=== PATIENT | female | born 1975 | race Caucasian/White ===

== ENCOUNTER → 2016-04-15 | Outpatient (REF) | payer MEDICARE, BC ==
[~2016-04-15] MED LIST: ADVI200C5 PO; AUGM875T27 PO; BENT10CA PO; BENT20TA PO; COCOOIL6 XX; DULO1CAP3 PO; FISH5CAP PO; FOLI1TAB2 PO; GABA600T PO; HYDR200T3 PO; LORT5TAB PO; LUPR11.22 IM; MAGN1TAB25 PO; METH2.5TA PO; MULT1TAB16 PO; NATU400T PO; PANT40TA2 PO; QUET5TAB PO; RIZA10TA2 PO; TIZA4CAP3 PO; TOPA100T8 PO; VITA-121 PO; VITA100T98 PO; ZONI100C2 PO
== END ==
LOC: M LAB REF 10:19
PROVIDERS: ATTEND Obstetrics & Gynecology
DX: R10.2 Pelvic and perineal pain (principal)

== ENCOUNTER → 2016-04-19 | Outpatient (CLI) | payer MEDICARE, BC ==
[~2016-04-19] MED LIST changes: +GASTROGRAFIN SOLUTION 30ML (Q9963) As Ordered ONE; +ISOVUE-370 76% 100ML VIAL (Q9967) As Ordered ONE
--- NOTE | 2016-04-19 18:56 | REP ---
CT abdomen pelvis without IV contrast and with IV contrast. Bowel contrast is used on both phases of the study. Without IV contrast the abdomen was scanned in the pelvis is excluded. With IV contrast of the abdomen and pelvis are included. There are no comparison studies. The patient's history of renal calculi, hysterectomy, umbilical hernia and inguinal hernia. The visualized lung hernadez are unremarkable. The hepatic parenchyma, gallbladder, pancreas and spleen are unremarkable on both phases of the study. The adrenals are unremarkable. There is a nonobstructive renal calculus in the lower pole of the left kidney measuring 11 by 5 mm. There are no right renal calculi. There are no ureteral calculi. There is no hydronephrosis. The abdominal aorta is unremarkable. There is no retroperitoneal adenopathy. There is no umbilical hernia. There is no inguinal hernia. There is no bowel distension. Mesentery is unremarkable. Pelvis: The appendix is unremarkable. The vaginal cuff and adnexa are unremarkable. The bladder is unremarkable. Pelvic bowel loops are unremarkable. There is no diverticulosis or diverticulitis. There are surgical clips in the left inguinal area. No ascites or adenopathy. Impression: Status post hysterectomy. The vaginal stump and adnexa are unremarkable. There are surgical clips in the left inguinal area suggesting a left inguinal herniorrhaphy. There is no umbilical hernia. No bowel distension. No ascites are adenopathy. There is a nonobstructive left renal calculus. No hydronephrosis on the right on the left. No bladder calculi. Signed by Mikal Joseph MD 04/19/2016 06:49 P
== END ==
LOC: M RAD 16:35
PROVIDERS: ATTEND Obstetrics & Gynecology
DX: R10.2 Pelvic and perineal pain (principal); N20.0 Calculus of kidney
CPT/HCPCS: 74178; Q9963; Q9967

== ENCOUNTER → 2016-04-27 | Outpatient (REF) | payer MEDICARE, BC ==
[~2016-04-27] MED LIST changes: -GASTROGRAFIN SOLUTION 30ML (Q9963) As Ordered ONE; -ISOVUE-370 76% 100ML VIAL (Q9967) As Ordered ONE
== END ==
LOC: M SFHCCLAY 09:36
PROVIDERS: ATTEND Family Medicine
DX: E78.00 Pure hypercholesterolemia, unspecified (principal); M54.9 Dorsalgia, unspecified

== ENCOUNTER → 2016-04-27 | Outpatient (REF) | payer MEDICARE, BC ==
[2016-04-27 12:58] LABS: BASO % 0.6 % (0.0-1.0); EOS # 0.1 K/mm3 (0.0-0.50); EOS % 2.4 % (0.0-3.0); LYMPH # 1.2 K/mm3 (1.5-4.5); LYMPH % 26.4 % (24.0-44.0); MEAN CORPUSCULAR HEMOGLOBIN 29.1 pg (27.0-33.0); MEAN CORPUSCULAR HGB CONC 33.7 g/dl (32.0-36.5); MEAN CORPUSCULAR VOLUME 86.4 fl (80.0-96.0); MONO # 0.3 K/mm3 (0.0-0.8); MONO % 6.4 % (0.0-5.0); NEUTROPHILS # 2.9 K/mm3 (1.8-7.7); NEUTROPHILS % 61.5 % (36.0-66.0); WHITE BLOOD COUNT 4.6 K/mm3 (4.0-10.0)
== END ==
LOC: M LABDRAWC 11:54
PROVIDERS: ATTEND Nurse Practitioner Family
DX: M45.9 Ankylosing spondylitis of unspecified sites in spine (principal)

== ENCOUNTER → 2016-05-31 | Outpatient (CLI) | payer MEDICARE, BC ==
[~2016-05-31] MED LIST changes: +BUPIVACAINE HCL 0.25% 30 ML VIAL As Ordered ONE; +ISOVUE-M 300 61% 15ML VIAL (Q9967) As Ordered ONE; +LIDOCAINE 1% SDV INJ 30 ML VIAL As Ordered ONE; +TRIAMCINOLONE ACETONIDE SUSP 40 MG/ML VIAL (J3301) As Ordered ONE; +diazePAM 5 MG TAB As Ordered ONE; +oxyCODONE 5MG TAB As Ordered ONE
--- NOTE | 2016-05-31 14:05 | REP ---
PARTIAL LUMBAR SPINE SERIES: Two views. HISTORY: Bilateral lumbar facet block for pain. 14 seconds of fluoroscopy time is reported. FINDINGS: A sequence of two fluoroscopically obtained intraprocedural spot radiographs of the lumbar spine document various needle positions and contrast injections associated with lumbar facet injection procedure. Signed by Christiano Whitehead MD 05/31/2016 03:18 P
--- NOTE | 2016-06-04 23:16 | ECWPNPC ---
PATIENT NAME: MARY BETH LU : 1975 GENDER: FEMALE VISIT DATE: 05/31/2016 DISCHARGE DATE: 05/31/16 1332 VISIT LOCKED DATE TIME: PHYSICIAN: CAIN COKER PHYSICIAN PAGER NO: [phone] RESOURCE: CAIN COKER REASON FOR APPOINTMENT 1. LUMBAR FACET HISTORY OF PRESENT ILLNESS HISTORY OF PRESENT ILLNESS: PAIN THE PATIENT DESCRIBES THE PAIN... FALL RISK SCREENING: SCREENING :NO FALLS IN THE PAST YEAR CURRENT MEDICATIONS TAKING HYDROXYCHLOROQUINE SULFATE 200 MG TABLET 2 TABLET WITH FOOD OR MILK ORALLY ONCE A DAY, NOTES: 05/31/16829 TAKING METHOTREXATE 2.5 MG TABLET 8 TABLETS ORALLY WEEKLY ON MONDAY, NOTES: 05/22/16 TAKING FOLIC ACID 1 MG TABLET 1 TABLET ORALLY ONCE A DAY, NOTES: TAKING PANTOPRAZOLE SODIUM 40 MG TABLET DELAYED RELEASE 1 TABLET ORALLY ONCE A DAY, NOTES: 05/31/16829 TAKING RIZATRIPTAN BENZOATE 10 MG TABLET 1 TABLET NEEDED ONE TIME ORALLY ONCE A DAY, NOTES: 05/31/16829 TAKING TIZANIDINE HCL 4 MG TABLET 1/2-1 TABLET NEEDED ORALLY BEFORE BEDTIME, NOTES: 05/30/162129 TAKING ZONISAMIDE 100 MG CAPSULE 1 CAPSULE ORALLY BID, NOTES: 05/31/16829 TAKING IMITREX 6 MG/0.5ML SOLUTION 0.5 ML NEEDED SUBCUTANEOUS AT ONSET OF HEADACHE DIRECTED, NOTES: > 1 WEEK TAKING MULTIVITAMIN , NOTES: 05/31/16829 TAKING VITAMIN D , NOTES: 05/31/16829 TAKING DULOXETINE HCL 60 MG CAPSULE DELAYED RELEASE PARTICLES 1 CAPSULE ORALLY ONCE A DAY, NOTES: 05/31/16829 TAKING GABAPENTIN 600 MG TABLET 1 CAPSULE ORALLY THREE TIMES A DAY, NOTES: 05/31/16829 NOT-TAKING METRONIDAZOLE 0.75 % GEL 1 APPLICATION TO AFFECTED AREA EXTERNALLY TWICE A DAY NOT-TAKING VALIUM 10 MG TABLET 1 TABLET ORALLY TAKE ONE TAB ON ARRIVAL TO CLINIC FOR PROCEDURE MDD=1, NOTES: TAKES BEFORE PROCEDURE NOT-TAKING PERCOCET 10-325 MG TABLET 1 TABLET ORALLY TAKE 1 TAB ON ARRIVAL TO CLINIC FOR PROCEDURE MDD=1, NOTES: TAKES BEFORE PROCEDURE NOT-TAKING ROZEREM 8 MG TABLET 1 TABLET AT BEDTIME NEEDED ORALLY QHS, PRN SLEEP NOT-TAKING SOOLANTRA 1 % CREAM 1 APPLICATION TO AFFECTED AREA EXTERNALLY ONCE A DAY NOT-TAKING HUMIRA PEN 40 MG/0.8ML PEN-INJECTOR KIT 0.8 ML SUBCUTANEOUS WEEKLY ON MONDAY, NOTES: WILL RESUME AFTER LABS CONFIRM SAFE MEDICATION LIST REVIEWED AND RECONCILED WITH THE PATIENT PAST MEDICAL HISTORY HEADACHE CHEST LEFT - LEFT VENTRICLE DOES NOT PUMP OUT FAST IT SHOULD AND HAS IRREGULAR HEART BEAT REFLUX KEKE-DANLOS SUSPECTED DUE TO BRUISES EASILY ARTHRITIS FIBROMYALGIA LOW BACK PAIN RA VS PSORIATIC ARTHRITIS BULGING DISC ALLERGIES N.K.D.A. SOCIAL HISTORY GENERAL: TOBACCO USE ARE YOU A:NONSMOKER LEARNING BARRIERS / SPECIAL NEEDS ORIENTED TO PLAN OF CARE: PATIENT, PAIN MANAGEMENT PATIENT, ORIENTED TO PLAN OF CARE: PATIENT, PAIN MANAGEMENT PATIENT. NEW PATIENT PAIN DIARY TODAY'S VISITNOTES FROM 0-10, WHAT LEVEL IS YOUR PAIN TODAY?0 PAIN CLINIC PFS, CLERGY, PUBLIC HEALTH REFERRALS PFS REFERRAL NEEDED?NO CLERGY REFERRAL NEEDED?NO PUBLIC HEALTH REFERRAL NEEDED?NO WAS THE PROVIDER NOTIFIED OF ANY PERTINENT INFO?NO PFS REFERRAL NEEDED?NO CLERGY REFERRAL NEEDED?NO PUBLIC HEALTH REFERRAL NEEDED?NO WAS THE PROVIDER NOTIFIED OF ANY PERTINENT INFO?NO REVIEW OF SYSTEMS CONSTITUTIONAL: ANY CHANGE IN YOUR MEDICAL CONDITION? YES HYSTERECTOMY 03/17/16 . CHILLS NO . FEVER NO . INFECTION: DO YOU HAVE NEW INFECTIONS? NO . DO YOU HAVE HISTORY OF MRSA? NO . MUSCULOSKELETAL: ANY NEW PATTERNS OF PAIN OR NUMBNESS? NO . GASTROENTEROLOGY: ANY NEW CHANGE IN BOWEL CONTROL? NO . GENITOURINARY: ANY NEW CHANGE IN BLADDER CONTROL? NO . IS THERE A CHANCE YOU COULD BE ? NO . HEMATOLOGY/LYMPH: DO YOU TAKE ANY BLOOD THINNERS? (FOR EXAMPLE- COUMADIN, PLAVIX, AGGRENOX, PLATEL, PRADAXA, OR XARELTO) NO . WHEN WAS YOUR LAST DOSE? DATE: TIME: . NEUROLOGY: HAVE YOU FALLEN IN THE PAST 6 MONTHS? NO . ANY NEW EXTREMITY NUMBNESS OR WEAKNESS? NO . CARDIOLOGY: DO YOU HAVE A PACEMAKER OR DEFIBRILLATOR? NO . RESPIRATORY: HAVE YOU BEEN SICK IN THE PAST WEEK? NO . FEVER NO . FLU LIKE SYMPTOMS? NO . COUGH NO . INTEGUMENTARY: DO YOU HAVE ANY RASHES OR OPEN SORES? NO . ALLERGIC/IMMUNO: ARE YOU ALLERGIC TO SHELLFISH OR IV DYE? NO . ANY NEW ALLERGIES? NO . PSYCHIATRIC: DO YOU HAVE THOUGHTS OF HURTING YOURSELF OR SOMEONE ELSE? NO . ARE YOU ABUSED, NEGLECTED, OR IN AN UNSAFE ENVIRONMENT? NO . ENDOCRINOLOGY: ARE YOU DIABETIC? NO . OTHER: DO YOU NEED ANY PRESCRIPTIONS? NO . IF YES, PLEASE LIST: ____ . ANY NEW PROBLEMS WITH YOUR MEDICATIONS? NO . WHEN DID YOU LAST EAT? ____05/30/16 2130 . WHEN DID YOU LAST DRINK? ____05/31/16 0830 . WHAT DID YOU LAST DRINK? ____WATER . NAME OF PERSON DRIVING YOU HOME? ____SHANNON . DO YOU HAVE ANY OTHER QUESTIONS OR CONCERNS NO . REVIEWED BY: PROVIDER: . VITAL SIGNS WT 176.2 LBS, HT 67 IN, BMI 27.59 INDEX, BP 116.76 MM HG, HR 60 /MIN, RR 20 /MIN, TEMP 97.9 F, OXYGEN SAT % 98, SAFE IN ENV? (Y/N) YES, NA INITIALS [id number], REVIEWED BY: NARGIS. ASSESSMENTS SPONDYLOSIS WITHOUT MYELOPATHY OR RADICULOPATHY, LUMBAR REGION - M47.816 (PRIMARY) SPONDYLOSIS WITHOUT MYELOPATHY OR RADICULOPATHY, LUMBOSACRAL REGION - M47.817 PROCEDURES PN LUMBAR FACET BLOCK THERAPEUTIC PRE PROCEDURE DIAGNOSIS LUMBAR SPONDYLOSIS, LUMBOSACRAL SPONDYLOSIS POST PROCEDURE DIAGNOSIS LUMBAR SPONDYLOSIS, LUMBOSACRAL SPONDYLOSIS PROCEDURE RIGHT L4-L5 AND RIGHT L5-S1 LUMBAR FACET THERAPEUTIC BLOCK SURGEON DR. CAIN COKER REFINING ENGINEER NONE ANESTHESIA LOCAL PRE PROCEDURE NOTE THE PATIENT HAS A HISTORY OF CHRONIC LOW BACK PAIN. I EVALUATE THE PATIENT AND REVIEWED THE CHART. I WENT OVER THE RISKS, ALTERNATIVES, AND BENEFITS ASSOCIATED WITH THIS PROCEDURE. THE PATIENT WOULD LIKE TO PROCEED AND GIVE CONSENT TO PERFORMED THE PROCEDURE. THE PATIENT DENIES UNEXPLAINABLE WEIGHT LOSS, FEVER, CHILLS, OR NEW CHANGES IN URINARY OR BOWEL CONTROL DESCRIPTION OF PROCEDURE THE PATIENT WAS BROUGHT TO THE PROCEDURE ROOM AND PLACED IN THE PRONE POSITION. THE LUMBOSACRAL AREA WAS CLEANED WITH CHLORAPREP SOLUTION AND DRAPED ASEPTICALLY. THE PROCEDURE WAS DONE UNDER STERILE CONDITIONS. I CHECKED LATERALITY AND THE LEVEL WHERE THE PROCEDURE WAS GOING TO BE PERFORMED WITH THE PATIENT AND THE SUPPORTING STAFF AT THE MOMENT OF THE TIME OUT IN THE PROCEDURE ROOM. UNDER FLUOROSCOPIC GUIDANCE, THE TARGET POINT WAS SELECTED AT THE RIGHT L4-L5 AND RIGHT L5-S1 FACET JOINT. TARGET POINT WAS SELECTED AFTER LATERAL ROTATION AND TILT OF THE MAGNIFIER OF THE C-ARM. LIDOCAINE 0.5% WAS USED TO NUMB THE SKIN AND THE SUBCUTANEOUS TISSUE BELOW IT. SPINAL NEEDLES, 22-GAUGE, WERE ADVANCED UNDER FLUOROSCOPIC GUIDANCE AND FOLLOWING PATIENT FEEDBACK UNTIL THE TARGETS WERE TOUCHED. THE POSITION OF THE NEEDLES WAS VERIFIED WITH AP AND LATERAL VIEWS. AFTER PROPER POSITION OF THE NEEDLES WAS ACHIEVED, ISOVUE-M DYE 30% 0.1 ML WAS INJECTED SHOWING ADEQUATE SPREAD OF THE DYE. THEN A SOLUTION OF 1.9 ML OF BUPIVACAINE 0.125% OF KENALOG 10 MG WAS INJECTED AT EACH SITE. THERE WAS NO EVIDENCE OF BLOOD, PARESTHESIA OR CEREBROSPINAL FLUID DURING THE PROCEDURE. THE PATIENT WAS SENT TO THE RECOVERY ROOM. THE PATIENT WAS MOVING THE EXTREMITIES AND DOING WELL. THERE WAS NO COMPLICATION DURING THE PROCEDURE. FLUOROSCOPY TIME WAS 14 SECONDS POST PROCEDURE NOTE THE PATIENT WILL BE SEEN IN A FOLLOW UP IN THE NEXT FEW WEEKS. INSTRUCTIONS WERE GIVEN, QUESTIONS WERE ANSWERED, AND THE PATIENT EXPRESSED UNDERSTANDING AND AGREES WITH THE PLAN. I, KAILASH MCKEON, DOCUMENTED THE ABOVE INFORMATION ACTING A SCRIBE FOR DR. COKER. I, DR. COKER, HAVE REVIEWED THE ABOVE DOCUMENT, SCRIBED BY KAILASH MCKEON, AND I VERIFY THAT IT IS ACCURATE DIAGNOSTIC IMAGING [facility] FACET BLOCK (PAIN)[id number] PROCEDURE CODES 55121 INJ PARAVERT F JNT L/S 1 LEV 23535 INJ PARAVERT F JNT L/S 2 LEV 6045F RADXPS IN END [id number] PXD DISPOSITION & COMMUNICATION FOLLOW UP 3 WEEKS ELECTRONICALLY SIGNED BY CAIN COKER MD ON 06/04/2016 AT 09:16 PM EDT DISCLAIMER : THIS IS A VISIT SUMMARY EXTRACTED FROM THE [employer] CHART. IT IS NOT A COPY OF THE [employer] PROGRESS NOTE. MTDD
== END ==
LOC: M PAIN 11:40
PROVIDERS: ATTEND Anesthesiology
DX: G89.29 Other chronic pain (principal); M47.816 Spondylosis without myelopathy or radiculopathy, lumbar region; M47.817 Spondylosis without myelopathy or radiculopathy, lumbosacral region; I49.9 Cardiac arrhythmia, unspecified; K21.9 Gastro-esophageal reflux disease without esophagitis; M79.7 Fibromyalgia; M54.5 Low back pain; Z79.899 Other long term (current) drug therapy
CPT/HCPCS: 64493; 64494; J3301; Q9967

== ENCOUNTER → 2016-06-13 | Outpatient (REF) | payer MEDICARE, BC ==
[~2016-06-13] MED LIST changes: -BUPIVACAINE HCL 0.25% 30 ML VIAL As Ordered ONE; -ISOVUE-M 300 61% 15ML VIAL (Q9967) As Ordered ONE; -LIDOCAINE 1% SDV INJ 30 ML VIAL As Ordered ONE; -TRIAMCINOLONE ACETONIDE SUSP 40 MG/ML VIAL (J3301) As Ordered ONE; -diazePAM 5 MG TAB As Ordered ONE; -oxyCODONE 5MG TAB As Ordered ONE
[2016-06-13 17:11] LABS: BASO % 0.4 % (0.0-1.0); EOS # 0.1 K/mm3 (0.0-0.50); EOS % 2.2 % (0.0-3.0); LYMPH # 1.2 K/mm3 (1.5-4.5); LYMPH % 26.1 % (24.0-44.0); MEAN CORPUSCULAR HEMOGLOBIN 30.1 pg (27.0-33.0); MEAN CORPUSCULAR HGB CONC 34.6 g/dl (32.0-36.5); MEAN CORPUSCULAR VOLUME 86.9 fl (80.0-96.0); MONO # 0.4 K/mm3 (0.0-0.8); MONO % 8.5 % (0.0-5.0); NEUTROPHILS # 2.9 K/mm3 (1.8-7.7); NEUTROPHILS % 60.7 % (36.0-66.0); RED CELL DISTRIBUTION WIDTH 13.1 % (11.5-14.5); WHITE BLOOD COUNT 4.7 K/mm3 (4.0-10.0)
[2016-06-13 17:52] LABS: ALBUMIN 4.1 GM/DL (3.2-5.2); ALBUMIN/GLOBULIN RATIO 1.64 (1.00-1.93); ALKALINE PHOSPHATASE 53 U/L (45-117); ALT/SGPT 29 U/L (12-78); ANION GAP 8 MEQ/L (8-16); AST/SGOT 17 U/L (15-37); BILIRUBIN,TOTAL 0.4 MG/DL (0.2-1.0); BLOOD UREA NITROGEN 9 MG/DL (7-18); CALCIUM LEVEL 9.7 MG/DL (8.5-10.1); CARBON DIOXIDE LEVEL 27 MEQ/L (21-32); CHLORIDE LEVEL 106 MEQ/L (98-107); CREATININE FOR GFR 0.98 MG/DL (0.55-1.02); GLOMERULAR FILTRATION RATE > 60.0 (>58); GLUCOSE, FASTING 83 MG/DL (70-105); POTASSIUM SERUM 3.9 MEQ/L (3.5-5.1); SODIUM LEVEL 141 MEQ/L (136-145); TOTAL PROTEIN 6.6 GM/DL (6.4-8.2)
== END ==
LOC: M LABDRAWC 16:25
PROVIDERS: ATTEND Nurse Practitioner Family
DX: M45.9 Ankylosing spondylitis of unspecified sites in spine (principal)

== ENCOUNTER → 2016-07-13 | Outpatient (CLI) | payer MEDICARE, BC ==
[~2016-07-13] MED LIST changes: +BUPIVACAINE HCL 0.25% 30 ML VIAL As Ordered ONE; +ISOVUE-M 300 61% 15ML VIAL (Q9967) As Ordered ONE; +LIDOCAINE 1% SDV INJ 30 ML VIAL As Ordered ONE; +MIDAZOLAM INJ 2 MG/2 ML VIAL (J2250) As Ordered ONE; +TRIAMCINOLONE ACETONIDE SUSP 40 MG/ML VIAL (J3301) As Ordered ONE; +fentaNYL 100 MCG/2 ML INJECTION (J3010) As Ordered ONE
--- NOTE | 2016-07-13 17:36 | REP ---
FACET BLOCK: The images were reviewed with Dr. Barrett. The patient has a history of neck pain. The portable C-Arm was provided in the OR for Dr. Merrill for fluoroscopic guidance. Two intraoperative fluoro spot films were obtained for needle placement verification for right cervical facet injection. The films are on the PACs system and are available for review. 19 seconds of fluoroscopy time was utilized for this procedure. Reviewed by ROSLYN Whelan 07/14/2016 04:56 PEdited and Signed by Mikal Barrett MD 07/14/2016 05:01 P
--- NOTE | 2016-07-17 23:58 | ECWPNPC ---
PATIENT NAME: MARY BETH LU : 1975 GENDER: FEMALE VISIT DATE: 07/13/2016 DISCHARGE DATE: 07/13/16 1111 VISIT LOCKED DATE TIME: PHYSICIAN: CAIN COKER PHYSICIAN PAGER NO: [phone] RESOURCE: CAIN COKER REASON FOR APPOINTMENT 1. CERVICAL FACET HISTORY OF PRESENT ILLNESS HISTORY OF PRESENT ILLNESS: PAIN THE PATIENT DESCRIBES THE PAIN... FALL RISK SCREENING: SCREENING :NO FALLS IN THE PAST YEAR CURRENT MEDICATIONS TAKING HYDROXYCHLOROQUINE SULFATE 200 MG TABLET 2 TABLET WITH FOOD OR MILK ORALLY ONCE A DAY, NOTES: 07-12-16799 TAKING METHOTREXATE 2.5 MG TABLET 8 TABLETS ORALLY WEEKLY ON MONDAY, NOTES: 06-29-16799 TAKING FOLIC ACID 1 MG TABLET 1 TABLET ORALLY ONCE A DAY, NOTES: 07-13-16699 TAKING PANTOPRAZOLE SODIUM 40 MG TABLET DELAYED RELEASE 1 TABLET ORALLY ONCE A DAY, NOTES: 07-13-16699 TAKING RIZATRIPTAN BENZOATE 10 MG TABLET 1 TABLET NEEDED ONE TIME ORALLY ONCE A DAY, NOTES: 07-13-16699 TAKING TIZANIDINE HCL 4 MG TABLET 1/2-1 TABLET NEEDED ORALLY BEFORE BEDTIME, NOTES: 07-12-162099 TAKING ZONISAMIDE 100 MG CAPSULE 1 CAPSULE ORALLY BID, NOTES: 07-13-16699 TAKING IMITREX 6 MG/0.5ML SOLUTION 0.5 ML NEEDED SUBCUTANEOUS AT ONSET OF HEADACHE DIRECTED, NOTES: NONE TAKING MULTIVITAMIN 1 TAB DAILY, NOTES: 07-13-16699 TAKING VITAMIN D 1000 UNIT TABLET 1 TABLET ORALLY ONCE A DAY, NOTES: 07-13-16699 TAKING DULOXETINE HCL 60 MG CAPSULE DELAYED RELEASE PARTICLES 1 CAPSULE ORALLY ONCE A DAY, NOTES: 07-13-16699 TAKING GABAPENTIN 600 MG TABLET 1 CAPSULE ORALLY THREE TIMES A DAY, NOTES: 07-13-16699 TAKING HUMIRA 40 MG/0.8ML PREFILLED SYRINGE KIT 0.8 ML SUBCUTANEOUS EVERY 2 WKS, NOTES: 06-22-162099 TAKING AUGMENTIN 875-125 MG TABLET 1 TABLET ORALLY EVERY 12 HRS, NOTES: 07-13-16699 TAKING DIFLUCAN 150 MG TABLET 1 TABLET ORALLY DIRECTED, NOTES: NONE YET DISCONTINUED VALIUM 10 MG TABLET 1 TABLET ORALLY TAKE ONE TAB ON ARRIVAL TO CLINIC FOR PROCEDURE MDD=1 DISCONTINUED PERCOCET 10-325 MG TABLET 1 TABLET ORALLY TAKE 1 TAB ON ARRIVAL TO CLINIC FOR PROCEDURE MDD=1 DISCONTINUED ROZEREM 8 MG TABLET 1 TABLET AT BEDTIME NEEDED ORALLY QHS, PRN SLEEP, NOTES: NEVER GOT MEDICATION LIST REVIEWED AND RECONCILED WITH THE PATIENT PAST MEDICAL HISTORY HEADACHE CHEST LEFT - LEFT VENTRICLE DOES NOT PUMP OUT FAST IT SHOULD AND HAS IRREGULAR HEART BEAT REFLUX KEKE-DANLOS SUSPECTED DUE TO BRUISES EASILY ARTHRITIS FIBROMYALGIA LOW BACK PAIN RA VS PSORIATIC ARTHRITIS BULGING DISC ALLERGIES N.K.D.A. SURGICAL HISTORY RIGHT AND LEFT CYSTS REMOVED FROM WRISTS LEFT OVARIAN CYSTECTOMY 1990 RIGHT INGUINAL HERNIA LEFT KNEE ACL REPAIR 1992 LEFT KNEE MENSUS REPAIR 2003 TONSILLECTOMY ABDOMINAL HERNIA REPAIR MIDLINE HYSTERECTOMY 03/17/16 SOCIAL HISTORY GENERAL: PAIN CLINIC PFS, CLERGY, PUBLIC HEALTH REFERRALS CLERGY REFERRAL NEEDED?NO WAS THE PROVIDER NOTIFIED OF ANY PERTINENT INFO?NO PFS REFERRAL NEEDED?NO PUBLIC HEALTH REFERRAL NEEDED?NO PATIENT: ____. HOSPITALIZATION/MAJOR DIAGNOSTIC PROCEDURE SURGERIES REVIEW OF SYSTEMS CONSTITUTIONAL: ANY CHANGE IN YOUR MEDICAL CONDITION? NO . CHILLS NO . FEVER NO . INFECTION: DO YOU HAVE NEW INFECTIONS? YES, SINUS INFECTION LAST WEEK . DO YOU HAVE HISTORY OF MRSA? NO . MUSCULOSKELETAL: ANY NEW PATTERNS OF PAIN OR NUMBNESS? NO . GASTROENTEROLOGY: ANY NEW CHANGE IN BOWEL CONTROL? NO . GENITOURINARY: ANY NEW CHANGE IN BLADDER CONTROL? NO . IS THERE A CHANCE YOU COULD BE ? NO . HEMATOLOGY/LYMPH: DO YOU TAKE ANY BLOOD THINNERS? (FOR EXAMPLE- COUMADIN, PLAVIX, AGGRENOX, PLATEL, PRADAXA, OR XARELTO) NO . WHEN WAS YOUR LAST DOSE? DATE: TIME: . NEUROLOGY: HAVE YOU FALLEN IN THE PAST 6 MONTHS? NO . ANY NEW EXTREMITY NUMBNESS OR WEAKNESS? NO . CARDIOLOGY: DO YOU HAVE A PACEMAKER OR DEFIBRILLATOR? NO . RESPIRATORY: HAVE YOU BEEN SICK IN THE PAST WEEK? YES, 6 DAYS, BEEN ON AUGMENTIN FEELS MUCH BETTER . FEVER NO . FLU LIKE SYMPTOMS? NO . COUGH NO . INTEGUMENTARY: DO YOU HAVE ANY RASHES OR OPEN SORES? NO . ALLERGIC/IMMUNO: ARE YOU ALLERGIC TO SHELLFISH OR IV DYE? NO . ANY NEW ALLERGIES? NO . PSYCHIATRIC: DO YOU HAVE THOUGHTS OF HURTING YOURSELF OR SOMEONE ELSE? NO . ARE YOU ABUSED, NEGLECTED, OR IN AN UNSAFE ENVIRONMENT? NO . ENDOCRINOLOGY: ARE YOU DIABETIC? NO . OTHER: DO YOU NEED ANY PRESCRIPTIONS? NO . IF YES, PLEASE LIST: ____ . ANY NEW PROBLEMS WITH YOUR MEDICATIONS? NO . WHEN DID YOU LAST EAT? 07-12-16 8:30 PM . WHEN DID YOU LAST DRINK? 07-13-16 0700 . WHAT DID YOU LAST DRINK? WATER . NAME OF PERSON DRIVING YOU HOME? MICHAEL TABITHA . DO YOU HAVE ANY OTHER QUESTIONS OR CONCERNS NO . REVIEWED BY: PROVIDER: . VITAL SIGNS WT 173 LBS, HT 67 IN, BMI 27.09 INDEX, BP 117/65 MM HG, HR 77 /MIN, RR 16 /MIN, TEMP 98.1 F, OXYGEN SAT % 97%, NA INITIALS SC 08:56, REVIEWED BY: NL. ASSESSMENTS SPONDYLOSIS WITHOUT MYELOPATHY OR RADICULOPATHY, CERVICAL REGION - M47.812 (PRIMARY) PROCEDURES PN CERVICAL FACET BLOCK LOW BILATERAL CERVICAL PRE PROCEDURE DIAGNOSIS CERVICAL SPONDYLOSIS POST PROCEDURE DIAGNOSIS CERVICAL SPONDYLOSIS PROCEDURE RIGHT C3-C4 AND RIGHT C3-C4 CERVICAL FACET BLOCK THERAPEUTIC SURGEON DR. CAIN COKER TRUCK BRACER NONE ANESTHESIA LOCAL WITH IV SEDATION PRE PROCEDURE NOTE THE PATIENT HAS HISTORY OF CHRONIC CERVICAL PAIN. I EVALUATE THE PATIENT AND REVIEWED THE CHART. I WENT OVER THE RISKS, ALTERNATIVES, AND BENEFITS ASSOCIATED WITH THIS PROCEDURE. THE PATIENT WOULD LIKE TO PROCEED AND GIVE CONSENT TO PERFORMED THE PROCEDURE. PATIENT WOULD LIKE IV SEDATION DUE TO DISCOMFORT, PAIN, AND ANXIETY ASSOCIATED WITH THE PROCEDURE. THE PATIENT DENIES UNEXPLAINABLE WEIGHT LOSS, FEVER, CHILLS, OR NEW CHANGES IN URINARY OR BOWEL CONTROL DESCRIPTION OF PROCEDURE THE PATIENT WAS BROUGHT TO THE PROCEDURE ROOM AND PLACED IN THE PRONE POSITION. THE CERVICOTHORACIC AREA WAS CLEANED WITH CHLORAPREP SOLUTION AND DRAPED ASEPTICALLY. THE PROCEDURE WAS DONE UNDER STERILE CONDITIONS. I CHECKED LATERALITY AND THE LEVEL WHERE THE PROCEDURE WAS GOING TO BE PERFORMED WITH THE PATIENT AND THE SUPPORTING STAFF AT THE MOMENT OF THE TIME OUT IN THE PROCEDURE ROOM. UNDER FLUOROSCOPIC GUIDANCE, TARGET POINT WAS SELECTED AT THE RIGHT C2-C3 AND RIGHT C3-C4 CERVICAL FACET JOINT. TARGET POINTS WERE SELECTED AFTER LATERAL ROTATION AND TILT OF THE MAGNIFIER OF THE C-ARM. LIDOCAINE 0.5% WAS USED TO NUMB THE SKIN AND THE SUBCUTANEOUS TISSUE BELOW IT. SPINAL NEEDLES, 22-GAUGE, WERE ADVANCED UNDER FLUOROSCOPIC GUIDANCE AND FOLLOWING PATIENT FEEDBACK UNTIL THE TARGETS WERE TOUCHED. THE POSITION OF THE NEEDLES WAS VERIFIED WITH AP AND LATERAL VIEWS. AFTER PROPER POSITION OF THE NEEDLES WAS ACHIEVED, ISOVUE M DYE 30, 0.1 ML WAS INJECTED SHOWING SPREAD OF THE DYE. THEN A SOLUTION OF 0.9 ML OF BUPIVACAINE 0.125% AND KENALOG 10 MG WAS INJECTED AT EACH SITE. PATIENT RECEIVED VERSED 2MG AND FENTANYL 100 MCG IV DIVIDED DOSES THERE WAS NO EVIDENCE OF BLOOD, PARESTHESIA OR CEREBROSPINAL FLUID DURING THE PROCEDURE. THE PATIENT WAS SENT TO THE RECOVERY ROOM. THE PATIENT WAS MOVING THE EXTREMITIES AND DOING WELL. THERE WAS NO COMPLICATION DURING THE PROCEDURE. FLUOROSCOPY TIME WAS 19 SECONDS. FACE TO FACE TIME WAS 15 MINUTES POST PROCEDURE NOTE THE PATIENT WILL BE SEEN IN A FOLLOW UP IN THE NEXT FEW WEEKS. INSTRUCTIONS WERE GIVEN, QUESTIONS WERE ANSWERED, AND THE PATIENT EXPRESSED UNDERSTANDING AND AGREES WITH THE PLAN. INSTRUCTIONS WERE GIVEN, QUESTIONS WERE ANSWERED, PATIENT REPORTS UNDERSTANDING AND AGREES WITH THE PLAN. I, KAILASH MCKEON, DOCUMENTED THE ABOVE INFORMATION ACTING A SCRIBE FOR DR. COKER. I HAVE REVIEWED THE ABOVE DOCUMENT, WRITTEN BY KAILASH MCKEON SCRIBE AND I VERIFY THAT IT IS ACCURATE DIAGNOSTIC IMAGING [facility] FACET BLOCK (PAIN)[id number] PROCEDURE CODES 96968 INJ PARAVERT F JNT C/T 1 LEV 43499 INJ PARAVERT F JNT C/T 2 LEV 47607 MOD SED SAME PHYS/QHP 5/>YRS 6045F RADXPS IN END [id number] PXD DISPOSITION & COMMUNICATION FOLLOW UP 3 WEEKS ELECTRONICALLY SIGNED BY CAIN COKER MD ON 07/17/2016 AT 12:24 PM EDT DISCLAIMER : THIS IS A VISIT SUMMARY EXTRACTED FROM THE [employer] CHART. IT IS NOT A COPY OF THE [employer] PROGRESS NOTE. MTDD
== END ==
LOC: M PAIN 08:40
PROVIDERS: ATTEND Anesthesiology
DX: G89.29 Other chronic pain (principal); M47.812 Spondylosis without myelopathy or radiculopathy, cervical region; K21.9 Gastro-esophageal reflux disease without esophagitis; M19.90 Unspecified osteoarthritis, unspecified site; M79.7 Fibromyalgia; I51.9 Heart disease, unspecified; Z79.899 Other long term (current) drug therapy
CPT/HCPCS: 64490; 64491; 99152; J2250; J3010; J3301; Q9967

== ENCOUNTER → 2016-07-15 | Outpatient (REF) | payer MEDICARE, BC ==
[~2016-07-15] MED LIST changes: -BUPIVACAINE HCL 0.25% 30 ML VIAL As Ordered ONE; -ISOVUE-M 300 61% 15ML VIAL (Q9967) As Ordered ONE; -LIDOCAINE 1% SDV INJ 30 ML VIAL As Ordered ONE; -MIDAZOLAM INJ 2 MG/2 ML VIAL (J2250) As Ordered ONE; -TRIAMCINOLONE ACETONIDE SUSP 40 MG/ML VIAL (J3301) As Ordered ONE; -fentaNYL 100 MCG/2 ML INJECTION (J3010) As Ordered ONE
[2016-07-15 12:15] LABS: BASO % 0.5 % (0.0-1.0); EOS % 0.5 % (0.0-3.0); LYMPH # 1.6 K/mm3 (1.5-4.5); LYMPH % 25.4 % (24.0-44.0); MEAN CORPUSCULAR HEMOGLOBIN 30.4 pg (27.0-33.0); MEAN CORPUSCULAR VOLUME 89.5 fl (80.0-96.0); MONO # 0.4 K/mm3 (0.0-0.8); MONO % 6.4 % (0.0-5.0); NEUTROPHILS # 4.2 K/mm3 (1.8-7.7); NEUTROPHILS % 65.4 % (36.0-66.0); RED CELL DISTRIBUTION WIDTH 13.3 % (11.5-14.5); WHITE BLOOD COUNT 6.4 K/mm3 (4.0-10.0)
[2016-07-15 12:29] LABS: ALBUMIN/GLOBULIN RATIO 1.43 (1.00-1.93); ALKALINE PHOSPHATASE 53 U/L (45-117); ALT/SGPT 39 U/L (12-78); ANION GAP 8 MEQ/L (8-16); AST/SGOT 26 U/L (15-37); BILIRUBIN,TOTAL 0.5 MG/DL (0.2-1.0); BLOOD UREA NITROGEN 16 MG/DL (7-18); CALCIUM LEVEL 8.8 MG/DL (8.5-10.1); CARBON DIOXIDE LEVEL 25 MEQ/L (21-32); CHLORIDE LEVEL 108 MEQ/L (98-107); CREATININE FOR GFR 1.03 MG/DL (0.55-1.02); GLOMERULAR FILTRATION RATE > 60.0 (>58); GLUCOSE, FASTING 85 MG/DL (70-105); POTASSIUM SERUM 3.8 MEQ/L (3.5-5.1); SODIUM LEVEL 141 MEQ/L (136-145); TOTAL PROTEIN 6.8 GM/DL (6.4-8.2)
== END ==
LOC: M LABDRAWC 11:28
PROVIDERS: ATTEND Nurse Practitioner Family
DX: M45.9 Ankylosing spondylitis of unspecified sites in spine (principal); Z79.899 Other long term (current) drug therapy; N20.0 Calculus of kidney; N39.0 Urinary tract infection, site not specified

== ENCOUNTER → 2016-07-15 | Outpatient (REF) | payer MEDICARE, BC | LOC: M LABDRAWC 11:26 → M SFHCCLAY 11:26 | PROVIDERS: ATTEND Urology | DX: N20.0 Calculus of kidney (principal); N39.0 Urinary tract infection, site not specified ==

== ENCOUNTER → 2016-08-02 | Outpatient (CLI) | payer MEDICARE, BC ==
[~2016-08-02] MED LIST changes: +BUPIVACAINE HCL 0.25% 30 ML VIAL As Ordered ONE; +ISOVUE-M 300 61% 15ML VIAL (Q9967) As Ordered ONE; +LIDOCAINE 1% SDV INJ 30 ML VIAL As Ordered ONE
--- NOTE | 2016-08-02 12:14 | REP ---
Partial lumbar spine series: Four views. History: Facet block for pain. 26 seconds of fluoroscopy time is reported. Findings: A sequence of four fluoroscopically obtained intraprocedural spot radiographs of the lumbar spine document various needle positions and contrast injections associated with lumbar spine facet injection procedure. Signed by Christiano Whitehead MD 08/02/2016 12:27 P
--- NOTE | 2016-08-12 00:29 | ECWPNPC ---
PATIENT NAME: MARY BETH LU : 1975 GENDER: FEMALE VISIT DATE: 08/02/2016 DISCHARGE DATE: 08/02/16 1033 VISIT LOCKED DATE TIME: PHYSICIAN: CAIN COKER PHYSICIAN PAGER NO: [phone] RESOURCE: CAIN COKER REASON FOR APPOINTMENT 1. LUMBAR FACET HISTORY OF PRESENT ILLNESS HISTORY OF PRESENT ILLNESS: PAIN THE PATIENT DESCRIBES THE PAIN... FALL RISK SCREENING: SCREENING :NO FALLS IN THE PAST YEAR CURRENT MEDICATIONS TAKING HYDROXYCHLOROQUINE SULFATE 200 MG TABLET 2 TABLET WITH FOOD OR MILK ORALLY ONCE A DAY, NOTES: 0800 YESTERDYA TAKING METHOTREXATE 2.5 MG TABLET 8 TABLETS ORALLY WEEKLY ON MONDAY, NOTES: LAST Mon EVENING TAKING FOLIC ACID 1 MG TABLET 1 TABLET ORALLY ONCE A DAY, NOTES: 0700 08/02/16 TAKING PANTOPRAZOLE SODIUM 40 MG TABLET DELAYED RELEASE 1 TABLET ORALLY ONCE A DAY, NOTES: 8PM YESTERDAY TAKING RIZATRIPTAN BENZOATE 10 MG TABLET 1 TABLET NEEDED ONE TIME ORALLY ONCE A DAY, NOTES: AWHILE TAKING TIZANIDINE HCL 4 MG TABLET 1/2-1 TABLET NEEDED ORALLY BEFORE BEDTIME, NOTES: 8PM YESTERDAY TAKING ZONISAMIDE 100 MG CAPSULE 1 CAPSULE ORALLY BID, NOTES: 0700 TODAY TAKING IMITREX 6 MG/0.5ML SOLUTION 0.5 ML NEEDED SUBCUTANEOUS AT ONSET OF HEADACHE DIRECTED, NOTES: NONE TAKING MULTIVITAMIN 1 TAB DAILY, NOTES: 0700 TODAY TAKING VITAMIN D 1000 UNIT TABLET 1 TABLET ORALLY ONCE A DAY, NOTES: 0700 TODAY TAKING DULOXETINE HCL 60 MG CAPSULE DELAYED RELEASE PARTICLES 1 CAPSULE ORALLY ONCE A DAY, NOTES: 0700 TODAY TAKING GABAPENTIN 600 MG TABLET 1 CAPSULE ORALLY THREE TIMES A DAY, NOTES: 0700 TODAY TAKING HUMIRA 40 MG/0.8ML PREFILLED SYRINGE KIT 0.8 ML SUBCUTANEOUS EVERY 2 WKS, NOTES: 3 WEEKS NOT-TAKING AUGMENTIN 875-125 MG TABLET 1 TABLET ORALLY EVERY 12 HRS NOT-TAKING DIFLUCAN 150 MG TABLET 1 TABLET ORALLY DIRECTED, NOTES: NONE YET MEDICATION LIST REVIEWED AND RECONCILED WITH THE PATIENT PAST MEDICAL HISTORY HEADACHE CHEST LEFT - LEFT VENTRICLE DOES NOT PUMP OUT FAST IT SHOULD AND HAS IRREGULAR HEART BEAT REFLUX KEKE-DANLOS SUSPECTED DUE TO BRUISES EASILY ARTHRITIS FIBROMYALGIA LOW BACK PAIN RA VS PSORIATIC ARTHRITIS BULGING DISC ALLERGIES N.K.D.A. REVIEW OF SYSTEMS CONSTITUTIONAL: ANY CHANGE IN YOUR MEDICAL CONDITION? NO . CHILLS NO . FEVER NO . INFECTION: DO YOU HAVE NEW INFECTIONS? NO . DO YOU HAVE HISTORY OF MRSA? NO . MUSCULOSKELETAL: ANY NEW PATTERNS OF PAIN OR NUMBNESS? YES, TINGLING ON TOP OF FEET . GASTROENTEROLOGY: ANY NEW CHANGE IN BOWEL CONTROL? NO . GENITOURINARY: ANY NEW CHANGE IN BLADDER CONTROL? NO . IS THERE A CHANCE YOU COULD BE ? NO . HEMATOLOGY/LYMPH: DO YOU TAKE ANY BLOOD THINNERS? (FOR EXAMPLE- COUMADIN, PLAVIX, AGGRENOX, PLATEL, PRADAXA, OR XARELTO) NO . WHEN WAS YOUR LAST DOSE? DATE: TIME: . NEUROLOGY: HAVE YOU FALLEN IN THE PAST 6 MONTHS? NO . ANY NEW EXTREMITY NUMBNESS OR WEAKNESS? NO . CARDIOLOGY: DO YOU HAVE A PACEMAKER OR DEFIBRILLATOR? NO . RESPIRATORY: HAVE YOU BEEN SICK IN THE PAST WEEK? NO . FEVER NO . FLU LIKE SYMPTOMS? NO . COUGH NO . INTEGUMENTARY: DO YOU HAVE ANY RASHES OR OPEN SORES? NO . ALLERGIC/IMMUNO: ARE YOU ALLERGIC TO SHELLFISH OR IV DYE? NO . ANY NEW ALLERGIES? NO . PSYCHIATRIC: DO YOU HAVE THOUGHTS OF HURTING YOURSELF OR SOMEONE ELSE? NO . ARE YOU ABUSED, NEGLECTED, OR IN AN UNSAFE ENVIRONMENT? NO . ENDOCRINOLOGY: ARE YOU DIABETIC? NO . OTHER: DO YOU NEED ANY PRESCRIPTIONS? NO . IF YES, PLEASE LIST: ____ . ANY NEW PROBLEMS WITH YOUR MEDICATIONS? NO . WHEN DID YOU LAST EAT? 7PM . WHEN DID YOU LAST DRINK? 7AM . WHAT DID YOU LAST DRINK? WATER . NAME OF PERSON DRIVING YOU HOME? MICHAEL . DO YOU HAVE ANY OTHER QUESTIONS OR CONCERNS NO . REVIEWED BY: PROVIDER: . VITAL SIGNS WT 175.0 LBS, HT 67 IN, BMI 27.41 INDEX, BP 125/80 MM HG, HR 76 /MIN, RR 16 /MIN, TEMP 97.1 F, OXYGEN SAT % 98%, NA INITIALS TL 0911, REVIEWED BY: NL. ASSESSMENTS SPONDYLOSIS WITHOUT MYELOPATHY OR RADICULOPATHY, LUMBAR REGION - M47.816 (PRIMARY) SPONDYLOSIS WITHOUT MYELOPATHY OR RADICULOPATHY, LUMBOSACRAL REGION - M47.817 PROCEDURES PN LUMBAR FACET BLOCK DIAGNOSTIC PRE PROCEDURE DIAGNOSIS LUMBAR SPONDYLOSIS, LUMBOSACRAL SPONDYLOSIS POST PROCEDURE DIAGNOSIS LUMBAR SPONDYLOSIS, LUMBOSACRAL SPONDYLOSIS PROCEDURE RIGHT L4-L5 AND L5-S1 FACET BLOCK DIAGNOSTIC NUMBER #[address] 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 I EVALUATED THE PATIENT AND REVIEWED THE CHART. I WENT OVER THE RISKS, ALTERNATIVES, AND BENEFITS ASSOCIATED WITH THIS PROCEDURE. THE PATIENT WOULD LIKE TO PROCEED AND GAVE CONSENT TO PERFORM THE PROCEDURE. AGREED WITH THE PATIENT WE ARE DOING THIS PROCEDURE TO DETERMINE IF THE PATIENT IS A CANDIDATE FOR A RADIOFREQUENCY ABLATION OF THE FACETS JOINTS. THE PATIENT DENIES UNEXPLAINABLE WEIGHT LOSS, FEVER, CHILLS, OR NEW CHANGES IN URINARY OR BOWEL CONTROL DESCRIPTION OF PROCEDURE THE PATIENT WAS BROUGHT TO THE PROCEDURE ROOM AND PLACED IN THE PRONE POSITION. THE LUMBOSACRAL AREA WAS CLEANED WITH CHLORAPREP SOLUTION AND DRAPED ASEPTICALLY. THE PROCEDURE WAS DONE UNDER STERILE CONDITIONS. I CHECKED LATERALITY AND THE LEVEL WHERE THE PROCEDURE WAS GOING TO BE PERFORMED WITH THE PATIENT AND THE SUPPORTING STAFF AT THE MOMENT OF THE TIME OUT IN THE PROCEDURE ROOM. UNDER FLUOROSCOPIC GUIDANCE, TARGETS WERE SELECTED AT THE INTERSECTION OF THE RIGHT TRANSVERSE PROCESS OF L4, L5 AND ALA OF S1 WITH ITS RESPECTIVE SUPERIOR ARTICULAR PROCESS. LIDOCAINE WAS USED TO NUMB THE SKIN AND THE SUBCUTANEOUS TISSUE BELOW IT. SPINAL NEEDLE, 22-GAUGE WAS ADVANCED UNDER FLUOROSCOPIC GUIDANCE AND FOLLOWING PATIENT FEEDBACK UNTIL THE TARGETS WERE REACHED. POSITION OF THE NEEDLES WAS VERIFIED WITH AP AND LATERAL VIEWS. AFTER PROPER POSITION OF THE NEEDLES WAS ACHIEVED, ISOVUE-M DYE 30% 0.1 ML WAS INJECTED AT EACH SITE SHOWING ADEQUATE SPREAD OF THE DYE. THEN A SOLUTION OF 0.4 ML OF BUPIVACAINE 0.25% WAS INJECTED AT EACH SITE. THERE WAS NO EVIDENCE OF BLOOD, PARESTHESIA OR CEREBROSPINAL FLUID DURING THE PROCEDURE. THE PATIENT WAS SENT TO THE RECOVERY ROOM. THE PATIENT WAS MOVING THE EXTREMITIES AND DOING WELL. THERE WAS NO COMPLICATION DURING THE PROCEDURE. FLUOROSCOPY TIME WAS 26 SECONDS POST PROCEDURE NOTE THE PATIENT WILL DOCUMENT HIS PAIN LEVEL AND RESPONSE TO THIS PROCEDURE EVERY 30 MINUTES. THE PATIENT WILL BE SEEN IN A FOLLOW UP IN THE NEXT FEW WEEKS. FURTHER DETERMINATION FOR HIS CASE WILL BE DONE AT THE NEXT VISIT. INSTRUCTIONS WERE GIVEN, QUESTIONS WERE ANSWERED, AND THE PATIENT EXPRESSED UNDERSTANDING AND AGREED WITH THE PLAN. I, DALY HOLLIS, DOCUMENTED THE ABOVE INFORMATION ACTING A SCRIBE FOR DR. COKER. I HAVE REVIEWED THE ABOVE DOCUMENT, WRITTEN BY DALY CAMPBELLIBIsabel AND I VERIFY THAT IT IS ACCURATE DIAGNOSTIC IMAGING [facility] FACET BLOCK (PAIN)[id number] PROCEDURE CODES 11496 INJ PARAVERT F JNT L/S 1 LEV 28349 INJ PARAVERT F JNT L/S 2 LEV 6045F RADXPS IN END [id number] PXD DISPOSITION & COMMUNICATION FOLLOW UP 3 WEEKS ELECTRONICALLY SIGNED BY CAIN COKER MD ON 08/11/2016 AT 07:56 PM EDT DISCLAIMER : THIS IS A VISIT SUMMARY EXTRACTED FROM THE [facility] CHART. IT IS NOT A COPY OF THE [facility] PROGRESS NOTE. MTDD
== END ==
LOC: M PAIN 09:00
PROVIDERS: ATTEND Anesthesiology
DX: G89.29 Other chronic pain (principal); M47.816 Spondylosis without myelopathy or radiculopathy, lumbar region; M47.817 Spondylosis without myelopathy or radiculopathy, lumbosacral region; K21.9 Gastro-esophageal reflux disease without esophagitis; L40.50 Arthropathic psoriasis, unspecified; M79.7 Fibromyalgia; Z79.899 Other long term (current) drug therapy
CPT/HCPCS: 64493; 64494; Q9967

== ENCOUNTER → 2016-09-28 | Outpatient (REF) | payer MEDICARE, BC ==
[~2016-09-28] MED LIST changes: -AUGM875T27 PO; +AUGM875T28 PO; -BUPIVACAINE HCL 0.25% 30 ML VIAL As Ordered ONE; -FOLI1TAB2 PO; +FOLI1TAB4 PO; -ISOVUE-M 300 61% 15ML VIAL (Q9967) As Ordered ONE; -LIDOCAINE 1% SDV INJ 30 ML VIAL As Ordered ONE; +TOPA100T12 PO; -TOPA100T8 PO
== END ==
LOC: M SFHCCLAY 15:14
PROVIDERS: ATTEND Family Medicine
DX: R23.8 Other skin changes (principal); Z53.8 Procedure and treatment not carried out for other reasons

== ENCOUNTER → 2016-09-29 | Outpatient (REF) | payer MEDICARE, BC ==
[2016-09-29 11:25] LABS: MEAN CORPUSCULAR HEMOGLOBIN 30.4 pg (27.0-33.0); MEAN CORPUSCULAR HGB CONC 33.8 g/dl (32.0-36.5); MEAN CORPUSCULAR VOLUME 89.8 fl (80.0-96.0); RED CELL DISTRIBUTION WIDTH 13.3 % (11.5-14.5); WHITE BLOOD COUNT 9.1 K/mm3 (4.0-10.0)
[2016-09-29 11:36] LABS: ANION GAP 6 MEQ/L (8-16); BLOOD UREA NITROGEN 13 MG/DL (7-18); CALCIUM LEVEL 9.2 MG/DL (8.5-10.1); CARBON DIOXIDE LEVEL 28 MEQ/L (21-32); CHLORIDE LEVEL 107 MEQ/L (98-107); CREATININE FOR GFR 0.87 MG/DL (0.55-1.02); GLOMERULAR FILTRATION RATE > 60.0 (>58); GLUCOSE, FASTING 80 MG/DL (70-105); POTASSIUM SERUM 3.9 MEQ/L (3.5-5.1); SODIUM LEVEL 141 MEQ/L (136-145)
[2016-09-29 11:43] LABS: INR 1.02
== END ==
LOC: M SFHCCLAY 08:55
PROVIDERS: ATTEND Family Medicine
DX: R23.8 Other skin changes (principal); M06.9 Rheumatoid arthritis, unspecified

== ENCOUNTER → 2016-10-06 | Outpatient (CLI) | payer MEDICARE, BC ==
[~2016-10-06] MED LIST changes: +ISOVUE-370 76% 100ML VIAL (Q9967) As Ordered ONE
--- NOTE | 2016-10-06 10:22 | REP ---
CT of the abdomen pelvis with IV contrast, without bowel contrast: Comparison is 04/19/2016. The patient has a history of hysterectomy, umbilical hernia, inguinal hernia and renal calculi. The visualized lung hernadez are unremarkable. The hepatic parenchyma, gallbladder, pancreas and spleen are unremarkable and unchanged. The adrenals are unremarkable. The right and left kidneys are unremarkable. On the comparison study there was a nonobstructive left renal calculus. On the current study this is obscured by the excreted contrast in the renal pelvis. There is no hydronephrosis or hydroureter. The abdominal aorta is unremarkable. There is no retroperitoneal adenopathy or mass. The bowel and mesentery are unremarkable and unchanged. Pelvis: The vaginal cuff and adnexa are unremarkable. The bladder is unremarkable. There is no adenopathy, ascites or hemoperitoneum. . The pelvic bowel loops are unremarkable. There is no diverticulosis or diverticulitis. Surgical clips are again noted in the left inguinal area compatible with herniorrhaphy. There is no umbilical hernia. No abdominal wall hematoma or mass is identified. Impression: The left renal calculus identified on the comparison study is obscured on the current examination as a consequence of the IV contrast excreted into the renal pelvis. There are surgical clips in the left inguinal area, unchanged, compatible with herniorrhaphy. There is a hysterectomy. No abdominal wall mass or hematoma. No ascites or hemoperitoneum. Otherwise, essentially negative CT study of the abdomen and pelvis. Signed by Mikal Joseph MD 10/06/2016 08:31 A
== END ==
LOC: M RAD 07:46
PROVIDERS: ATTEND Family Medicine
DX: R23.8 Other skin changes (principal); R10.31 Right lower quadrant pain
CPT/HCPCS: 74177; Q9967

== ENCOUNTER → 2017-04-13 | Outpatient (REF) | payer MEDICARE, BC ==
[2017-04-13 11:49] LABS: HEMATOCRIT 38.8 % (36.0-47.0); MEAN CORPUSCULAR HEMOGLOBIN 29.5 pg (27.0-33.0); MEAN CORPUSCULAR HGB CONC 33.5 g/dl (32.0-36.5); PLATELET COUNT, AUTOMATED 283 10^3/uL (150-450); RED BLOOD COUNT 4.41 10^6/uL (4.00-5.40); RED CELL DISTRIBUTION WIDTH 13.2 % (11.5-14.5); WHITE BLOOD COUNT 4.8 10^3/uL (4.0-10.0)
[2017-04-13 12:15] LABS: ALBUMIN 3.8 GM/DL (3.2-5.2); ALBUMIN/GLOBULIN RATIO 1.41 (1.00-1.93); ALKALINE PHOSPHATASE 77 U/L (45-117); ALT/SGPT 37 U/L (12-78); ANION GAP 5 MEQ/L (8-16); AST/SGOT 29 U/L (7-37); BILIRUBIN,TOTAL 0.3 MG/DL (0.2-1.0); BLOOD UREA NITROGEN 15 MG/DL (7-18); CARBON DIOXIDE LEVEL 28 MEQ/L (21-32); CHLORIDE LEVEL 108 MEQ/L (98-107); CHOLESTEROL LEVEL 253 MG/DL (<200); CHOLESTEROL RISK RATIO 3.513 (<5); CREATININE FOR GFR 0.96 MG/DL (0.55-1.02); GLOMERULAR FILTRATION RATE > 60.0 (>58); GLUCOSE, FASTING 91 MG/DL (70-100); HDL CHOLESTEROL 72 MG/DL (>40); LDL CHOLESTEROL 159.8 MG/DL (<100); NON-HDL-C 181 MG/DL; SODIUM LEVEL 141 MEQ/L (136-145); TOTAL PROTEIN 6.5 GM/DL (6.4-8.2); TRIGLYCERIDES LEVEL 106 MG/DL (<150)
== END ==
LOC: M SFHCCLAY 08:26
DX: R23.8 Other skin changes (principal); M43.6 Torticollis; E78.00 Pure hypercholesterolemia, unspecified
CPT/HCPCS: 84443

== ENCOUNTER → 2017-04-21 | Outpatient (CLI) | payer MEDICARE, BC | LOC: M RAD 06:54 | DX: M26.609 Unspecified temporomandibular joint disorder, unspecified side (principal); R68.84 Jaw pain | CPT/HCPCS: 70450 ==

== ENCOUNTER → 2017-05-29 | Outpatient (REF) | payer MEDICARE, BC ==
[2017-05-29 13:13] LABS: ESTIMATED AVERAGE GLUCOSE 108 MG/DL (60-110); HEMOGLOBIN A1c 5.4 %
== END ==
LOC: M LABDRAWC 12:02
DX: L40.59 Other psoriatic arthropathy (principal); R53.83 Other fatigue; Z79.899 Other long term (current) drug therapy
CPT/HCPCS: 84443

== ENCOUNTER → 2017-07-17 | Outpatient (CLI) | payer MEDICARE, BC | LOC: M WHC 08:27 | DX: Z12.31 Encounter for screening mammogram for malignant neoplasm of breast (principal); Z78.0 Asymptomatic menopausal state | CPT/HCPCS: 77067 ==

== ENCOUNTER → 2017-12-20 | Outpatient (CLI) | payer MEDICARE, BC | LOC: M CLY 15:16 | DX: M19.011 Primary osteoarthritis, right shoulder (principal); M89.8X1 Other specified disorders of bone, shoulder | CPT/HCPCS: 73000; G0463 ==

== ENCOUNTER → 2018-01-15 | Outpatient (CLI) | payer MEDICARE, BC | LOC: M RAD 12:46 | DX: N64.4 Mastodynia (principal) | CPT/HCPCS: 77065 ==

== ENCOUNTER → 2018-04-23 | Outpatient (REF) | payer MEDICARE, BC ==
[~2018-04-23] MED LIST changes: +FOLI1TAB11 PO; -FOLI1TAB4 PO; -GABA600T PO; +GABA600T4 PO; -ISOVUE-370 76% 100ML VIAL (Q9967) As Ordered ONE; +METH2.5T48 PO; -METH2.5TA PO; -PANT40TA2 PO; +PANT40TA3 PO; +PERC5TAB12 PO; +TIZA4CAP PO; -TIZA4CAP3 PO
[2018-04-23 11:47] LABS: BASO % 0.5 % (0.0-1.0); HEMATOCRIT 38.3 % (36.0-47.0); HEMOGLOBIN 13.1 g/dl (12.0-15.5); LYMPH # 1.7 10^3/uL (1.5-4.5); LYMPH % 18.7 % (24.0-44.0); MEAN CORPUSCULAR HEMOGLOBIN 30.6 pg (27.0-33.0); MEAN CORPUSCULAR HGB CONC 34.2 g/dl (32.0-36.5); MEAN CORPUSCULAR VOLUME 89.5 fl (80.0-96.0); MONO # 0.9 10^3/uL (0.0-0.8); MONO % 9.9 % (0.0-5.0); NEUTROPHILS # 6.3 10^3/uL (1.8-7.7); NEUTROPHILS % 70.6 % (36.0-66.0); PLATELET COUNT, AUTOMATED 306 10^3/uL (150-450); RED BLOOD COUNT 4.28 10^6/uL (4.00-5.40); WHITE BLOOD COUNT 8.9 10^3/uL (4.0-10.0)
[2018-04-23 12:29] LABS: ALBUMIN 3.9 GM/DL (3.2-5.2); ALT/SGPT 25 U/L (12-78); BILIRUBIN,TOTAL 0.3 MG/DL (0.2-1.0); BLOOD UREA NITROGEN 11 MG/DL (7-18); C REACTIVE PROTEIN QUANTITATIV < 0.30 MG/DL (0.00-0.30); CARBON DIOXIDE LEVEL 25 MEQ/L (21-32); CHLORIDE LEVEL 106 MEQ/L (98-107); CREATININE FOR GFR 0.91 MG/DL (0.55-1.30); GLOMERULAR FILTRATION RATE > 60.0 (>58); GLUCOSE, FASTING 105 MG/DL (70-100); SODIUM LEVEL 140 MEQ/L (136-145); TOTAL PROTEIN 6.8 GM/DL (6.4-8.2)
[2018-04-23 12:35] LABS: ERYTHROCYTE SEDIMENTATION RATE 8 mm/hr (0-20)
== END ==
LOC: M LABDRAWC 11:07
PROVIDERS: ATTEND Nurse Practitioner Family
DX: L40.59 Other psoriatic arthropathy (principal)
CPT/HCPCS: 80053; 85027; 85652; 86140; G0463

== ENCOUNTER → 2018-04-28 | Outpatient (CLI) | payer MEDICARE, BC ==
--- NOTE | 2018-04-30 12:22 | REP ---
MR LUMBAR SPINE WITHOUT CONTRAST: HISTORY: Right sciatica. Decreased signal intensity on T2-weighted images is present in the L5-S1 intervertebral disc. This represents disc degeneration. There is no disc bulge or herniation at the L1-2 through L3-4 levels. The nerves exit the neural foramina without compression. A diffuse disc bulge is present at the L4-5 level. There is minimal compression of the thecal sac. There is hypertrophy of the ligamenta flava and posterior articulating facets. The L4 nerves exit the neural foramina without compression. A diffuse disc bulge and small central disc protrusion are present at the L5-S1 level. There is minimal compression of the thecal sac. There is hypertrophy of the posterior articulating facets. The L5 nerves exit the neural foramina without compression. The conus medullaris is normal in appearance terminating at the level of the L2 vertebral body. Normal signal intensity is present in the lumbar vertebral bodies. IMPRESSION: 1. Diffuse disc bulge at the L4-5 level with minimal thecal sac compression. 2. Diffuse disc bulge and small central disc protrusion at the L5-S1 level with minimal thecal sac compression. Electronically Signed by Kemal Comer MD 04/30/2018 12:27 P
== END ==
LOC: M RAD 10:39
PROVIDERS: ATTEND Family Medicine
DX: M51.26 Other intervertebral disc displacement, lumbar region (principal); M06.4 Inflammatory polyarthropathy; M51.27 Other intervertebral disc displacement, lumbosacral region

== ENCOUNTER → 2018-07-23 | Outpatient (REF) | payer MEDICARE, BC ==
[~2018-07-23] MED LIST changes: -MAGN1TAB25 PO; +MAGN1TAB26 PO
== END ==
LOC: M SFHCCLAY 13:19
PROVIDERS: ATTEND Family Medicine
DX: R35.0 Frequency of micturition (principal); R39.15 Urgency of urination
CPT/HCPCS: 81002; 87088; 87186; G0463

== ENCOUNTER → 2018-07-26 | Outpatient (CLI) | payer MEDICARE, BC ==
--- NOTE | 2018-07-26 15:22 | REP ---
Bilateral hip series: Five views including AP pelvis. History: Low back pain. Comparison study: August 13, 2015. Findings: The bony pelvic ring is intact. There are surgical clips in the left inguinal soft tissues and right mid abdomen region. The visualized bowel gas pattern is normal. Femoral heads are smooth and rounded and hip joint spaces are preserved bilaterally. No erosive changes seen. Impression: Negative bilateral hip study. Postoperative changes.
--- NOTE | 2018-07-26 15:23 | REP ---
SI joint series: Four views. History: Low back pain. Comparison radiographs are from August 13, 2015. Findings: The sacrum and SI joints are intact. No evidence of sclerosis, erosive change, or ankylosis. There are surgical clips projecting in the left inguinal region. Impression: Negative SI joint radiographs.
--- NOTE | 2018-07-26 15:24 | REP ---
LUMBAR SPINE SERIES: Five views. HISTORY: Low back pain. COMPARISON STUDY: February 23, 2016. FINDINGS: Lumbar vertebral body heights are preserved. Alignment is normal. Disc spaces are maintained. There is no evidence of spondylolysis or spondylolisthesis. Minimal discogenic spurring is noted at L2-3 on the right. There are calcification superimposed on the left kidney consistent with intrarenal stones. The largest of these is 4 mm in greatest diameter. The bowel gas pattern is normal. Psoas margins are symmetric. Surgical clips are noted on the right and left lower abdomen. IMPRESSION: Mild discogenic spurring at L2-3. Intrarenal nephrolithiasis left kidney. Otherwise negative lumbar spine radiographs.
== END ==
LOC: M CLY 13:54
DX: M25.551 Pain in right hip (principal); N20.0 Calculus of kidney; M25.78 Osteophyte, vertebrae; Z87.39 Personal history of other diseases of the musculoskeletal system and connective tissue

== ENCOUNTER → 2018-08-14 | Outpatient (REF) | payer MEDICARE, BC ==
[2018-08-15 11:49] LABS: HEMATOCRIT 36.8 % (36.0-47.0); HEMOGLOBIN 12.2 g/dl (12.0-15.5); MEAN CORPUSCULAR HEMOGLOBIN 30.4 pg (27.0-33.0); MEAN CORPUSCULAR HGB CONC 33.2 g/dl (32.0-36.5); MEAN CORPUSCULAR VOLUME 91.8 fl (80.0-96.0); PLATELET COUNT, AUTOMATED 242 10^3/uL (150-450); RED BLOOD COUNT 4.01 10^6/uL (4.00-5.40); WHITE BLOOD COUNT 4.6 10^3/uL (4.0-10.0)
[2018-08-15 12:16] LABS: ALBUMIN 3.8 GM/DL (3.2-5.2); ALT/SGPT 25 U/L (12-78); BILIRUBIN,TOTAL 0.5 MG/DL (0.2-1.0); BLOOD UREA NITROGEN 9 MG/DL (7-18); CALCIUM LEVEL 8.6 MG/DL (8.5-10.1); CARBON DIOXIDE LEVEL 25 MEQ/L (21-32); CHLORIDE LEVEL 106 MEQ/L (98-107); CHOLESTEROL LEVEL 212 MG/DL (<200); CHOLESTEROL RISK RATIO 3.117 (<5); CREATININE FOR GFR 1.03 MG/DL (0.55-1.30); GLOMERULAR FILTRATION RATE > 60.0 (>58); GLUCOSE, FASTING 83 MG/DL (70-100); HDL CHOLESTEROL 68 MG/DL (>40); LDL CHOLESTEROL 130 MG/DL (<100); NON-HDL-C 144 MG/DL; POTASSIUM SERUM 3.9 MEQ/L (3.5-5.1); RHEUMATOID FACTOR QUANT < 10.0 IU/ML (<15.0); SODIUM LEVEL 140 MEQ/L (136-145); TOTAL 25(OH) VITAMIN D 30.6 NG/ML (30.0-100.0); TOTAL PROTEIN 6.8 GM/DL (6.4-8.2); TRIGLYCERIDES LEVEL 68 MG/DL (<150)
[2018-08-15 12:19] LABS: ERYTHROCYTE SEDIMENTATION RATE 7 mm/hr (0-20)
[2018-08-16 14:19] LABS: ANTINUCLEAR ANTIBODIES DIRECT Negative (Negative)
[2018-08-17 00:07] LABS: ANA (HEP2) Positive (.)
== END ==
LOC: M SFHCCLAY 13:50
PROVIDERS: ATTEND Nurse Practitioner Family
DX: M06.9 Rheumatoid arthritis, unspecified (principal); E78.00 Pure hypercholesterolemia, unspecified; Z13.21 Encounter for screening for nutritional disorder
CPT/HCPCS: 80053; 80061; 82306; 85027; 85652; 86038; 86431; G0463

== ENCOUNTER → 2018-09-10 | Outpatient (REF) | payer MEDICARE, BC ==
[~2018-09-10] MED LIST changes: -DULO1CAP3 PO; +DULO1CAP6 PO; +FLOM0.4C39 PO; +KETO10TAB PO
== END ==
LOC: M SFHCCLAY 11:36
PROVIDERS: ATTEND Family Medicine
DX: R30.0 Dysuria (principal)
CPT/HCPCS: 36415; 80053; 81002; 85027; 85652; 86140; 87088; 87186; G0463

== ENCOUNTER → 2018-09-10 | Outpatient (REF) | payer MEDICARE, BC ==
[~2018-09-10] MED LIST changes: +DULO1CAP3 PO; -DULO1CAP6 PO; -FLOM0.4C39 PO; -KETO10TAB PO
[2018-09-10 12:36] LABS: BASO % 0.8 % (0.0-1.0); EOS # 0.1 10^3/uL (0.0-0.50); EOS % 1.5 % (0.0-3.0); HEMOGLOBIN 12.3 g/dl (12.0-15.5); LYMPH # 1.2 10^3/uL (1.5-4.5); LYMPH % 30.3 % (24.0-44.0); MEAN CORPUSCULAR HEMOGLOBIN 29.6 pg (27.0-33.0); MEAN CORPUSCULAR HGB CONC 32.4 g/dl (32.0-36.5); MEAN CORPUSCULAR VOLUME 91.6 fl (80.0-96.0); MONO # 0.4 10^3/uL (0.0-0.8); MONO % 10.6 % (0.0-5.0); NEUTROPHILS # 2.2 10^3/uL (1.8-7.7); NEUTROPHILS % 56.5 % (36.0-66.0); PLATELET COUNT, AUTOMATED 246 10^3/uL (150-450); RED BLOOD COUNT 4.15 10^6/uL (4.00-5.40)
[2018-09-10 12:42] LABS: ALBUMIN 3.7 GM/DL (3.2-5.2); ALT/SGPT 26 U/L (12-78); BILIRUBIN,TOTAL 0.2 MG/DL (0.2-1.0); BLOOD UREA NITROGEN 10 MG/DL (7-18); CALCIUM LEVEL 8.8 MG/DL (8.5-10.1); CARBON DIOXIDE LEVEL 25 MEQ/L (21-32); CHLORIDE LEVEL 111 MEQ/L (98-107); CREATININE FOR GFR 0.81 MG/DL (0.55-1.30); GLOMERULAR FILTRATION RATE > 60.0 (>58); GLUCOSE, FASTING 93 MG/DL (70-100); POTASSIUM SERUM 3.8 MEQ/L (3.5-5.1); SODIUM LEVEL 142 MEQ/L (136-145); TOTAL PROTEIN 6.8 GM/DL (6.4-8.2)
[2018-09-10 13:16] LABS: ERYTHROCYTE SEDIMENTATION RATE 10 mm/hr (0-20)
== END ==
LOC: M LABDRAWC 11:31
PROVIDERS: ATTEND Nurse Practitioner Family
DX: L40.59 Other psoriatic arthropathy (principal)

== ENCOUNTER 2018-10-06 14:24 | Emergency (ER) | payer MEDICARE, BC ==
[~2018-10-06] VITALS: Ht 170.2 cm; Wt 78.1 kg
[~2018-10-06 14:24] MED LIST changes: -DULO1CAP3 PO; +DULO1CAP6 PO
[2018-10-06 14:59] LABS: BASO # 0.1 10^3/uL (0.0-0.2); BASO % 0.8 % (0.0-1.0); EOS # 0.1 10^3/uL (0.0-0.50); EOS % 1.3 % (0.0-3.0); HEMATOCRIT 38.7 % (36.0-47.0); HEMOGLOBIN 13.1 g/dl (12.0-15.5); LYMPH # 1.6 10^3/uL (1.5-4.5); LYMPH % 21.8 % (24.0-44.0); MEAN CORPUSCULAR HGB CONC 33.9 g/dl (32.0-36.5); MEAN CORPUSCULAR VOLUME 91.7 fl (80.0-96.0); MONO # 0.8 10^3/uL (0.0-0.8); MONO % 10.7 % (0.0-5.0); NEUTROPHILS # 4.9 10^3/uL (1.8-7.7); PLATELET COUNT, AUTOMATED 261 10^3/uL (150-450); RED BLOOD COUNT 4.22 10^6/uL (4.00-5.40); WHITE BLOOD COUNT 7.5 10^3/uL (4.0-10.0)
[2018-10-06 15:24] LABS: ALBUMIN 3.9 GM/DL (3.2-5.2); ALT/SGPT 28 U/L (12-78); BILIRUBIN,DIRECT < 0.1 MG/DL (0.0-0.2); BILIRUBIN,TOTAL 0.3 MG/DL (0.2-1.0); BLOOD UREA NITROGEN 11 MG/DL (7-18); CARBON DIOXIDE LEVEL 26 MEQ/L (21-32); CHLORIDE LEVEL 108 MEQ/L (98-107); CREATININE FOR GFR 1.05 MG/DL (0.55-1.30); GLOMERULAR FILTRATION RATE > 60.0 (>58); GLUCOSE, FASTING 77 MG/DL (70-100); LIPASE 220 U/L (73-393); POTASSIUM SERUM 3.7 MEQ/L (3.5-5.1); SODIUM LEVEL 143 MEQ/L (136-145)
[2018-10-06 19:07] VITALS: BP 119/76
--- NOTE | 2018-10-06 21:24 | REPVR ---
EXAM: CT Abdomen and Pelvis Without Contrast EXAM DATE/TIME: 10/06/2018 8:02 PM CLINICAL HISTORY: 43 years old, female; Pain; Other: Pelvis; Prior surgery; Surgery date: 6+ months; Surgery type: Hysterectomy; Patient HX: HX kidney stones; Additional info: Pelvic pain, HX kidney stones TECHNIQUE: Imaging protocol: Axial computed tomography images of the abdomen and pelvis without contrast. Coronal and sagittal reformatted images were created and reviewed. Radiation optimization: All CT scans at this facility use at least one of these dose optimization techniques: automated exposure control; mA and/or kV adjustment per patient size (includes targeted exams where dose is matched to clinical indication); or iterative reconstruction. COMPARISON: CT ABD PELVIS W/O CONTRAST 10/23/2017 8:58 PM FINDINGS: Lungs: Clear appearing lung bases. There is a 3 mm nodular density at the left lung base unchanged since 10/23/2017. Heart: The heart is normal in size. There is a small pericardial effusion and this has increased since 10/23/2017. Liver: Normal appearing liver. Gallbladder and bile ducts: Small amount of echogenic sludge in the gallbladder. Pancreas: Normal pancreas. Spleen: Normal spleen. Adrenals: Normal adrenal glands. Kidneys and ureters: There is a punctate stone lower pole right kidney. There are 3 small calcified stones within the left kidney. There is moderate left hydronephrosis and moderate dilatation of the left ureter. There is a 3 mm calcified stone at the left ureterovesical junction causing high-grade obstruction of the left collecting system. Stomach and bowel: The cecum is in the right pelvis. Dense material within the dependent portion of the cecum. Appendix: Normal sized appendix. Intraperitoneal space: There is no evidence of pneumoperitoneum. There is no evidence of free fluid in the abdomen or the pelvis. Vasculature: Normal. No abdominal aortic aneurysm. Lymph nodes: Normal. No enlarged lymph nodes. Bladder: Normal urinary bladder. Reproductive: The patient is status post hysterectomy. Bones/joints: There is no evidence of bony abnormality. Soft tissues: Unremarkable. IMPRESSION: 1. There is a 3 mm round calcified stone at the left ureterovesical junction causing high-grade obstruction with moderate left hydronephrosis and moderate dilatation of the left ureter. 2. Multiple additional stones noted left kidney. 3. Incidental note of pericardial thickening and a small pericardial effusion that has increased from the previous exam of 2018. Electronically signed by: Philippe Thornton On 10/06/2018 21:24:30 PM
[2018-10-06] MEDS ORDERED: FLOM0.4C39 PO (21:50)
[2018-10-06] MEDS ORDERED: KETO10TAB PO (21:50)
== END 2018-10-06 22:04 | disposition home or self-care (01) ==
LOC: M ED 14:24
DX: N20.1 Calculus of ureter (principal); N20.0 Calculus of kidney; I31.3 Pericardial effusion (noninflammatory); N13.2 Hydronephrosis with renal and ureteral calculous obstruction; N28.89 Other specified disorders of kidney and ureter; K58.9 Irritable bowel syndrome, unspecified; M79.7 Fibromyalgia; M06.9 Rheumatoid arthritis, unspecified; Z79.899 Other long term (current) drug therapy

== ENCOUNTER → 2018-11-20 | Outpatient (CLI) | payer MEDICARE, BC ==
[~2018-11-20] MED LIST changes: +FLOM0.4C39 PO; +KETO10TAB PO
--- NOTE | 2018-11-20 15:41 | REP ---
Clinical: Localized swelling. Technique: Real time bowers scale and color evaluation using linear high frequency transducer. Findings: Directed ultrasound examination demonstrates a complex hypoechoic nodule along the right side of the thyroid isthmus measuring 1.1 x 0.7 x 1.2 cm which is otherwise nonspecific, but may represent colloid nodule. Impression: Complex hypoechoic nodule in the thyroid isthmus. Electronically Signed by Lasha Price MD 11/20/2018 03:32 P
== END ==
LOC: M RAD 14:49
PROVIDERS: ATTEND Family Medicine
DX: E04.1 Nontoxic single thyroid nodule (principal)

== ENCOUNTER → 2018-12-18 | Outpatient (REF) | payer MEDICARE, BC ==
[2018-12-18 18:20] LABS: COMPLEMENT C3 98 MG/DL (90-180); COMPLEMENT C4 17 MG/DL (10-40)
[2018-12-24 14:41] LABS: ANA (HEP2) Positive (.); ANTI DS-DNA AB <1:10 titer (.)
== END ==
LOC: M LABDRAWC 16:16
PROVIDERS: ATTEND Nurse Practitioner Family
DX: M45.9 Ankylosing spondylitis of unspecified sites in spine (principal)

== ENCOUNTER → 2018-12-24 | Outpatient (REF) | payer MEDICARE, BC ==
[~2018-12-24] MED LIST changes: +ZONI100C17 PO; -ZONI100C2 PO
[2018-12-24 18:27] LABS: ALBUMIN 4.1 GM/DL (3.2-5.2); ALT/SGPT 30 U/L (12-78); BILIRUBIN,TOTAL 0.4 MG/DL (0.2-1.0); BLOOD UREA NITROGEN 10 MG/DL (7-18); C REACTIVE PROTEIN QUANTITATIV < 0.30 MG/DL (0.00-0.30); CALCIUM LEVEL 9.1 MG/DL (8.5-10.1); CARBON DIOXIDE LEVEL 23 MEQ/L (21-32); CHLORIDE LEVEL 107 MEQ/L (98-107); CREATININE FOR GFR 0.87 MG/DL (0.55-1.30); GLOMERULAR FILTRATION RATE > 60.0 (>58); GLUCOSE, FASTING 85 MG/DL (70-100); POTASSIUM SERUM 4.1 MEQ/L (3.5-5.1); SODIUM LEVEL 141 MEQ/L (136-145); TOTAL PROTEIN 6.5 GM/DL (6.4-8.2)
[2018-12-24 18:35] LABS: BASO % 0.9 % (0.0-1.0); EOS # 0.1 10^3/uL (0.0-0.5); EOS % 1.6 % (0.0-3.0); HEMATOCRIT 39.3 % (36.0-47.0); HEMOGLOBIN 13.4 g/dl (12.0-15.5); LYMPH # 1.4 10^3/uL (1.5-5.0); LYMPH % 31.8 % (24.0-44.0); MEAN CORPUSCULAR HGB CONC 34.1 g/dl (32.0-36.5); MONO # 0.4 10^3/uL (0.0-0.8); MONO % 9.2 % (0.0-5.0); NEUTROPHILS # 2.5 10^3/uL (1.5-8.5); NEUTROPHILS % 56.3 % (36.0-66.0); PLATELET COUNT, AUTOMATED 271 10^3/uL (150-450); RED BLOOD COUNT 4.32 10^6/uL (4.00-5.40); WHITE BLOOD COUNT 4.5 10^3/uL (4.0-10.0)
[2018-12-24 19:09] LABS: ERYTHROCYTE SEDIMENTATION RATE 6 mm/hr (0-20)
== END ==
LOC: M LABDRAWC 16:42
PROVIDERS: ATTEND Nurse Practitioner Family
DX: L40.59 Other psoriatic arthropathy (principal)

== ENCOUNTER → 2019-02-12 | Outpatient (REF) | payer MEDICARE, BC ==
[~2019-02-12] MED LIST changes: -ZONI100C17 PO; +ZONI100C2 PO
[2019-02-19 00:07] LABS: HISTOPLASMA GAL'MANNAN AG UR <0.5 (<0.5 ng/mL); HISTOPLASMOSIS ANTIBODY Negative (Neg:<1:1)
== END ==
LOC: M LABDRAWC 11:34
PROVIDERS: ATTEND Nurse Practitioner Family
DX: J90 Pleural effusion, not elsewhere classified (principal)

== ENCOUNTER 2019-02-26 09:32 | Emergency (ER) | payer MEDICARE, BC ==
[~2019-02-26] VITALS: Ht 170.2 cm; Wt 77.7 kg
[2019-02-26] MEDS ORDERED: SUMAtriptan SUCCINATE 6 MG/0.5 ML VIAL SC ONE (11:30)
[2019-02-26 11:33] LABS: HEMATOCRIT 38.7 % (36.0-47.0); HEMOGLOBIN 12.8 g/dl (12.0-15.5); MEAN CORPUSCULAR HEMOGLOBIN 29.5 pg (27.0-33.0); MEAN CORPUSCULAR HGB CONC 33.1 g/dl (32.0-36.5); MEAN CORPUSCULAR VOLUME 89.2 fl (80.0-96.0); PLATELET COUNT, AUTOMATED 236 10^3/uL (150-450); RED BLOOD COUNT 4.34 10^6/uL (4.00-5.40); WHITE BLOOD COUNT 6.1 10^3/uL (4.0-10.0)
[2019-02-26 12:00] LABS: ALBUMIN 3.6 GM/DL (3.2-5.2); ALT/SGPT 27 U/L (12-78); BILIRUBIN,TOTAL 0.3 MG/DL (0.2-1.0); BLOOD UREA NITROGEN 13 MG/DL (7-18); CALCIUM LEVEL 8.7 MG/DL (8.5-10.1); CARBON DIOXIDE LEVEL 27 MEQ/L (21-32); CHLORIDE LEVEL 109 MEQ/L (98-107); CK-MB VALUE MASS 1.1 NG/ML (<3.6); CPK CREATINE PHOSPHOKINASE 94 U/L (26-192); CREATININE FOR GFR 1.03 MG/DL (0.55-1.30); GLOMERULAR FILTRATION RATE > 60.0 (>58); GLUCOSE, FASTING 88 MG/DL (70-100); MB/CK RELATIVE INDEX 1.17 (< OR =4); POTASSIUM SERUM 3.8 MEQ/L (3.5-5.1); SODIUM LEVEL 142 MEQ/L (136-145); TOTAL PROTEIN 6.4 GM/DL (6.4-8.2); TROPONIN I < 0.02 NG/ML (< 0.10)
[2019-02-26] MEDS ORDERED: PERCOCET 5MG/325MG TAB PO ONE (12:00)
[2019-02-26 14:43] LABS: CK-MB VALUE MASS < 1.0 NG/ML (<3.6); CPK CREATINE PHOSPHOKINASE 90 U/L (26-192); MB/CK RELATIVE INDEX 1.11 (< OR =4); TROPONIN I < 0.02 NG/ML (< 0.10)
[2019-02-26 15:28] VITALS: BP 99/64
--- NOTE | 2019-02-26 18:33 | ECGEPIP ---
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 Order Number: [id number] Reading MD: Wang Villa Measurements Intervals [place] Rate: 61 P: 34 DE: 182 QRS: 50 QRSD: 96 T: 42 QT: 419 QTc: 424 Interpretive Statements SINUS RHYTHM NSTTW ABNORMALITIES SIMILAR TO 10/24/15 Electronically Signed on 02-26-2019 18:33:22 EST by Wang Villa
--- NOTE | 2019-02-26 18:40 | ECGEPIP ---
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
== END 2019-02-26 16:02 | disposition home or self-care (01) ==
LOC: M ED 09:32 → EDBD 09:32 → M ED 16:02
DX: R55 Syncope and collapse (principal); R94.31 Abnormal electrocardiogram [ECG] [EKG]; G89.29 Other chronic pain; M54.5 Low back pain; E78.5 Hyperlipidemia, unspecified; Z86.79 Personal history of other diseases of the circulatory system; Z86.69 Personal history of other diseases of the nervous system and sense organs; Z87.442 Personal history of urinary calculi; Z79.1 Long term (current) use of non-steroidal anti-inflammatories (NSAID); Z79.891 Long term (current) use of opiate analgesic; Z79.899 Other long term (current) drug therapy

== ENCOUNTER → 2019-03-22 | Outpatient (CLI) | payer MEDICARE, BC ==
--- NOTE | 2019-03-22 15:18 | REP ---
Clinical: Thyroid nodule. Technique: Real time bowers scale and color evaluation using linear high frequency transducer. Findings: Right lobe measures 4.6 x 1.6 x 1.6 cm with a complex hypoechoic nodule adjacent to the isthmus measuring 1.2 x 0.9 x 1.2 cm. Isthmus measures 4 mm in width. Left lobe measures 3.6 x 1.4 x 1.3 cm without significant nodule. Impression: Stable nonspecific nodule in the right lobe adjacent to the isthmus. Electronically Signed by Lasha Price MD 03/22/2019 03:10 P
== END ==
LOC: M RAD 14:01
PROVIDERS: ATTEND Family Medicine
DX: E04.1 Nontoxic single thyroid nodule (principal)

== ENCOUNTER → 2019-05-30 | Outpatient (CLI) | payer MEDICARE, BC ==
[~2019-05-30] MED LIST changes: +ZONI100C17 PO; -ZONI100C2 PO
--- NOTE | 2019-05-30 10:03 | REP ---
Abdominal wall sonography: History: Periumbilical abdominal wall pain. Status post umbilical hernia repair in the past smash. Findings: No umbilical or periumbilical ventral hernia is seen at rest or with Valsalva. No hematoma or muscle tear is appreciated. No abnormal fluid collection is seen. Impression: Negative abdominal wall periumbilical sonography. Electronically Signed by Christiano Whitehead MD 05/30/2019 09:55 A
== END ==
LOC: M RAD 08:04
PROVIDERS: ATTEND Family Medicine
DX: R10.33 Periumbilical pain (principal)

== ENCOUNTER → 2019-05-31 | Outpatient (CLI) | payer MEDICARE, BC ==
--- NOTE | 2019-05-31 09:35 | REPVR ---
PROCEDURE INFORMATION: Exam: MR Lumbar Spine Without Contrast. Exam date and time: 05/31/2019 7:53 AM Age: 43 years old Clinical indication: Low back pain; Additional info: Ddd TECHNIQUE: Imaging protocol: Multiplanar magnetic resonance images of the lumbar spine without intravenous contrast. COMPARISON: MRI-Spine, L.S. without con 04/28/2018 10:55 AM FINDINGS: Vertebrae: There is no fracture or listhesis. Normal vertebral body alignment and heights are preserved. Marrow signal is within normal limits. Spinal cord: Normal signal. No cord compression. L1-L2: No significant disc disease. No significant spinal canal stenosis. No neural foraminal stenosis. L2-L3: No significant disc disease. No significant spinal canal stenosis. No neural foraminal stenosis. L3-L4: There is shallow disc bulging. There is mild facet and ligamentous hypertrophy. There is mild bilateral neural foraminal narrowing. L4-L5: There is shallow disc bulging. There is moderate facet hypertrophy. There is mild bilateral neural foraminal narrowing. L5-S1: There is diffuse disc bulging. There is moderate facet hypertrophy. The spinal canal and neural foramina are patent. Soft tissues: Unremarkable. IMPRESSION: Degenerative disc disease and spondylosis, with multilevel mild neural foraminal narrowing. Electronically signed by: Rubina Sandhu On 05/31/2019 09:34:58 AM
--- NOTE | 2019-05-31 09:46 | REP ---
LUMBAR SPINE SERIES: Five views. HISTORY: Degenerative disc disease. COMPARISON STUDY: July 26, 2018. FINDINGS: There is evidence of intrarenal nephrolithiasis on the left and possibly on the right similar to the prior study. There is a surgical clip in the right mid abdomen. Lumbar vertebral body heights are preserved. Alignment is normal. Degenerative disc spurring is seen anteriorly at L2-3. Mild narrowing is seen at L4-5. There is no evidence of spondylolysis or spondylolisthesis. Findings are radiographically unchanged from July 26, 2018. Psoas margins are symmetric. IMPRESSION: Degenerative disc disease at L4-5 and L2-3 unchanged. Suspect bilateral intrarenal nephrolithiasis. Electronically Signed by Christiano Whitehead MD 05/31/2019 11:09 A
== END ==
LOC: M RAD 07:02
PROVIDERS: ATTEND Family Medicine
DX: M51.36 Other intervertebral disc degeneration, lumbar region (principal)

== ENCOUNTER → 2019-07-19 | Outpatient (CLI) | payer MEDICARE, BC ==
--- NOTE | 2019-07-19 16:16 | REP ---
MAXILLOFACIAL CT STUDY WITHOUT CONTRAST: HISTORY: Sinusitis. FINDINGS: Preliminary digital claim auditor radiograph is unremarkable. The frontal sinuses are clear. There is no evidence of ethmoid sinus opacification. The sphenoid sinuses are clear. Maxillary sinuses show a small mucous retention cyst in the floor the maxillary sinus on the left. Maxillary sinuses are otherwise clear. Mastoid aeration is normal bilaterally. The middle ear cavities are aerated. No intraorbital abnormality is seen. Visualized intracranial structures are unremarkable. The ostiomeatal complexes appear patent. Nasal turbinate soft tissues are normal and symmetric. No nasal polyp is appreciated. Bony nasal septum is midline. IMPRESSION: Small mucous retention cyst in the floor the maxillary sinus on the left. Otherwise normal paranasal sinus CT study. Electronically Signed by Christiano Whitehead MD 07/19/2019 04:20 P
== END ==
LOC: M RAD 15:25
PROVIDERS: ATTEND Family Medicine
DX: J32.9 Chronic sinusitis, unspecified (principal)

== ENCOUNTER → 2019-08-01 | Outpatient (CLI) | payer MEDICARE, BC ==
--- NOTE | 2019-08-01 11:38 | REP ---
KUB ABDOMEN AND PELVIS: KUB films of the abdomen and pelvis performed. Mild bowel gas pattern is normal with no evidence of bowel obstruction. Bowel gas and fecal material limit evaluation for underlying renal calculi. I do suspect a subcentimeter calculus in the upper left renal collecting system, approximate diameter 5 mm. There may be a 2 mm calculus in the lower pole of the left kidney. Metallic ansley are seen in the left pelvic region. A single metallic clip is seen in the right lateral abdomen. IMPRESSION: Suspect two subcentimeter calculi left kidney. Electronically Signed by Mikal Barrett MD 08/01/2019 12:57 P
== END ==
LOC: M RAD 09:45
PROVIDERS: ATTEND Urology
DX: N20.0 Calculus of kidney (principal)

== ENCOUNTER → 2019-08-13 | Outpatient (REF) | payer MEDICARE, BC ==
[2019-08-16 17:07] LABS: PR3 ANTIPROTEINASE ANTIBODIES 3.8 U/mL (0.0-3.5)
== END ==
LOC: M LABDRAWC 15:49
PROVIDERS: ATTEND Internal Medicine
DX: R76.8 Other specified abnormal immunological findings in serum (principal)

== ENCOUNTER → 2019-08-23 | Outpatient (CLI) | payer MEDICARE, BC ==
--- NOTE | 2019-08-24 08:39 | REP ---
REASON FOR EXAM: History of renal calculi. COMPARISON: 08/01/2019 There is a moderate to large amount of content seen throughout the colon. There is a surgical clip in the right lower quadrant status quo. The organ silhouettes are obscured by the intestinal content. There are no definite renal calculi seen on this exam. Surgical clips are seen in the left inguinal region. The osseous structures are stable and intact. IMPRESSION: Findings and limitations as described above. Electronically Signed by Jordan Michelle DO 08/26/2019 10:53 A
== END ==
LOC: M CLY 14:45
PROVIDERS: ATTEND Urology
DX: N20.0 Calculus of kidney (principal)

== ENCOUNTER → 2019-09-09 | Outpatient (REF) | payer MEDICARE, BC ==
[2019-09-09 12:17] LABS: APPEARANCE, URINE CLEAR (CLEAR); BACTERIA, URINE AUTO NEGATIVE (NEGATIVE); BASO # 0.1 10^3/uL (0.0-0.2); BASO % 0.6 % (0.0-1.0); BILIRUBIN, URINE AUTO NEGATIVE (NEGATIVE); BLOOD, URINE BLOOD NEGATIVE (NEGATIVE); COLOR, URINE AMBER (YELLOW); EOS # 0.1 10^3/uL (0.0-0.5); EOS % 0.6 % (0.0-3.0); GLUCOSE, URINE (UA) AUTO NEGATIVE (NEGATIVE); HEMATOCRIT 39.2 % (36.0-47.0); KETONE, URINE AUTO NEGATIVE (NEGATIVE); LEUKOCYTE ESTERASE, URINE AUTO NEGATIVE (NEGATIVE); LYMPH % 36.4 % (24.0-44.0); MEAN CORPUSCULAR HEMOGLOBIN 29.1 pg (27.0-33.0); MEAN CORPUSCULAR HGB CONC 33.2 g/dl (32.0-36.5); MEAN CORPUSCULAR VOLUME 87.9 fl (80.0-96.0); MONO # 0.9 10^3/uL (0.0-0.8); MONO % 11.2 % (0.0-5.0); MUCUS, URINE SMALL (NEGATIVE); NEUTROPHILS # 4.2 10^3/uL (1.5-8.5); NITRITE, URINE AUTO POSITIVE (NEGATIVE); PLATELET COUNT, AUTOMATED 307 10^3/uL (150-450); PROTEIN, URINE AUTO NEGATIVE (NEGATIVE); RBC, URINE AUTO 1 /HPF (0-3); RED BLOOD COUNT 4.46 10^6/uL (4.00-5.40); SPECIFIC GRAVITY URINE AUTO 1.013 (1.002-1.035); SQUAMOUS EPITHELIAL CELL UR AU 0 /HPF (0-6); WBC, URINE AUTO 2 /HPF (0-3); WHITE BLOOD COUNT 8.3 10^3/uL (4.0-10.0)
[2019-09-09 12:29] LABS: C REACTIVE PROTEIN QUANTITATIV < 0.30 MG/DL (0.00-0.30); CREATININE FOR GFR 0.91 MG/DL (0.55-1.30); GLOMERULAR FILTRATION RATE > 60.0 (>58)
[2019-09-09 12:51] LABS: HIV 1&2 SCREEN CENTAUR NEGATIVE (NEGATIVE)
[2019-09-09 13:11] LABS: TOTAL PROTEIN,RANDOM URINE 22.2 MG/DL (0.0-12.0)
== END ==
LOC: M LABDRAWC 11:13
PROVIDERS: ATTEND Internal Medicine
DX: R76.8 Other specified abnormal immunological findings in serum (principal)

== ENCOUNTER → 2020-01-08 | Outpatient (REF) | payer MEDICARE, BC ==
[~2020-01-08] MED LIST changes: +PANT40TA29 PO; -PANT40TA3 PO
[2020-01-10 08:09] LABS: HSV TYPE II IgG SPECIFIC <0.91 index (0.00-0.90)
== END ==
LOC: M LABDRAWC 16:04
PROVIDERS: ATTEND Internal Medicine
DX: K12.2 Cellulitis and abscess of mouth (principal)

== ENCOUNTER → 2020-02-17 | Outpatient (CLI) | payer MEDICARE, BC ==
--- NOTE | 2020-02-17 16:18 | REPVR ---
PROCEDURE INFORMATION: Exam: CT Neck Without Contrast Exam date and time: 02/17/2020 3:57 PM Age: 44 years old Clinical indication: Mass, lump, or swelling in neck; Patient HX: Bb marker placed midline of neck about hyoid level; Additional info: Lump in neck TECHNIQUE: Imaging protocol: Computed tomography images of the neck without contrast. Radiation optimization: All CT scans at this facility use at least one of these dose optimization techniques: automated exposure control; mA and/or kV adjustment per patient size (includes targeted exams where dose is matched to clinical indication); or iterative reconstruction. COMPARISON: Thyroid, ST head+neck US 03/22/2019 2:09 PM FINDINGS: Nasopharynx: Unremarkable. Oropharynx: Unremarkable. No significant tonsillar enlargement. Hypopharynx: Unremarkable. Larynx: Unremarkable. Normal epiglottis. Retropharyngeal space: Unremarkable. Submandibular/Parotid glands: Normal. Glands are normal in size. Thyroid: Right inferior thyroid isthmus hypoattenuating nodule measuring 11.8 x 8.8 x 11.3 mm (series 201, image 52; series 202, image 32). Lymph nodes: Right level 2 lymph node, 4.9 mm short axis. Visible nodes do not meet size criteria for significance. Trachea: Visualized trachea is unremarkable. Lungs: Unremarkable as visualized. Bones/joints: C4-5 and C5-6 degenerative disc disease with mild spondylosis. Bilateral temporomandibular joint primary osteoarthritis. Soft tissues: Unremarkable. No significant soft tissue swelling. IMPRESSION: Right inferior thyroid isthmus nodule, comparable to prior ultrasound study. COMMENTS: Consistent with the [employer]'s Incidental Findings Committee white paper (J Am Amanda Radiol 2015): In patients aged 35 years and older with an incidental thyroid nodule equal to or greater than 1.[address], MRI or extrathyroidal US, further evaluation with dedicated thyroid US is recommended for patients with normal life expectancy and without comorbidities. For smaller nodules without suspicious features, no further evaluation or follow up is recommended. Electronically signed by: Brown Stringer On 02/17/2020 16:19:03 PM
== END ==
LOC: M RAD 15:43
PROVIDERS: ATTEND Family Medicine
DX: E04.1 Nontoxic single thyroid nodule (principal); R22.1 Localized swelling, mass and lump, neck

== ENCOUNTER → 2020-03-18 | Outpatient (CLI) | payer MEDICARE, BC ==
--- NOTE | 2020-03-18 10:32 | REP ---
INDICATION: S39.92XA INJURY LOW BACK PAIN COMPARISON: None. TECHNIQUE: AP, lateral, and swimmers views. FINDINGS: Alignment and kyphosis is maintained. Vertebral bodies intact. No acute fracture / compression injury or subluxation. No degenerative changes. Paravertebral soft tissues are normal. IMPRESSION: Normal age-appropriate thoracic spine series. <Electronically signed by Lasha Price > 03/18/20 [id number]
--- NOTE | 2020-03-18 10:34 | REP ---
INDICATION: S39.92XA INJURY OF LOW BACK COMPARISON: 05/31/2019 TECHNIQUE: AP, lateral, bilateral oblique, and coned-down views of the lumbar spine. FINDINGS: Alignment and lordosis maintained. Vertebral bodies are intact and there is no evidence for acute fracture/compression injury or subluxation. No obvious spondylolysis or spondylolisthesis.. Mild stable degenerative changes include minimal endplate sclerosis, very subtle marginal spurring and disc space narrowing at L2-3. IMPRESSION: Minimal stable degenerative changes at L2-3. <Electronically signed by Lasha Price > 03/18/20 1036
--- NOTE | 2020-03-18 10:35 | REP ---
INDICATION: S59.902 INJURY LEFT ELBOW COMPARISON: None. TECHNIQUE: AP, lateral left elbow FINDINGS: No acute fracture or dislocation is appreciated. Joint spaces and surrounding soft tissues appear normal. Lateral view demonstrates normal positioning to the anterior and posterior fat pads without evidence for effusion/hemarthrosis. No subcutaneous emphysema or foreign body identified. IMPRESSION: No acute fracture or dislocation. <Electronically signed by Lasha Price > 03/18/20 1794
== END ==
LOC: M CLY 09:55
PROVIDERS: ATTEND Nurse Practitioner Family
DX: S59.902A Unspecified injury of left elbow, initial encounter (principal); S39.92XA Unspecified injury of lower back, initial encounter; M51.36 Other intervertebral disc degeneration, lumbar region; W00.0XXA Fall on same level due to ice and snow, initial encounter; Y92.9 Unspecified place or not applicable; Y99.9 Unspecified external cause status
CPT/HCPCS: 72072; 72110; 73070; G0463

== ENCOUNTER → 2020-03-25 | Outpatient (REF) | payer MEDICARE, BC | LOC: M SFHCCLAY 11:31 | PROVIDERS: ATTEND Family Medicine | DX: A04.72 Enterocolitis due to Clostridium difficile, not specified as recurrent (principal); R19.7 Diarrhea, unspecified ==

== ENCOUNTER → 2020-04-03 | Outpatient (REF) | payer MEDICARE, BC | LOC: M LAB REF 14:49 | PROVIDERS: ATTEND Otolaryngology | DX: E04.1 Nontoxic single thyroid nodule (principal) ==

== ENCOUNTER → 2020-04-09 | Outpatient (CLI) | payer MEDICARE, BC ==
[~2020-04-09] MED LIST changes: +QUET50TA3 PO; -QUET5TAB PO
--- NOTE | 2020-04-09 16:17 | REP ---
INDICATION: CHRONIC PANSINUSITUS. COMPARISON: Comparison study July 19, 2019.. TECHNIQUE: Helical scanning is acquired and 2 mm axial images re-formatted. Coronal MPR images are generated and reviewed. FINDINGS: Preliminary quality assurance intern views are unremarkable. The left frontal sinus is clear. There is mild mucosal thickening in the inferior and medial aspect of the right frontal sinus on today's CT study. This is new finding compared to the prior. The previously noted small mucous retention cyst in the floor of the left maxillary sinus is again seen unchanged. Maxillary sinuses are otherwise clear. No sphenoid sinus mucosal changes are seen. There is minimal mucosal thickening in a right anterior ethmoid air cell. Ethmoid sinuses are otherwise clear. Mastoid aeration is normal and symmetric. The middle ear cavities are normally aerated. No intraorbital abnormality is appreciated. The visualized deep facial and intracranial soft tissues are unremarkable. Bony nasal septum is in the midline. Nasal turbinates soft tissues are normal in appearance. No nasal polyp is seen. Ostiomeatal complexes appear patent. IMPRESSION: There are mild mucosal changes in the right inferior medial frontal sinus, the right anterior ethmoid sinus, and inferiorly in the left maxillary sinus. <Electronically signed by Titus Whitehead > 04/09/20 3671
== END ==
LOC: M RAD 15:55
PROVIDERS: ATTEND Otolaryngology
DX: J32.4 Chronic pansinusitis (principal)

== ENCOUNTER → 2020-05-01 | Outpatient (CLI) | payer MEDICARE, BC ==
[~2020-05-01] MED LIST changes: +AZEL0.055 NARES; +CETI10CH PO; +COLC0.6T47 PO; +DULO1CAP5 PO; +FAMO40TA3 PO; +FLON1SPR; +MOBI4TAB PO; +POTA10808 PO; +TOPI25TA10 PO; +ZONI50CA11 PO; +medical marijuana PO
== END ==
LOC: M LABSMTC 10:57
PROVIDERS: ATTEND Anesthesiology
DX: Z01.812 Encounter for preprocedural laboratory examination (principal); Z20.822 Contact with and (suspected) exposure to COVID-19

== ENCOUNTER 2020-05-06 07:35 | Day surgery (SDC) | payer MEDICARE, BC ==
[~2020-05-06] VITALS: Ht 170.2 cm; Wt 83.5 kg
[~2020-05-06 07:35] MED LIST changes: +LIDOCAINE 1% MDV 20ML VIAL SQ PRN; +LR 1,000 ML IV ONE
--- OUTSIDE RECORDS SUMMARY | 2020-05-06 07:39 | CCD | Continuity of Care Document ---
Author Author Sheeba MONTERROSO MD Organization Unknown Address [address] [facility] [address] [place] [address] Phone [phone] Care Team Providers Care Education Associate Name Role Phone Nicolette Sow AUTM [phone] AUTM Unavailable Kristian Pereira D.O. AUTM [phone] Problems Description No Information Available Social History Type Date Description Comments Sex Unknown Smokeless Tobacco Never Used Smokeless Tobacco ETOH Use Denies alcohol use Recreational Drug Use Medical marijuana regularl y at night Tobacco Use Start: Unknown Patient has never smoked Exercise Type/Frequency Exercises regularly Allergies, Adverse Reactions, Alerts Description No Known Drug Allergies Medications Active Medications SIG Qnty Indications Ordering Provide r Date Topamax 25mg Tablets 1 by mouth every day 30tabs Fawad Monterroso MD 04/14/2020 Dicyclomine HCL 10mg Capsules take 1 tablet by mouth 3 times a day Unknown Duloxetine HCL 60mg Caps DR Part 1 by mouth every day Unknown Pantoprazole Sodium 40mg Tablets D R 1 by mouth a day Unknown Zonisamide 100mg Capsules Unknown Meloxicam 7.5mg Tablets Unknown Colchicine 0.6mg Capsules Unknown Potassium Chloride ER 10Meq Tablets ER Unknown Plaquenil 200mg Tablets 1 tab by mouth twice a day Unknown Zyrtec Allergy 10mg Tablets take on by mouth every day as needed seasonal allergies Unk nown Gabapentin 600mg Tablets 1 by mouth twice a day Unknown Sumatriptan Succinate 100mg Tablets Unknown Immunizations Description No Information Available Vital Signs Date Vital Result Comment 04/14/2020 9:17am Height 67 inches 5'7" Weight 180.00 lb BMI (Body Mass Index) 28.2 kg/m2 [place] [facility] Weight 135 lb Weight 81.648 kg BSA (Body Surface Area) 1.93 m2 04/03/2020 11:03am Height 67 inches 5'7" Weight 180.00 lb BMI (Body Mass Index) 28.2 kg/m2 [place] [facility] Weight 135 lb Weight 81.648 kg BSA (Body Surface Area) 1.93 m2 Results Test Acquired Date Facility Test Result H/L Range Note Laboratory test finding 04/03/2020 [facility] Main Lab [address] [place] [address] [phone] Non Project Architect/Cytology Req For Servi (SEE NOTE) 1 1 SPECIMEN: FNA of right lobe thyroid nodule Prepared slides and cytolyt (clear in color) SPECIMEN ADEQUACY: Satisfactory for evaluation CATEGORIZATION: Atypical cytology DESCRIPTIONS: Specimen consists of sheets and groups of crowded follicular cells presenting with grooving and scattered inclusions in a background of abundant macrophages and blood elements. COMMENTS: 04/06/2020 - 1004 Signed EREN CASE (ASCP) 04/06/2020 1004 (Prelim) Signed DORYS MCGEE MD 04/06/2020 1132 Procedures Date Code Description Status 04/03/2020 37484 Laryngoscopy Flexible Fiberoptic Diagnostic Completed 04/03/2020 38432 Fine Needle Aspiration Biopsy In lcd Ultrasound Guidance Completed Medical Devices Description No Information Available Encounters Type Date Location Provider Dx Diagnosis Office Visit 04/03/2020 10:50a [facility] Fawad Monterroso MD J32.4 Chronic pansinusitis E04.1 Nontoxic single thyroid nodu le K21.9 Gastro-esophageal reflux dis ease without esophagitis G43.019 Migraine w/o aura, intractab le, without status migrainosus Assessments Date Code Description Provider 04/03/2020 J32.4 Chronic pansinusitis Fawad Monterroso MD 04/03/2020 E04.1 Nontoxic single thyroid nodule N beata Monterroso MD 04/03/2020 K21.9 Gastro-esophageal reflux disease without esophagitis Fawad Monterroso MD 04/03/2020 G43.019 Migraine without aur a, intractable, without status migrainosus Fawad Monterroso MD Plan of Treatment No Information Available Functional Status Description No Information Available Mental Status Description No Information Available Referrals Refer to Reason for Referral Status Appt Date Fawad Monterroso M.D. 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
--- OUTSIDE RECORDS SUMMARY | 2020-05-06 07:39 | CCD | Continuity of Care Document ---
Author Author Sheeba SANDHU [facility] Unknown Address [address] [place] [address] Phone [phone] Care Team Providers Care Juvenile Counselor Name Role Phone Self Referral AUTM Unavailable Kristian Pereira D.O. AUTM [phone] Problems Description No Information Available Social History Type Date Description Comments Sex Unknown Tobacco Use Reviewed: 04/02/20 Never Smoked Cigarettes Smoking Status Reviewed: 04/02/20 Never Smoked Cigarettes ETOH Use Patient denies alcohol use Allergies, Adverse Reactions, Alerts Description No Known Drug Allergies Medications Active Medications SIG Qnty Indications Ordering Provide r Date Phenazopyridine HCL 100mg Tablets take 1 by mouth every 12 hours as needed for bladder pain 30tabs Oly Frank MD 08/28/2019 Potassium Citrate ER 10Meq (1080 mg) Tablets ER 1 by mouth twice a day with food and 20 oz water 60tabs Oly Frank MD 08/28/2019 Duloxetine HCL 60mg Caps DR Part Take 60 mg by mouth daily Unknown Dicyclomine HCL 10mg Capsules Take 10 mg by mouth 4 (four) times a day before meals and nightly Unknown Gabapentin 600mg Tablets Take 600 mg by mouth 3 (three) times a day Unknown Pantoprazole Sodium 40mg Tablets D R Take 40 mg by mouth daily Unknown Sumatriptan Succinate 6mg/0.5ML So lution Inject 6 mg under the skin Unknown Sumatriptan Succinate 50mg Tablets Take 100 mg by mouth every 2 (two) hours as needed for migraine take one tablet at onset of headache, may repeat once in 2 hours if needed. Unknown Meloxicam 7.5mg Tablets Take 7.5 mg by mouth daily Unknown Zonisamide 50mg Capsules Take 50 mg by mouth daily Unknown Cosentyx 150mg/ml Soln Prefill Syringe Unknown Immunizations Description No Information Available Vital Signs Date Vital Result Comment 04/02/2020 10:45am Height 67 inches 5'7" Weight 185.00 lb Weight 83.916 kg BMI (Body Mass Index) 29.0 kg/m2 BP Systolic 113 mmHg BP Diastolic 75 mmHg Heart Rate 70 /min 08/28/2019 11:41am Height 67 inches 5'7" Weight 170.00 lb Weight 77.112 kg BMI (Body Mass Index) 26.6 kg/m2 BP Systolic 107 mmHg BP Diastolic 74 mmHg Heart Rate 71 /min Results Test Acquired Date Facility Test Result H/L Range Note 230 Ua Routine 04/02/2020 [facility] REF TO DR ADDRESS ON ORDER FOR (315)- - Ua Glucose Negative Ua Protein Negative Ua Nitrite Negative Ua Leuko Negative Ua Blood Negative Ua Color Not Entered Ua Ketones Negative Ua Clarity Not Entered Ua Specific [place] 1.015 1.003-1.030 Ua PH 7.0 5.0-7.5 Ua Bilirubin Negative Ua Urobilinogen 0.2 E.U./dL 0.0-1.0 Procedures Description No Information Available Medical Devices Description No Information Available Encounters Type Date Location Provider Dx Diagnosis Office Visit 04/02/2020 10:20a [facility]/ [facility] Oly Frank MD N20.0 Calculus of kidney S37.091A Other injury of right kidney , initial encounter Assessments Date Code Description Provider 04/02/2020 N20.0 Calculus of kidney Oly Frank MD 04/02/2020 S37.091A Other injury of right kidney, in itial encounter Oly Sandhu MD Plan of Treatment Future Appointment(s):* 04/09/2021 1:30 pm - Oly Sandhu MD at [facility]/ [facility]rology * 04/09/2021 1:00 pm - [facility] at [facility]/ [facility]rology 04/02/2020 - Oly Sandhu MD* N20.0 Calculus of kidney* New Xrays:* US Retroperitoneal Limited, Scheduled: 04/09/21 * S37.091A Other injury of right kidney, initial encounter Functional Status Description No Information Available Mental Status Description No Information Available Referrals Description No Information Available
--- OUTSIDE RECORDS SUMMARY | 2020-05-06 07:39 | CCD | Continuity of Care Document ---
Author Author Sheeba Hanna Organization Unknown Address [address] [place] [address] Phone [phone] Care Team Providers Care Vulcanizer Name Role Phone Self Referral AUTM Unavailable Kristian Pereira D.O. AUTM [phone] Problems Description No Information Available Social History [...] Routine 04/02/2020 [facility] REF TO ADDRESS ON ORDER FOR (315)- - Ua Glucose Negative Ua Protein Negative Ua Nitrite Negative Ua Leuko Negative Ua Blood Negative Ua Color Not Entered Ua Ketones Negative Ua Clarity Not Entered Ua Specific [place] 1.015 1.003-1.030 Ua PH 7.0 5.0-7.5 Ua Bilirubin Negative Ua Urobilinogen 0.2 E.U./dL 0.0-1.0 Procedures Date Code Description Status 04/02/2020 67823 Ultrasound Retro Renal Real Time With Image Limited Tech Completed 04/02/2020 85000 Ultrasound Retro Renal Real Time With Image Limited Tech Completed Medical Devices Description No Information Available Encounters Type Date Location Provider Dx Diagnosis Office Visit 04/02/2020 10:[address]a [facility] [address]/ [facility] Oly Frank MD N20.0 Calculus of kidney S37.091A Other injury of right kidney , initial encounter Assessments Date Code Description Provider 04/02/2020 N20.0 Calculus of kidney Oly Frank MD 04/02/2020 N20.0 Calculus of kidney [facility] 04/02/2020 N20.0 Calculus of kidney Oly Frank MD 04/02/2020 S37.091A Other injury of right kidney, in itial encounter Oly Castillo MD Plan of Treatment Future Appointment(s):* 04/09/2021 1:30 pm - Oly Castillo MD at [facility]/ [facility] * 04/09/2021 1:00 pm [facility] [place] [facility] 04/02/2020 - Oly Castillo MD* N20.0 Calculus of kidney* New Xrays:* US Retroperitoneal Limited, Scheduled: 04/09/21 * S37.091A Other injury of right kidney, initial encounter Functional Status Description No Information Available Mental Status Description No Information Available Referrals Description No Information Available
--- OUTSIDE RECORDS SUMMARY | 2020-05-06 07:39 | CCD | Continuity of Care Document ---
Author Author Sheeba MONTERROSO MD Organization Unknown Address [address] [facility] [address] [place] [address] Phone [phone] Care Team Providers Care Stogie Packer Name Role Phone Nicolette Sow AUTM [phone] AUTM Unavailable Kristian Pereira D.O. AUTM [phone] Problems Description No Information Available Social History [...] SIG Qnty Indications Ordering Provide r Date Premarin 0.625mg/GM Cream Apply vaginally twice a week 60gm N90.5 Anette Schrader MD 11/28/2018 Vitamin E Complex 4000Unit Capsule s 1 a day Nani Solares M.D. 02/23/2016 Dicyclomine HCL 20mg Tablets take 1 tablet by mouth 3 times a day Unknown 0 Duloxetine HCL 60mg Caps DR Part 1 by mouth every day Unknown Folic Acid 1mg Tablets 1 by mouth every day Unknown Hydroxychloroquine Sulfate 200mg T ablets twice a day Unknown Methotrexate 2.5mg Tablets take 8 tablets by mouth once a week Unknown One Daily Womens Tablets take 1 tablet by mouth daily Unknown Pantoprazole Sodium 40mg Tablets D R 1 by mouth a day Unknown Quetiapine Fumarate 50mg Tablets take 1 tab by mouth at bedtime Unknown 00 Zonisamide 100mg Capsules Unknown Tizanidine HCL 4mg Tablets Unknown Neurontin 300mg Capsules Unknown Humira Pen 40mg/0.8ML PNKT on hold Unknown Immunizations Description No Information Available Vital Signs Date Vital Result Comment 04/03/2020 11:03am Height 67 inches 5'7" Weight 180.00 lb BMI (Body Mass Index) 28.2 kg/m2 [place] Body Weight 135 lb Weight 81.648 kg BSA (Body Surface Area) 1.93 m2 01/30/2019 10:23am BP Systolic 114 mmHg BP Diastolic 72 mmHg Height 67 inches 5'7" Weight 180.00 lb BMI (Body Mass Index) 28.2 kg/m2 [place] Body Weight 135 lb Weight 81.648 kg BSA (Body Surface Area) 1.93 m2 Results Test Acquired Date Facility Test Result H/L Range Note Laboratory test finding 04/03/2020 [facility] Main Lab [address] [place], [place] [address] [phone] Non Stress Engineer/Cytology Req For Servi (SEE NOTE) 1 1 [...] Signed DORYS MCGEE MD 04/06/2020 1132 Procedures Description No Information Available Medical Devices Description No Information Available Encounters Description No Information Available Assessments Date Code Description Provider 04/03/2020 J32.4 Chronic pansinusitis Fawad Monterroso MD 04/03/2020 E04.1 Nontoxic single thyroid nodule N beata Monterroso MD 04/03/2020 K21.9 Gastro-esophageal reflux disease without esophagitis Fawad Monterroso MD 04/03/2020 G43.019 Migraine without aur a, intractable, without status migrainosus Fawad Monterroso MD Plan of Treatment Future Appointment(s):* 04/30/2020 10:20 am - Fawad Monterroso MD at [facility] ENT[facility]GI Practice 04/03/2020 - Fawad Monterroso MD* J32.4 Chronic pansinusitis* New Xrays:* CT Maxillofacial W/O Contrast 91591, Scheduled: 04/09/20 * E04.1 Nontoxic single thyroid nodule * K21.9 Gastro-esophageal reflux disease without esophagitis * G43.019 Migraine without aura, intractable, without status migrainosus Functional Status Description No Information Available Mental Status Description No Information Available Referrals Refer to Dr Reason for Referral Status Appt Date Fawad Monterroso M.D. 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
--- OUTSIDE RECORDS SUMMARY | 2020-05-06 07:40 | CCD ---
Author Author [facility] [employer] Organization [facility] em[facility] Address Unknown Phone Unavailable Care Team Providers Care Watcher Automat [employer] Name Role Phone Kristian Pereira Unavailable PROBLEMS Type Condition ICD9-CM Code LIR14-ZL Code Onset Dates Condition S tatus SNOMED Code Notes Problem Lumbar facet arthropathy M46.96 Active 1532868 08 Problem Sacroiliitis, not elsewhere classified M46.1 A ctive 261335331 Problem Lumbar disc displacement without myelopathy M51.26 Active 29171454 Problem Rosacea L71.9 Active 168923986 Problem Trochanteric bursitis of both hips M70.61 Activ e 3487361 Problem Rheumatoid arthritis, involv ing unspecified site, unspecified rheumatoid factor presence M06.9 Active 11360407 Problem Sinusitis, unspecified chronicity, unspecified location J32.9 Active 86677009 Problem Hypercholesterolemia E78.00 Active 70917372 Problem Facet arthritis, degenerative, L5-S1 level, lumbosacra l spine M47.897 Active 276909590 Problem Psoriatic arthritis L40.50 Active 415797540 Problem Ankylosing spondylitis M45.9 Active 9415303 Problem Spondylosis without myelopathy or radiculopathy, lumbar region M47.816 Active 28606934 Problem Spondylosis without myelopathy or radiculopathy, lumbosacral region M47.817 Active 40215180 Problem Spondylosis without myelopathy or radiculopathy, cervical region M47.812 Active 987043834 Problem Facet arthropathy, cervical M12.88 Active 4293 36525 Problem Migraine with aura and without status migrainosu s, not intractable G43.109 Active 8937295 Problem Inflammatory polyarthritis M06.4 Active 44890 3000 Problem Sciatica of right side M54.31 Active 58346314 Problem Thyroid nodule E04.1 Active 846772288 Problem Fibromyalgia M79.7 Active 934131288 Problem Other headache syndrome G44.89 Active 92441232 9 Problem Encounter for immunization Z23 Active 59743 6002 Problem Herniation of intervertebral disc at C5-C6 level M 50.222 Active 451093439 Problem GERD without esophagitis K21.9 Active 7746091 05 Problem Lumbar degenerative disc disease M51.36 Active 42149948 Problem Migraine without aura and without status migrain osus, not intractable G43.009 Active 590766679 Problem Mixed hyperlipidemia E78.2 Active 514500361 ALLERGIES No Known Allergies ENCOUNTERS from 1975 to 2020-03-23 Encounter Location Date Provider Diagnosis [place] [place] [address] Mar Kristian Kelli C. difficile colitis A04.72 and Diarrhea of presumed infectious origin R19.7 IMMUNIZATIONS Vaccine Route Administration Date Status Influenza (Pharmacy Given) Unknown Jan 03, 2019 Admin istered Influenza (6mo & up) Fluzone IM Intramuscular Mar 02, 2016 Ad ministered SOCIAL HISTORY Tobacco Use: Social History Observation Description Date Details (start date - stop date) Never Smoker Sex Assigned At : Social History Observation Description Sex Assigned At Unknown Education: Question Answer Notes Level of Education: College Audit Question Answer Notes Total Score: 0 Interpretation: Alcohol Education Language: Question Answer Notes Languages spoken: Japanese Jain: Question Answer Notes Jain 08 [employer] Sexual Hx: Question Answer Notes Had sex in the last 12 months (vaginal, oral, or anal)? Yes Have you ever had an STD? No with Women only Use protection? No Drug and Alcohol Question Answer Notes Total Score: 0 Interpretation: No problems reported Alcohol Screening: Question Answer Notes Did you have a drink containing alcohol in the past year? Ye s Points 1 Interpretation Negative How often did you have six or more drinks on one occas ion in the past year? Never (0 points) How many drinks did you have on a typica l day when you were drinking in the past year? 1 or 2 (0 points) How often did you have a drink containing alcohol in t he past year? Monthly or less (1 point) BMI Care Goal Follow-Up Question Answer Notes Above Normal BMI Follow-Up Dietary management educatio n, guidance, and counseling Tobacco Use: Question Answer Notes Are you a: never smoker never smoker Additional Findings: Tobacco User no Additional Findings: Tobacco Non-User Current non-smoker REASON FOR REFERRAL No Information VITAL SIGNS No information MEDICATIONS Medication SIG (Take, Route, Frequency, Duration) Notes Start Da te End Date Status Dexamethasone 0.5 MG/5ML 10 ml Orally every 6 hrs for 30 day(s) Not-Taking Dicyclomine HCl 10 MG 1 cap Orally Four times a da y, prn abdominal cramps for 25 days Active Tylenol 8 Hour 650 MG 2 tablets as needed Orally every 8 hrs Active Zonisamide 50 MG 1 capsule Orally bid for 30 Active Sumatriptan Succinate 6 MG/0.5ML 0.5 ml as needed Subc utaneous as needed for 30 Days Active Sumatriptan Succinate 100 MG 1 tablet at least 2 hours between doses as needed Orally Twice a day for 30 Days Mar, A ctive Potassium Citrate 10 MEQ as directed Orally Active Acetaminophen-Codeine #3 300-30 MG 1 tablet as needed Orally every 6 hrs for 5 day(s) Feb, Active Gabapentin 600 MG 1 tablet Orally bid Active Colchicine 0.6 MG 1 tablet Orally Once a day for 30 day(s) Active Cosentyx 150 MG/ML 1 ml Subcutaneous q month Not-Taking Duloxetine HCl 30 MG TAKE ONE CAPSULE BY MOUTH EVERY DAY for 30 Active Mobic 7.5 MG 1 tablet Orally Once a day Active Famotidine 40 MG TAKE 1 TABLET BY MOUTH ONCE DAILY AT BEDTIME for 30 Active Vancomycin HCl 125 MG 1 capsule Orally every 6 hrs for 10 day(s) Feb, Active Tizanidine HCl 2 MG 1 tablet as needed Orally Three times a day for 5 day(s) Feb, Active PROCEDURES No Information RESULTS No Results REASON FOR VISIT FYI MEDICAL (GENERAL) HISTORY Type Description Date Medical History GERD Medical History Fibromyalgia Medical History Migraines Medical History Psoriatic arthritis Medical History Low back pain Medical History Left ventricular dysfunction - as child- no longer follows with cardiology Medical History Hyperlipidemia Medical History Small pericardial effusion w/minor heart murmur Surgical History right and left cysts removed from wrists Surgical History left ovarian cystectomy 1990 Surgical History right inguinal hernia Surgical History left knee acl repair 1992 Surgical History left knee meniscus repair 2003 Surgical History tonsillectomy Surgical History abdominal hernia repair midline- Dr David lawrence 2014 Surgical History Hysterectomy 03/17/16 Surgical History TMJ LEFT 12/2017 Surgical History TMJ right 04/25/18 Surgical History Molar removed upper left 01/11/19 Hospitalization History surgeries Goals Section No Information Health Concerns No Information MEDICAL EQUIPMENT No Information MENTAL STATUS No Information FUNCTIONAL STATUS No Information ASSESSMENTS Encounter Date Diagnosis Assessment Notes Treatment Notes Treatm ent Clinical Notes Mar, C. difficile colitis (ICD-10 - A04.72) Mar, Diarrhea of presumed infectious origin (ICD-10 - R19.7) PLAN OF TREATMENT Medication Medication Name Sig Start Date Stop Date Tizanidine HCl 2 MG 1 tablet as needed Orally Three times a day for 5 day(s) Feb, Acetaminophen-Codeine #3 300-30 MG 1 tablet as needed Orally every 6 hrs for 5 day(s) Feb, Treatment Notes Test Name Order Date GASTROINTESTINAL GI PANEL (GIPANEL) 2020-03-23 Insurance Providers Payer Name Payer Address Payer Phone Insured Name Patient Relati onship to Insured Coverage Start Date Coverage End Date MEDICARE Part A and B [facility] [id number] [place] [phone] MARY BETH LU self BC[id number] [facility] [id number] MRAY BETH LU [id number]
--- OUTSIDE RECORDS SUMMARY | 2020-05-06 07:40 | CCD ---
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 Active 15045696 Problem Rosacea L71.9 Active 292965461 Problem Trochanteric bursitis of both hips M70.61 Activ e 9677421 Problem Rheumatoid arthritis, involv ing unspecified site, unspecified rheumatoid factor presence M06.9 Active 46580990 Problem Sinusitis, unspecified chronicity, unspecified location J32.9 Active 16677269 Problem Hypercholesterolemia E78.00 Active 68192689 Problem Facet arthritis, degenerative, L5-S1 level, lumbosacra l spine M47.897 Active 929575973 Problem Psoriatic arthritis L40.50 Active 625246118 Problem Ankylosing spondylitis M45.9 Active 6183953 Problem Spondylosis without myelopathy or radiculopathy, lumbar region M47.816 Active 34060664 Problem Spondylosis without myelopathy or radiculopathy, lumbosacral region M47.817 Active 84528664 Problem Spondylosis without myelopathy or radiculopathy, cervical region M47.812 Active 441643178 Problem Facet arthropathy, cervical M12.88 Active 4293 31493 Problem Migraine with aura and without status migrainosu s, not intractable G43.109 Active 9387965 Problem Inflammatory polyarthritis M06.4 Active 71605 3000 Problem Sciatica of right side M54.31 Active 97413843 Problem Thyroid nodule E04.1 Active 081857681 Problem Fibromyalgia M79.7 Active 729171496 Problem Other headache syndrome G44.89 Active 54324968 9 Problem Encounter for immunization Z23 Active 79203 6002 Problem Herniation of intervertebral disc at C5-C6 level M 50.222 Active 877578525 Problem GERD without esophagitis K21.9 Active 7844320 05 Problem Lumbar degenerative disc disease M51.36 Active 40762632 Problem Migraine without aura and without status migrain osus, not intractable G43.009 Active 840519840 Problem Mixed hyperlipidemia E78.2 Active 158141438 ALLERGIES No Known Allergies ENCOUNTERS from 1975 to 2020-03-19 Encounter Location Date Provider Diagnosis [facility] [place] [address] Feb Kelly Alberry IMMUNIZATIONS Vaccine Route Administration Date Status Influenza [...] Education Language: Question Answer Notes Languages spoken: Spanish Scientologist: Question Answer Notes Scientologist 08 Faith Sexual Hx: Question Answer Notes Had sex [...] Information RESULTS No Results REASON FOR VISIT xrays MEDICAL (GENERAL) HISTORY Type Description Date Medical [...] No Information FUNCTIONAL STATUS No Information ASSESSMENTS No Information PLAN OF TREATMENT Medication Medication Name Sig Start Date Stop Date Tizanidine HCl 2 MG 1 tablet as needed Orally Three times a day for 5 day(s) Feb, Acetaminophen-Codeine #3 300-30 MG 1 tablet as needed Orally every 6 hrs for 5 day(s) Feb, Insurance Providers Payer Name Payer Address Payer Phone Insured Name Patient Relati onship to Insured Coverage Start Date Coverage End Date MEDICARE Part A and B [address] [facility] [id number] [phone] [phone] [facility] [id number] [place] [id number]
--- OUTSIDE RECORDS SUMMARY | 2020-05-06 07:40 | CCD ---
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.26 Active 71099857 Problem Rosacea L71.9 Active 778674405 Problem Trochanteric bursitis of both hips M70.61 Activ e 4013539 Problem Rheumatoid arthritis, involv ing unspecified site, unspecified rheumatoid factor presence M06.9 Active 95637241 Problem Sinusitis, unspecified chronicity, unspecified location J32.9 Active 78274947 Problem Hypercholesterolemia E78.00 Active 79886194 Problem Facet arthritis, degenerative, L5-S1 level, lumbosacra l spine M47.897 Active 194987269 Problem Psoriatic arthritis L40.50 Active 187830560 Problem Ankylosing spondylitis M45.9 Active 1391331 Problem Spondylosis without myelopathy or radiculopathy, lumbar region M47.816 Active 94596129 Problem Spondylosis without myelopathy or radiculopathy, lumbosacral region M47.817 Active 37268617 Problem Spondylosis without myelopathy or radiculopathy, cervical region M47.812 Active 351445737 Problem Facet arthropathy, cervical M12.88 Active 4293 54800 Problem Migraine with aura and without status migrainosu s, not intractable G43.109 Active 6692387 Problem Inflammatory polyarthritis M06.4 Active 85086 3000 Problem Sciatica of right side M54.31 Active 90249498 Problem Thyroid nodule E04.1 Active 516318806 Problem Fibromyalgia M79.7 Active 678650363 Problem Other headache syndrome G44.89 Active 40142000 9 Problem Encounter for immunization Z23 Active 62204 6002 Problem Herniation of intervertebral disc at C5-C6 level M 50.222 Active 413048316 Problem GERD without esophagitis K21.9 Active 9776666 05 Problem Lumbar degenerative disc disease M51.36 Active 07311460 Problem Migraine without aura and without status migrain osus, not intractable G43.009 Active 210711730 Problem Mixed hyperlipidemia E78.2 Active 492921177 ALLERGIES No Known Allergies ENCOUNTERS from 1975 to 2020-03-12 Encounter Location Date Provider Diagnosis [address] [address] [place] [address] Feb Kristian Kelli C. difficile colitis A04.72 ; Lump in ne ck R22.1 ; Thyroid nodule E04.1 and Mucous retention cyst of maxillary sinus J34.1 IMMUNIZATIONS Vaccine Route Administration Date Status Influenza [...] Education Language: Question Answer Notes Languages spoken: Estonian Christianity: Question Answer Notes Christianity 08 Presybeterian Sexual Hx: Question Answer Notes Had sex [...] REASON FOR REFERRAL No Information VITAL SIGNS Weight 189.12 lbs Feb, Height 5'7" in Feb, BMI 29.62 kg/m2 Feb, Heart Rate 80 /min Feb, Respiratory Rate 16 /min Feb, Temperature 95.6 degrees Fahrenheit Feb, Oximetry 97ra Feb, Blood pressure systolic 120 mm Hg Feb, Blood pressure diastolic 71 mm Hg Feb, MEDICATIONS Medication SIG (Take, Route, Frequency, Duration) Notes Start Da te End Date Status Cosentyx 150 MG/ML 1 ml Subcutaneous q month Not-Taking Dexamethasone 0.5 MG/5ML 10 ml Orally every 6 hrs for 30 day(s) Not-Taking Tylenol 8 Hour 650 MG 2 tablets as needed Orally every 8 hrs Active Colchicine 0.6 MG 1 tablet Orally Once a day for 30 day(s) Active Zonisamide 50 MG 1 capsule Orally bid for 30 Active Sumatriptan Succinate 6 MG/0.5ML 0.5 ml as needed Subc utaneous as needed for 30 Days Active Potassium Citrate 10 MEQ as directed Orally Active Mobic 7.5 MG 1 tablet Orally Once a day Active Vancomycin HCl 125 MG 1 capsule Orally every 6 hrs for 10 day(s) Feb, Active Famotidine 40 MG TAKE 1 TABLET BY MOUTH ONCE DAILY AT BEDTIME for 30 Active Sumatriptan Succinate 100 MG 1 tablet at least 2 hours between doses as needed Orally Twice a day for 30 Days Mar, A ctive Dicyclomine HCl 10 MG 1 cap Orally Four times a da y, prn abdominal cramps for 25 days Active Duloxetine HCl 30 MG TAKE ONE CAPSULE BY MOUTH EVERY DAY for 30 Active Gabapentin 600 MG 1 tablet Orally bid Active PROCEDURES No Information RESULTS No Results REASON FOR VISIT Patient here for [facility] on 02/26 and 02/28 for N/D. She was dx with c-diff and is now on flagyl. She did have resolution of diarrhea symptoms but came back [facility] MEDICAL (GENERAL) HISTORY Type Description Date Medical [...] Notes Treatment Notes Treatm ent Clinical Notes Feb, C. difficile colitis (ICD-10 - A04.72) Will start vancomycin. Discussed treatment and expected course. Pt is aware and agreeable. Feb, Lump in neck (ICD-10 - R22.1) Cont with ENT. Pt is agreeable. Feb, Thyroid nodule (ICD-10 - E04.1) Feb, Mucous retention cyst of maxillary sinus (ICD-10 - J34.1) PLAN OF TREATMENT Medication Medication Name Sig Start Date Stop Date Vancomycin HCl 125 MG 1 capsule Orally every 6 hrs for 10 day(s) Feb, Treatment Notes Assessment Notes Clinical Notes C. difficile colitis Will start vancomyc in. Discussed treatment and expected course. Pt is aware and agreeable. Lump in neck Cont with ENT. Pt i s agreeable. Next Appt Details prn Reason: Insurance Providers Payer Name Payer Address Payer Phone Insured Name Patient Relati onship to Insured Coverage Start Date Coverage End Date MEDICARE Part A and B [address] [facility] [phone] MARY BETH LU self BCBS [place] [facility] PPO [id number] [facility] [address] M[place] BETH [place] [id number]
--- OUTSIDE RECORDS SUMMARY | 2020-05-06 07:40 | CCD | Continuity of Care Document ---
Author Author [facility] Organization [facility] Address Unknown Phone Unavailable Care Team Providers Care Spindraw Operator Name Role Phone Cortes WEBB, Honey Unavailable Unavailable Allergies, Adverse Reactions, Alerts Substance Reaction Status Criticality No Known Drug Allergies Active No Information Medications Medication Instructions Dosage Effective Dates (start - stop) Sta tus Comments Plaquenil 200 mg tablet take 2 tablet by oral route every day 2 tablet - Active prednisone 5 mg tablet take 1 tablet by oral route 2 times e very day as needed 5 MG - Active methotrexate sodium 2.5 mg tablet take 8 Tablet by oral route e very week 20 MG - Active HUMIRA 40 MG/0.8 ML PEN INJECT 0.8ML UNDER THE SKIN EVERY 2 WEEK S 40 MG - Active folic acid 1 mg tablet take 1 Tablet by oral route every day 1 MG - Active zonisamide 100 mg capsule take 1 capsule by oral route 2 times e very day 100 MG - Active tizanidine 4 mg tablet take 1 tablet by oral route every be dtime as needed 4 MG - Active nortriptyline 25 mg capsule take 1 capsule by oral route every bedtime 25 MG - Active Vitamin B-2 100 mg tablet - Active magnesium oxide 400 mg tablet take 1 tablet by oral route every da y - Active Cymbalta 60 mg capsule,delayed release take 1 capsule by ora l route every day 60 MG - Active temazepam 15 mg capsule take 1 capsule by oral route every day at bedtime as needed 15 MG - Active SEROQUEL (unknown strength) take 1 tablet by oral route 2 ti mes every day Not Available - Active pantoprazole 20 mg tablet,delayed release take 2 table t (40MG) by oral route every day 40 MG - Active Problems Condition Type Effective Dates (start - stop) Clinical S tatus Comments Rheumatoid arthritis w/o rheumatoid factor of multiple sites Diagnosis interpretation (observable entity) Fibromyalgia Diagnosis interpretation (observable entity) Dry mouth Diagnosis interpretation (observable entity) 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 Diagnosis interpretation (observable e ntity) Back pain Diagnosis interpretation (observable entity) Cervicalgia Diagnosis interpretation (observable entity) Headache Diagnosis interpretation (observable entity) 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 Diagnosis interpretation (observable e ntity) Abnormal results of kidney function studies Diagnosis interpretation (observable entity) Rheumatoid arthritis w/o rheumatoid factor of multiple sites Diagnosis interpretation (observable entity) Dry mouth Diagnosis interpretation (observable entity) 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 Diagnosis interpretation (observable e ntity) Back pain Diagnosis interpretation (observable entity) Fibromyalgia Diagnosis interpretation (observable entity) Cervicalgia Diagnosis interpretation (observable entity) GERD w/o esophagitis Diagnosis interpretation (observable entity) Headache Diagnosis interpretation (observable entity) Abnormal results of kidney function studies Diagnosis interpretation (observable entity) Rheumatoid arthritis w/o rheumatoid factor of multiple sites Diagnosis interpretation (observable entity) Other assisted drug therapy Diagnosis interpretation (observable e ntity) Pain in left shoulder Diagnosis interpretation (observable entity) Pain in rt shoulder Diagnosis interpretation (observable entity) Back pain Diagnosis interpretation (observable entity) Dry mouth Diagnosis interpretation (observable entity) Rheumatoid arthritis w/o rheumatoid factor of multiple sites Diagnosis interpretation (observable entity) Dry mouth Diagnosis interpretation (observable entity) Rheumatoid arthritis w/o rheumatoid factor of multiple sites Diagnosis interpretation (observable entity) 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 The mapped diagnosis code was Bicipital tenosynovitis, 726.12, added by Natalia Sommers MD, with responsible provider Natalia Sommers MD. Onset date 03/25/2013; last addressed on 03/25/2013. Enthesopathy of hip region Problem (finding) - Active Mapped from [facility] Chronic Conditions table on 05/27/2014 by the ICD9 to SNOMED Bulk Mapping Utility. The mapped diagnosis code was Enthesopathy of hip region, 726.5, added by Kathia Ly NP, with responsible provider Kathia STAPLETON. Onset date 03/05/2012; last addressed on 04/17/2012. Fibromyositis Problem (finding) - Active Mapped from [facility] Chronic Conditions table on 07/11/2014 by the ICD9 to SNOMED Bulk Mapping Utility. The mapped diagnosis code was Fibromyalgia / Myalgia, 729.1, added by Kathia Ly NP, with responsible provider Kathia LAN-Scotty. Onset date 03/05/2012; last addressed on 10/28/2013. Rheumatoid arthritis Problem (finding) - Active Mapped from [facility] Chronic Conditions table on 05/27/2014 by the ICD9 to SNOMED Bulk Mapping Utility. The mapped diagnosis code was Rheumatoid Arthritis, 714.0, added by Kathia Ly NP, with responsible provider Kathia LAN-Scotty. Onset date 03/05/2012; last addressed on 10/28/2013. High risk drug monitoring status Problem (finding) - A ctive Mapped from [facility] Chronic Conditions table on 07/28/2014 by the ICD9 to SNOMED Bulk Mapping Utility. The mapped diagnosis code was Therapeutic Drug Monitoring, V58.69, added by Kathia Ly NP, with responsible provider Kathia LAN-Scotty. Onset date 03/05/2012; last addressed on 10/28/2013. Congenital pes cavus Problem (finding) - Active Mapped from [facility] Chronic Conditions table on 05/27/2014 by the ICD9 to SNOMED Bulk Mapping Utility. The mapped diagnosis code was Talipes cavus, 754.71, added by Kathia Ly NP, with responsible provider Kathia LAN-Scotty. Onset date 03/05/2012; last addressed on 03/05/2012. Procedures Procedure Date No Information Results Test Name Date and Time Measure Units Reference Range Abnormal Flag St atus Comments No Information Advance Directives Directive Yes / No Effective Date File Name No Information Encounters Encounter Description Practice Location Reason(s) For Visit Diagnose s Date Provider Providers Copied on Encounter [facility], [address], [place], [id number], [place] tel:[phone] [facility] No Information Cortes Méndez. [address] [place] [address], [id number], [place]. tel:[phone] [facility], [address] [place] [address], [id number], [place] tel:[phone] [facility] No Information No Information [facility], [address] [place] [address], [id number], [place] tel:[phone] [facility] Rheumatoid arthritis w/o rheumatoid factor of multiple sitesFibromyalgiaDry mouth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Back painCervicalgiaHeadache No Acupressurist: Arlyn Sow MD, [address] [place], [address]. tel:[phone]: Lana Mtz ELECTRIC TRIPPER MACHINE OPERATOR, [address] [place], [address]. tel:[phone] Provider: Aleyda Peterson MD, [address], [address]. 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 [address] [place] [address], [id number], [place]. tel:[phone] [facility], [address] [place] [address], [id number], [place] tel:[phone] [facility] Abnormal results of kidney function studies No Information [facility], [address] [place] [address], [id number], tel:[phone] [facility] No Information No Information [facility], [address] [place] [address], [id number], [place] tel:[phone] [facility] Rheumatoid arthritis w/o rheumatoid factor of multiple sitesDry mouth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Back painFibromyalgiaCervicalgiaGERD w/o esophagitisHeadache No Acupressurist: Arlyn Sow MD, [address] [place] [address], [address]. tel:[phone] Provider: Aleyda Peterson MD, [facility] [address] [place] [address], [address]. tel:[phone] [facility], [address] [place] [address], [id number], tel:[phone] [facility] Abnormal results of kidney function studies No Information [facility], [address] [place] [address], [id number], [place] tel:[phone] [facility] Rheumatoid arthritis w/o rheumatoid factor of multiple sites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Pain in left shoulderPain in rt shoulderBack painDry mouth No Information Consulting Provider: Frantz Razo, [address] [place] [address], [place], [address]. tel:[phone] Provider: Aleyda Peterson MD, [facility] [address] [place] [address], [address]. tel:[phone] [facility], [address] [place] [address], [id number], [place] tel:[phone] [facility] Rheumatoid arthritis w/o rheumatoid factor of multiple sitesDry mouth No Information Consulting Provider: Frantz Razo, [address] [place] [address], [place], [address]. tel:[phone] Provider: Aleyda Peterson MD, [facility] [address] [place] [address], [address]. tel:[phone] [facility], [address] [place] [address], [id number], tel:[phone] [facility] Rheumatoid arthritis w/o rheumatoid factor of multiple sites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 No Information Consulting Provider: Frantz Razo, [facility] [address], [address]. tel:[phone] Provider: Aleyda Peterson MD, [address], [address]. tel:[phone] [facility], [address] [place] [address], [id number], tel:[phone] [facility] Rheumatoid arthritis, unspecified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 No Inform ation Consulting Provider: Frantz Razo, [address] [place], [place] [address] [address], [address]. tel:[phone] Provider: Aleyda Peterson MD, [address] [place], [address]. tel:[phone] [facility], [address] [place] [address], [id number], [place] tel:[phone] [facility] No Information No Information Consulting Provider: Frantz Razo, [facility] [address], [address]. tel:[phone] Provider: Aleyda Peterson MD, [address], [address]. tel:[phone] [facility], [address] [place] [address], [id number], [place] tel:[phone] [facility] No Information No Information Consulting Provider: Frantz Razo, [facility] Eleuterio [address] [place] [address], [address]. tel:[phone] Provider: Aleyda Peterson MD, [facility] [address] [place] [address], [address]. tel:[phone] [facility], [address] [place] [address], [id number], [place] tel:[phone] [facility] No Information No Information Referring Provider: Aleyda Peterson MD, [facility] [address] [place] [address], [address]. tel:[phone] [facility], [address] [place] [address], [id number], tel:[phone] [facility] No Information No Information Referring Provider: Aleyda Peterson MD, [facility] [address] [place] [address], [address]. tel:[phone] [facility], [address] [place] [address], [id number], [place] tel:[phone] [facility] No Information No Information Referring Provider: Aleyda Peterson MD, [facility] [address] [place] [address], [address]. tel:[phone] [facility], [address] [place] [address], [id number], [place] tel:[phone] [facility] No Information Cortes Méndez. [address] [place] [address], [id number], [place]. tel:[phone] Referring Provider: Aleyda Peterson MD, [facility] [address] [place] [address], [address]. tel:[phone] Family History Family Member Type Diagnosis Age At Onset Father Problem (finding) Maternal grandmother Problem (finding) Mother Problem (finding) Uncle Problem (finding) Paternal grandfather Problem (finding) Paternal grandmother Problem (finding) Father Problem (finding) Rheumatoid arthritis Brother Problem (finding) Immunizations Vaccine Date Status Comments Influenza, split virus, injectable, 3 years and older Fluvirin administered Note: approx ; Source: Other Provider Influenza virus vaccine, Injection administered Source: Other Provider Influenza virus vaccine, Injection administered Source: Other Provider Not receiving Zoster administered Source: New Immunization Record Influenza virus vaccine, Injection administered Source: Other Provider Never had administered Source: Source U nspecified Payers Payer name Insurance type Covered green party ID Authorization(s ) Medicare [id number] BCBS No Referral Required [id number] Social History Type Description Quantity Date Captured Comments Sex Female Smoking Status No Information Vital Signs Date / Time: Height Weight BMI Pulse Rate Blood Pressure Temperatu re Respiratory Rate Body Surface Area Head Circumference BMI percentile Pulse Ox In haled Ox No Information Chief Complaint And Reason For Visit No Information Reason For Referral Reason For Referral No Information Plan Of Treatment Date Type Action Status Goal Visual Field Exam. Due on due Goal Visual Field Exam. Due on due Goal Visual Field Exam. Due on due Goal Visual Field Exam. Due on due Goal Visual Field Exam. Due on due Goal Visual Field Exam. Due on due Goal Visual Field Exam. Due on due Goal Visual Field Exam. Due on due Goal Visual Field Exam. Due on due Referral Referred To: Rivera Simmons MD [address], [phone] Ordered: Referrals: Rivera Simmons MD. Evaluate and treat Appointment date/timeframe: 12/18/2015 ordered Referral Referred To: [facility] Ordered: Referral: [facility]. Evaluate and treat. Appointment date/timeframe: 02/05/2014 ordered Referral Ordered: *SHOULDER X-RAY, COMPLETE, 2 VIEW Left ordered History Of Present Illness Encounter Date Complaint History Of Present I llness No Information Functional Status Date Functional Assessment No Information Medications Administered Medication Instructions Dosage Effective Dates (start - stop) Sta tus Comments No Information Instructions Date Instruction Additional Informati on Reviewed importance of compl iance/adherence to medications prescribed Avoid OTC NSAIDS Avoid live vaccines Exercise more Discussed importance of hold ing DMARDs/ biologics if patient develops an infection and to notify the treating physician Stretching Reviewed importance of compl iance/adherence to medications prescribed Diet: avoid alcohol Exercise more Discussed importance of hold ing DMARDs/ biologics if patient develops an infection and to notify the treating physician Stretching Reviewed importance of compl iance/adherence to medications prescribed Avoid OTC NSAIDS Diet: avoid alcohol Avoid live vaccines Exercise more Discussed importance of hold ing DMARDs/ biologics if patient develops an infection and to notify the treating physician Stretching Reviewed importance of compl iance/adherence to medications prescribed Avoid OTC NSAIDS Discussed importance of hold ing DMARDs/ biologics if patient develops an infection and to notify the treating physician Discussed importance of hold ing DMARDs/ biologics if patient develops an infection and to notify the treating physician Stretching Reviewed importance of compl iance/adherence to medications prescribed Avoid OTC NSAIDS Diet: avoid alcohol Avoid live vaccines Exercise more Reviewed importance of compl iance/adherence to medications prescribed Avoid OTC NSAIDS Diet: avoid alcohol Exercise more Discussed importance of hold ing DMARDs/ biologics if patient develops an infection and to notify the treating physician Stretching Physical Examination Exam Findings Details No Information
--- OUTSIDE RECORDS SUMMARY | 2020-05-06 07:40 | CCD ---
Author Author [facility] Organization [facility] Address Unknown Phone Unavailable Care Team Providers Care Erp Business Analyst Name Role Phone Kelly Camara Unavailable PROBLEMS Type Condition ICD9-CM Code EUH98-IP Code Onset Dates Condition S tatus SNOMED Code Notes Problem Lumbar facet arthropathy M46.96 Active 5383484 08 Problem Sacroiliitis, not elsewhere classified M46.1 A ctive 422893921 Problem Lumbar disc displacement without myelopathy M51.26 Active 71335544 Problem Rosacea L71.9 Active 730559193 Problem Trochanteric bursitis of both hips M70.61 Activ e 9180336 Problem Rheumatoid arthritis, involv ing unspecified site, unspecified rheumatoid factor presence M06.9 Active 40314663 Problem Sinusitis, unspecified chronicity, unspecified location J32.9 Active 70630379 Problem Hypercholesterolemia E78.00 Active 93935598 Problem Facet arthritis, degenerative, L5-S1 level, lumbosacra l spine M47.897 Active 095567577 Problem Psoriatic arthritis L40.50 Active 367361647 Problem Ankylosing spondylitis M45.9 Active 8976838 Problem Spondylosis without myelopathy or radiculopathy, lumbar region M47.816 Active 81961172 Problem Spondylosis without myelopathy or radiculopathy, lumbosacral region M47.817 Active 15182138 Problem Spondylosis without myelopathy or radiculopathy, cervical region M47.812 Active 746494462 Problem Facet arthropathy, cervical M12.88 Active 4293 17582 Problem Migraine with aura and without status migrainosu s, not intractable G43.109 Active 3845188 Problem Inflammatory polyarthritis M06.4 Active 83621 3000 Problem Sciatica of right side M54.31 Active 03996040 Problem Thyroid nodule E04.1 Active 347845658 Problem Fibromyalgia M79.7 Active 726348579 Problem Other headache syndrome G44.89 Active 80886787 9 Problem Encounter for immunization Z23 Active 17102 6002 Problem Herniation of intervertebral disc at C5-C6 level M 50.222 Active 387907900 Problem GERD without esophagitis K21.9 Active 8168502 05 Problem Lumbar degenerative disc disease M51.36 Active 71721202 Problem Migraine without aura and without status migrain osus, not intractable G43.009 Active 012847560 Problem Mixed hyperlipidemia E78.2 Active 251743695 ALLERGIES No Known Allergies ENCOUNTERS from 1975 to 2020-03-19 Encounter Location Date Provider Diagnosis [facility] [place] [address] Feb Kelly Camara Injury of low back, initial encounter S3 9.92XA ; Injury of left elbow, initial encounter S59.902A and Fall, initial encounter W19.XXXA IMMUNIZATIONS Vaccine Route Administration Date Status Influenza [...] Education Language: Question Answer Notes Languages spoken: Argentine Muslim: Question Answer Notes Muslim 08 Judaism Sexual Hx: Question Answer Notes Had sex [...] FOR REFERRAL No Information VITAL SIGNS Weight 195 lbs Feb, Height 5'7" in Feb, BMI 30.54 kg/m2 Feb, Heart Rate 80 /min Feb, Respiratory Rate 18 /min Feb, Temperature 97.6 degrees Fahrenheit Feb, Oximetry 98 Feb, Blood pressure systolic 128 mm Hg Feb, Blood pressure diastolic 76 mm Hg Feb, MEDICATIONS Medication SIG (Take, [...] day(s) Feb, Active PROCEDURES No Information RESULTS Component Value Reference Range RADHA ELBOW PARTIAL Reviewed date:03/18/2020 10:58:35 Interpretation: Performing Lab:[facility],[address]], ,[place] [address] RADHA SPINE THORACIC 3 VIEW Reviewed date:03/18/2020 10:58:41 Interpretation: Performing Lab:[facility],[address]], ,[place] [address] REASON FOR VISIT back pain MEDICAL (GENERAL) HISTORY Type Description Date Medical [...] Treatment Notes Treatm ent Clinical Notes Feb, Injury of low back, initial encounter (ICD-10 - S39.92XA) Educated to alternate between ice/heat for pain and swelling Educated to avoid use of ibuprofen due to drug interactions Advised to call the office if symptoms worsen Feb, Injury of left elbow, initial encounter (ICD-10 - S59.902A) Will X-Ray elbow to ensure injury is without fracture Call office if symptoms worsen Feb, Fall, initial encounter (ICD-10 - W19.XXXA) Advised to rest over the next couple days to promote healing Feb, Other Shraddha Fernandes RN BSN, Student-ART SALES CONSULTANT PLAN OF TREATMENT Medication Medication Name Sig Start Date Stop Date Tizanidine HCl 2 MG 1 tablet as needed Orally Three times a day for 5 day(s) Feb, Acetaminophen-Codeine #3 300-30 MG 1 tablet as needed Orally every 6 hrs for 5 day(s) Feb, Treatment Notes Assessment Notes Clinical Notes Injury of low back, initial encounter Ed ucated to alternate between ice/heat for pain and swellingEducated to avoid use of ibuprofen due to drug interactionsAdvised to call the office if symptoms worsen Injury of left elbow, initial encounter Will X-Ray elbow to ensure injury is without fractureCall office if symptoms worsen Fall, initial encounter Advised to rest over the next couple days to promote healing Treatment Notes Test Name Order Date X ray : LS Spine 2020-03-19 Insurance Providers Payer Name Payer Address Payer Phone Insured Name Patient Relati onship to Insured Coverage Start Date Coverage End Date MEDICARE Part A and B [facility] [id number] [facility] [place] [phone] [phone] MARY BETH LU self [phone] [facility]esty [facility] [place] [address] MARY BETH LU [id number]
--- OUTSIDE RECORDS SUMMARY | 2020-05-06 07:40 | CCD ---
Author Author [facility] [employer] Organization [facility] [employer] Address Unknown Phone Unavailable Care Team Providers Care Field Naturalist Name Role Phone Kelly Camara Unavailable PROBLEMS Type Condition ICD9-CM Code [id number] Code Onset Dates Condition S tatus SNOMED Code Notes Problem Lumbar facet arthropathy M46.96 Active 5319397 08 Problem Sacroiliitis, not elsewhere classified M46.1 A ctive 362363944 Problem Lumbar disc displacement without myelopathy M51.26 Active 49353955 Problem Rosacea L71.9 Active 227557241 Problem Trochanteric bursitis of both hips M70.61 Activ e 4602185 Problem Rheumatoid arthritis, involv ing unspecified site, unspecified rheumatoid factor presence M06.9 Active 72769173 Problem Sinusitis, unspecified chronicity, unspecified location J32.9 Active 27705226 Problem Hypercholesterolemia E78.00 Active 08116332 Problem Facet arthritis, degenerative, L5-S1 level, lumbosacra l spine M47.897 Active 405046644 Problem Psoriatic arthritis L40.50 Active 390309672 Problem Ankylosing spondylitis M45.9 Active 2210075 Problem Spondylosis without myelopathy or radiculopathy, lumbar region M47.816 Active 00017373 Problem Spondylosis without myelopathy or radiculopathy, lumbosacral region M47.817 Active 36821680 Problem Spondylosis without myelopathy or radiculopathy, cervical region M47.812 Active 258371750 Problem Facet arthropathy, cervical M12.88 Active 4293 11806 Problem Migraine with aura and without status migrainosu s, not intractable G43.109 Active 7462928 Problem Inflammatory polyarthritis M06.4 Active 75962 3000 Problem Sciatica of right side M54.31 Active 71961347 Problem Thyroid nodule E04.1 Active 490715302 Problem Fibromyalgia M79.7 Active 099893107 Problem Other headache syndrome G44.89 Active 96560852 9 Problem Encounter for immunization Z23 Active 69667 6002 Problem Herniation of intervertebral disc at C5-C6 level M 50.222 Active 718813447 Problem GERD without esophagitis K21.9 Active 8370761 05 Problem Lumbar degenerative disc disease M51.36 Active 65793051 Problem Migraine without aura and without status migrain osus, not intractable G43.009 Active 952531000 Problem Mixed hyperlipidemia E78.2 Active 863325129 ALLERGIES No Known Allergies ENCOUNTERS from 1975 to 2020-03-19 Encounter Location Date Provider Diagnosis [address] [place] [address] Feb Kelly Camara IMMUNIZATIONS Vaccine Route Administration Date Status Influenza [...] Education Language: Question Answer Notes Languages spoken: Indonesian Mu-Ism: Question Answer Notes Mu-Ism 08 Confucianist Sexual Hx: Question Answer Notes Had sex [...] Information RESULTS No Results REASON FOR VISIT results MEDICAL (GENERAL) HISTORY Type Description Date Medical [...] MEDICARE Part A and B [address] [facility] [id number] MARY BETH LU [facility] [id number] [id number] [address] MARY BETH LU [id number]
--- OUTSIDE RECORDS SUMMARY | 2020-05-06 07:40 | CCD ---
Author Author [facility] Organization [facility] Address Unknown Phone Unavailable Care Team Providers Care Master Yacht Name Role Phone Kristian Pereira Unavailable PROBLEMS Type Condition ICD9-CM Code [id number] Code Onset Dates Condition S tatus SNOMED Code Notes Problem Lumbar facet arthropathy M46.96 Active 3330182 08 Problem Sacroiliitis, not elsewhere classified M46.1 A ctive 633528707 Problem Lumbar disc displacement without myelopathy M51.26 Active 19350583 Problem Rosacea L71.9 Active 978904319 Problem Trochanteric bursitis of both hips M70.61 Activ e 6284610 Problem Rheumatoid arthritis, involv ing unspecified site, unspecified rheumatoid factor presence M06.9 Active 75771613 Problem Sinusitis, unspecified chronicity, unspecified location J32.9 Active 27578754 Problem Hypercholesterolemia E78.00 Active 58473867 Problem Facet arthritis, degenerative, L5-S1 level, lumbosacra l spine M47.897 Active 394187480 Problem Psoriatic arthritis L40.50 Active 072551116 Problem Ankylosing spondylitis M45.9 Active 2497186 Problem Spondylosis without myelopathy or radiculopathy, lumbar region M47.816 Active 48090241 Problem Spondylosis without myelopathy or radiculopathy, lumbosacral region M47.817 Active 42574315 Problem Spondylosis without myelopathy or radiculopathy, cervical region M47.812 Active 577929591 Problem Facet arthropathy, cervical M12.88 Active 4293 71101 Problem Migraine with aura and without status migrainosu s, not intractable G43.109 Active 9644706 Problem Inflammatory polyarthritis M06.4 Active 37190 3000 Problem Sciatica of right side M54.31 Active 27141279 Problem Thyroid nodule E04.1 Active 158745110 Problem Fibromyalgia M79.7 Active 572209395 Problem Other headache syndrome G44.89 Active 62909984 9 Problem Encounter for immunization Z23 Active 65550 6002 Problem Herniation of intervertebral disc at C5-C6 level M 50.222 Active 392857752 Problem GERD without esophagitis K21.9 Active 8672395 05 Problem Lumbar degenerative disc disease M51.36 Active 92560761 Problem Migraine without aura and without status migrain osus, not intractable G43.009 Active 270757920 Problem Mixed hyperlipidemia E78.2 Active 838043083 ALLERGIES No Known Allergies ENCOUNTERS from 1975 to 2020-02-18 Encounter Location Date Provider Diagnosis [facility] [address] [place] [address] Jan Kristian Pereira IMMUNIZATIONS Vaccine Route Administration Date Status Influenza [...] Education Language: Question Answer Notes Languages spoken: Ecuadorean Presybeterian: Question Answer Notes Presybeterian 08 Jain Sexual Hx: Question Answer Notes Had sex [...] Notes Start Da te End Date Status Mobic 7.5 MG 1 tablet Orally Once a day Active Sumatriptan Succinate 100 MG 1 tablet at least 2 hours between doses as needed Orally Twice a day for 30 Days Mar, A ctive Gabapentin 600 MG 1 tablet Orally bid Active Sumatriptan Succinate 6 MG/0.5ML 0.5 ml as needed Subc utaneous as needed for 30 Days Active Tylenol 8 Hour 650 MG 2 tablets as needed Orally every 8 hrs Active Potassium Citrate 10 MEQ as directed Orally Active Famotidine 40 MG TAKE 1 TABLET BY MOUTH ONCE DAILY AT BEDTIME for 30 Active Dicyclomine HCl 10 MG 1 cap Orally Four times a da y, prn abdominal cramps for 25 days Active Cosentyx 150 MG/ML 1 ml Subcutaneous q month Active Zonisamide 50 MG 1 capsule Orally bid for 30 Active Dexamethasone 0.5 MG/5ML 10 ml Orally every 6 hrs for 30 day(s) Active Cefdinir 300 MG 2 cap Orally Daily for 10 day(s) 30 Jan, 020 Active Colchicine 0.6 MG 1 tablet Orally Once a day for 30 day(s) Active Duloxetine HCl 30 MG TAKE ONE CAPSULE BY MOUTH EVERY DAY for 30 Active PROCEDURES No Information RESULTS No Results REASON FOR VISIT refill MEDICAL (GENERAL) HISTORY Type Description Date Medical [...] Medication Name Sig Start Date Stop Date Cefdinir 300 MG 2 cap Orally Daily for 10 day(s) Jan, Insurance Providers Payer Name Payer Address Payer Phone Insured Name Patient Relati onship to Insured Coverage Start Date Coverage End Date MEDICARE Part A and B [facility] [id number] [facility] [id number] MARY BETH LU self BCBS [place] [id number] [facility] [place] [address] MARY BETH LU [id number]
--- OUTSIDE RECORDS SUMMARY | 2020-05-06 07:40 | CCD | Continuity of Care Document ---
Author Author [facility] Address [address] [place] [address] Phone Care Team Providers Care Lockstitch Front Maker Name Role Phone JEREMY BENNETT PCP Allergies, Adverse Reactions, Alerts No allergy information available. Medications No medication information available. Problems No problem information available. Procedures No procedure information available. Relevant Diagnostic Tests and/or Laboratory Data Laboratory Results Test Date/Time Result Interpretation Reference Range Result Co mment Performing Site White Blood Count February 27, 2020 12:40pm 4.8 4.0- 10.0 [facility], [address] [place] [address] Red Blood Count February 27, 2020 12:40pm 4.92 4.00-5 .50 [facility], [address] [place] [address] Hemoglobin February 27, 2020 12:40pm 13.4 12.0-16.0 [facility], [address] [place] [address] Hematocrit February 27, 2020 12:40pm 38.9 36.0-48.8 [facility], [address] [facility] [address] Mean Corpuscular Volume February 27, 2020 12:40pm 79.1 80-96 [facility], [address] [facility] [address] Mean Corpuscular Hemoglobin February 27, 2020 12:40pm 27.2 27.0-31.0 [facility], [address] [facility] [address] Mean Corpuscular Hgb Concent Diff February 27, 2020 12:40pm 34.4 32.0-36.0 [facility], [address] [facility] [address] Red Cell Distribution Width February 27, 2020 12:40pm 12.1 10.0-14.5 [facility], [address] [facility] [address] Platelet Count February 27, 2020 12:40pm 326 172-450 [facility], [address] [facility] [address] Mean Platelet Volume February 27, 2020 12:40pm 9.5 9 .0-13.0 [facility], [address] [facility] [address] Granulocytes % (Auto) February 27, 2020 12:40pm 46.7 50-80.0 [facility], [address] [facility] [address] Immature Granulocytes % February 27, 2020 12:40pm 0.2 0.0-0.2 [facility], [address] [facility] [address] Lymphocytes % February 27, 2020 12:40pm 36.3 25.0-50. 0 [facility], [address] [facility] [address] Monocytes % February 27, 2020 12:40pm 13.4 2.0-10.0 [facility], [address] [facility] [address] Eosinophils % February 27, 2020 12:40pm 2.3 0-5.0 [facility], [address] [facility] [address] Basophils % February 27, 2020 12:40pm 1.1 0.0-2.0 [facility], [address] [facility] [address] Granulocytes # February 27, 2020 12:40pm 2.2 2.0-8.0 0 [facility], [address] [facility] [address] Immature Granulocytes # February 27, 2020 12:40pm 0.0 0.0-0.2 [facility], [address] [facility] [address] Lymphocytes # February 27, 2020 12:40pm 1.7 1.0-5.0 [facility], [address] [facility] [address] Monocytes # February 27, 2020 12:40pm 0.6 0.10-1.20 [facility], [address] [facility] [address] Eosinophils # February 27, 2020 12:40pm 0.1 0.0-0.5 [facility], [address] [facility] [address] Basophils # February 27, 2020 12:40pm 0.1 0.0-0.2 [facility], [address] [facility] [address] Urine Color February 27, 2020 1:30pm YELLOW [facility], [address] [facility] [address] Urine Appearance February 27, 2020 1:30pm CLEAR [facility], [address] [facility] [address] Urine Glucose February 27, 2020 1:30pm NEGATIVE NEGATIVE [facility], [address] [facility] [address] Urine Bilirubin February 27, 2020 1:30pm NEGATIVE NEGATIV E [facility], [address] [facility] [address] Urine Ketones February 27, 2020 1:30pm NEGATIVE NEGATIVE [facility], [address] [facility] [address] Specific [place] February 27, 2020 1:30pm <= 1.005 1.001- 1.035 [facility], [address] [facility] [address] Urine Blood February 27, 2020 1:30pm NEGATIVE NEGATIVE [facility], [address] [facility] [address] Urine pH February 27, 2020 1:30pm 5.5 5.0-9.0 [facility], [address] [facility] [address] Urine Protein February 27, 2020 1:30pm NEGATIVE NEGATIVE [facility], [address] [facility] [address] Urine Urobilinogen February 27, 2020 1:30pm NORMAL(0.2-1) 0-1 [facility], [address] [facility] [address] Urine Nitrite February 27, 2020 1:30pm NEGATIVE NEGATIVE [facility], [address] [facility] [address] Urine Leukocyte Esterase February 27, 2020 1:30pm NEGATIVE NEGATIVE [facility], [address] [facility] [address] Glucose Level February 27, 2020 12:40pm 93 74-106 [facility], [address] [facility] [address] Lactic Acid Level February 27, 2020 12:40pm 0.8 0.4- 2.0 [facility], [address] [facility] [address] Blood Urea Nitrogen February 27, 2020 12:40pm 10 7- 18 [facility], [address] [facility] [address] Creatinine February 27, 2020 12:40pm 1.2 0.6-1.0 [facility], [address] [facility] [address] Sodium Level February 27, 2020 12:40pm 138 136-145 [facility], [address] [facility] [address] Potassium Level February 27, 2020 12:40pm 3.7 3.5-5. 1 [facility], [address] [facility] [address] Chloride Level February 27, 2020 12:40pm 102 98-107 [facility], [address] [facility] [address] Carbon Dioxide Level February 27, 2020 12:40pm 24 2 1-32 [facility], [address] [facility] [address] Calcium Level February 27, 2020 12:40pm 9.1 8.5-10.1 [facility], [address] [facility] [address] Anion Gap February 27, 2020 12:40pm 12.0 5-12 [facility], [address] [facility] [address] Estimated GFR (MDRD) February 27, 2020 12:40pm 49 GFR IS CALCULATED IN mL/min/1.73m2 NORMAL FUNCTION: >90MILDLY DECREASED: 60-89MILDY TO MODERATELY DECREASED: 45-59 MODERATELY TO SEVERELY DECREASED: 30-44SEVERELY DECREASED: 15-29RENAL FAILURE: <15 [facility], [address] [facility] [address] Aspartate Amino Transf (AST/SGOT) February 27, 2020 12:40pm 22 15-37 [facility], [address] [facility] [address] Alanine Aminotransferase (ALT/SGPT) February 27, 2020 12:40pm 24 12-78 [facility], [address] [facility] [address] Alkaline Phosphatase February 27, 2020 12:40pm 77 4 6-116 [facility], [address] [facility] [address] Total Bilirubin February 27, 2020 12:40pm 0.3 0.2-1. 0 [facility], [address] [facility] [address] Total Protein February 27, 2020 12:40pm 7.7 6.4-8.2 [facility], [address] [facility] [address] Albumin February 27, 2020 12:40pm 3.9 3.4-5.0 [facility], [address] [facility] [address] Lipase February 27, 2020 12:40pm 210 73-393 [facility], [address] [place] [address] Coronavirus (COVID-19)(PCR) February 27, 2020 12:20pm NEGATIVE NEGATIVE Negative results should be treated as presumptive and, ifinconsistent with clinical signs and symptoms or necessaryfor patient management, should be tested with differentauthorized or cleared molecular tests.Negative results do not preclude SARS-CoV-2 infection andshould not be used as the sole basis for patient managementdecisions.This is a rapid molecular in vitro diagnostic test utilizingan isothermal nucleic acid amplification technology intendedfor the qualitative detection of nucleic acid from the SARS-CoV-2 viral RNA in direct nasal, nasopharyngeal orthroat swabs from individuals who are suspected of COVID-19.Results are for the indentification of SARS-CoV-2 RNA. [id number] RNA is generally detectable in respiratorysamples during the actue phase of infection. [facility], [address] [place] [address] Urine HCG, Qualitative February 27, 2020 1:30pm NEGATIVE NEGATIVE [facility], [address] [place] [address] Health Concerns No known health concerns documented Chief Complaint and Reason for Visit Reason for Visit NAUSEA,VOMITING,DIARRHEA Encounters Encounter Location(s) Arrival/Admit Date Discharge/Depart Date Provider(s) Departed Emergency [facility] February 27, 2020 12:21 pm February 27, 2020 2:02pm ZAID WORRELL Assessments No Assessments Information Available Functional Status No Functional Status information available Goals No Goals Information Available Immunizations No Immunization Information Available Mental Status No Mental Status Information Available Medical Equipment No Medical Equipment Information available Insurance Providers Guarantor MARY BETH LU Address [address] [address] Contact Info. Home Phone: Payer Policy Id Coverage Id Subscriber's Name Subscriber Id Effect vineet Date Expiration Date MEDICARE - [place] [id number] MARY BETH LU 2011 [employer] [id number] MARY BETH LU 2011 [employer] ESSENTIAL [id number] MICHAEL LU Social History Assigned Sex Female Vital Signs No vital signs result information available.
--- OUTSIDE RECORDS SUMMARY | 2020-05-06 07:40 | CCD ---
Author Author [facility] [employer] Organization [facility] Address Unknown Phone Unavailable Care Team Providers Care Assistant Basketball Coach Name Role Phone Kristian Pereira Unavailable PROBLEMS Type Condition ICD9-CM Code [id number] Code Onset Dates Condition S tatus SNOMED Code Notes Problem Lumbar facet arthropathy M46.96 Active 6462322 08 Problem Sacroiliitis, not elsewhere classified M46.1 A ctive 142387049 Problem Lumbar disc displacement without myelopathy M51.26 Active 62204091 Problem Rosacea L71.9 Active 115150274 Problem Trochanteric bursitis of both hips M70.61 Activ e 9341456 Problem Rheumatoid arthritis, involv ing unspecified site, unspecified rheumatoid factor presence M06.9 Active 27775439 Problem Sinusitis, unspecified chronicity, unspecified location J32.9 Active 22587164 Problem Hypercholesterolemia E78.00 Active 05351341 Problem Facet arthritis, degenerative, L5-S1 level, lumbosacra l spine M47.897 Active 165289538 Problem Psoriatic arthritis L40.50 Active 218719335 Problem Ankylosing spondylitis M45.9 Active 4567568 Problem Spondylosis without myelopathy or radiculopathy, lumbar region M47.816 Active 24884634 Problem Spondylosis without myelopathy or radiculopathy, lumbosacral region M47.817 Active 80106264 Problem Spondylosis without myelopathy or radiculopathy, cervical region M47.812 Active 298706821 Problem Facet arthropathy, cervical M12.88 Active 4293 44140 Problem Migraine with aura and without status migrainosu s, not intractable G43.109 Active 3656575 Problem Inflammatory polyarthritis M06.4 Active 43842 3000 Problem Sciatica of right side M54.31 Active 21324390 Problem Thyroid nodule E04.1 Active 916921520 Problem Fibromyalgia M79.7 Active 495673574 Problem Other headache syndrome G44.89 Active 95916344 9 Problem Encounter for immunization Z23 Active 30285 6002 Problem Herniation of intervertebral disc at C5-C6 level M 50.222 Active 401632055 Problem GERD without esophagitis K21.9 Active 4288760 05 Problem Lumbar degenerative disc disease M51.36 Active 70903450 Problem Migraine without aura and without status migrain osus, not intractable G43.009 Active 669346996 Problem Mixed hyperlipidemia E78.2 Active 491221844 ALLERGIES No Known Allergies ENCOUNTERS from 1975 to 2020-03-27 Encounter Location Date Provider Diagnosis [facility] [address] [place] [address] Mar Kristian Pereira IMMUNIZATIONS Vaccine Route Administration Date [...] Education Language: Question Answer Notes Languages spoken: Guyanese Confucianist: Question Answer Notes Confucianist 08 Jew Sexual Hx: Question Answer Notes Had sex [...] Information RESULTS No Results REASON FOR VISIT GI panel MEDICAL (GENERAL) HISTORY Type Description Date Medical [...] Insured Coverage Start Date [facility]age End Date [id number] [facility] [employer] [facility] [place] [address] MARY BETH LU [id number] MEDICARE Part A and B [address] [place] [phone] MARY BETH LU self
--- OUTSIDE RECORDS SUMMARY | 2020-05-06 07:40 | CCD | Continuity of Care Document ---
Author Author [facility] Address [address] [place] [address] Phone Care Team Providers Care Bell Valet Name Role Phone JEREMY BENNETT PCP Allergies, Adverse Reactions, Alerts No allergy information available. Medications No medication information available. Problems No problem information available. Procedures Procedure Date Performed Status ABD/PEL WITH IV CONTRAST February 29, 2020 completed Relevant Diagnostic Tests and/or Laboratory Data Laboratory Results Test Date/Time Result Interpretation Reference Range Result Co mment Performing Site White Blood Count February 29, 2020 10:30am 4.7 4.0- 10.0 [facility] Main Lab, [address] [place] [address] Red Blood Count February 29, 2020 10:30am 4.50 4.00-5 .50 [facility] Main Lab, [address] [place] [address] Hemoglobin February 29, 2020 10:30am 12.4 12.0-16.0 [facility] Main Lab, [address] [place] [address] Hematocrit February 29, 2020 10:30am 35.9 36.0-48.8 [facility] Main Lab, [address] [place] [address] Mean Corpuscular Volume February 29, 2020 10:30am 79.8 80-96 [facility] Main Lab, [address] [place] [address] Mean Corpuscular Hemoglobin February 29, 2020 10:30am 27.6 27.0-31.0 [facility] Main Lab, [address] [address] Mean Corpuscular Hgb Concent Diff February 29, 2020 10:30am 34.5 32.0-36.0 [facility] Main Lab, [address] [address] Red Cell Distribution Width February 29, 2020 10:30am 12.2 10.0-14.5 [facility] Main Lab, [address] [facility] [address] Platelet Count February 29, 2020 10:30am 272 172-450 [facility] Main Lab, [address] [address] Mean Platelet Volume February 29, 2020 10:30am 9.1 9 .0-13.0 [facility] Main Lab, [address] [address] Granulocytes % (Auto) February 29, 2020 10:30am 43.6 50-80.0 [facility] Main Lab, [address] [address] Immature Granulocytes % February 29, 2020 10:30am 0.4 0.0-0.2 [facility] Main Lab, [address] [facility] [address] Lymphocytes % February 29, 2020 10:30am 42.5 25.0-50. 0 [facility] Main Lab, [address] [facility] [address] Monocytes % February 29, 2020 10:30am 10.6 2.0-10.0 [facility] Main Lab, [address] [facility] [address] Eosinophils % February 29, 2020 10:30am 2.3 0-5.0 [facility] Main Lab, [address] [facility] [address] Basophils % February 29, 2020 10:30am 0.6 0.0-2.0 [facility] Main Lab, [address] [facility] [address] Granulocytes # February 29, 2020 10:30am 2.1 2.0-8.0 0 [facility] Main Lab, [address] [facility] [address] Immature Granulocytes # February 29, 2020 10:30am 0.0 0.0-0.2 [facility] Main Lab, [address] [facility] [address] Lymphocytes # February 29, 2020 10:30am 2.0 1.0-5.0 [facility] Main Lab, [address] [facility] [address] Monocytes # February 29, 2020 10:30am 0.5 0.10-1.20 [facility] Main Lab, [address] [facility] [address] Eosinophils # February 29, 2020 10:30am 0.1 0.0-0.5 [facility] Main Lab, [address] [facility] [address] Basophils # February 29, 2020 10:30am 0.0 0.0-0.2 [facility] Main Lab, [address] [facility] [address] Urine Color February 29, 2020 9:56am YELLOW [facility] Main Lab, [address] [facility] [address] Urine Appearance February 29, 2020 9:56am CLEAR [facility] Main Lab, [address] [facility] [address] Urine Glucose February 29, 2020 9:56am NEGATIVE NEGATIVE [facility] Main Lab, [address] [facility] [address] Urine Bilirubin February 29, 2020 9:56am NEGATIVE NEGATIV E [facility] Main Lab, [address] [facility] [address] Urine Ketones February 29, 2020 9:56am NEGATIVE NEGATIVE [facility] Main Lab, [address] [facility] [address] Specific Homeland February 29, 2020 9:56am 1.015 1.001- 1.035 [facility] Main Lab, [address] [facility] [address] Urine Blood February 29, 2020 9:56am TRACE NEGATIVE [facility] Main Lab, [address] [facility] [address] Urine pH February 29, 2020 9:56am 7.0 5.0-9.0 [facility] Main Lab, [address] [facility] [address] Urine Protein February 29, 2020 9:56am NEGATIVE NEGATIVE [facility] Main Lab, [address] [facility] [address] Urine Urobilinogen February 29, 2020 9:56am NORMAL(0.2-1) 0-1 [facility] Main Lab, [address] [facility] [address] Urine Nitrite February 29, 2020 9:56am NEGATIVE NEGATIVE [facility] Main Lab, [address] [facility] [address] Urine Leukocyte Esterase February 29, 2020 9:56am NEGATIVE NEGATIVE [facility] Main Lab, [address] [facility] [address] Urine Microscopic RBC February 29, 2020 9:56am 0-2 0 -3 [facility] Main Lab, [address] [facility] [address] Urine Microscopic WBC February 29, 2020 9:56am 0-2 0 -5 [facility] Main Lab, [address] [facility] [address] Urine Epithelial Cells February 29, 2020 9:56am 1+ 0 [facility] Main Lab, [address] [facility] [address] Glucose Level February 29, 2020 10:30am 85 74-106 [facility] Main Lab, [address] [facility] [address] Lactic Acid Level February 27, 2020 12:40pm 0.8 0.4- 2.0 [facility] Main Lab, [address] [facility] [address] Blood Urea Nitrogen February 29, 2020 10:30am 10 7- 18 [facility] Main Lab, [address] [facility] [address] Creatinine February 29, 2020 10:30am 1.1 0.6-1.0 [facility] Main Lab, [address] [facility] [address] Sodium Level February 29, 2020 10:30am 138 136-145 [facility] Main Lab, [address] [facility] [address] Potassium Level February 29, 2020 10:30am 3.6 3.5-5. 1 [facility] Main Lab, [address] [facility] [address] Chloride Level February 29, 2020 10:30am 104 98-107 [facility] Main Lab, [address] [facility] [address] Carbon Dioxide Level February 29, 2020 10:30am 24 2 1-32 [facility] Main Lab, [address] [facility] [address] Calcium Level February 29, 2020 10:30am 8.7 8.5-10.1 [facility] Main Lab, [address] [facility] [address] Anion Gap February 29, 2020 10:30am 10.0 5-12 [facility] Main Lab, [address] [facility] [address] Estimated GFR (MDRD) February 29, 2020 10:30am 54 GFR IS CALCULATED IN mL/min/1.73m2 NORMAL FUNCTION: >90MILDLY DECREASED: 60-89MILDY TO MODERATELY DECREASED: 45-59 MODERATELY TO SEVERELY DECREASED: 30-44SEVERELY DECREASED: 15-29RENAL FAILURE: <15 [facility] Main Lab, [address] [facility] [address] Aspartate Amino Transf (AST/SGOT) February 29, 2020 10:30am 21 15-37 [facility] Main Lab, [address] [facility] [address] Alanine Aminotransferase (ALT/SGPT) February 29, 2020 10:30am 24 12-78 [facility] Main Lab, [address] [facility] [address] Alkaline Phosphatase February 29, 2020 10:30am 66 4 6-116 [facility] Main Lab, [address] [facility] [address] Total Bilirubin February 29, 2020 10:30am 0.2 0.2-1. 0 [facility] Main Lab, [address] [facility] [address] Total Protein February 29, 2020 10:30am 7.0 6.4-8.2 [facility] Main Lab, [address] [facility] [address] Albumin February 29, 2020 10:30am 3.7 3.4-5.0 [facility] Main Lab, [address] [facility] [address] Lipase February 27, 2020 12:40pm 210 73-393 [facility] Main Lab, [address] [facility] [address] Coronavirus (COVID-19)(PCR) February 27, 2020 12:20pm NEGATIVE [...] are for the indentification of SARS-CoV-2 RNA. QtjTPAI-[id number]-3 RNA is generally detectable in respiratorysamples during the actue phase of infection. [facility] Main Lab, [address] [facility] [address] Urine HCG, Qualitative February 29, 2020 9:56am NEGATIVE NEGATIVE [facility] Main Lab, [address] [facility] [address] Health Concerns No known health concerns documented Chief Complaint and Reason for Visit Reason for Visit NAUSEA,DIARRHEA Encounters Encounter Location(s) Arrival/Admit Date Discharge/Depart Date Provider(s) Departed Emergency [facility] February 29, 2020 9:07a m February 29, 2020 12:44pm NUNEZ, MARNI W [facility] February 27, 2020 12:21 pm February 27, 2020 2:02pm ZAID WORRELL Assessments No Assessments Information Available Functional Status No Functional Status information available Goals No Goals Information Available Immunizations No Immunization Information Available Mental Status No Mental Status Information Available Medical Equipment No Medical Equipment Information available Insurance Providers Guarantor ALESHAEMMA MARY BETH Address [address] [address] Contact Info. Home Phone: Payer Policy Id Coverage Id Subscriber's Name Subscriber Id Effect vineet Date Expiration Date MEDICARE - [place] [id number] MARY BETH LU 2011 [facility] MEDICARE DIVISION [id number] MARY BETH LU 2011 BCBS ESSENTIAL [id number] MICHAEL LU Plan of Treatment Future Tests Future scheduled test information is unavailable Pending Tests Test Name Date ordered CDIFF A/B February 29, 2020 9:54am Campylobacter February 29, 2020 9:54am Clostridium difficile toxin AB February 29, 2020 9:5 4am Plesiomonas shigelloides February 29, 2020 9:54am Salmonella February 29, 2020 9:54am Vibrio February 29, 2020 9:54am Vibrio cholerae February 29, 2020 9:54am Yersinia enterocolitica February 29, 2020 9:54am Enteroaggregative E. coli February 29, 2020 9:54am Enteropathogenic E. coli February 29, 2020 9:54am Enterotoxigenic E. coli February 29, 2020 9:54am Shiga-like toxin-prod E. coli February 29, 2020 9:54 am E. coli O157 February 29, 2020 9:54am Shigella/Enteroinvasive E coli February 29, 2020 9:5 4am Cryptosporidium February 29, 2020 9:54am Cyclospora cayetanensis February 29, 2020 9:54am Entamoeba histolytica February 29, 2020 9:54am Giardia Lamblia February 29, 2020 9:54am Adenovirus F 40/41 February 29, 2020 9:54am Astrovirus February 29, 2020 9:54am Norovirus GI/GII February 29, 2020 9:54am Rotavirus A February 29, 2020 9:54am Sapovirus February 29, 2020 9:54am Future Visits Future appointment information is unavailable Referrals to Other Providers Referral information is unavailable Future Procedures Future procedure information is unavailable Future Medications Future medication information is unavailable Patient Instructions Patient instructions are unavailable Social History Assigned Sex Female Vital Signs No vital signs result information available.
--- OUTSIDE RECORDS SUMMARY | 2020-05-06 07:40 | CCD | Continuity of Care Document ---
Author Author Sheeba MONTERROSO MD Organization Unknown Address [address] [place] [address] Phone [phone] Care Team Providers Care Scratch Finisher Name Role Phone Nicolette Sow AUTM [phone] AUTM Unavailable Kristian Pereira D.O. AUTM [phone] Problems Description No Information Available Social History [...] lb BMI (Body Mass Index) 28.2 kg/m2 [place] Body Weight 135 lb Weight 81.648 kg BSA (Body Surface Area) 1.93 m2 01/30/2019 10:23am BP Systolic 114 mmHg BP Diastolic 72 mmHg Height 67 inches 5'7" Weight 180.00 lb BMI (Body Mass Index) 28.2 kg/m2 [place] Body Weight 135 lb Weight 81.648 kg BSA (Body Surface Area) 1.93 m2 Results Description No Information Available Procedures Description No Information Available Medical Devices Description No Information Available Encounters Description No Information Available Assessments Description No Information Available Plan of Treatment No Information Available Functional Status Description No Information Available Mental Status Description No Information Available Referrals Refer to Reason for Referral Status Appt Date Fawad Monterroso M.D. TARIFF EXPERT SINUS PAIN MUCOUS RETENTI ON CYST OF MAX SINUS LUMP IN NECK THYROID NODULE REF A REJI INS MEDICARE B/C Scheduled 04/[address] [place] [address] [phone]
--- OUTSIDE RECORDS SUMMARY | 2020-05-06 07:40 | CCD ---
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.26 Active 25135448 Problem Rosacea L71.9 Active 075500776 Problem Trochanteric bursitis of both hips M70.61 Activ e 6908441 Problem Rheumatoid arthritis, involv ing unspecified site, unspecified rheumatoid factor presence M06.9 Active 36201071 Problem Sinusitis, unspecified chronicity, unspecified location J32.9 Active 20101964 Problem Hypercholesterolemia E78.00 Active 36875879 Problem Facet arthritis, degenerative, L5-S1 level, lumbosacra l spine M47.897 Active 627471357 Problem Psoriatic arthritis L40.50 Active 651683079 Problem Ankylosing spondylitis M45.9 Active 9552370 Problem Spondylosis without myelopathy or radiculopathy, lumbar region M47.816 Active 90868089 Problem Spondylosis without myelopathy or radiculopathy, lumbosacral region M47.817 Active 70896593 Problem Spondylosis without myelopathy or radiculopathy, cervical region M47.812 Active 344567950 Problem Facet arthropathy, cervical M12.88 Active 4293 87768 Problem Migraine with aura and without status migrainosu s, not intractable G43.109 Active 0434513 Problem Inflammatory polyarthritis M06.4 Active 69868 3000 Problem Sciatica of right side M54.31 Active 27050838 Problem Thyroid nodule E04.1 Active 388908320 Problem Fibromyalgia M79.7 Active 227396946 Problem Other headache syndrome G44.89 Active 99319500 9 Problem Encounter for immunization Z23 Active 36734 6002 Problem Herniation of intervertebral disc at C5-C6 level M 50.222 Active 735297968 Problem GERD without esophagitis K21.9 Active 2781915 05 Problem Lumbar degenerative disc disease M51.36 Active 70708961 Problem Migraine without aura and without status migrain osus, not intractable G43.009 Active 223344100 Problem Mixed hyperlipidemia E78.2 Active 041462078 ALLERGIES No Known Allergies ENCOUNTERS from 1975 to 2020-03-18 Encounter Location Date Provider Diagnosis [facility] [place] [address] Feb Kelly Camara IMMUNIZATIONS Vaccine Route Administration [...] Education Language: Question Answer Notes Languages spoken: Hebrew Mandaen: Question Answer Notes Mandaen 08 Shinto Sexual Hx: Question Answer Notes Had sex [...] Information RESULTS No Results REASON FOR VISIT back pain MEDICAL (GENERAL) [...] Insured Coverage Start Date Coverage End Date [facility] [place] [id number] [facility] [place] [address] MARY BETH LU [id number] MEDICARE Part A and B [address] [place] [phone] MARY BETH LU self
--- OUTSIDE RECORDS SUMMARY | 2020-05-06 07:40 | CCD ---
Author Author [facility] Organization [facility] Address Unknown Phone Unavailable Care Team Providers Care Efficiency Engineer Name Role Phone Kristian Pereira Unavailable PROBLEMS Type Condition ICD9-CM Code UMD00-FG Code Onset Dates Condition S tatus SNOMED Code Notes Problem Lumbar facet arthropathy M46.96 Active 8510827 08 Problem Sacroiliitis, not elsewhere classified M46.1 A ctive 029898178 Problem Lumbar disc displacement without myelopathy M51.26 Active 49868963 Problem Rosacea L71.9 Active 109562622 Problem Trochanteric bursitis of both hips M70.61 Activ e 9192008 Problem Rheumatoid arthritis, involv ing unspecified site, unspecified rheumatoid factor presence M06.9 Active 29670879 Problem Sinusitis, unspecified chronicity, unspecified location J32.9 Active 00128054 Problem Hypercholesterolemia E78.00 Active 74634187 Problem Facet arthritis, degenerative, L5-S1 level, lumbosacra l spine M47.897 Active 193684619 Problem Psoriatic arthritis L40.50 Active 178504894 Problem Ankylosing spondylitis M45.9 Active 5552050 Problem Spondylosis without myelopathy or radiculopathy, lumbar region M47.816 Active 62530405 Problem Spondylosis without myelopathy or radiculopathy, lumbosacral region M47.817 Active 20857167 Problem Spondylosis without myelopathy or radiculopathy, cervical region M47.812 Active 285331814 Problem Facet arthropathy, cervical M12.88 Active 4293 64945 Problem Migraine with aura and without status migrainosu s, not intractable G43.109 Active 9053168 Problem Inflammatory polyarthritis M06.4 Active 02674 3000 Problem Sciatica of right side M54.31 Active 45556453 Problem Thyroid nodule E04.1 Active 575125391 Problem Fibromyalgia M79.7 Active 592203770 Problem Other headache syndrome G44.89 Active 65770627 9 Problem Encounter for immunization Z23 Active 31138 6002 Problem Herniation of intervertebral disc at C5-C6 level M 50.222 Active 178939754 Problem GERD without esophagitis K21.9 Active 8615973 05 Problem Lumbar degenerative disc disease M51.36 Active 60164021 Problem Migraine without aura and without status migrain osus, not intractable G43.009 Active 006545986 Problem Mixed hyperlipidemia E78.2 Active 517432846 ALLERGIES No Known Allergies ENCOUNTERS from 1975 to 2020-02-18 Encounter Location Date Provider Diagnosis [address] [address] [place] [address] Jan Kristian Chavisnga Lump in neck R22.1 ; Thyroid nodule E04. 1 ; Mucous retention cyst of maxillary sinus J34.1 and Sinus pain J34.89 IMMUNIZATIONS Vaccine Route Administration Date Status Influenza [...] Education Language: Question Answer Notes Languages spoken: Vietnamese Lutheran: Question Answer Notes Lutheran 08 Holiness Sexual Hx: Question Answer Notes Had sex [...] FOR REFERRAL No Information VITAL SIGNS Weight 186.4 lbs Jan, Height 5'7" in Jan, BMI 29.19 kg/m2 Jan, Heart Rate 80 /min Jan, Respiratory Rate 16 /min Jan, Temperature 97.6 degrees Fahrenheit Jan, Oximetry 97ra Jan, Blood pressure systolic 109 mm Hg Jan, Blood pressure diastolic 75 mm Hg Jan, MEDICATIONS Medication SIG (Take, Route, Frequency, Duration) [...] Orally Daily for 10 day(s) 30 Jan, 2 020 Active Colchicine 0.6 MG 1 tablet Orally Once a day for 30 day(s) Active Duloxetine HCl 30 MG TAKE ONE CAPSULE BY MOUTH EVERY DAY for 30 Active PROCEDURES No Information RESULTS No Results REASON FOR VISIT Patient states she did Dr. Zhao recently, had CT of face because of ongoing fac ial pain- had mucous pouch in sinuses?, he thought maybe she should see ENT - ne eds referral. She states she also thinks lump in neck is larger, by vocal cord? MEDICAL (GENERAL) HISTORY Type Description Date Medical [...] Notes Treatment Notes Treatm ent Clinical Notes Jan, Lump in neck (ICD-10 - R22.1) Will update CT of soft tissues of neck and do referral to ENT for eval of both nodule/lump as well as sinus cyst. Pt is agreeable. Jan, Thyroid nodule (ICD-10 - E04.1) Jan, Mucous retention cyst of maxillary sinus (ICD-10 - J34.1) Jan, Sinus pain (ICD-10 - J34.89) PLAN OF TREATMENT Medication Medication Name Sig Start Date Stop Date Cefdinir 300 MG 2 cap Orally Daily for 10 day(s) Jan, Treatment Notes Assessment Notes Clinical Notes Lump in neck Will update CT of so ft tissues of neck and do referral to ENT for eval of both nodule/lump as well as sinus cyst. Pt is agreeable. Next Appt Details prn Reason: Insurance Providers Payer Name Payer Address Payer Phone Insured Name Patient Relati onship to Insured Coverage Start Date Coverage End Date MEDICARE Part A and B [address] [facility][1] [address] MARY BETH LU self BCBS [facility] PPO [id number] [facility] [employer] [place] [facility] [id number] MARY BETH LU [id number]
--- OUTSIDE RECORDS SUMMARY | 2020-05-06 07:42 | CCD ---
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 Boiler Name Role Phone PETROFF, ZADI PA Unavailable Unavailable PETROFF, ZAID PA Unavailable Unavailable PETROFF, ZAID PA Unavailable Unavailable PETROFF, ZAID PA Unavailable Unavailable PETROFF, ZAID PA Unavailable Unavailable PETROFF, ZAID PA Unavailable Unavailable PETROFF, ZAID PA Unavailable Unavailable PETROFF, ZAID PA Unavailable Unavailable Calderon, W Medardo RPA-C Unavailable Unavailable Calderon, W Medardo RPA-C Unavailable Unavailable Calderon, W Medardo RPA-C Unavailable Unavailable Calderon, W Medardo RPA-C Unavailable Unavailable Calderon, W Medardo RPA-C Unavailable Unavailable Calderon, W Medardo RPA-C Unavailable Unavailable Calderon, W Medardo RPA-C Unavailable Unavailable Calderon, W Medardo RPA-C Unavailable Unavailable Calderon, W Medardo RPA-C Unavailable Unavailable Calderon, W Medardo RPA-C Unavailable Unavailable Calderon, W Medardo RPA-C Unavailable Unavailable Calderon, W Medardo RPA-C Unavailable Unavailable Calderon, W Medardo RPA-C Unavailable Unavailable Calderon, W Meadrdo RPA-C Unavailable Unavailable Calderon, W Medardo RPA-C Unavailable Unavailable Calderon, W Medardo RPA-C Unavailable Unavailable SAMIRA, L CONOR PA Unavailable Unavailable SAMIRA, L CONOR PA Unavailable Unavailable SAMIRA, L CONOR PA Unavailable Unavailable SAMIRA, L CONOR PA Unavailable Unavailable SAMIRA, L CONOR PA Unavailable Unavailable SAMIRA, L CONOR PA Unavailable Unavailable SAMIRA, L CONOR PA Unavailable Unavailable SAMIRA, L CONOR PA Unavailable Unavailable SAMIRA, L CONOR PA Unavailable Unavailable SAMIRA, L CONOR PA Unavailable Unavailable SAMIRA, L CONOR PA Unavailable Unavailable SAMIRA, L CONOR PA Unavailable Unavailable SAMIRA, L CONOR PA Unavailable Unavailable SAMIRA, L CONOR PA Unavailable Unavailable SAMIRA, L CONOR PA Unavailable Unavailable SAMIRA, L CONOR PA Unavailable Unavailable SAMIRA, L CONOR PA Unavailable Unavailable SAMIRA, L CONOR PA Unavailable Unavailable SAMIRA, L CONOR PA Unavailable Unavailable Faltyn, R Eric R-PA Unavailable Unavailable Faltyn, R Eric R-PA Unavailable Unavailable Faltyn, R Eric R-PA Unavailable Unavailable Faltyn, R Eric R-PA Unavailable Unavailable Faltyn, R Eric R-PA Unavailable Unavailable Faltyn, R Eric R-PA Unavailable Unavailable Faltyn, R Eric R-PA Unavailable Unavailable Faltyn, R Eric R-PA Unavailable Unavailable Faltyn, R Eric R-PA Unavailable Unavailable Faltyn, R Eric R-PA Unavailable Unavailable Faltyn, R Eric R-PA Unavailable Unavailable Faltyn, R Eric R-PA Unavailable Unavailable Faltyn, R Eric R-PA Unavailable Unavailable Faltyn, R Eric R-PA Unavailable Unavailable Faltyn, R Eric R-PA Unavailable Unavailable Faltyn, R Eric R-PA Unavailable Unavailable Faltyn, R Eric R-PA Unavailable Unavailable Faltyn, R Eric R-PA Unavailable Unavailable Faltyn, R Eric R-PA Unavailable Unavailable Faltyn, R Eric R-PA Unavailable Unavailable Faltyn, R Eric R-PA Unavailable Unavailable Faltyn, R Eric R-PA Unavailable Unavailable Faltyn, R Eric R-PA Unavailable Unavailable Faltyn, R Eric R-PA Unavailable Unavailable Faltyn, R Eric R-PA Unavailable Unavailable Faltyn, R Eric R-PA Unavailable Unavailable Faltyn, R Eric R-PA Unavailable Unavailable Faltyn, R Eric R-PA Unavailable Unavailable Faltyn, R Eric R-PA Unavailable Unavailable Faltyn, R Eric R-PA Unavailable Unavailable Faltyn, R Eric R-PA Unavailable Unavailable Faltyn, R Eric R-PA Unavailable Unavailable Faltyn, R Eric R-PA Unavailable Unavailable Faltyn, R Eric R-PA Unavailable Unavailable Faltyn, R Eric R-PA Unavailable Unavailable Faltyn, R Eric R-PA Unavailable Unavailable MECCA, DMD MATIAS Unavailable Unavailable MODESTO, PRYJMA YOLI MD Unavailable Unavailable MODESTO, PRYJMA YOLI MD Unavailable Unavailable MODESTO, PRYJMA YOLI MD Unavailable Unavailable MODESTO, PRYJMA YOLI MD Unavailable Unavailable MODESTO, PRYJMA YOLI MD Unavailable Unavailable MODESTO, PRYJMA YOLI MD Unavailable Unavailable MODESTO, PRYJMA YOLI MD Unavailable Unavailable MODESTO, PRYJMA YOLI MD Unavailable Unavailable MODESTO, PRYJMA YOLI MD Unavailable Unavailable MODESTO, PRYJMA YOLI MD Unavailable Unavailable MODESTO, PRYJMA YOLI MD Unavailable Unavailable MODESTO, PRYJMA YOLI MD Unavailable Unavailable MODESTO, PRYJMA YOLI MD Unavailable Unavailable MODESTO, PRYJMA YOLI MD Unavailable Unavailable MODESTO, PRYJMA YOLI MD Unavailable Unavailable MODESTO, PRYJMA YOLI MD Unavailable Unavailable MODESTO, PRYJMA YOLI MD Unavailable Unavailable MODESTO, PRYJMA YOLI MD Unavailable Unavailable MODESTO, PRYJMA YOLI MD Unavailable Unavailable MODESTO, PRYJMA YOLI MD Unavailable Unavailable MODESTO, PRYJMA YOLI MD Unavailable Unavailable MODESTO, PRYJMA YOLI MD Unavailable Unavailable MODESTO, PRYJMA YOLI MD Unavailable Unavailable MODESTO, PRYJMA YOLI MD Unavailable Unavailable MODESTO, PRYJMA YOLI MD Unavailable Unavailable MODESTO, PRYJMA YOLI MD Unavailable Unavailable MODESTO, PRYJMA YOLI MD Unavailable Unavailable MODESTO, PRYJMA YOLI WEBB Unavailable Unavailable AliwalasBg MD Unavailable Unavailable Aliwalas, Bg Maynard MD Unavailable Unavailable Aliwalas, Bg Maynard MD Unavailable Unavailable Aliwalas, Bg Maynard MD Unavailable Unavailable Aliwalas, Bg Maynard MD Unavailable Unavailable Aliwalas, Bg Maynard MD Unavailable Unavailable Aliwalas, Bg Maynard MD Unavailable Unavailable Aliwalas, Bg Maynard MD Unavailable Unavailable Aliwalas, Bg Maynard MD Unavailable Unavailable Aliwalas, Bg Maynard MD Unavailable Unavailable Aliwalas, Bg Maynard MD Unavailable Unavailable Aliwalas, Bg Maynard MD Unavailable Unavailable Aliwalas, Bg Maynard MD Unavailable Unavailable Aliwalas, Bg Maynard MD Unavailable Unavailable Aliwalas, Bg Maynard MD Unavailable Unavailable Aliwalas, Bg Maynard MD Unavailable Unavailable Aliwalas, Bg Maynard MD Unavailable Unavailable Aliwalas, Bg Maynard MD Unavailable Unavailable Aliwalas, Bg Maynard MD Unavailable Unavailable Aliwalas, Bg Maynard MD Unavailable Unavailable Aliwalas, Bg Maynard MD Unavailable Unavailable Aliwalas, Bg Maynard MD Unavailable Unavailable Aliwalas, Bg Maynard MD Unavailable Unavailable Aliwalas, Bg Maynard MD Unavailable Unavailable Aliwalas, Bg Maynard MD Unavailable Unavailable Aliwalas, Bg Maynard MD Unavailable Unavailable Aliwalas, Bg Maynard MD Unavailable Unavailable Aliwalas, Bg Maynard MD Unavailable Unavailable Aliwalas, Bg Maynard MD Unavailable Unavailable Aliwalas, Bg Maynard MD Unavailable Unavailable Aliwalas, Bg Maynard MD Unavailable Unavailable Aliwalas, Bg Maynard MD Unavailable Unavailable AliwalasBg MD Unavailable Unavailable AliwalasBg MD Unavailable Unavailable Aliwalas, Bg Maynard MD Unavailable Unavailable Aliwalas, Bg Maynard MD Unavailable Unavailable Aliwalas, Bg Maynard MD Unavailable Unavailable AliwalasBg MD Unavailable Unavailable AliwalasBg MD Unavailable Unavailable AliwalasBg MD Unavailable Unavailable Aliwalas, Bg Maynard MD Unavailable Unavailable Aliwalas, Bg Maynard MD Unavailable Unavailable Aliwalas, Bg Maynard MD Unavailable Unavailable Aliwalas, Bg Maynard MD Unavailable Unavailable Aliwalas, Bg Maynard MD Unavailable Unavailable Aliwalas, Bg Maynard MD Unavailable Unavailable Aliwalas, Bg Maynard MD Unavailable Unavailable Aliwalas, Bg Maynard MD Unavailable Unavailable Aliwalas, Bg Maynard MD Unavailable Unavailable Aliwalas, Bg Maynard MD Unavailable Unavailable Aliwalas, Bg Maynard MD Unavailable Unavailable Aliwalas, Bg Maynard MD Unavailable Unavailable Aliwalas, Bg Maynard MD Unavailable Unavailable Aliwalas, Bg Maynard MD Unavailable Unavailable Aliwalas, Bg Maynard MD Unavailable Unavailable Aliwalas, Bg Maynard MD Unavailable Unavailable Aliwalas, Bg Maynard MD Unavailable Unavailable Aliwalas, Bg Maynard MD Unavailable Unavailable Aliwalas, Bg Maynard MD Unavailable Unavailable Aliwalas, Bg Maynard MD Unavailable Unavailable Aliwalas, Bg Maynard MD Unavailable Unavailable Aliwalas, Bg Maynard MD Unavailable Unavailable Aliwalas, Bg Maynard MD Unavailable Unavailable Aliwalas, Bg Maynard MD Unavailable Unavailable Aliwalas, Bg Maynard MD Unavailable Unavailable Aliwalas, Bg Maynard MD Unavailable Unavailable Aliwalas, Bg Maynard MD Unavailable Unavailable Aliwalas, Bg Maynard MD Unavailable Unavailable Aliwalas, Bg Maynard MD Unavailable Unavailable Aliwalas, Bg Maynard MD Unavailable Unavailable Aliwalas, Bg Maynard MD Unavailable Unavailable Aliwalas, Bg Maynard MD Unavailable Unavailable Aliwalas, Bg Maynard MD Unavailable Unavailable Aliwalas, Bg Maynard MD Unavailable Unavailable Aliwalas, Bg Maynard MD Unavailable Unavailable Aliwalas, Bg Maynard MD Unavailable Unavailable Lv, A Elvie AIRCRAFT PAINTER Unavailable Unavailable Lv, A Elvie AIRCRAFT PAINTER Unavailable Unavailable Lv, A Elvie AIRCRAFT PAINTER Unavailable Unavailable Lv, A Elvie AIRCRAFT PAINTER Unavailable Unavailable Lv, A Elvie AIRCRAFT PAINTER Unavailable Unavailable Lv, A Elvie AIRCRAFT PAINTER Unavailable Unavailable Lv, A Elvie AIRCRAFT PAINTER Unavailable Unavailable Lv, A Elvie AIRCRAFT PAINTER Unavailable Unavailable Lv, A Elvie AIRCRAFT PAINTER Unavailable Unavailable Lv, A Elvie AIRCRAFT PAINTER Unavailable Unavailable Lv, A Elvie AIRCRAFT PAINTER Unavailable Unavailable Lv, A Elvie AIRCRAFT PAINTER Unavailable Unavailable Lv, A Elvie AIRCRAFT PAINTER Unavailable Unavailable Lv, A Elvie AIRCRAFT PAINTER Unavailable Unavailable Lv, A Elvie AIRCRAFT PAINTER Unavailable Unavailable Lv, A Elvie AIRCRAFT PAINTER Unavailable Unavailable Lv, A Elvie AIRCRAFT PAINTER Unavailable Unavailable Lv, A Elvie AIRCRAFT PAINTER Unavailable Unavailable Lv, A Elvie AIRCRAFT PAINTER Unavailable Unavailable Lv, A Elvie AIRCRAFT PAINTER Unavailable Unavailable Lv, A Elvie AIRCRAFT PAINTER Unavailable Unavailable Lv, A Elvie AIRCRAFT PAINTER Unavailable Unavailable Lv, A Elvie AIRCRAFT PAINTER Unavailable Unavailable Lv, A Elvie AIRCRAFT PAINTER Unavailable Unavailable Lv, A Elvie AIRCRAFT PAINTER Unavailable Unavailable Lv, A Elvie AIRCRAFT PAINTER Unavailable Unavailable Lv, A Elvie AIRCRAFT PAINTER Unavailable Unavailable Lv, A Elvie AIRCRAFT PAINTER Unavailable Unavailable Lv, A Elvie AIRCRAFT PAINTER Unavailable Unavailable Lv, A Elvie AIRCRAFT PAINTER Unavailable Unavailable Lv, A Elvie AIRCRAFT PAINTER Unavailable Unavailable Lv, A Elvie AIRCRAFT PAINTER Unavailable Unavailable Lv, A Elvie AIRCRAFT PAINTER Unavailable Unavailable Lv, A Elvie AIRCRAFT PAINTER Unavailable Unavailable Lv, A Elvie AIRCRAFT PAINTER Unavailable Unavailable Lv, A Elvie AIRCRAFT PAINTER Unavailable Unavailable Lv, A Elvie AIRCRAFT PAINTER Unavailable Unavailable Lv, A Elvie AIRCRAFT PAINTER Unavailable Unavailable Lv, A Elvie AIRCRAFT PAINTER Unavailable Unavailable Lv, A Elvie AIRCRAFT PAINTER Unavailable Unavailable Lv, A Elvie AIRCRAFT PAINTER Unavailable Unavailable Lv, A Elvie AIRCRAFT PAINTER Unavailable Unavailable Lv, A Elvie AIRCRAFT PAINTER Unavailable Unavailable Lv, A Elvie AIRCRAFT PAINTER Unavailable Unavailable Jolanta, [facility] Khloe AIRCRAFT PAINTER-C Unavailable Unavailabl e Jolanta, [facility] Khloe AIRCRAFT PAINTER-C Unavailable Unavailabl e Jolanta, [facility] Khloe AIRCRAFT PAINTER-C Unavailable Unavailabl e Jolanta, [facility] Khloe AIRCRAFT PAINTER-C Unavailable Unavailabl e Jolanta, [facility] Khloe AIRCRAFT PAINTER-C Unavailable Unavailabl e Jolanta, [facility] Khloe AIRCRAFT PAINTER-C Unavailable Unavailabl e Jolanta, [facility] Khloe AIRCRAFT PAINTER-C Unavailable Unavailabl e Jolanta, [facility] Khloe AIRCRAFT PAINTER-C Unavailable Unavailabl e Jolanta, [facility] Khloe AIRCRAFT PAINTER-C Unavailable Unavailabl e Jolanta, [facility] Khloe AIRCRAFT PAINTER-C Unavailable Unavailabl e Jolanta, [facility] Khloe AIRCRAFT PAINTER-C Unavailable Unavailabl e Jolanta, Cornelia Couchyce AIRCRAFT PAINTER-C Unavailable Unavailabl e Jolanta, Cornelia Batistae AIRCRAFT PAINTER-C Unavailable Unavailabl e Jolanta, Cornelia Couchyce AIRCRAFT PAINTER-C Unavailable Unavailabl e Jolanta, Cornelia W Khloe AIRCRAFT PAINTER-C Unavailable Unavailabl e Jolanta, Cornelia Couchyce AIRCRAFT PAINTER-C Unavailable Unavailabl e Jolanta, Cornelia W Khloe AIRCRAFT PAINTER-C Unavailable Unavailabl e Jolanta, Cornelia W Khloe AIRCRAFT PAINTER-C Unavailable Unavailabl e Jolanta, Cornelia W Khloe AIRCRAFT PAINTER-C Unavailable Unavailabl e Jolanta, Cornelia W Khloe AIRCRAFT PAINTER-C Unavailable Unavailabl e Jolanta, Cornelia W Khloe AIRCRAFT PAINTER-C Unavailable Unavailabl e Jolanta, Cornelia W Khloe AIRCRAFT PAINTER-C Unavailable Unavailabl e Jolanta, Cornelia W Khloe AIRCRAFT PAINTER-C Unavailable Unavailabl e Jolanta, Cornelia W Khloe AIRCRAFT PAINTER-C Unavailable Unavailabl e Jolanta, Cornelia Couchyce AIRCRAFT PAINTER-C Unavailable Unavailabl e Jolanta, Cornelia W Khloe AIRCRAFT PAINTER-C Unavailable Unavailabl e Jolanta, Cornelia Couchyce AIRCRAFT PAINTER-C Unavailable Unavailabl e Jolanta, Cornelia Couchyce AIRCRAFT PAINTER-C Unavailable Unavailabl e Jolanta, Cornelia Couchyce AIRCRAFT PAINTER-C Unavailable Unavailabl e Jolanta, Cornelia Couchyce AIRCRAFT PAINTER-C Unavailable Unavailabl e Jolanta, Cornelia Couchyce AIRCRAFT PAINTER-C Unavailable Unavailabl e Jolanta, Cornelia W Khloe AIRCRAFT PAINTER-C Unavailable Unavailabl e Oly Vargas MD Unavailable Unavailable Oly Vragas MD Unavailable Unavailable Oly Vargas MD Unavailable Unavailable Oly Vargas MD Unavailable Unavailable Oly Vargas MD Unavailable Unavailable Oly Vargas MD Unavailable Unavailable Oly Vargas MD Unavailable Unavailable Oly Vargas MD Unavailable Unavailable Oly Vargas MD Unavailable Unavailable Oly Vargas MD Unavailable Unavailable Kimmie Frank, Oly WEBB Unavailable Unavailable Kimmie Frank, Oly WEBB Unavailable Unavailable Kimmie Frank, Oly WEBB Unavailable Unavailable Kimmie Frank, Oly WEBB Unavailable Unavailable Kimmie Frank, Oly WEBB Unavailable Unavailable Kimmie Frank, Oly WEBB Unavailable Unavailable Kimmie Frank, Oly WEBB Unavailable Unavailable Kimmie Frank, Oly WEBB Unavailable Unavailable Kimmie Frank, Oly WEBB Unavailable Unavailable Kimmie Frank, Oly WEBB Unavailable Unavailable Kimmie Frank, Oly WEBB Unavailable Unavailable Kimmie Frank, Oly MD Unavailable Unavailable Kimmie Frank, Oly WEBB Unavailable Unavailable Kimmie Frank, Oly WEBB Unavailable Unavailable Kimmie Frank, Oly WEBB Unavailable Unavailable Kimmie Frank, Oly WEBB Unavailable Unavailable Kimmie Frank, Oly WEBB Unavailable Unavailable Kimmie Frank, Oly WEBB Unavailable Unavailable Kimmie Frank, Oly WEBB Unavailable Unavailable Kimmie Frank, Oly WEBB Unavailable Unavailable Kimmie Frank, Oly WEBB Unavailable Unavailable Kimmie Frank, Oly WEBB Unavailable Unavailable Kimmie Frank, Oly WEBB Unavailable Unavailable Kimmie Frank, Oly WEBB Unavailable Unavailable Kimmie Frank, Oly WEBB Unavailable Unavailable Kimmie Frank, Oly WEBB Unavailable Unavailable Kimmie Frank, Oly WEBB Unavailable Unavailable Kimmie Frank, Oly WEBB Unavailable Unavailable Kimmie Frank, Oly WEBB Unavailable Unavailable Kimmie Frank, Oly WEBB Unavailable Unavailable Kimmie Frank, Oly WEBB Unavailable Unavailable Kimmie Frank, Oly WEBB Unavailable Unavailable Kimmie Frank, Oly WEBB Unavailable Unavailable Kimmie Frank, Oly WEBB Unavailable Unavailable Kimmie Frank, Oly WEBB Unavailable Unavailable Kimmie Frank, Oly WEBB Unavailable Unavailable Kimmie Frank, Oly WEBB Unavailable Unavailable Kimmie Frank, Oly WEBB Unavailable Unavailable Kimmie Frank, Oly WEBB Unavailable Unavailable Kimmie Frank, Oly WEBB Unavailable Unavailable Kimmie Frank, Oly WEBB Unavailable Unavailable Kimmie Frank, Oly WEBB Unavailable Unavailable Kimmie Frank, Oly WEBB Unavailable Unavailable Kimmie Frank, Oly WEBB Unavailable Unavailable Kimmie Frank, Oly WEBB Unavailable Unavailable Kimmie Frank, Oly WEBB Unavailable Unavailable Kimmie Frank, Oly WEBB Unavailable Unavailable Kimmie Frank, Oly WEBB Unavailable Unavailable Kimmie Frank, Oly WEBB Unavailable Unavailable Kimmie Frank, Oly WEBB Unavailable Unavailable Kimmie Frank, Oly WEBB Unavailable Unavailable Oly Vargas MD Unavailable Unavailable Oly Vargas MD Unavailable Unavailable Oly Vargas MD Unavailable Unavailable Oly Vargas MD Unavailable Unavailable Oly Vargas MD Unavailable Unavailable Kimmie Frank, Oly WEBB Unavailable Unavailable KimmieOly Salguero MD Unavailable Unavailable Kimmiekris Frank, Oly WEBB Unavailable Unavailable KimmieOly Salguero MD Unavailable Unavailable Kimmiekris Frank, Oly WEBB Unavailable Unavailable Kimmiekris Frank, Oly MD Unavailable Unavailable Kimmieoleg Frank, Oly MD Unavailable Unavailable Kimmieoleg Frank, Oly MD Unavailable Unavailable Kimmieoleg Frank, Oly MD Unavailable Unavailable BRYAN, WILAIM GEETHA PA Unavailable Unavailable BRYAN, WILIAM GEETHA PA Unavailable Unavailable BRYAN, WILIAM GEETHA PA Unavailable Unavailable BRYAN, WILIAM GEETHA PA Unavailable Unavailable BRYAN, WILIAM GEETHA PA Unavailable Unavailable BRYAN, WILIAM GEETHA PA Unavailable Unavailable BRYAN, WILIAM GEETHA PA Unavailable Unavailable BRYAN, WILIAM GEETHA PA Unavailable Unavailable BRYAN, WILIAM GEETHA PA Unavailable Unavailable BRYAN, WILIAM GEETHA PA Unavailable Unavailable BRYAN, WILIAM GEETHA PA Unavailable Unavailable BRYAN, WILIAM GEETHA PA Unavailable Unavailable BRYAN, WILIAM GEETHA PA Unavailable Unavailable BRYAN, WILIAM GEETHA PA Unavailable Unavailable BRYAN, WILIAM GEETHA PA Unavailable Unavailable BRYAN, WILIAM GEETHA PA Unavailable Unavailable BRYAN, WILIAM GEETHA PA Unavailable Unavailable BRYAN, WILIAM GEETHA PA Unavailable Unavailable BRYAN, WILIAM GEETHA PA Unavailable Unavailable BRYAN, WILIAM GEETHA PA Unavailable Unavailable BRYAN, WILIAM GEETHA PA Unavailable Unavailable Fawad Monterroso MD Unavailable Unavailable Fawad Monterroso MD Unavailable Unavailable Fawad Monterroso MD Unavailable Unavailable Fawad Monterroso MD Unavailable Unavailable Fawad Monterroso MD Unavailable Unavailable Fawad Monterroso MD Unavailable Unavailable Fawad Monterroso MD Unavailable Unavailable Fawad Monterroso MD Unavailable Unavailable Fawad Monterroso MD Unavailable Unavailable Fawad Monterroso MD Unavailable Unavailable Fawad Monterroso MD Unavailable Unavailable Fawad Monterroso MD Unavailable Unavailable Fawad Monterroso MD Unavailable Unavailable Fawad Monterroso MD Unavailable Unavailable Fawad Monterroso MD Unavailable Unavailable Fawad Monterroso MD Unavailable Unavailable Fawad Monterroso MD Unavailable Unavailable Fawad Monterroso MD Unavailable Unavailable Fawad Monterroso MD Unavailable Unavailable Fawad Monterroso MD Unavailable Unavailable Fawad Monterroso MD Unavailable Unavailable Fawad Monterroso MD Unavailable Unavailable Fawad Monterroso MD Unavailable Unavailable Fawad Monterroso MD Unavailable Unavailable Fawad Monterroso MD Unavailable Unavailable Fawad Monterroso MD Unavailable Unavailable Fawad Monterroos MD Unavailable Unavailable Fawad Monterorso MD Unavailable Unavailable Meera, R Izaiah PT Unavailable Unavailable Meera, R Izaiah PT Unavailable Unavailable Meera, R Izaiah PT Unavailable Unavailable Meera, R Izaiah PT Unavailable Unavailable Emera, R Izaiah PT Unavailable Unavailable Meera, R Izaiah PT Unavailable Unavailable Meera, R Izaiah PT Unavailable Unavailable Meera, R Izaiah PT Unavailable Unavailable Meera, R Izaiah PT Unavailable Unavailable Meera, R Izaiah PT Unavailable Unavailable Meera, R Izaiah PT Unavailable Unavailable Meera, R Izaiah PT Unavailable Unavailable Meera, R Izaiah PT Unavailable Unavailable Meera, R Izaiah PT Unavailable Unavailable Meera, R Izaiah PT Unavailable Unavailable Meera, R Izaiah PT Unavailable Unavailable Meera, R Izaiah PT Unavailable Unavailable Meera, R Izaiah PT Unavailable Unavailable Meera, R Izaiah PT Unavailable Unavailable Meera, R Izaiah PT Unavailable Unavailable Jef Zhao MD Unavailable Unavailable Rolkhurrame MS ANP, Zoie Unavailable Unavailable Rolince MS ANP, Zoie Unavailable Unavailable HUIZENGMisael Butler DO Unavailable Unavailable HUIZENGMisael Butler DO Unavailable Unavailable HUIZENGMisael Butler DO Unavailable Unavailable HUIZENGMisael Butler DO Unavailable Unavailable HUIZENGAMisael DO Unavailable Unavailable HUIZENGAMisael DO Unavailable Unavailable HUIZENGMisael Butler DO Unavailable Unavailable HUIZENGMisael Butler DO Unavailable Unavailable HUIZENGMisael Butler DO Unavailable Unavailable HUIZENGAMisael DO Unavailable Unavailable HUIZENGAMisael DO Unavailable Unavailable HUIZENGAMisael DO Unavailable Unavailable HUIZENGMisael Butler DO Unavailable Unavailable HUIZENGMisael Butler DO Unavailable Unavailable HUIZENGMisael Butler DO Unavailable Unavailable HUIZENGAMisael DO Unavailable Unavailable HUIZENGAMisael DO Unavailable Unavailable HUIZENGAMisael DO Unavailable Unavailable HUIZENGA, Misael LUNA DO Unavailable Unavailable HUIZENGA, Misael LUNA DO Unavailable Unavailable HUIZENGA, Misael LUNA DO Unavailable Unavailable HUIZENGA, Misael LUNA DO Unavailable Unavailable HUIZENGA, Misael LUNA DO Unavailable Unavailable HUIZENGA, Misael LUNA DO Unavailable Unavailable HUIZENGA, Misael LUNA DO Unavailable Unavailable HUIZENGA, Misael LUNA DO Unavailable Unavailable HUIZENGA, Misael LUNA DO Unavailable Unavailable HUIZENGA, Misael LUNA DO Unavailable Unavailable HUIZENGA, Misael LUNA DO Unavailable Unavailable HUIZENGA, Misael LUNA DO Unavailable Unavailable HUIZENGA, Misael LUNA DO Unavailable Unavailable HUIZENGA, Misael LUNA DO Unavailable Unavailable HUIZENGA, Misael LUNA DO Unavailable Unavailable HUIZENGA, Misael LUNA DO Unavailable Unavailable HUIZENGA, Misael LUNA DO Unavailable Unavailable HUIZENGA, Misael LUNA DO Unavailable Unavailable HUIZENGA, Misael LUNA DO Unavailable Unavailable HUIZENGA, Misael LUNA DO Unavailable Unavailable HUIZENGA, Misael LUNA DO Unavailable Unavailable HUIZENGA, Misael LUNA DO Unavailable Unavailable HUIZENGA, Misael LUNA DO Unavailable Unavailable HUIZENGA, Misael LUNA DO Unavailable Unavailable HUIZENGA, Misael LUNA DO Unavailable Unavailable HUIZENGA, Misael LUNA DO Unavailable Unavailable HUIZENGA, Misael LUNA DO Unavailable Unavailable HUIZENGA, Misael LUNA DO Unavailable Unavailable HUIZENGA, Misael LUNA DO Unavailable Unavailable HUIZENGA, Misael LUNA DO Unavailable Unavailable HUIZENGA, Misael LUNA DO Unavailable Unavailable HUIZENGA, Misael LUNA DO Unavailable Unavailable HUIZENGA, Misael LUNA DO Unavailable Unavailable HUIZENGA, Misael LUNA DO Unavailable Unavailable HUIZENGA, Misael LUNA DO Unavailable Unavailable HUIZENGA, Misael LUNA DO Unavailable Unavailable HUIZENGA, Misael LUNA DO Unavailable Unavailable HUIZENGA, Misael LUNA DO Unavailable Unavailable HUIZENGA, Misael LUNA DO Unavailable Unavailable HUIZENGA, Misael LUNA DO Unavailable Unavailable HUIZENGA, Misael LUNA DO Unavailable Unavailable HUIZENGA, Misael LUNA DO Unavailable Unavailable HUIZENGA, Misael LUNA DO Unavailable Unavailable HUIZENGA, Misael LUNA DO Unavailable Unavailable HUIZENGA, D JEREMY DO Unavailable Unavailable HUIZENGA, D JEREMY DO Unavailable Unavailable HUIZENGA, D JEREMY DO Unavailable Unavailable HUIZENGA, D JEREMY DO Unavailable Unavailable HUIZENGA, D JEREMY DO Unavailable Unavailable HUIZENGA, D JEREMY DO Unavailable Unavailable HUIZENGA, D JEREMY DO Unavailable Unavailable HUIZENGA, D JEREMY DO Unavailable Unavailable HUIZENGA, D JEREMY DO Unavailable Unavailable HUIZENGA, D JEREMY DO Unavailable Unavailable HUIZENGA, D JEREMY DO Unavailable Unavailable ALBALA, Real COTA MD Unavailable Unavailable ALBALA, Real COTA MD Unavailable Unavailable ALBALA, Real COTA MD Unavailable Unavailable ALBALA, Real COTA MD Unavailable Unavailable ALBALA, Real COTA MD Unavailable Unavailable ALBALA, Real COTA MD Unavailable Unavailable ALBALA, Real COTA MD Unavailable Unavailable ALBALA, Real COTA MD Unavailable Unavailable ALBALA, Real COTA MD Unavailable Unavailable ALBALA, Real COTA MD Unavailable Unavailable ALBALA, Real COTA MD Unavailable Unavailable ALBALA, Real COTA MD Unavailable Unavailable ALBALA, Real COTA MD Unavailable Unavailable ALBALA, Real COTA MD Unavailable Unavailable ALBALA, Real COTA MD Unavailable Unavailable ALBALA, Real COTA MD Unavailable Unavailable ALBALA, Real COTA MD Unavailable Unavailable ALBALA, Real COTA MD Unavailable Unavailable ALBALA, Real COTA MD Unavailable Unavailable ALBALA, Real COTA MD Unavailable Unavailable ALBALA, Real COTA MD Unavailable Unavailable ALBALA, Real COTA MD Unavailable Unavailable ALBALA, Real COTA MD Unavailable Unavailable ALBALA, Real COTA MD Unavailable Unavailable ALBALA, Real COTA MD Unavailable Unavailable ALBALA, Real COTA MD Unavailable Unavailable ALBALA, Real COTA MD Unavailable Unavailable ALBALA, Real COTA MD Unavailable Unavailable ALBALA, Real COTA MD Unavailable Unavailable ALBALA, Real COTA MD Unavailable Unavailable ALBALA, Rael COTA MD Unavailable Unavailable ALBALA, Real COTA MD Unavailable Unavailable ALBALA, Real COTA MD Unavailable Unavailable ALBALA, Real COTA MD Unavailable Unavailable ALBALA, Real COTA MD Unavailable Unavailable ALBALA, Real COTA MD Unavailable Unavailable ALBALA, Real COTA MD Unavailable Unavailable ALBALA, Real COTA MD Unavailable Unavailable ALBALA, Rael COTA MD Unavailable Unavailable ALBALA, Real COTA MD Unavailable Unavailable ALBALA, Real COTA MD Unavailable Unavailable ALBALA, Real COTA MD Unavailable Unavailable ALBALA, Real COTA MD Unavailable Unavailable ALBALA, Real COTA MD Unavailable Unavailable ALBALA, Real COTA MD Unavailable Unavailable ALBALA, Real COTA MD Unavailable Unavailable ALBALA, Real COTA MD Unavailable Unavailable ALBALA, Real COTA MD Unavailable Unavailable ALBALA, Real COTA MD Unavailable Unavailable ALBALA, Real COTA MD Unavailable Unavailable ALBALA, Real COTA MD Unavailable Unavailable ALBALA, Real COTA MD Unavailable Unavailable ALBALA, Real COTA MD Unavailable Unavailable ALBALA, Real COTA MD Unavailable Unavailable ALBALA, Real COTA MD Unavailable Unavailable ALBALA, Real COTA MD Unavailable Unavailable ALBALA, Real COTA MD Unavailable Unavailable ALBALA, Real COTA MD Unavailable Unavailable ALBALA, Real COTA MD Unavailable Unavailable ALBALA, Real COTA MD Unavailable Unavailable ALBALA, Real COTA MD Unavailable Unavailable ALBALA, Real COTA MD Unavailable Unavailable ALBALA, Real COTA MD Unavailable Unavailable ALBALA, Real COTA MD Unavailable Unavailable ALBALA, Real COTA MD Unavailable Unavailable ALBALA, Real COTA MD Unavailable Unavailable ALBALA, Real COTA MD Unavailable Unavailable ALBALA, Real COTA MD Unavailable Unavailable ALBALA, Real COTA MD Unavailable Unavailable ALBALA, Real COTA MD Unavailable Unavailable ALBALA, Real COTA MD Unavailable Unavailable ALBALA, Real COTA MD Unavailable Unavailable ALBALA, Real COTA MD Unavailable Unavailable ALBALA, Real COTA MD Unavailable Unavailable ALBALA, Real COTA MD Unavailable Unavailable ALBALA, Real COTA MD Unavailable Unavailable ALBALA, Real COTA MD Unavailable Unavailable ALBALA, Real COTA MD Unavailable Unavailable ALBALA, Real COTA MD Unavailable Unavailable ALBALA, Real COTA MD Unavailable Unavailable ALBALA, Real COTA MD Unavailable Unavailable ALBALA, Real OCTA MD Unavailable Unavailable ALBALA, Real COTA MD Unavailable Unavailable ALBALA, Real COTA MD Unavailable Unavailable ALBALA, Real COTA MD Unavailable Unavailable ALBALA, Real COTA MD Unavailable Unavailable ALBALA, Real COTA MD Unavailable Unavailable ALBALA, Real COTA MD Unavailable Unavailable ALBALA, Real COTA MD Unavailable Unavailable ALBALA, Real COTA MD Unavailable Unavailable Pavel, [id number] MD Jef WEBB Unavailable [phone] Pavel, [id number] MD Jef WEBB Unavailable [phone] Pavel, [id number] MD Jef WEBB Unavailable [phone] Pavel, [id number] MD Jef WEBB Unavailable [phone] Pavel, [id number] MD Jef WEBB Unavailable [phone] Pavel, [id number] MD Jef WEBB Unavailable [phone] Pavel, [id number] MD Jef WEBB Unavailable [phone] Pavel, [id number] MD Jef MD Unavailable Pavel, [id number] MD Jef MD Unavailable Pavel, [id number] MD Jef MD Unavailable Pavel, [id number] MD Jef MD Unavailable Pavel, [id number] MD Jef MD Unavailable Pavel, [id number] MD Jef MD Unavailable Pavel, [id number] MD Jef MD Unavailable Pavel, [id number] MD Jef MD Unavailable Pavel, [id number] MD Jef MD Unavailable Pavel, [id number] MD Jef MD Unavailable Pavel, [id number] MD Jef MD Unavailable Pavel, [id number] MD Jef MD Unavailable Pavel, [id number] MD Jef MD Unavailable Pavel, [id number] MD Jef MD Unavailable Pavel, [id number] MD Jef MD Unavailable Pavel, [id number] MD Jef MD Unavailable Pavel, [id number] MD Jef MD Unavailable Pavel, [id number] MD Jef MD Unavailable Pavel, [id number] MD Jef MD Unavailable Pavel, [id number] MD Jef MD Unavailable Pavel, [id number] MD Jef MD Unavailable Pavel, [id number] MD Jef MD Unavailable Pavel, [id number] MD Jef WEBB Unavailable [phone] [facility], [id number] MD Jef WEBB Unavailable [phone] YARA SANCHEZ MD Unavailable Unavailable KHAIRURIELAHYARA MD Unavailable Unavailable KHAIRALLAH, YARA WEBB Unavailable Unavailable KHAIRALLAHYARA MD Unavailable Unavailable KHAIRALLAH, YARA MD Unavailable Unavailable KHAIRALLAH, YARA WEBB Unavailable Unavailable KHAIRALLAHYARA MD Unavailable Unavailable KHAIRALLAHYARA MD Unavailable Unavailable KHAIRALLAH, RAMGUZMAN MD Unavailable Unavailable KHAIRALLAHYARA MD Unavailable Unavailable KHAIRALLAHYARA MD Unavailable Unavailable KHAIRALLAHYARA MD Unavailable Unavailable KHAIRALLAHYARA MD Unavailable Unavailable KHAIRALLAHYARA MD Unavailable Unavailable KHAIRALLAHYARA MD Unavailable Unavailable KHAIRURIELAHYARA MD Unavailable Unavailable KHAIRALLYARA SANABRIA MD Unavailable Unavailable KHAIRALLYARA SANABRIA MD Unavailable Unavailable KHAIRALLAHYARA MD Unavailable Unavailable KHAIRALLAHYARA MD Unavailable Unavailable KHAIRALLAHYARA MD Unavailable Unavailable KHAIRALLAHYARA MD Unavailable Unavailable KHAIRALLYARA SANABRIA MD Unavailable Unavailable KHAIRYARA PHILLIPS MD Unavailable Unavailable KHYARA BAUTISTA MD Unavailable Unavailable KHAIRALLYARA SANABRIA MD Unavailable Unavailable KHAIRALLYARA SANABRIA MD Unavailable Unavailable KHAIRYARA PHILLIPS MD Unavailable Unavailable KHAIRYARA PHILLIPS MD Unavailable Unavailable KHAIRYARA PHILLIPS MD Unavailable Unavailable KHAIRYARA PHILLIPS MD Unavailable Unavailable KHAIRALLAHYARA MD Unavailable Unavailable KHAIRALLAHYARA MD Unavailable Unavailable KHAIRALLAHYARA MD Unavailable Unavailable KHAIRURIELAHYARA MD Unavailable Unavailable KHAIRALLAHYARA MD Unavailable Unavailable KHAIRURIELAHYARA MD Unavailable Unavailable KHAIRYARA PHILLIPS MD Unavailable Unavailable KHAIRALLAHYARA MD Unavailable Unavailable KHAIRALLAHYARA MD Unavailable Unavailable KHAIRURIELAHYARA MD Unavailable Unavailable KHAIRURIELAHYARA MD Unavailable Unavailable KHAIRALLYARA SANABRIA MD Unavailable Unavailable KHAIRYARA PHILLIPS MD Unavailable Unavailable KHAIRYARA PHILLIPS MD Unavailable Unavailable KHAIRALLAH, RAMZI MD Unavailable Unavailable KHAIRALLAH, RAMZI MD Unavailable Unavailable KHAIRALLAH, RAMZI MD Unavailable Unavailable KHAIRALLAH, RAMZI MD Unavailable Unavailable KHAIRALLAH, RAMZI MD Unavailable Unavailable KHAIRALLAH, RAMZI MD Unavailable Unavailable KHAIRALLAH, RAMZI MD Unavailable Unavailable KHAIRALLAH, RAMZI MD Unavailable Unavailable KHAIRALLAH, RAMZI MD Unavailable Unavailable KHAIRALLAH, RAMZI MD Unavailable Unavailable KHAIRALLAH, RAMZI MD Unavailable Unavailable KHAIRALLAH, RAMZI MD Unavailable Unavailable KHAIRALLAH, RAMZI MD Unavailable Unavailable KHAIRALLAH, RAMZI MD Unavailable Unavailable KHAIRALLAH, RAMZI MD Unavailable Unavailable KHAIRALLAH, RAMZI MD Unavailable Unavailable KHAIRALLAH, RAMZI MD Unavailable Unavailable KHAIRALLAH, RAMZI MD Unavailable Unavailable KHAIRALLAH, RAMZI MD Unavailable Unavailable KHAIRALLAH, RAMZI MD Unavailable Unavailable KHAIRALLAH, RAMZI MD Unavailable Unavailable KHAIRALLAH, RAMZI MD Unavailable Unavailable KHAIRALLAH, RAMZI MD Unavailable Unavailable KHAIRALLAH, RAMZI MD Unavailable Unavailable KHAIRALLAH, RAMZI MD Unavailable Unavailable KHAIRALLAH, RAMZI MD Unavailable Unavailable KHAIRALLAH, RAMZI MD Unavailable Unavailable KHAIRALLAH, RAMZI MD Unavailable Unavailable KHAIRALLAH, RAMZI MD Unavailable Unavailable KHAIRALLAH, RAMZI MD Unavailable Unavailable KHAIRALLAH, RAMZI MD Unavailable Unavailable KHAIRALLAH, RAMZI MD Unavailable Unavailable KHAIRALLAH, RAMZI MD Unavailable Unavailable KHAIRALLAH, RAMZI MD Unavailable Unavailable KHAIRALLAH, RAMZI MD Unavailable Unavailable KHAIRALLAH, RAMZI MD Unavailable Unavailable KHAIRALLAH, RAMZI MD Unavailable Unavailable KHAIRALLAH, RAMZI MD Unavailable Unavailable KHAIRALLAH, RAMZI MD Unavailable Unavailable KHAIRALLAH, RAMZI MD Unavailable Unavailable KHAIRALLAH, RAMZI MD Unavailable Unavailable NUNO BURTON MD Unavailable Unavailable NUNO BURTON MD Unavailable Unavailable NUNO BURTON MD Unavailable Unavailable NUNO BURTON MD Unavailable Unavailable NUNO BURTON MD Unavailable Unavailable NUNO BURTON MD Unavailable Unavailable NUNO BURTON MD Unavailable Unavailable NUNO BURTON MD Unavailable Unavailable NUNO BURTON MD Unavailable Unavailable NUNO BURTON MD Unavailable Unavailable NUNO BURTON MD Unavailable Unavailable NUON BURTON MD Unavailable Unavailable NUNO BURTON MD Unavailable Unavailable NUNO BURTON MD Unavailable Unavailable JOSEPHINE, NUNO WEBB Unavailable Unavailable JOSEPHINE, NUNO WEBB Unavailable Unavailable JOSEPHINE, UNNO MD Unavailable Unavailable JOSEPHINE, NUNO WEBB Unavailable Unavailable JOSEPHINE, NUNO WEBB Unavailable Unavailable JOSEPHINE, NUNO WEBB Unavailable Unavailable JOSEPHINE, NUNO WEBB Unavailable Unavailable JOSEPHINE, NUNO WEBB Unavailable Unavailable JOSEPHINE, NUNO WEBB Unavailable Unavailable JOSEPHINE, NUNO WEBB Unavailable Unavailable JOSEPHINE, NUNO MD Unavailable Unavailable JOSEPHINE, REINA MD Unavailable Unavailable JOSEPHINE, REINA MD Unavailable Unavailable JOSEPHINE, NUNO MD Unavailable Unavailable JOSEPHINE, NUNO MD Unavailable Unavailable JOSEPHINE, NUNO MD Unavailable Unavailable JOSEPHINE, NUNO MD Unavailable Unavailable JOSEPHINE, NUNO MD Unavailable Unavailable JOSEPHINE, NUNO MD Unavailable Unavailable JOSEPHINE, NUNO MD Unavailable Unavailable JOSEPHINE, NUNO MD Unavailable Unavailable JOSEPHINE, NUNO MD Unavailable Unavailable JOESPHINE, NUNO MD Unavailable Unavailable JOSEPHINE, NUNO MD Unavailable Unavailable JOSEPHINE, NUNO MD Unavailable Unavailable JOSEPHINE, NUNO MD Unavailable Unavailable JOSEPHINE, NUNO MD Unavailable Unavailable JOSEPHINE, NUNO WEBB Unavailable Unavailable JOSEPHINE, NUNO MD Unavailable Unavailable JOSEPHINE, NUNO MD Unavailable Unavailable JOSEPHINE, NUNO WEBB Unavailable Unavailable JOSEPHINE, NUNO MD Unavailable Unavailable JOSEPHINE, NUNO WEBB Unavailable Unavailable JOSEPHINE, NUNO WEBB Unavailable Unavailable JOSEPHINE, NUNO WEBB Unavailable Unavailable JOSEPHINE, NUNO WEBB Unavailable Unavailable JOSEPHINE, NUNO WEBB Unavailable Unavailable JOSEPHINE, NUNO WEBB Unavailable Unavailable JOSEPHINE, NUNO WEBB Unavailable Unavailable JOSEPHINE, NUNO WEBB Unavailable Unavailable HUIZENGA, D JEREMY DO Unavailable Unavailable HUIZENGA, D JEREMY DO Unavailable Unavailable HUIZENGA, Misael AWADON DO Unavailable Unavailable HUIZENGA, Misael AWADON DO Unavailable Unavailable HUIZENGA, D JEREMY DO Unavailable Unavailable HUIZENGA, Misael AWADON DO Unavailable Unavailable HUIZENGA, D JEREMY DO Unavailable Unavailable HUIZENGA, D JEREMY DO Unavailable Unavailable HUIZENGA, D JEREMY DO Unavailable Unavailable HUIZENGAMisaelON DO Unavailable Unavailable HUIZENGA, D JEREMY DO Unavailable Unavailable HUIZENGA, D JEREMY DO Unavailable Unavailable HUIZENGA, D JEREMY DO Unavailable Unavailable HUIZENGA, D JEREMY DO Unavailable Unavailable HUIZENGA, D JEREMY DO Unavailable Unavailable HUIZENGA, D JEREMY DO Unavailable Unavailable HUIZENGA, D JEREMY DO Unavailable Unavailable HUIZENGA, D JEREMY DO Unavailable Unavailable HUIZENGA, D JEREMY DO Unavailable Unavailable HUIZENGA, D JEREMY DO Unavailable Unavailable HUIZENGA, Misael LUNA DO Unavailable Unavailable HUIZENGA, Misael LUNA DO Unavailable Unavailable HUIZENGA, Misael LUNA DO Unavailable Unavailable HUIZENGA, Misael LUNA DO Unavailable Unavailable HUIZENGA, Misael LUNA DO Unavailable Unavailable HUIZENGA, Misael LUNA DO Unavailable Unavailable HUIZENGA, Misael LUNA DO Unavailable Unavailable HUIZENGA, Miseal LUNA DO Unavailable Unavailable HUIZENGA, Misael LUNA DO Unavailable Unavailable HUIZENGA, iMsael LUNA DO Unavailable Unavailable HUIZENGA, Misael LUNA DO Unavailable Unavailable HUIZENGA, Misael LUNA DO Unavailable Unavailable HUIZENGA, Misael LUNA DO Unavailable Unavailable HUIZENGA, Misael LUNA DO Unavailable Unavailable HUIZENGA, Misael LUNA DO Unavailable Unavailable HUIZENGA, Misael LUNA DO Unavailable Unavailable HUIZENGA, Misael LUNA DO Unavailable Unavailable HUIZENGA, Misael LUNA DO Unavailable Unavailable HUIZENGA, Misael LUNA DO Unavailable Unavailable HUIZENGA, Misael LUNA DO Unavailable Unavailable HUIZENGA, Misael LUNA DO Unavailable Unavailable HUIZENGA, Misael LUNA DO Unavailable Unavailable HUIZENGA, Misael LUNA DO Unavailable Unavailable HUIZENGA, Misael LUNA DO Unavailable Unavailable HUIZENGA, Misael LUNA DO Unavailable Unavailable HUIZENGA, Misael LUNA DO Unavailable Unavailable HUIZENGA, Misael LUNA DO Unavailable Unavailable HUIZENGA, Misael LUNA DO Unavailable Unavailable HUIZENGA, Misael LUNA DO Unavailable Unavailable HUIZENGA, Misael LUNA DO Unavailable Unavailable HUIZENGA, Misael LUNA DO Unavailable Unavailable HUIZENGA, Misael LUNA DO Unavailable Unavailable HUIZENGA, Misael LUNA DO Unavailable Unavailable HUIZENGA, Misael LUNA DO Unavailable Unavailable HUIZENGA, Misael LUNA DO Unavailable Unavailable HUIZENGA, Misael LUNA DO Unavailable Unavailable HUIZENGA, Misael LUNA DO Unavailable Unavailable HUIZENGA, Misael LUNA DO Unavailable Unavailable HUIZENGA, Misael LUNA DO Unavailable Unavailable HUIZENGA, Misael LUNA DO Unavailable Unavailable HUIZENGA, Misael LUNA DO Unavailable Unavailable HUIZENGA, Misael LUNA DO Unavailable Unavailable HUIZENGA, Misael LUNA DO Unavailable Unavailable HUIZENGA, Misael LUNA DO Unavailable Unavailable HUIZENGA, Misael LUNA DO Unavailable Unavailable HUIZENGA, D JEREMY DO Unavailable Unavailable HUIZENGA, D JEREMY DO Unavailable Unavailable HUIZENGA, D JEREMY DO Unavailable Unavailable HUIZENGA, D JEREMY DO Unavailable Unavailable HUIZENGA, D JEREMY DO Unavailable Unavailable HUIZENGA, D JEREMY DO Unavailable Unavailable HUIZENGA, D JEREMY DO Unavailable Unavailable HUIZENGA, D JEREMY DO Unavailable Unavailable Francis, L Chad WEBB Unavailable Unavailable Francis, Marifer Bonilla MD Unavailable Unavailable Francis, Marifer Bonilla MD Unavailable Unavailable Francis, Marifer Bonilla MD Unavailable Unavailable Francis, Marifer Bonilla MD Unavailable Unavailable Francis, Marifer Bonilla MD Unavailable Unavailable Francis, Marifer Bonilla MD Unavailable Unavailable Francis, Marifer Bonilla MD Unavailable Unavailable Francis, Marifer Bonilla MD Unavailable Unavailable Francis, Marifer Bonilla MD Unavailable Unavailable Francis, Marifer Bonilla MD Unavailable Unavailable Francis, Marifer Bonilla MD Unavailable Unavailable Francis, Marifer Bonilla MD Unavailable Unavailable Francis, Marifer Bonilla MD Unavailable Unavailable Francis, Marifer Bonilla MD Unavailable Unavailable Francis, Marifer Bonilla MD Unavailable Unavailable Francis, Marifer Bonilla MD Unavailable Unavailable Francis, Marifer Bonilla MD Unavailable Unavailable Francis, Marifer Bonilla MD Unavailable Unavailable Francis, Marifer Bonilla MD Unavailable Unavailable Francis, Marifer Bonilla MD Unavailable Unavailable Francis, Marifer Bonilla MD Unavailable Unavailable Francis, Marifer Bonilla MD Unavailable Unavailable Francis, Marifer Bonilla MD Unavailable Unavailable Francis, Marifer Bonilla MD Unavailable Unavailable Francis, Marifer Bonilla MD Unavailable Unavailable Francis, Marifer Bonilla MD Unavailable Unavailable Francis, Marifer Bonilla MD Unavailable Unavailable Francis, Marifer Bonilla MD Unavailable Unavailable Francis, Marifer Bonilla MD Unavailable Unavailable Francis, Marifer Bonilla MD Unavailable Unavailable Francis, Marifer Bonilla MD Unavailable Unavailable Francis, Marifer Bonilla MD Unavailable Unavailable Francis, Marifer Bonilla MD Unavailable Unavailable Francis, Marifer Bonilla MD Unavailable Unavailable Francis, Marifer Bonilla MD Unavailable Unavailable Francis, Marifer Bonilla MD Unavailable Unavailable Francis, Marifer Bonilla MD Unavailable Unavailable Francis, Marifer Bonilla MD Unavailable Unavailable Francis, Marifer Bonilla MD Unavailable Unavailable Francis, Marifer Bonilla MD Unavailable Unavailable Francis, Marifer Bonilla MD Unavailable Unavailable Francis, Marifer Bonilla MD Unavailable Unavailable Francis, Marifer Bonilla MD Unavailable Unavailable Francis, Marifer Bonilla MD Unavailable Unavailable Francis, Marifer Bonilla MD Unavailable Unavailable Francis, Marifer Bonilla MD Unavailable Unavailable Rydberg, Shraddha PA Unavailable Unavailable Rydberg, Shraddha PA Unavailable Unavailable Rydberg, Shraddha PA Unavailable Unavailable Rydberg, Shraddha PA Unavailable Unavailable Rydberg, Shraddha PA Unavailable Unavailable Rydberg, Shraddha PA Unavailable Unavailable Rydberg, Shraddha PA Unavailable Unavailable Rydberg, Shraddha PA Unavailable Unavailable Rydberg, Shraddha PA Unavailable Unavailable Rydberg, Shraddha PA Unavailable Unavailable Rydberg, Shraddha PA Unavailable Unavailable Rydberg, Shraddha PA Unavailable Unavailable Rydberg, Shraddha PA Unavailable Unavailable Rydberg, Shraddha PA Unavailable Unavailable Rydberg, Shraddha PA Unavailable Unavailable Rydberg, Shraddha PA Unavailable Unavailable Rydberg, Shraddha PA Unavailable Unavailable Rydberg, Shraddha PA Unavailable Unavailable Rydberg, Shraddha PA Unavailable Unavailable Rydberg, Shraddha PA Unavailable Unavailable Rydberg, Shraddha PA Unavailable Unavailable Rydberg, Shraddha PA Unavailable Unavailable Re-disclosure Warning The records that you are about to access may contain information from federally-assisted alcohol or drug abuse programs. If such information is present, then the following federally mandated warning applies: This information has been disclosed to you from records protected by federal confidentiality rules (42 CFR part 2). The federal rules prohibit you from making any further disclosure of this information unless further disclosure is expressly permitted by the written consent of the person to whom it pertains or as otherwise permitted by 42 CFR part 2. A general authorization for the release of medical or other information is NOT sufficient for this purpose. The Federal rules restrict any use of the information to criminally investigate or prosecute any alcohol or drug abuse patient.The records that you are about to access may contain highly sensitive health information, the redisclosure of which is protected by Article 27-F of the [facility] Public Health law. If you continue you may have access to information: Regarding HIV / AIDS; Provided by facilities licensed or operated by the [facility] Office of Mental Health; or Provided by the [facility] Office for People With Developmental Disabilities. If such information is present, then the following [facility] mandated warning applies: This information has been disclosed to you from confidential records which are protected by state law. State law prohibits you from making any further disclosure of this information without the specific written consent of the person to whom it pertains, or as otherwise permitted by law. Any unauthorized further disclosure in violation of state law may result in a fine or fpc sentence or both. A general authorization for the release of medical or other information is NOT sufficient authorization for further disc losure. Family History Family Member Name Family Member Gender Family Member Status Date o f Status Description Data Source(s) Unknown Male Problem (finding) 10/25/2011 12:00:00 AM EDT [facility] ([facility]) Unknown Male Problem (finding) 12/01/2010 12:00:00 AM EDT [facility] ([facility]) Encounters Encounter Providers Location Date Indications Data Source(s ) Outpatient Attender: Fawad Mackay/Kriss/Александр/Mary Jane guerra 04/03/2020 09:50:00 AM EST [facility] ([facility]) Outpatient Attender: Oly Parisi/ [facility] 04/02/2020 09:20:00 AM EST [facility] ([facility]) Attender: YARA SANCHEZ [facility] 03/31/2020 07:09:00 PM EST - 03/31/2020 07:09:00 PM EST [facility] ( [facility]) [place] [address] [facility] [address] 03/26/2020 12:00:00 AM EST eCW1 ([facility]) [place] [address] [facility] [address] 03/23/2020 12:00:00 AM EST eCW1 ([facility]) [place] [address] [facility] [address] 03/19/2020 12:00:00 AM EST eCW1 ([facility]) [place] [address] [facility] [address] 03/18/2020 12:00:00 AM EST eCW1 ([facility]) [place] [address] [facility] [address] 03/18/2020 12:00:00 AM EST eCW1 ([facility]) [place] [address] [facility] [address] 03/18/2020 12:00:00 AM EST eCW1 ([facility]) [place] [address] [facility] [address] 03/10/2020 12:00:00 AM EST eCW1 ([facility]) Emergency Attender: Medardo Calderon RPA-CReferrer: FLORA BENNETT DO EMERGENCY ROOM-ER 02/29/2020 02:31:00 PM EST - 02/29/2020 05:44:00 PM [facility] Patient discharged. Emergency Attender: ZAID Tristaner: JEREMY BNENETT DO EMERGENCY ROOM-ER 02/27/2020 05:49:00 PM EST - 02/27/2020 07:02:00 PM [facility] Patient discharged. [place] [address] [facility] [address] 02/17/2020 12:00:00 AM EST eCW1 ([facility]) Outpatient Referrer: NUNO BURTON MD [email or web address] 02/12/2020 12:00:00 AM EST [facility] Outpatient Referrer: NUNO DONALD.[email or web address] 02/12/2020 12:00:00 AM EST [facility] Outpatient [address] [facility] [address] 02/11/2020 12:00:00 AM EST eCW1 ([facility]) Outpatient Attender: [id number] Jef Zhao MD [facility] 02/05/2020 12:52:00 PM EST - 02/05/2020 12:53:00 PM EST [facility] Patient discharged. [place] [address] [facility] [address] 01/09/2020 12:00:00 AM EDT eCW1 ([facility]) [place] [address] [facility] [address] 01/02/2020 12:00:00 AM EDT eCW1 ([facility]) Emergency Attender: CONOR Fuentes: JEREMY PETERS DO 11/14/2019 10:04:00 AM EDT - 11/14/2019 10:32:00 AM EDT [facility] Patient discharged. Outpatient Attender: NUNO BURTON MDConsultant: NUNO BURTON MD S NEHEMIAS.CARLOTA-[email or web address] 10/30/2019 11:10:32 AM EDT - 10/30/2019 12:20:25 PM EDT [facility] Outpatient Attender: Izaiah Estes PT CPSCAORT-CPSCARHE 10:54:00 AM EDT - 10/24/2019 10:55:00 AM EDT L40.50 [facility] L40.50 Patient discharged. Outpatient Referrer: LIZZIE GOLDSMITH 08/29/2019 09:48:00 AM EDT [facility] Outpatient Attender: Oly Parisi/ A.MKeerthiPKeerthi Urology 08/28/2019 11:20:00 AM EDT [facility]) Outpatient Attender: [id number] Jef Zhao MD [facility] 08/21/2019 12:26:00 PM EDT - 08/21/2019 12:27:00 PM EDT [facility] Patient discharged. Outpatient Referrer: LIZZIE GOLDSMITH 08/21/2019 07:58:00 AM EDT [facility] Outpatient Referrer: CIPRIANO GUERRERO MD MOB-MOB.PAT 2019 11:23:31 AM EDT - 08/06/2019 11:23:37 AM EDT [facility] Recurring Patient Attender: Zoie Lopez MS ANPReferrer: Aleyda Peterson MD 08/05/2019 03:52:30 PM EDT [facility] Attender: CIPRIANO GUERRERO MDAdmitter: CIPRIANO GUERRERO MDReferrer: CIPRIANO GUERRERO MD [facility]LESLIE 07/31/2019 04:07:15 PM EDT - 08/09/2019 01:55:00 PM EDT [facility] Patient discharged. Outpatient Attender: [id number] Jef Zhao MD [facility] 07/31/2019 10:46:00 AM EDT - 07/31/2019 10:47:00 AM EDT [facility] Patient discharged. Outpatient Attender: Eric Vargaser: Luke BENNETT DO [id number] 07/29/2019 12:14:35 PM EDT [address] [address] 07/22/2019 12:00:00 AM EDT eCW1 ([facility]) Outpatient Attender: Oly Parisi/ [facility] 07/11/2019 01:40:00 PM EDT MEDENT ([facility]) Outpatient Referrer: LIZZIE GOLDSMITH 07/11/2019 08:11:00 AM EDT [facility] [address] [address] 07/11/2019 12:00:00 AM EDT eCW1 ([facility] [place] [address] [address] 07/10/2019 12:00:00 AM EDT eCW1 ([facility] [address] [address] 07/10/2019 12:00:00 AM EDT eCW1 ([facility]) Outpatient Referrer: LIZZIE GOLDSMITH 07/02/2019 09:07:00 AM EDT [facility] Outpatient Referrer: LIZZIE GOLDSMITH 06/26/2019 08:02:00 AM EDT [facility] [address] [address] 06/11/2019 12:00:00 AM EDT eCW1 ([facility] [address] [place] [address] 06/11/2019 12:00:00 AM EDT eCW1 ([facility] [address] [address] 05/31/2019 12:00:00 AM EDT eCW1 [facility] [address] [address] 05/30/2019 12:00:00 AM EDT eCW1 ([facility]) Outpatient Attender: NUNO DONALD.KVNG.CARLOTA 05/29/2019 12:00:00 AM EDT [address] [address] 05/28/2019 12:00:00 AM EDT eCW1 ([facility] [address] [address] 05/28/2019 12:00:00 AM EDT eCW1 ([facility]) 05/27/2019 12:48:00 PM EDT - 020 12:48:00 PM EDT [facility] ([facility]) [address] [address] 05/24/2019 12:00:00 AM EST eCW1 ([facility]) [address] [address] 05/23/2019 12:00:00 AM EST eCW1 ([facility]) Outpatient Attender: Shraddha JORDAN 05/13/2019 08:45:00 AM [facility] Outpatient Referrer: LIZZIE GOLDSMITH 04/30/2019 08:24:00 AM EST [facility] [address] [address] 04/04/2019 12:00:00 AM EST eCW1 ([facility]) [address] [place] [address] 04/04/2019 12:00:00 AM EST eCW1 ([facility]) Outpatient Attender: NUNO BURTON MDConsultant: NUNO De La Vega JP.CARLOTA-SJP 03/29/2019 12:00:00 AM EST - 03/29/2019 04:21:43 PM EST [facility] Outpatient Attender: Jef Zhao MDAttender: [id number] Jef Zhao MD CPSCAORT-CPSCARHE 03/27/2019 09:00:00 AM EST - 03/27/2019 09:01:00 AM ES T L40.50, I30.0 [facility] L40.50, I30.0 Patient discharged. Outpatient Attender: Chad Francis MD 03/25/2019 07:13:[address] [address] 03/22/2019 12:00:00 AM [place] [address] ([facility]) Outpatient Attender: Khloe LAN-CReferrer: FLORA BENNETT DO EMERGENCY ROOM-CLN2 03/21/2019 08:40:00 AM [facility] - 03/21/2019 08:40:00 AM [facility] Outpatient Attender: Chad Francis MD 020 02:45:00 PM [facility] - 06/18/2019 06:53:00 AM [facility] Patient discharged. Outpatient Attender: Chad Francis MD 019 09:07:00 AM [facility] - 03/19/2019 02:45:00 PM [facility] Patient discharged. Emergency Attender: GEETHA JORDAN EMERGENCY ROOM-ER 06/18/2018 03:13:00 PM EDT - 06/18/2018 04:33:00 PM [facility] Outpatient Attender: Elvie LAN EMERGENCY ROOM-CL N2 05/30/2018 01:08:00 PM EDT - 05/30/2018 01:08:00 PM [facility] Emergency Attender: GEETHA JORDAN 03:23:00 PM EST - 03/03/2017 05:45:00 PM [facility] Outpatient Attender: YOLI SALVADOR MD 01/09/2017 01:27:00 PM [facility] Outpatient Attender: YOLI SALVADOR MD 12/23/2016 10:00:00 AM [facility] Outpatient Attender: YOLI SALVADOR MD 12/16/2016 08:00:00 AM [facility] Outpatient Attender: YOLI SALVADOR MD 08/03/2016 05:58:00 PM [facility] Medications Medication Brand Name Start Date Product Form Dose Route Admi nistrative Instructions Pharmacy Instructions Status Indications Reaction Description Data Source(s) topiramate 25 MG Oral Tablet [Topamax] Topamax 04/14/2020 12:00:00 AM EST ORAL active MEDENT ([facility], ) 25 mg 04/14/2020 12:00:00 AM EST tablet 30 TAKE ONE TABLET BY MOUTH EVERY DAY TAKE ONE TABLET BY MOUTH EVERY DAY SOLD: 04/15/2020 [facility] 600 mg 03/27/2020 12:00:00 AM EST tablet 90 TAKE ONE TABLET BY MOUTH THREE TIMES A DAY TAKE ONE TABLET BY MOUTH THREE TIMES A DAY SOLD: 04/28/2020 [facility] 600 mg 03/27/2020 12:00:00 AM EST tablet 90 TAKE ONE TABLET BY MOUTH THREE TIMES A DAY TAKE ONE TABLET BY MOUTH THREE TIMES A DAY SOLD: 03/28/2020 [facility] tizanidine 2 MG Oral Tablet Tizanidine HCl 2 MG Tizanidine H Cl 2 MG 03/18/2020 12:00:00 AM EST 1.0 {tablet_as_needed} active Tizanidine HCl 2 MG eCW1 ([facility]) tizanidine 2 MG Oral Tablet Tizanidine HCl 2 MG Tizanidine H Cl 2 MG 03/18/2020 12:00:00 AM EST 1.0 {tablet_as_needed} active Tizanidine HCl 2 MG eCW1 ([facility]) Acetaminophen 300 MG / Codeine Phosphate 30 MG Oral Tablet Acetaminophen-Codeine #3 300-30 MG Acetaminophen-Codeine #3 300-30 MG 03/18/2020 12:00:00 AM EST 1.0 {tablet_as_needed} active Acetamino phen-Codeine #3 300-30 MG eCW1 ([facility]) tizanidine 2 MG Oral Tablet TIZANIDINE HCL 03/18/2020 12:00:00 AM EST tablet 15 TAKE ONE TABLET BY MOUTH THREE TIMES A DAY NEEDED T ARETHA ONE TABLET BY MOUTH THREE TIMES A DAY NEEDED SOLD: 03/18/2020 [facility] Acetaminophen 300 MG / Codeine Phosphate 30 MG Oral Tablet Acetaminophen-Codeine #3 300-30 MG Acetaminophen-Codeine #3 300-30 MG 03/18/2020 12:00:00 AM EST 1.0 {tablet_as_needed} active Acetamino phen-Codeine #3 300-30 MG eCW1 ([facility]) tizanidine 2 MG Oral Tablet Tizanidine HCl 2 MG Tizanidine H Cl 2 MG 03/18/2020 12:00:00 AM EST 1.0 {tablet_as_needed} active Tizanidine HCl 2 MG eCW1 ([facility]) tizanidine 2 MG Oral Tablet Tizanidine HCl 2 MG Tizanidine H Cl 2 MG 03/18/2020 12:00:00 AM EST 1.0 {tablet_as_needed} active Tizanidine HCl 2 MG eCW1 ([facility]) Acetaminophen 300 MG / Codeine Phosphate 30 MG Oral Tablet Acetaminophen-Codeine #3 300-30 MG Acetaminophen-Codeine #3 300-30 MG 03/18/2020 12:00:00 AM EST 1.0 {tablet_as_needed} active Acetamino phen-Codeine #3 300-30 MG eCW1 ([facility]) Acetaminophen 300 MG / Codeine Phosphate 30 MG Oral Tablet Acetaminophen-Codeine #3 300-30 MG Acetaminophen-Codeine #3 300-30 MG 03/18/2020 12:00:00 AM EST 1.0 {tablet_as_needed} active Acetamino phen-Codeine #3 300-30 MG eCW1 ([facility]) tizanidine 2 MG Oral Tablet Tizanidine HCl 2 MG Tizanidine H Cl 2 MG 03/18/2020 12:00:00 AM EST 1.0 {tablet_as_needed} active Tizanidine HCl 2 MG eCW1 ([facility]) tizanidine 2 MG Oral Tablet Tizanidine HCl 2 MG Tizanidine H Cl 2 MG 03/18/2020 12:00:00 AM EST 1.0 {tablet_as_needed} active Tizanidine HCl 2 MG eCW1 ([facility]) 300-30 mg 03/18/2020 12:00:00 AM EST tablet 20 TAKE ONE TABLET BY MOUTH EVERY 6 HOURS NEEDED MAXIMUM DAILY DOSE = 4 TAKE ONE TABLET BY MOUTH EVERY 6 HOURS NEEDED MAXIMUM DAILY DOSE = 4 SOLD: 03/18/2020 [facility] Acetaminophen 300 MG / Codeine Phosphate 30 MG Oral Tablet Acetaminophen-Codeine #3 300-30 MG Acetaminophen-Codeine #3 300-30 MG 03/18/2020 12:00:00 AM EST 1.0 {tablet_as_needed} active Acetamino phen-Codeine #3 300-30 MG eCW1 ([facility]) Acetaminophen 300 MG / Codeine Phosphate 30 MG Oral Tablet Acetaminophen-Codeine #3 300-30 MG Acetaminophen-Codeine #3 300-30 MG 03/18/2020 12:00:00 AM EST 1.0 {tablet_as_needed} active Acetamino phen-Codeine #3 300-30 MG eCW1 ([facility]) meloxicam 7.5 MG Oral Tablet MELOXICAM 03/16/2020 12:00:00 AM EST tabl et 30 TAKE ONE TABLET BY MOUTH EVERY DAY WITH FOOD NEEDED TAKE ONE TABLET BY MOUTH EVERY DAY WITH FOOD NEEDED SOLD: 03/18/2020 [facility] Vancomycin 125 MG Oral Capsule Vancomycin HCl 125 MG Vancomy dulce HCl 125 MG 03/10/2020 12:00:00 AM EST 1.0 {capsule} active Vancomycin HCl 125 MG eCW1 ([facility]) Vancomycin 125 MG Oral Capsule Vancomycin HCl 125 MG Vancomy dulce HCl 125 MG 03/10/2020 12:00:00 AM EST 1.0 {capsule} active Vancomycin HCl 125 MG eCW1 ([facility]) Vancomycin 125 MG Oral Capsule Vancomycin HCl 125 MG Vancomy dulce HCl 125 MG 03/10/2020 12:00:00 AM EST 1.0 {capsule} active Vancomycin HCl 125 MG eCW1 ([facility]) Vancomycin 125 MG Oral Capsule Vancomycin HCl 125 MG Vancomy dulce HCl 125 MG 03/10/2020 12:00:00 AM EST 1.0 {capsule} active Vancomycin HCl 125 MG eCW1 ([facility]) Vancomycin 125 MG Oral Capsule Vancomycin HCl 125 MG Vancomy dulce HCl 125 MG 03/10/2020 12:00:00 AM EST 1.0 {capsule} active Vancomycin HCl 125 MG eCW1 ([facility]) 125 mg 03/10/2020 12:00:00 AM EST capsule 40 TAKE ONE CAPSULE BY MOUTH EVERY 6 HOURS FOR 10 DAYS TAKE ONE CAPSULE BY MOUTH EVERY 6 HOURS FOR 10 DAYS SO LD: 03/10/2020 [facility] Vancomycin 125 MG Oral Capsule Vancomycin HCl 125 MG Vancomy dulce HCl 125 MG 03/10/2020 12:00:00 AM EST 1.0 {capsule} active Vancomycin HCl 125 MG eCW1 ([facility]) Vancomycin 125 MG Oral Capsule Vancomycin HCl 125 MG Vancomy dulce HCl 125 MG 03/10/2020 12:00:00 AM EST 1.0 {capsule} active Vancomycin HCl 125 MG eCW1 ([facility]) Metronidazole 500 MG Oral Tablet METRONIDAZOLE 03/03/2020 12:0 0:00 AM EST tablet 30 TAKE ONE TABLET BY MOUTH THREE T IMES A DAY FOR 10 DAYS TAKE ONE TABLET BY MOUTH THREE TIMES A DAY FOR 10 DAYS SOLD: 03/03/2020 [facility] 2.5-0.025 mg 03/01/2020 12:00:00 AM EST tablet 10 TAKE ONE TABLET BY MOUTH TWICE A DAY MAX=2TABS/DAY TAKE ONE TABLET BY MOUTH TWICE A DAY MAX=2TABS/DAY SOLD: 03/01/2020 [facility] 4 mg 02/27/2020 12:00:00 AM EST tablet 12 TAKE ONE TABLET BY MOUTH EVERY 4 HOURS NEEDED TAKE ONE TABLET BY MOUTH EVERY 4 HOURS NEEDED SOLD: 02/28/2020 [facility] 300 mg 02/17/2020 12:00:00 AM EST capsule 20 TAKE TWO CAPSULES BY MOUTH EVERY DAY FOR 10 DAYS TAKE TWO CAPSULES BY MOUTH EVERY DAY FOR 10 DAYS SOLD: 02/17/2020 [facility] cefdinir 300 MG Oral Capsule Cefdinir 300 MG Cefdinir 300 MG 02/17/2020 12:00:00 AM EST active Cefdinir 300 MG eCW1 ([facility]) cefdinir 300 MG Oral Capsule Cefdinir 300 MG Cefdinir 300 MG 02/17/2020 12:00:00 AM EST active Cefdinir 300 MG eCW1 ([facility]) 50 mg 01/28/2020 12:00:00 AM EST capsule 60 TAKE ONE CAPSULE BY MOUTH TWICE A DAY TAKE ONE CAPSULE BY MOUTH TWICE A DAY SOLD: 03/03/2020 [facility] 50 mg 01/28/2020 12:00:00 AM EST capsule 60 TAKE ONE CAPSULE BY MOUTH TWICE A DAY TAKE ONE CAPSULE BY MOUTH TWICE A DAY SOLD: 04/06/2020 [facility] 50 mg 01/28/2020 12:00:00 AM EST capsule 60 TAKE ONE CAPSULE BY MOUTH TWICE A DAY TAKE ONE CAPSULE BY MOUTH TWICE A DAY SOLD: 02/03/2020 [facility] meloxicam 7.5 MG Oral Tablet MELOXICAM 01/09/2020 12:00:00 AM EDT tabl et 30 TAKE ONE TABLET BY MOUTH EVERY DAY NEEDED WITH FOOD TAKE ONE TABLET BY MOUTH EVERY DAY NEEDED WITH FOOD SOLD: 01/18/2020 [facility] meloxicam 7.5 MG Oral Tablet MELOXICAM 01/09/2020 12:00:00 AM EDT tabl et 30 TAKE ONE TABLET BY MOUTH EVERY DAY NEEDED WITH FOOD TAKE ONE TABLET BY MOUTH EVERY DAY NEEDED WITH FOOD SOLD: 02/17/2020 [facility] 40 mg 12/08/2019 12:00:00 AM EDT tablet 30 TAKE 1 TABLET BY MOUTH ONCE DAILY AT BEDTIME TAKE 1 TABLET BY MOUTH ONCE DAILY AT BEDTIME SOLD: 01/09/2020 [facility] 40 mg 12/08/2019 12:00:00 AM EDT tablet 30 TAKE 1 TABLET BY MOUTH ONCE DAILY AT BEDTIME TAKE 1 TABLET BY MOUTH ONCE DAILY AT BEDTIME SOLD: 12/11/2019 [facility] 40 mg 12/08/2019 12:00:00 AM EDT tablet 30 TAKE 1 TABLET BY MOUTH ONCE DAILY AT BEDTIME TAKE 1 TABLET BY MOUTH ONCE DAILY AT BEDTIME SOLD: 02/06/2020 [facility] Famotidine 40 MG Oral Tablet FAMOTIDINE 12/08/2019 12:00:00 AM EDT tab let 30 TAKE 1 TABLET BY MOUTH ONCE DAILY AT BEDTIME TAKE 1 TABLET BY MOUTH ONCE DAILY AT BEDTIME SOLD: 03/07/2020 [facility] 3.5-10,000-1 mg/mL-unit/mL-% 12/04/2019 12:00:00 AM EDT solu tion 10 INSTILL TWO DROPS INTO THE AFFECTED EAR FOUR TIMES A DAY UNTIL RESOLVED INSTILL TWO DROPS INTO THE AFFECTED EAR FOUR TIMES A DAY UNTIL RESOLVED SOLD: 12/05/2019 [facility] meloxicam 7.5 MG Oral Tablet MELOXICAM 11/30/2019 12:00:00 AM EDT tabl et 30 TAKE ONE TABLET BY MOUTH EVERY DAY, WITH FOOD, NEEDED TAKE ONE TABLET BY MOUTH EVERY DAY, WITH FOOD, NEEDED SOLD: 12/03/2019 [facility] 0.6 mg 11/27/2019 12:00:00 AM EDT tablet 30 TAKE ONE TABLET BY MOUTH EVERY DAY TAKE ONE TABLET BY MOUTH EVERY DAY SOLD: 01/28/2020 [facility] 0.6 mg 11/27/2019 12:00:00 AM EDT tablet 30 TAKE ONE TABLET BY MOUTH EVERY DAY TAKE ONE TABLET BY MOUTH EVERY DAY SOLD: 03/26/2020 [facility] 0.6 mg 11/27/2019 12:00:00 AM EDT tablet 30 TAKE ONE TABLET BY MOUTH EVERY DAY TAKE ONE TABLET BY MOUTH EVERY DAY SOLD: 04/28/2020 [facility] 0.6 mg 11/27/2019 12:00:00 AM EDT tablet 30 TAKE ONE TABLET BY MOUTH EVERY DAY TAKE ONE TABLET BY MOUTH EVERY DAY SOLD: 11/27/2019 [facility] 0.6 mg 11/27/2019 12:00:00 AM EDT tablet 30 TAKE ONE TABLET BY MOUTH EVERY DAY TAKE ONE TABLET BY MOUTH EVERY DAY SOLD: 02/26/2020 [facility] 0.6 mg 11/27/2019 12:00:00 AM EDT tablet 30 TAKE ONE TABLET BY MOUTH EVERY DAY TAKE ONE TABLET BY MOUTH EVERY DAY SOLD: 12/30/2019 [facility] 30 mg 11/14/2019 12:00:00 AM EDT capsule,delayed release (DR/EC) 30 TAKE ONE CAPSULE BY MOUTH EVERY DAY TAKE ONE CAPSULE BY MOUTH EVERY DAY SOLD: 11/27/2019 [facility] 30 mg 11/14/2019 12:00:00 AM EDT capsule,delayed release (DR/EC) 30 TAKE ONE CAPSULE BY MOUTH EVERY DAY TAKE ONE CAPSULE BY MOUTH EVERY DAY SOLD: 12/30/2019 [facility] 30 mg 11/14/2019 12:00:00 AM EDT capsule,delayed release (DR/EC) 30 TAKE ONE CAPSULE BY MOUTH EVERY DAY TAKE ONE CAPSULE BY MOUTH EVERY DAY SOLD: 02/26/2020 [facility] 30 mg 11/14/2019 12:00:00 AM EDT capsule,delayed release (DR/EC) 30 TAKE ONE CAPSULE BY MOUTH EVERY DAY TAKE ONE CAPSULE BY MOUTH EVERY DAY SOLD: 01/28/2020 [facility] 30 mg 11/14/2019 12:00:00 AM EDT capsule,delayed release (DR/EC) 30 TAKE ONE CAPSULE BY MOUTH EVERY DAY TAKE ONE CAPSULE BY MOUTH EVERY DAY SOLD: 04/28/2020 [facility] 5-325 mg 11/14/2019 12:00:00 AM EDT tablet 12 TAKE 1-2 TABLETS BY MOUTH EVERY 4-6 HOURS WHILE AWAKE MAXIMUM DAILY DOSE = TWELVE TABLETS TAKE 1-2 TABLETS BY MOUTH EVERY 4-6 HOURS WHILE AWAKE MAXIMUM DAILY DOSE = TWELVE TABLETS SOLD: 11/14/2019 [facility] 30 mg 11/14/2019 12:00:00 AM EDT capsule,delayed release (DR/EC) 30 TAKE ONE CAPSULE BY MOUTH EVERY DAY TAKE ONE CAPSULE BY MOUTH EVERY DAY SOLD: 03/26/2020 [facility] 50 mg 09/27/2019 12:00:00 AM EDT capsule 60 TAKE ONE CAPSULE BY MOUTH TWICE A DAY TAKE ONE CAPSULE BY MOUTH TWICE A DAY SOLD: 11/27/2019 [facility] 50 mg 09/27/2019 12:00:00 AM EDT capsule 60 TAKE ONE CAPSULE BY MOUTH TWICE A DAY TAKE ONE CAPSULE BY MOUTH TWICE A DAY SOLD: 12/30/2019 [facility] 50 mg 09/27/2019 12:00:00 AM EDT capsule 60 TAKE ONE CAPSULE BY MOUTH TWICE A DAY TAKE ONE CAPSULE BY MOUTH TWICE A DAY SOLD: 09/29/2019 [facility] 50 mg 09/27/2019 12:00:00 AM EDT capsule 60 TAKE ONE CAPSULE BY MOUTH TWICE A DAY TAKE ONE CAPSULE BY MOUTH TWICE A DAY SOLD: 10/27/2019 [facility] meloxicam 7.5 MG Oral Tablet MELOXICAM 09/05/2019 12:00:00 AM EDT tabl et 30 TAKE ONE TABLET BY MOUTH EVERY DAY WITH FOOD NEEDED TAKE ONE TABLET BY MOUTH EVERY DAY WITH FOOD NEEDED SOLD: 09/05/2019 [facility] 10 mg 09/05/2019 12:00:00 AM EDT tablet 70 TAKE 4 TABLETS BY MOUTH DAILY FOR 1 WEEK, THEN TAKE 3 TABLETS DAILY FOR 1 WEEK, THEN TAKE 2 TABLETS DAILY FOR 1 WEEK, THEN TAKE 1 TABLET DAILY FOR 1 WEEK THEN STOP TAKE 4 TABLETS BY MOUTH DAILY FOR 1 WEEK, THEN TAKE 3 TABLETS DAILY FOR 1 WEEK, THEN TAKE 2 TABLETS DAILY FOR 1 WEEK, THEN TAKE 1 TABLET DAILY FOR 1 WEEK THEN STOP SOLD: 09/05/2019 [facility] 10 mEq (1,080 mg) 08/29/2019 12:00:00 AM EDT tablet extended release 60 TAKE ONE TABLET BY MOUTH TWICE A DAY WITH FOOD AND EIGHT OUNCES OF WATER TAKE ONE TABLET BY MOUTH TWICE A DAY WITH FOOD AND EIGHT OUNCES OF WATER SOLD: 02/26/2020 [facility] 10 mEq (1,080 mg) 08/29/2019 12:00:00 AM EDT tablet extended release 60 TAKE ONE TABLET BY MOUTH TWICE A DAY WITH FOOD AND EIGHT OUNCES OF WATER TAKE ONE TABLET BY MOUTH TWICE A DAY WITH FOOD AND EIGHT OUNCES OF WATER SOLD: 01/28/2020 [facility] 10 mEq (1,080 mg) 08/29/2019 12:00:00 AM EDT tablet extended release 60 TAKE ONE TABLET BY MOUTH TWICE A DAY WITH FOOD AND EIGHT OUNCES OF WATER TAKE ONE TABLET BY MOUTH TWICE A DAY WITH FOOD AND EIGHT OUNCES OF WATER SOLD: 04/28/2020 [facility] 10 mEq (1,080 mg) 08/29/2019 12:00:00 AM EDT tablet extended release 60 TAKE ONE TABLET BY MOUTH TWICE A DAY WITH FOOD AND EIGHT OUNCES OF WATER TAKE ONE TABLET BY MOUTH TWICE A DAY WITH FOOD AND EIGHT OUNCES OF WATER SOLD: 12/30/2019 [facility] 10 mEq (1,080 mg) 08/29/2019 12:00:00 AM EDT tablet extended release 60 TAKE ONE TABLET BY MOUTH TWICE A DAY WITH FOOD AND EIGHT OUNCES OF WATER TAKE ONE TABLET BY MOUTH TWICE A DAY WITH FOOD AND EIGHT OUNCES OF WATER SOLD: 10/27/2019 [facility] 10 mEq (1,080 mg) 08/29/2019 12:00:00 AM EDT tablet extended release 60 TAKE ONE TABLET BY MOUTH TWICE A DAY WITH FOOD AND EIGHT OUNCES OF WATER TAKE ONE TABLET BY MOUTH TWICE A DAY WITH FOOD AND EIGHT OUNCES OF WATER SOLD: 11/27/2019 [facility] 10 mEq (1,080 mg) 08/29/2019 12:00:00 AM EDT tablet extended release 60 TAKE ONE TABLET BY MOUTH TWICE A DAY WITH FOOD AND EIGHT OUNCES OF WATER TAKE ONE TABLET BY MOUTH TWICE A DAY WITH FOOD AND EIGHT OUNCES OF WATER SOLD: 09/29/2019 [facility] 10 mEq (1,080 mg) 08/29/2019 12:00:00 AM EDT tablet extended release 60 TAKE ONE TABLET BY MOUTH TWICE A DAY WITH FOOD AND EIGHT OUNCES OF WATER TAKE ONE TABLET BY MOUTH TWICE A DAY WITH FOOD AND EIGHT OUNCES OF WATER SOLD: 03/26/2020 [facility] 10 mEq (1,080 mg) 08/29/2019 12:00:00 AM EDT tablet extended release 60 TAKE ONE TABLET BY MOUTH TWICE A DAY WITH FOOD AND EIGHT OUNCES OF WATER TAKE ONE TABLET BY MOUTH TWICE A DAY WITH FOOD AND EIGHT OUNCES OF WATER SOLD: 08/30/2019 [facility] 100 mg 08/28/2019 12:00:00 AM EDT tablet 30 TAKE ONE TABLET BY MOUTH EVERY 12 HOURS NEEDED FOR BLADDER PAIN TAKE ONE TABLET BY MOUTH EVERY 12 HOURS NEEDED FOR BLADDER PAIN SOLD: 08/30/2019 [facility] potassium citrate 10 MEQ Extended Release Oral Tablet Potass ium Citrate ER 08/28/2019 12:00:00 AM EDT ORAL active [facility] ([facility] Phenazopyridine hydrochloride 100 MG Oral Tablet Phenazopyri dine HCL 08/28/2019 12:00:00 AM EDT ORAL active M [facility] ([facility]) Magnesium Chloride 0.86665 MEQ/ML / Pota ssium Chloride 0.0497 MEQ/ML / Sodium Acetate 0.0163 MEQ/ML / Sodium Chloride 0.0899 MEQ/ML / Sodium gluconate 5.02 MG/ML Injectable Solution [Normosol-R] electrolyte-R (NORMOSOL-R/PLASMALYTE-R) solution electrolyte-R (NORMOSOL-R/PLASMALYTE-R) solution 08/08 01:00:00 PM EDT Intravenous active at 1 00 mL/hr, Intravenous, Continuous, Starting Mon08/09/19 at 1300 [facility] Medication administered onsite Hydroxychloroquine Sulfate 200 MG Oral Tablet HYDROXYCHLOROQ UINE SULFATE 07/31/2019 12:00:00 AM EDT tablet 60 TAKE ONE TABLET BY MOUTH TWICE A DAY WITH FOOD OR MILK TAKE ONE TABLET BY MOUTH TWICE A DAY WITH FOOD OR MILK SOLD: 10/07/2019 [facility] Hydroxychloroquine Sulfate 200 MG Oral Tablet HYDROXYCHLOROQ UINE SULFATE 07/31/2019 12:00:00 AM EDT tablet 60 TAKE ONE TABLET BY MOUTH TWICE A DAY WITH FOOD OR MILK TAKE ONE TABLET BY MOUTH TWICE A DAY WITH FOOD OR MILK SOLD: 08/06/2019 [facility] Hydroxychloroquine Sulfate 200 MG Oral Tablet HYDROXYCHLOROQ UINE SULFATE 07/31/2019 12:00:00 AM EDT tablet 60 TAKE ONE TABLET BY MOUTH TWICE A DAY WITH FOOD OR MILK TAKE ONE TABLET BY MOUTH TWICE A DAY WITH FOOD OR MILK SOLD: 02/06/2020 [facility] Hydroxychloroquine Sulfate 200 MG Oral Tablet HYDROXYCHLOROQ UINE SULFATE 07/31/2019 12:00:00 AM EDT tablet 60 TAKE ONE TABLET BY MOUTH TWICE A DAY WITH FOOD OR MILK TAKE ONE TABLET BY MOUTH TWICE A DAY WITH FOOD OR MILK SOLD: 09/03/2019 [facility] Hydroxychloroquine Sulfate 200 MG Oral Tablet HYDROXYCHLOROQ UINE SULFATE 07/31/2019 12:00:00 AM EDT tablet 60 TAKE ONE TABLET BY MOUTH TWICE A DAY WITH FOOD OR MILK TAKE ONE TABLET BY MOUTH TWICE A DAY WITH FOOD OR MILK SOLD: 01/07/2020 [facility] Hydroxychloroquine Sulfate 200 MG Oral Tablet HYDROXYCHLOROQ UINE SULFATE 07/31/2019 12:00:00 AM EDT tablet 60 TAKE ONE TABLET BY MOUTH TWICE A DAY WITH FOOD OR MILK TAKE ONE TABLET BY MOUTH TWICE A DAY WITH FOOD OR MILK SOLD: 03/15/2020 [facility] Hydroxychloroquine Sulfate 200 MG Oral Tablet HYDROXYCHLOROQ UINE SULFATE 07/31/2019 12:00:00 AM EDT tablet 60 TAKE ONE TABLET BY MOUTH TWICE A DAY WITH FOOD OR MILK TAKE ONE TABLET BY MOUTH TWICE A DAY WITH FOOD OR MILK SOLD: 11/05/2019 [facility] Hydroxychloroquine Sulfate 200 MG Oral Tablet HYDROXYCHLOROQ UINE SULFATE 07/31/2019 12:00:00 AM EDT tablet 60 TAKE ONE TABLET BY MOUTH TWICE A DAY WITH FOOD OR MILK TAKE ONE TABLET BY MOUTH TWICE A DAY WITH FOOD OR MILK SOLD: 04/14/2020 [facility] Amoxicillin 875 MG / Clavulanate 125 MG Oral Tablet 87 5-125 mg AMOXICILLIN/POTASSIUM CLAVULANATE 07/11/2019 12:00:00 AM EDT tablet 28 TAKE ONE TABLET BY MOUTH EVERY 12 HOURS TAKE ONE TABLET BY MOUTH EVERY 12 HOURS SOLD: 07/11/2019 [facility] Amoxicillin 875 MG / Clavulanate 125 MG Oral Tablet Amoxicillin-Pot Clavulanate 875-125 MG Amoxicillin-Pot Clavulanate 875-125 MG 07/10/2019 12:00:00 AM ED T active 1 tablet eCW1 ([facility]) Amoxicillin 875 MG / Clavulanate 125 MG Oral Tablet Amoxicillin-Pot Clavulanate 875-125 MG Amoxicillin-Pot Clavulanate 875-125 MG 07/10/2019 12:00:00 AM ED T active 1 tablet [email or web address] ([facility]) 40 mg 2019 12:00:00 AM EDT tablet 30 TAKE 1 TABLET BY MOUTH ONCE DAILY AT BEDTIME TAKE 1 TABLET BY MOUTH ONCE DAILY AT BEDTIME SOLD: 10/07/2019 [facility] 40 mg 2019 12:00:00 AM EDT tablet 30 TAKE 1 TABLET BY MOUTH ONCE DAILY AT BEDTIME TAKE 1 TABLET BY MOUTH ONCE DAILY AT BEDTIME SOLD: 08/06/2019 [facility] 40 mg 2019 12:00:00 AM EDT tablet 30 TAKE 1 TABLET BY MOUTH ONCE DAILY AT BEDTIME TAKE 1 TABLET BY MOUTH ONCE DAILY AT BEDTIME SOLD: 11/05/2019 [facility] 40 mg 2019 12:00:00 AM EDT tablet 30 TAKE 1 TABLET BY MOUTH ONCE DAILY AT BEDTIME TAKE 1 TABLET BY MOUTH ONCE DAILY AT BEDTIME SOLD: 09/03/2019 [facility] 40 mg 2019 12:00:00 AM EDT tablet 30 TAKE 1 TABLET BY MOUTH ONCE DAILY AT BEDTIME TAKE 1 TABLET BY MOUTH ONCE DAILY AT BEDTIME SOLD: 07/05/2019 [facility] [facility] 7.5 mg 06/14/2019 12:00:00 AM EDT tablet 30 TAKE ONE TABLET BY MOUTH DAILY WITH FOOD NEEDED TAKE ONE TABLET BY MOUTH DAILY WITH FOOD NEEDED [facility] Fluticasone Propionate 50 MCG/ACT Fluticasone Propionate 50 MCG/ACT 06/11/2019 12:00:00 AM EDT active 1 spray in each nostril eCW1 ([facility]) Amoxicillin 875 MG / Clavulanate 125 MG Oral Tablet Amoxicillin-Pot Clavulanate 875-125 MG Amoxicillin-Pot Clavulanate 875-125 MG 06/11/2019 12:00:00 AM ED T active 1 tablet eCW1 ([facility]) 875-125 mg 06/11/2019 12:00:00 AM EDT tablet 28 TAKE ONE TABLET BY MOUTH EVERY 12 HOURS FOR 14 DAYS TAKE ONE TABLET BY MOUTH EVERY 12 HOURS FOR 14 DAYS SOLD: 06/11/2019 [facility] Fluticasone Propionate 50 MCG/ACT Fluticasone Propionate 50 MCG/ACT 06/11/2019 12:00:00 AM EDT active 1 spray in each nostril eCW1 ([facility]) Amoxicillin 875 MG / Clavulanate 125 MG Oral Tablet Amoxicillin-Pot Clavulanate 875-125 MG Amoxicillin-Pot Clavulanate 875-125 MG 06/11/2019 12:00:00 AM ED T active 1 tablet eCW1 ([facility]) 0.6 mg 05/29/2019 12:00:00 AM EDT tablet 30 TAKE ONE TABLET BY MOUTH EVERY DAY TAKE ONE TABLET BY MOUTH EVERY DAY SOLD: 05/30/2019 [facility] 0.6 mg 05/29/2019 12:00:00 AM EDT tablet 30 TAKE ONE TABLET BY MOUTH EVERY DAY TAKE ONE TABLET BY MOUTH EVERY DAY SOLD: 07/30/2019 [facility] Colchicine 0.6 MG Oral Tablet colchicine 0.6 MG tablet colch icine 0.6 MG tablet 05/29/2019 12:00:00 AM EDT 0.6 mg Oral active Take 1 tablet (0.6 mg total) by mouth daily [facility] 0.6 mg 05/29/2019 12:00:00 AM EDT tablet 30 TAKE ONE TABLET BY MOUTH EVERY DAY TAKE ONE TABLET BY MOUTH EVERY DAY SOLD: 09/29/2019 [facility] 0.6 mg 05/29/2019 12:00:00 AM EDT tablet 30 TAKE ONE TABLET BY MOUTH EVERY DAY TAKE ONE TABLET BY MOUTH EVERY DAY SOLD: 06/28/2019 [facility] 0.6 mg 05/29/2019 12:00:00 AM EDT tablet 30 TAKE ONE TABLET BY MOUTH EVERY DAY TAKE ONE TABLET BY MOUTH EVERY DAY SOLD: 08/30/2019 [facility] 0.6 mg 05/29/2019 12:00:00 AM EDT tablet 30 TAKE ONE TABLET BY MOUTH EVERY DAY TAKE ONE TABLET BY MOUTH EVERY DAY SOLD: 10/27/2019 [facility] Physical Therapy evaluate and treat UNK 05/24/2019 12:00:00 AM EST active as directed eCW1 ([facility]) Physical Therapy evaluate and treat UNK 05/24/2019 12:00:00 AM EST active as directed eCW1 ([facility]) Physical Therapy evaluate and treat UNK 05/24/2019 12:00:00 AM EST active as directed eCW1 ([facility]) 50 mg 05/17/2019 12:00:00 AM EST capsule 60 TAKE ONE CAPSULE BY MOUTH TWO TIMES A DAY TAKE ONE CAPSULE BY MOUTH TWO TIMES A DAY SOLD: 05/22/2019 [facility] 50 mg 05/17/2019 12:00:00 AM EST capsule 60 TAKE ONE CAPSULE BY MOUTH TWO TIMES A DAY TAKE ONE CAPSULE BY MOUTH TWO TIMES A DAY SOLD: 07/30/2019 [facility] 50 mg 05/17/2019 12:00:00 AM EST capsule 60 TAKE ONE CAPSULE BY MOUTH TWO TIMES A DAY TAKE ONE CAPSULE BY MOUTH TWO TIMES A DAY SOLD: 08/30/2019 [facility] 50 mg 05/17/2019 12:00:00 AM EST capsule 60 TAKE ONE CAPSULE BY MOUTH TWO TIMES A DAY TAKE ONE CAPSULE BY MOUTH TWO TIMES A DAY SOLD: 06/28/2019 [facility] meloxicam 7.5 MG Oral Tablet meloxicam (MOBIC) 7.5 MG tablet meloxicam (MOBIC) 7.5 MG tablet 05/15/2019 12:00:00 AM EST 1 {tbl} Oral act vineet Take 1 tablet by mouth as needed [facility] 875-125 mg 05/13/2019 12:00:00 AM EST tablet 20 TAKE ONE TABLET BY MOUTH EVERY 12 HOURS FOR 10 DAYS TAKE ONE TABLET BY MOUTH EVERY 12 HOURS FOR 10 DAYS SOLD: 05/13/2019 [facility] 30 mg 05/03/2019 12:00:00 AM EST capsule,delayed release (DR/EC) 30 TAKE ONE CAPSULE BY MOUTH EVERY DAY TAKE ONE CAPSULE BY MOUTH EVERY DAY SOLD: 07/05/2019 [facility] 30 mg 05/03/2019 12:00:00 AM EST capsule,delayed release (DR/EC) 30 TAKE ONE CAPSULE BY MOUTH EVERY DAY TAKE ONE CAPSULE BY MOUTH EVERY DAY SOLD: 05/07/2019 [facility] 30 mg 05/03/2019 12:00:00 AM EST capsule,delayed release (DR/EC) 30 TAKE ONE CAPSULE BY MOUTH EVERY DAY TAKE ONE CAPSULE BY MOUTH EVERY DAY SOLD: 10/07/2019 [facility] 30 mg 05/03/2019 12:00:00 AM EST capsule,delayed release (DR/EC) 30 TAKE ONE CAPSULE BY MOUTH EVERY DAY TAKE ONE CAPSULE BY MOUTH EVERY DAY SOLD: 08/06/2019 [facility] 30 mg 05/03/2019 12:00:00 AM EST capsule,delayed release (DR/EC) 30 TAKE ONE CAPSULE BY MOUTH EVERY DAY TAKE ONE CAPSULE BY MOUTH EVERY DAY SOLD: 06/04/2019 [facility] duloxetine 30 MG Delayed Release Oral Ca psule DULoxetine (CYMBALTA) 30 MG capsule DULoxetine (CYMBALTA) 30 MG capsule 05/03/2019 12:00:00 AM EST 1 {capsule} Oral active Take 1 capsule by mout h daily [facility] 30 mg 05/03/2019 12:00:00 AM EST capsule,delayed release (DR/EC) 30 TAKE ONE CAPSULE BY MOUTH EVERY DAY TAKE ONE CAPSULE BY MOUTH EVERY DAY SOLD: 09/03/2019 [facility] Famotidine 40 MG Oral Tablet famotidine (PEPCID) 40 MG tablet famotidine (PEPCID) 40 MG tablet 05/02/2019 12:00:00 AM EST 1 {tbl} Oral active Take 1 tablet by mouth daily [facility] 0.5 mg/5 mL 04/08/2019 12:00:00 AM EST elixir 450 TAKE 5MLS BY MOUTH THREE TIMES A DAY TAKE 5MLS BY MOUTH THREE TIMES A DAY SOLD: 09/13/2019 [facility] 6 mg/0.5 mL 04/08/2019 12:00:00 AM EST solution 5 USE 0.5 ML'S UNDER THE SKIN NEEDED USE 0.5 ML'S UNDER THE SKIN NEEDED SOLD: 04/12/2019 [facility] 0.5 mg/5 mL 04/08/2019 12:00:00 AM EST elixir 450 TAKE 5MLS BY MOUTH THREE TIMES A DAY TAKE 5MLS BY MOUTH THREE TIMES A DAY SOLD: 04/12/2019 [facility] 100 mg 04/08/2019 12:00:00 AM EST tablet 12 TAKE 1 TABLET BY MOUTH NEEDED - MAY REPEAT DOSE AFTER 2 HOURS NEEDED TAKE 1 TABLET BY MOUTH NEEDED - MAY REPEAT DOSE AFTER 2 HOURS NEEDED SOLD: 04/12/2019 [facility] 30 mg 04/05/2019 12:00:00 AM EST capsule,delayed release (DR/EC) 30 TAKE 1 CAPSULE BY MOUTH ONCE DAILY TAKE 1 CAPSULE BY MOUTH ONCE DAILY SOLD: 04/06/2019 [facility] 100 mg 04/04/2019 12:00:00 AM EST tablet 20 TAKE 1 TABLET BY MOUTH TWICE DAILY TAKE 1 TABLET BY MOUTH TWICE DAILY SOLD: 04/04/2019 [facility] doxycycline hyclate 100 MG Oral Tablet Doxycycline Hyc late 100 MG Doxycycline Hyclate 100 MG 04/04/2019 12:00:00 AM EST active 1 tablet eCW1 ([facility]) Dexamethasone 0.1 MG/ML Oral Solution Dexamethasone 0. 5 MG/5ML Dexamethasone 0.5 MG/5ML 04/04/2019 12:00:00 AM EST active 5 ml eCW1 ([facility]) Sumatriptan 100 MG Oral Tablet Sumatriptan Succinate 1 00 MG Sumatriptan Succinate 100 MG 04/04/2019 12:00:00 AM EST a ctive Sumatriptan Succinate 100 MG eC1 ([facility]) Sumatriptan 100 MG Oral Tablet Sumatriptan Succinate 1 00 MG Sumatriptan Succinate 100 MG 04/04/2019 12:00:00 AM EST a ctive 1 tablet at least 2 hours between doses as needed [facility] ([facility]) Sumatriptan 100 MG Oral Tablet Sumatriptan Succinate 1 00 MG Sumatriptan Succinate 100 MG 04/04/2019 12:00:00 AM EST a ctive 1 tablet at least 2 hours between doses as needed eC1 ([facility]) Sumatriptan 100 MG Oral Tablet Sumatriptan Succinate 1 00 MG Sumatriptan Succinate 100 MG 04/04/2019 12:00:00 AM EST a ctive Sumatriptan Succinate 100 MG eCW1 ([facility]) Famotidine 40 MG Oral Tablet Famotidine 40 MG 04/04/2019 12:00:[address] active 1 tablet at bedtime eCW ([facility]) Sumatriptan 100 MG Oral Tablet SUMAtriptan (IMITREX) 1 00 MG tablet SUMAtriptan (IMITREX) 100 MG tablet 04/04/2019 12:00:00 AM EST 1 {tbl} Oral aborted Take 1 tablet by mouth as needed [facility] Famotidine 40 MG Oral Tablet Famotidine 40 MG 04/04/2019 12:00:[address] active 1 tablet at bedtime eCW1 ([facility]) Sumatriptan 100 MG Oral Tablet Sumatriptan Succinate 1 00 MG Sumatriptan Succinate 100 MG 04/04/2019 12:00:00 AM EST a ctive Sumatriptan Succinate 100 MG eCW1 ([facility]) Sumatriptan 100 MG Oral Tablet Sumatriptan Succinate 1 00 MG Sumatriptan Succinate 100 MG 04/04/2019 12:00:00 AM EST a ctive 1 tablet at least 2 hours between doses as needed eCW1 ([facility]) Sumatriptan 100 MG Oral Tablet Sumatriptan Succinate 1 00 MG Sumatriptan Succinate 100 MG 04/04/2019 12:00:00 AM EST a ctive Sumatriptan Succinate 100 MG eCW1 ([facility]) 40 mg 04/04/2019 12:00:00 AM EST tablet 30 TAKE 1 TABLET BY MOUTH ONCE DAILY AT BEDTIME TAKE 1 TABLET BY MOUTH ONCE DAILY AT BEDTIME SOLD: 05/07/2019 [facility] Famotidine 40 MG Oral Tablet Famotidine 40 MG 04/04/2019 12:00:[address] active 1 tablet at bedtime eCW1 ([facility]) Sumatriptan 100 MG Oral Tablet Sumatriptan Succinate 1 00 MG Sumatriptan Succinate 100 MG 04/04/2019 12:00:00 AM EST a ctive Sumatriptan Succinate 100 MG eCW1 ([facility]) Sumatriptan 100 MG Oral Tablet Sumatriptan Succinate 1 00 MG Sumatriptan Succinate 100 MG 04/04/2019 12:00:00 AM EST a ctive Sumatriptan Succinate 100 MG eCW1 ([facility]) Sumatriptan 100 MG Oral Tablet Sumatriptan Succinate 1 00 MG Sumatriptan Succinate 100 MG 04/04/2019 12:00:00 AM EST a ctive 1 tablet at least 2 hours between doses as needed eCW1 ([facility]) 150 mg 04/04/2019 12:00:00 AM EST tablet 1 TAKE 1 TABLET BY MOUTH DIRECTED TAKE 1 TABLET BY MOUTH DIRECTED SOLD: 05/15/2019 [facility] Sumatriptan 100 MG Oral Tablet Sumatriptan Succinate 1 00 MG Sumatriptan Succinate 100 MG 04/04/2019 12:00:00 AM EST a ctive Sumatriptan Succinate 100 MG eCW1 ([facility]) 40 mg 04/04/2019 12:00:00 AM EST tablet 30 TAKE 1 TABLET BY MOUTH ONCE DAILY AT BEDTIME TAKE 1 TABLET BY MOUTH ONCE DAILY AT BEDTIME SOLD: 04/06/2019 [facility] 150 mg 04/04/2019 12:00:00 AM EST tablet 1 TAKE 1 TABLET BY MOUTH DIRECTED TAKE 1 TABLET BY MOUTH DIRECTED SOLD: 04/04/2019 [facility] Sumatriptan 100 MG Oral Tablet Sumatriptan Succinate 1 00 MG Sumatriptan Succinate 100 MG 04/04/2019 12:00:00 AM EST a ctive Sumatriptan Succinate 100 MG eCW1 ([facility]) Fluconazole 150 MG Oral Tablet [Diflucan] Diflucan 150 MG Di flucan 150 MG 04/04/2019 12:00:00 AM EST active 1 tablet eCW1 ([facility]) Sumatriptan 100 MG Oral Tablet Sumatriptan Succinate 1 00 MG Sumatriptan Succinate 100 MG 04/04/2019 12:00:00 AM EST a ctive Sumatriptan Succinate 100 MG eCW1 ([facility]) 40 mg 04/04/2019 12:00:00 AM EST tablet 30 TAKE 1 TABLET BY MOUTH ONCE DAILY AT BEDTIME TAKE 1 TABLET BY MOUTH ONCE DAILY AT BEDTIME SOLD: 06/04/2019 [facility] Sumatriptan 100 MG Oral Tablet Sumatriptan Succinate 1 00 MG Sumatriptan Succinate 100 MG 04/04/2019 12:00:00 AM EST a ctive Sumatriptan Succinate 100 MG eCW1 ([facility]) 150 mg 04/04/2019 12:00:00 AM EST tablet 1 TAKE 1 TABLET BY MOUTH DIRECTED TAKE 1 TABLET BY MOUTH DIRECTED SOLD: 05/30/2019 [facility] duloxetine 30 MG Delayed Release Oral Capsule Duloxeti ne HCl 30 MG Duloxetine HCl 30 MG 04/04/2019 12:00:00 AM EST active 1 capsule eCW1 ([facility]) Sumatriptan 100 MG Oral Tablet Sumatriptan Succinate 1 00 MG Sumatriptan Succinate 100 MG 04/04/2019 12:00:00 AM EST a ctive Sumatriptan Succinate 100 MG eCW1 ([facility]) 5 mg 03/19/2019 12:00:00 AM EST tablet 8 TAKE ONE TABLET BY MOUTH EVERY DAY IN THE MORNING WITH FOOD FOR 8 DAYS TAKE ONE TABLET BY MOUTH EVERY DAY IN MORNING WITH FOOD FOR 8 DAYS SOLD: 03/20/2019 [facility] Cyclobenzaprine hydrochloride 10 MG Oral Tablet cyclobenzaprine (FLEXERIL) 10 MG tablet cyclobenzaprine (FLEXERIL) 10 MG tablet 03/09/2019 12:00:[address] 10 mg Oral active Take 10 mg by mouth 3 (t hree) times a day as needed [facility] 200 mg 02/28/2019 12:00:00 AM EST tablet 60 TAKE ONE TABLET BY MOUTH TWICE A DAY WITH FOOD OR MILK TAKE ONE TABLET BY MOUTH TWICE A DAY WITH FOOD OR MILK SOLD: 06/13/2019 [facility] 10 mg 02/25/2019 12:00:00 AM EST capsule 100 TAKE ONE CAPSULE BY MOUTH FOUR TIMES A DAY NEEDED ABDOMINAL CRAMPS TAKE ONE CAPSULE BY MOUTH FOUR TIMES A DAY NEEDED ABDOMINAL CRAMPS SOLD: 03/28/2019 [facility] 10 mg 02/25/2019 12:00:00 AM EST tablet 30 TAKE ONE TABLET BY MOUTH THREE TIMES A DAY NEEDED FOR MUSCLE STIFFNESS OR SPASMS TAKE ONE TABLET BY MOUTH THREE TIMES A DAY NEEDED FOR MUSCLE STIFFNESS OR SPASMS SOLD: 03/12/2019 [facility] 1 mg 02/19/2019 12:00:00 AM EST tablet 30 TAKE ONE TABLET BY MOUTH EVERY DAY TAKE ONE TABLET BY MOUTH EVERY DAY SOLD: 03/28/2019 [facility] 60 mg 01/29/2019 12:00:00 AM EST capsule,delayed release (DR/EC) 30 TAKE ONE CAPSULE BY MOUTH EVERY DAY TAKE ONE CAPSULE BY MOUTH EVERY DAY SOLD: 04/04/2019 [facility] 60 mg 01/29/2019 12:00:00 AM EST capsule,delayed release (DR/EC) 30 TAKE ONE CAPSULE BY MOUTH EVERY DAY TAKE ONE CAPSULE BY MOUTH EVERY DAY SOLD: 06/04/2019 [facility] 60 mg 01/29/2019 12:00:00 AM EST capsule,delayed release (DR/EC) 30 TAKE ONE CAPSULE BY MOUTH EVERY DAY TAKE ONE CAPSULE BY MOUTH EVERY DAY SOLD: 05/07/2019 [facility] 50 mg 01/20/2019 12:00:00 AM EDT capsule 60 TAKE ONE CAPSULE BY MOUTH TWICE A DAY TAKE ONE CAPSULE BY MOUTH TWICE A DAY SOLD: 03/16/2019 [facility] 50 mg 01/20/2019 12:00:00 AM EDT capsule 60 TAKE ONE CAPSULE BY MOUTH TWICE A DAY TAKE ONE CAPSULE BY MOUTH TWICE A DAY SOLD: 04/19/2019 [facility] 40 mg 01/07/2019 12:00:00 AM EDT tablet,delayed release (DR/EC) 90 TAKE ONE TABLET BY MOUTH EVERY DAY TAKE ONE TABLET BY MOUTH EVERY DAY SOLD: 10/07/2019 [facility] 40 mg 01/07/2019 12:00:00 AM EDT tablet,delayed release (DR/EC) 90 TAKE ONE TABLET BY MOUTH EVERY DAY TAKE ONE TABLET BY MOUTH EVERY DAY SOLD: 07/05/2019 [facility] 40 mg 01/07/2019 12:00:00 AM EDT tablet,delayed release (DR/EC) 90 TAKE ONE TABLET BY MOUTH EVERY DAY TAKE ONE TABLET BY MOUTH EVERY DAY SOLD: 04/06/2019 [facility] 7.5 mg 12/21/2018 12:00:00 AM EDT tablet 30 TAKE ONE TABLET BY MOUTH EVERY DAY WITH FOOD NEEDED TAKE ONE TABLET BY MOUTH EVERY DAY WITH FOOD NEEDED SOLD: 04/19/2019 [facility] 7.5 mg 12/21/2018 12:00:00 AM EDT tablet 30 TAKE ONE TABLET BY MOUTH EVERY DAY WITH FOOD NEEDED TAKE ONE TABLET BY MOUTH EVERY DAY WITH FOOD NEEDED SOLD: 05/15/2019 [facility] 7.5 mg 12/21/2018 12:00:00 AM EDT tablet 30 TAKE ONE TABLET BY MOUTH EVERY DAY WITH FOOD NEEDED TAKE ONE TABLET BY MOUTH EVERY DAY WITH FOOD NEEDED SOLD: 03/16/2019 [facility] 0.6 mg 11/25/2018 12:00:00 AM EDT tablet 30 TAKE ONE TABLET BY MOUTH EVERY DAY TAKE ONE TABLET BY MOUTH EVERY DAY SOLD: 03/16/2019 [facility] 0.6 mg 11/25/2018 12:00:00 AM EDT tablet 30 TAKE ONE TABLET BY MOUTH EVERY DAY TAKE ONE TABLET BY MOUTH EVERY DAY SOLD: 04/19/2019 [facility] 600 mg 10/01/2018 12:00:00 AM EDT tablet 90 TAKE ONE TABLET BY MOUTH THREE TIMES A DAY TAKE ONE TABLET BY MOUTH THREE TIMES A DAY SOLD: 07/11/2019 [facility] 600 mg 10/01/2018 12:00:00 AM EDT tablet 90 TAKE ONE TABLET BY MOUTH THREE TIMES A DAY TAKE ONE TABLET BY MOUTH THREE TIMES A DAY SOLD: 06/11/2019 [facility] 600 mg 10/01/2018 12:00:00 AM EDT tablet 90 TAKE ONE TABLET BY MOUTH THREE TIMES A DAY TAKE ONE TABLET BY MOUTH THREE TIMES A DAY SOLD: 09/05/2019 [facility] 600 mg 10/01/2018 12:00:00 AM EDT tablet 90 TAKE ONE TABLET BY MOUTH THREE TIMES A DAY TAKE ONE TABLET BY MOUTH THREE TIMES A DAY SOLD: 03/12/2019 [facility] 600 mg 10/01/2018 12:00:00 AM EDT tablet 90 TAKE ONE TABLET BY MOUTH THREE TIMES A DAY TAKE ONE TABLET BY MOUTH THREE TIMES A DAY SOLD: 10/07/2019 [facility] 600 mg 10/01/2018 12:00:00 AM EDT tablet 90 TAKE ONE TABLET BY MOUTH THREE TIMES A DAY TAKE ONE TABLET BY MOUTH THREE TIMES A DAY SOLD: 05/13/2019 [facility] 600 mg 10/01/2018 12:00:00 AM EDT tablet 90 TAKE ONE TABLET BY MOUTH THREE TIMES A DAY TAKE ONE TABLET BY MOUTH THREE TIMES A DAY SOLD: 08/08/2019 [facility] 600 mg 10/01/2018 12:00:00 AM EDT tablet 90 TAKE ONE TABLET BY MOUTH THREE TIMES A DAY TAKE ONE TABLET BY MOUTH THREE TIMES A DAY SOLD: 04/12/2019 [facility] Insurance Providers Payer name Policy type / Coverage type Policy ID Covered libertarian ID Covered libertarian's relationship to william Policy William Plan Information BCBS [facility] [id number] WI2 [id number] MEDICARE [id number] SP [id number] MEDICARE C [id number] S [id number] [facility] BCBS B [id number] P VYH [id number] [place] PPO [phone] [id number] [place]2 [id number] [employer] MEDIC[employer] [id number] S [id number] [place]ICARE [place] [id number] S [id number] BCBS ESSENTIAL [id number] SPO [id number] [id number] [place]CELLUS BCBS [place] 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 [id number] MEDICARE [id number] 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 [id number] [employer] MEDICARE [employer] [id number] S [id number] [place]ICARE [place] [id number] S [id number] EXCELLUS BCBS [id number] Spo [id number] [id number] MEDICARE [id number] Annalisa [id number] INSURANCE COVID-19 COVID Annalisa C OVID BCBS HMO BLUE [id number] SPO VYH [id number] EXCELLUS BCBS [id number] MEDICARE [id number] INSURANCE COVID-19 [id number] Medicare C [id number] SELF [id number] A Blue Cross Blue Shield P [id number] SELF [id number] BCBS OF [place] [id number] SPO VYH [id number] BCBS HMO BLUE [id number] SPO VYH [id number] [employer] MEDICARE DIV[employer] [id number] S [id number] MEDICARE [place] [id number] S [id number] BCBS of [facility] Supplemental Policy 0 Sponsored dependent Michael Scudera 0 Medicare Part B of [place] Other 0 Se lf 0 MEDICARE [id number] S [id number] BLUE CROSS [id number] WIF [id number] MEDICARE [id number] S [id number] A MCRB [id number] S [id number] A ANSI-Commercial [id number] ANSI-Medicare Part B [id number] ANSI-Medicare Part B [id number] [id number] [id number] MEDICARE [id number] SP [id number] ANSI-Medicare Part B [id number] ANSI-Commercial [id number] ANSI-Medicare Part B [id number] ANSI-Commercial [id number] ANSI-Medicare Part B [id number] MEDICARE [id number] SP [id number] BCBS [facility] [id number] [facility] [id number] MCRB [id number] S [id number] ANSI-Medicare Part B [id number] ANSI-Commercial [id number] ANSI-Medicare Part B [id number] ANSI-Medicare Part B [id number] ANSI-Commercial [id number] BCBS of [facility] Supplemental Policy 0 Sponsored dependent Michael Scudera 0 Medicare Part B [facility] [place] Other 0 Se lf 0 ANSI-Medicare Part B [id number] ANSI-Commercial [id number] ANSI-Commercial [id number] ANSI-Medicare Part B [id number] ANSI-Medicare Part B [id number] ANSI-Medicare Part B [id number] ANSI-Commercial [id number] ANSI-Medicare Part B [id number] ANSI-Commercial [id number] ANSI-Medicare Part B [id number] ANSI-Medicare Part B [id number] ANSI-Commercial [id number] ANSI-Commercial [id number] ANSI-Medicare Part B [id number] ANSI-Medicare Part B [id number] ANSI-Medicare Part B [id number] ANSI-Commercial [id number] ANSI-Medicare Part B [id number] ANSI-Medicare Part B [id number] ANSI-Commercial [id number] ANSI-Medicare Part B [id number] ANSI-Commercial [id number]-[id number] ANSI-Medicare Part B [id number] BCBS of [facility] Supplemental Policy 0 Sponsored dependent Michael Scudera 0 Medicare Part B of [facility] Other 0 Se lf 0 BCBS [facility] Supplemental Policy 0 Sponsored dependent Michael Scudera 0 Medicare Part B of [facility] Other 0 Se lf 0 ANSI-Medicare Part B [id number] ANSI-Commercial [id number]-[id number] 7o1qx256-6o20-4p74-[id number] ANSI-Medicare Part B [id number] ANSI-Commercial [id number]-n2ch-[id number] ANSI-Medicare Part B [id number] ANSI-Commercial [id number]-p5zp-9k99-g95o-[id number] r2e7l499-r1py-7u15-u57m-[id number] ANSI-Medicare Part B [id number] ANSI-Commercial [id number]-nu37-1738-532e-[id number]-it91-6228-331y-[id number] ANSI-Medicare Part B [id number] ANSI-Commercial 55ep0wr7-42p6-09e6-jg6j-[id number] 18go9up2-39q9-83m7-os1c-[id number] ANSI-Medicare Part B [id number]-ohz1-3w1u4z460cna ANSI-Commercial gk92i4mq-27ui-9l67-i5j4-f412p64d6h54 cv41e3ye-09yc-9d30-h8n5-[id number] ANSI-Medicare Part B [id number] ANSI-Medicare Part B [id number] ANSI-Commercial 9en9i0hr-82rn-35oo-[id number] 1xw2u6ka-83ue-21vn-[id number] [id number] Self V [id number] BS Of [facility] Part B [id number] Family Dep endent [id number] [place] Primary [id number] Self [id number] MEDICARE [id number] S [id number] A BLUE CROSS [id number] WIF [id number] MEDICARE [id number] S [id number] A ANSI-Commercial [id number]-73m4-[id number] j2nh967w-u75d-4v3l-07m9-[id number] ANSI-Medicare Part B [id number] ANSI-Commercial [id number]-o748-7omw-x4ds-[id number] [id number]-a720-1gmc-q3gb-5tfm627je160 ANSI-Medicare Part B [id number]-[id number] BS iFACETS Commercial [id number] Self [id number] BS Of [place] [employer] Part B [id number] Family Dep endent [id number] [place] Primary [id number] Self [id number] ANSI-Medicare Part B [id number] ANSI-Commercial [id number]-8l1l-p7dx-[id number]-1u9k-n4zp-775p75u8276e [facility] [place] [id number] WI2 [id number] MEDICARE [id number] SP [id number] A MEDICARE C [id number] P [id number] A [place]BS [place] Med[place] B [id number] Self [id number] Medicare Medicare Primary [id number] Self [id number] ANSI-Commercial [id number] ANSI-Medicare Part B [id number] [place]/307 [id number] [place]2 [id number] BCBS/[place] Medigap Part B [id number] Family Dependent [id number] Medicare Natl Gov't Servi Medicare Primary [id number] Self [id number] MEDICARE - [place] MCR [id number] S [id number] [place]/307 [id number] [place] [id number] MEDICARE [id number] SP [id number] A MEDICARE -O/P [id number] 18 [id number] [facility] [id number] 18 [id number] Medicare Secondary Payer [id number] 18 [id number] MCRB [id number] S [id number] A Blue Shield of [facility] [id number] 18 [id number] [place] [id number] 18 [id number] EXCELLUS BCBS B [id number] S [id number] [id number] BC BS [place] FEDERAL B [id number] S [id number] [place] 302/307 [id number] SP [id number] [place] Medicare Primary Self Blue Cross Blue Shield Commercial Self Blue Cross Blue Shield Commercial Self Medicare C [id number] SELF [id number] A Blue Cross Blue Shield P [id number] SELF [id number] BC BS [place] FED[place] B [id number] S [id number] EXCELLUS BCBS B [id number] S [id number] [place] 302/307 [id number] SP [id number] [place] 302/307 [id number] SP [id number] MEDICARE [id number] SP [id number] A [place] 302/307 [id number] SP [id number] [place] Medicare Primary [id number] Self [id number] Excellus BCBS Medigap Part B [id number] Self [id number] Medicare [place]/[facility] Medicare Primary [id number] Self [id number] Excellus BCBS Medigap Part B [id number] Self [id number] MEDICARE B [place] [id number] SP [id number] MEDICARE B [place] [id number] SP [id number] EXCELLUS C [id number] Self [id number] EXCELLUS BCBS B [id number] O [id number] MEDICARE/NATIONAL GOVT SVCS [id number] SP [id number] EXCELLUS BLUE CROSS [id number] [place] [id number] MEDICARE/NATIONAL GOVT SVCS [id number] SP [id number] EXCELLUS BLUE CROSS [id number] [place] [id number] [place] 302/307 [id number] SP [id number] [place]BS [place] 101/600 [id number] SP [id number] [place] 101/600 [id number] SP [id number] [place] 306/806 [id number] SP [id number] EXCELLUS BCBS FEDERAL [id number] SP [id number] EXCELLUS BCBS FEDERAL [id number] SP [id number] [place] P[place] 302/307 [id number] SP [id number] EXCELLUS BCBS FEDERAL [id number] SP [id number] [place] 302/307 [id number] [place] [id number] [place] 302/307 [id number] BCBS [place] 302/307 [id number] [id number] MEDICARE A [id number] Self [id number] A Problems, Conditions, and Diagnoses Code Display Name Description Problem Type Effective Dates Data Source(s) N20.0 Kidney stone Kidney stone 91452121 08/09/2019 12:00:00 A M EDT [facility] M53.3 Sacral back pain Sacral back pain 54476438 07/29/2019 12 :00:00 AM EDT [facility] R07.2 Precordial pain Precordial pain 44142670 03/29/2019 12:0 0:00 AM EST [facility] Z79.899 Other shelter (current) drug therapy 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 (CURRENT) DRUG THERAPY Diagnosis 02/29/2020 02:31:00 PM EST [facility] E86.9 Volume depletion, unspecified VOLUME DEPLETION, UNSPEC IFIED Diagnosis 02/29/2020 02:31:00 PM [facility] A08.0 Rotaviral enteritis ROTAVIRAL ENTERITIS Diagnosis 1 05/01/2019 02:31:00 PM [facility] R19.7 Diarrhea, unspecified DIARRHEA, UNSPECIFIED Diagnosis 02/29/2020 02:31:00 PM [facility] Z51.81 Encounter for therapeutic drug level mon itoring ENCOUNTER FOR THERAPEUTIC DRUG LEVEL MONITORING Diagnosis 02/05/2020 12:52:00 PM [facility] Z79.899 Other shelter (current) drug therapy O THER PATTERN DUPLICATOR (CURRENT) DRUG THERAPY Diagnosis 02/05/2020 12:52:00 PM [facility] R76.8 Other specified abnormal immunological f indings in serum OTHER SPECIFIED ABNORMAL IMMUNOLOGICAL FINDINGS IN SERUM Diagnosis 02/05/2020 12:52:00 PM [facility] I30.0 Acute nonspecific idiopathic pericarditi s ACUTE NONSPECIFIC IDIOPATHIC PERICARDITIS Diagnosis 02/05/2020 12:52:00 PM [facility] L40.50 Arthropathic psoriasis, unspecified ARTHROPATHIC PSORIASIS, UNSPECIFIED Diagnosis 02/05/2020 12:52:00 PM [facility] Y93.89 Activity, other specified ACTIVITY, OTHER SPECIFIED Di agnosis 11/14/2019 10:04:00 AM [facility] Y92.[address] in unspeci fied non-institutional (private) residence as the place of occurrence of the external cause UNSP PLACE IN UNSP NON-INSTITUT (PRIVATE) RESIDENC Diagnosis 11/14/2019 10:04:00 AM [facility] W17.89XA Other fall from one level to another, in itial encounter OTHER FALL FROM ONE LEVEL TO ANOTHER, INITIAL ENCO Diagnosis 11/14/2019 10:04:00 AM [facility] 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) INTERMEDIATE (CURRENT) USE OF NON-STEROIDAL NON-INFLA Diagnosis 11/14/19 20 10:04:00 AM [facility] S20.212A Contusion of left front wall of thorax, initial encounter CONTUSION OF LEFT FRONT WALL OF THORAX, INITIAL EN Diagnosis 11/14/2019 10:04:00 AM [facility] S20.222A Contusion of left back wall of thorax, i nitial encounter CONTUSION OF LEFT BACK WALL OF THORAX, INITIAL ENC Diagnosis 11/14/2019 10:04:00 AM EDT [facility] S29.9XXA Unspecified injury of thorax, initial en counter UNSPECIFIED INJURY OF THORAX, INITIAL ENCOUNTER Diagnosis 11/14/2019 10:04:00 AM EDT [facility] Z87.442 Personal history of urinary calculi Personal his tory of urinary calculi Diagnosis 10/30/2019 11:10:32 AM EDT [facility] R55 Syncope and collapse Syncope and collapse Diagnosis 10/30/2019 11:10:32 AM EDT [facility] L40.50 Arthropathic psoriasis, unspecified Arthropathic psoriasis, unspecified Diagnosis 10/30/2019 11:10:32 AM EDT [facility] E04.1 Nontoxic single thyroid nodule Nontoxic single thyroid nodule Diagnosis 10/30/2019 11:10:32 AM EDT [facility] K21.9 Gastro-esophageal reflux disease without esophagitis Gastro-esophageal reflux disease without Diagnosis 10/30/2019 11:10:32 AM EDT [facility] E78.5 Hyperlipidemia, unspecified Hyperlipidemia, unspecifie d Diagnosis 10/30/2019 11:10:32 AM EDT [facility] I31.3 Pericardial effusion (noninflammatory) P ericardial effusion (noninflammatory) Diagnosis 10/30/2019 11:10:32 AM EDT [facility] R07.2 Precordial pain Precordial pain Diagnosis 10/30/2019 11:1 0:32 AM EDT [facility] N20.0 Calculus of kidney Calculus of kidney Diagnosis 10:58:00 AM EDT [facility] J98.8 Other specified respiratory disorders Ot her specified respiratory disorders Diagnosis 08/06/2019 11:23:31 AM EDT [facility] U07.1 COVID-19 COVID-19 Diagnosis 08/06/2019 11:23:31 AM ED T [facility] M53.3 Sacrococcygeal disorders, not elsewhere classified Sacrococcygeal disorders, not elsewhere Diagnosis 07/29/2019 12:14:35 PM EDT [facility] J01.00 Acute maxillary sinusitis, unspecified A CUTE MAXILLARY SINUSITIS, UNSPECIFIED Diagnosis 05/13/2019 08:45:00 AM [facility] J02.9 Acute pharyngitis, unspecified ACUTE PHARYNGITIS, UNSP ECIFIED Diagnosis 03/21/2019 08:40:00 AM [facility] M54.5 Low back pain LOW BACK PAIN Diagnosis 03/21/2019 07:57:00 AM [facility] M51.36 Other intervertebral disc degeneration, lumbar region OTHER INTERVERTEBRAL DISC DEGENERATION, LUMBAR REGION Diagnosis 2019 07:57:00 AM [facility] Surgeries/Procedures Procedure Description Date Indications Data Source(s) Fine Needle Aspiration Biopsy Inlcd Ultrasound Guidance 04/03/2020 12:00:00 AM EST [facility] ([facility] LARYNGOSCOPY FLEXIBLE FIBEROPTIC DIAGNOSTIC 04/03/2020 12:00:00 AM EST [facility] ([facility], ) US RETROPERITONEAL REAL TIME W/IMAGE LIMITED 1 12:00:00 AM EST [facility] ([facility]) US RETROPERITONEAL REAL TIME W/IMAGE LIMITED 1 12:00:[address] [facility] ([facility]) Hospital outpatient clinic visit for assessment and ma nagement of a patient Hospital Outpatient Clinic Visit 10/24/2019 12:00:00 AM [facility] ANTINUCLEAR ANTIBODIES UZIEL TITER ANTINUCLEAR ANTIBODIES (UZIEL ) 10/24/2019 12:00:00 AM [facility] EXTRACTABLE NUCLEAR ANTIGEN ANTIBODY ANY METHOD NUCLEAR ANTI GEN ANTIBODY 10/24/2019 12:00:00 AM [facility] ANTINUCLEAR ANTIBODIES UZIEL ANTINUCLEAR ANTIBODIES 10/24/2019 12:00: 00 AM [facility] DNA ANTIBODY AKUTAN/DOUBLE STRANDED DNA ANTIBODY AKUTAN 08/2019 12:00:00 AM [facility] COLLECTION VENOUS BLOOD VENIPUNCTURE ROUTINE VENIPUNCTURE 12:00:00 AM [facility] COMPREHENSIVE METABOLIC PANEL COMPREHEN METABOLIC PANEL 08/2019 12:00:00 AM [facility] LITHOTRIPSY XTRCORP SHOCK WAVE 08/09/2019 12:00:00 AM EDT [facility] ([facility]) 2019 NCOV AMPLIFIED 2019 NCOV AMPLIFIED STAT 08/06/2019 10 :13 AM EDT COVID-19 08/06/2019 02:13:00 PM EDT COVID-19 [facility] COVID-19 US RETROPERITONEAL REAL TIME W/IMAGE LIMITED 0 12:00:00 AM EDT [facility] ([facility]) US RETROPERITONEAL REAL TIME W/IMAGE LIMITED 0 12:00:00 AM EDT [facility] ([facility]) Office Visit, Est Pt., Level 2 FC 07/10/2019 12:00:00 AM EDT eCW1 ([facility]) Office Visit, Est Pt., Level 3 PC 07/10/2019 12:00:00 AM EDT eCW1 ([facility]) Office Visit, Est Pt., Level 3 FC 04/04/2019 12:00:00 AM EST eCW1 ([facility]) Office Visit, Est Pt., Level 4 PC 04/04/2019 12:00:00 AM EST eCW1 ([facility]) [id number] X-RAY EXAM CHEST 2 VIEWS 03/27/2019 12:00:00 AM [facility] FLUORESCENT NONNFCT AGT ANTB SCREEN EA ANTIBODY FLUORESCENT ANTIBODY SCREEN 03/27/2019 12:00:00 AM [facility] BLOOD COUNT COMPLETE AUTO&AUTO DIFRNTL WBC COUNT COMPLETE CB C W/AUTO DIFF WBC 03/27/2019 12:00:00 AM [facility] C-REACTIVE PROTEIN C-REACTIVE PROTEIN 03/27/2019 12:00:00 AM [facility] Results ID Date Data Source [id number] 05/01/2020 09:40:00 AM EST [facility] Name Value Range Interpretation Code Description Data Jacque rce(s) Supporting Document(s) SARS coronavirus 2 RNA Not Detected [facility] [place] This lab was ordered by [facility] and reported by [facility]. ID Date Data Source [id number] 04/03/2020 01:46:00 PM EST [facility] ([facility]) Name Value Range Interpretation Code Description Data Jacque rce(s) Supporting Document(s) Microscopic observation [Identifier] in Unspecified specimen by Non- gynecological cytology method Laboratory test result [facility] ([facility], ) SPECIMEN: FNA of right lobe t hyroid nodule Prepared slides and cytolyt (clear in color) SPECIMEN ADEQUACY: Satisfactory for evaluation CATEGORIZATION: Atypical cytology DESCRIPTIONS: Specimen consists of sheets and groups of crowded follicular cells presenting with grooving and scattered inclusions in a background of abundant macrophages and blood elements. COMMENTS: 04/06/2020 - 100 Signed EREN CASE (ASCP) 04/06/2020 1004 (Prelim) Signed DORYS MCGEE MD 04/06/2020 1132 ID Date Data Source [id number] 04/02/2020 10:38:00 AM EST [facility] ([facility]) Name Value Range Interpretation Code Description Data Jacque rce(s) Supporting Document(s) Protein [Presence] in Urine by Test strip Laboratory test result [facility] ([facility]) Ua Nitrite Laboratory test result [facility] ([facility]) Glucose [Presence] in Urine Laboratory test result [facility] ([facility]) Blood [Presence] in Urine by Visual Laboratory test result [facility] ([facility]) Ua Leuko Laboratory test result [facility] ([facility]) Ketones [Presence] in Urine by Test strip Laboratory test result [facility] ([facility]) Clarity of Urine Laboratory test result [facility] ([facility]) Color of Urine Laboratory test result [facility] ([facility]) pH of Urine by Test strip 7.0 5.0-7.5 [facility] ([facility]) Ua Specific [place] 1.015 1.003-1.030 [facility] NT ([facility]) Bilirubin.total [Presence] in Urine by Test strip Laboratory test res ult [facility] ([facility]) Urobilinogen [Mass/volume] in Urine by Test strip 0.2 E.U./dL 0.0-1.0 [facility] ([facility]) ID Date Data Source RADHA SPINE THORACIC 3 VIEW 03/18/2020 12:00:00 AM EST eCW1 ( [facility]) Name Value Range Interpretation Code Description Data Jacque rce(s) Supporting Document(s) RADHA SPINE THORACIC 3 VIEW eCW 1 ([facility]) ID Date Data Source RADHA ELBOW PARTIAL 03/18/2020 12:00:00 AM EST eCW1 ([facility]) Name Value Range Interpretation Code Description Data Jacque rce(s) Supporting Document(s) RADHA ELBOW PARTIAL eCW1 ([facility]) ID Date Data Source [id number] 03/03/2020 10:03:00 AM EST [facility] Patient: SHEEBA FRIEDMAN Observation Rep ort - Physicians/Mid [facility] [id number] [place] [address] [phone], FRegistration Date/Time: 02/29/2020 14:07 Weight:81.6 kg. Height/Length:67 inches. BMI:28.2 FAMILY HISTORYNo significant family medical history. (Electronically signed by Medardo Calderon PA 03/01/2020 06:58) Addenda for SHEEBA FRIEDMAN VisitID: [id number] Date: 02/29/2020 03/03/2020 9:48Lab results reviewed. Communicated information to patient. Rx sent to [facility] for Flagyl 500mg TID for 10 days.(Electronically signed by Lambert Underwood - 03/03/2020 9:48) 03/03/2020 9:56Lab results reviewed. Communicated information to patient. Patient called the ED asking for her results of stool spec. I explained to the patient that hers is positive for C-Diff. ED provider had me call [facility] in [place] for her to have a prescription for Flagyl 500 mg. tid for 10 days. Sig is 30. (Electronically signed by Adela Briones R.N. - 03/03/2020 9:56) Name Value Range Interpretation Code Description Data Jacque rce(s) Supporting Document(s) ID Date Data Source [id number] 03/03/2020 10:00:00 AM EST [facility] Patient: SHEEBA FRIEDMAN Observation Rep ort - Physicians/Mid Levels [facility]: [id number] [place] [address] [phone], FRegistration Date/Time: 02/29/2020 14:07 Weight:81.6 kg. Height/Length:67 inches. BMI:28.2 FAMILY HISTORYNo significant family medical history. (Electronically signed by Medardo Calderon PA 03/01/2020 06:58) Addenda for SHEEBA FRIEDMAN VisitID: [id number] Date: 02/29/2020 03/03/2020 9:48Lab results reviewed. Communicated information to patient. Rx sent to [facility] in [place] for Flagyl 500mg TID for 10 days.(Electronically signed by Lambert Underwood - 03/03/2020 9:48) Name Value Range Interpretation Code Description Data [facility] rce(s) Supporting Document(s) ID Date Data Source [id number] 03/02/2020 02:23:00 PM EST [facility] TSYSORDER [id number] Results called to LINH Mireles on 03/02/20 Alonso. Name Value Range Interpretation Code Description Data [facility] rce(s) Supporting Document(s) Campylobacter Not Detected Detected Not [facility] Clostridium difficile toxin AB DETECTED Detected [facility] Due to the high asymptomatic carriage ra dary, especiallyin young children, the clinical relevance of the detectionof toxigenic C. difficile from stool should be consideredin the context of other clinical findings, patient age, andrisk factores which include hospitalization and antibioticexposure. Plesiomonas shigelloides Not Detected Detected Not [facility] Salmonella Not Detected Detected Not [facility] Vibrio Not Detected Detected Not [facility] Vibrio cholerae Not Detected Detected Not [facility] Yersinia enterocolitica Not Detected Detected [facility] Enteroaggregative E. coli Not Detected Detected [facility] Enteropathogenic E. coli Not Detected Detected [facility] Enterotoxigenic E. coli Not Detected Detected [facility] Shiga-like toxin-prod E. coli Not Detected Detected [facility] E. coli O157 Not Detected Detected [facility] Shigella/Enteroinvasive E coli Not Detected Detected [facility] Cryptosporidium Not Detected Detected Not [facility] Cyclospora cayetanensis Not Detected Detected [facility] Entamoeba histolytica Not Detected Detected [facility] Giardia Lamb[place] Not Detected Detected Not [facility] Adenovirus F 40/41 Not Detected Detected [facility] Astrovirus Not Detected Detected Not [facility] Norovirus GI/GII Not Detected Detected Not [facility] Rotavirus A Not Detected Detected [facility] Sapovirus Not Detected Detected Not [facility] The Above results have been determined b y using the [facility] GrillArray system.FilmArray is an automated in vitro diagnostic system thatutilizes nested multiplex Polymerase Chain Reaction (PCR)and high-resolution melting analysis to detect and identifymultiple nucleic acid targets from clinical specimens. ID Date Data Source [id number] 03/02/2020 01:38:00 PM [facility] TSYSORDER [id number] Results called to LINH Mireles on 03/02/20 byMAINE. Name Value Range Interpretation Code Description Data Jacque rce(s) Supporting Document(s) CDIFF A/B POSITIVE NEGATIVE [facility] THIS TEST IS PERFORMED USING A RAPIDIMMU NONASSAY FOR DETECTING CLOSTRIDIUM DIFFICILE TOXINS AAND B. ID Date Data Source [id number] 03/01/2020 07:02:00 AM [facility] Patient: SHEEBA FRIEDMAN Observation Rep ort - Physicians/Mid Levels [facility].VisitID: [id number] [place] [address] [phone], FRegistration Date/Time: 02/29/2020 14:07 Weight:81.6 kg. Height/Length:67 inches. BMI:28.2 FAMILY HISTORYNo significant family medical history. (Electronically signed by Medardo Calderon PA 03/01/2020 06:58) Name Value Range Interpretation Code Description Data Jacque rce(s) Supporting Document(s) ID Date Data Source [id number] 02/29/2020 04:54:00 PM EST [facility] SCAN OF THE ABDOMEN AND PELVIS WITH C ONTRAST DATE OF EXAMINATION: 02/29/2020 14:56 EST ABD/PEL WITH IV CONTRAST INDICATION: Diarrhea COMPARISON: 06/18/2018 CONTRAST: 75 cc Omnipaque 300 TECHNIQUE: Axial images were obtained through the abdomen and pelvis from thelung bases through the rectum following the intravenous injection of contrast. One or more of the following dose reduction techniques were utilized ineffectively lowering the radiation dose for this examination: Automated ExposureControl, Adjustment of the mA and/or kV according to patient size, or Iterativereconstruction. ABDOMEN FINDINGS: There is minimal atelectatic change at the right lung baseposteriorly. Liver, spleen, pancreas, adrenal glands, and right kidney appearnormal. There is a punctate nonobstructing stone lower pole the left kidney.Abdominal aorta is unremarkable. No adenopathy, ascites, or abnormalintra-abdominal masses are identified. Visualized stomach, small bowel, andcolon are unremarkable. PELVIC FINDINGS: No adenopathy, ascites, or abnormal pelvic masses areidentified. The visualized bowel and urinary bladder are unremarkable. Theappendix is normal. IMPRESSION: No acute intra-abdominal process Electronically signed in PS360 by: Michele Styles M.D. 02/29/2020 16:48 EST Name Value Range Interpretation Code Description Data [facility]) Supporting Document(s) ID Date Data Source [id number] 02/29/2020 03:58:00 PM EST [facility] TSYSORDER [id number] Name Value Range Interpretation Code Description Data [facility]) Supporting Document(s) GLUCOSE 85 mg/dL 74-106 [facility] BLOOD UREA NITROGEN 10 mg/dL 7-[address] [facility] ital CREATININE 1.1 mg/dL 0.6-1.0 H [facility] SODIUM 138 mmol/L 136-145 [facility] POTASSIUM 3.6 mmol/L 3.5-5.1 [facility] CHLORIDE 104 mmol/L 98-107 [facility] CO2 24 mmol/L 21-32 [facility] CALCIUM 8.7 mg/dL 8.5-10.1 [facility] ANION GAP 10.0 mmol/L 5-12 [facility] GLOMERULAR FILTRATION RATE 54 mL/min [facility] GFR IS CALCULATED IN mL/min/1.73m2 JEANCARLOS L FUNCTION: >90MILDLY DECREASED: 60-89MILDY TO MODERATELY DECREASED: 45-59 MODERATELY TO SEVERELY DECREASED: 30-44SEVERELY DECREASED: 15-29RENAL FAILURE: <15 AST 21 U/L 15-37 [facility] ALT 24 U/L 12-78 [facility] ALKALINE PHOSPHATASE 66 U/L 46-116 [facility] TOTAL BILIRUBIN 0.2 mg/dL 0.2-1.0 [facility] TOTAL PROTEIN 7.0 g/dl 6.4-8.2 [facility] ALBUMIN 3.7 gm/dL 3.4-5.0 [facility] ID Date Data Source [id number] 02/29/2020 03:35:00 PM EST [facility] TSYSORDER [id number] Name Value Range Interpretation Code Description Data Jacque rce(s) Supporting Document(s) WHITE BLOOD COUNT 4.7 K/mm3 4.0-10.[address] [facility] al RED BLOOD COUNT 4.50 M/mm3 4.00-5.50 [facility] HEMOGLOBIN 12.4 gm/dL 12.0-16.0 [facility] HEMATOCRIT 35.9 % 36.0-48.8 L [facility] MEAN CELL VOLUME 79.8 fl 80-96 L [facility] MEAN CORPUSCULAR HEMOGLOBIN 27.6 pg 27.0-31.0 [facility] MEAN CORPUSCULAR HGB CONC 34.5 g/dl 32.0-36.0 [facility] RED CELL DISTRIBUTION WIDTH 12.2 % 10.0-14.5 [facility] PLATELET COUNT 272 K/mm3 172-450 [facility] MEAN PLATELET VOLUME 9.1 fl 9.0-13.0 [facility] GRAN % 43.6 % 50-80.0 L [facility] IG% 0.4 % 0.0-0.2 H [facility] LYMPH % 42.5 % 25.0-50.0 [facility] MONO % 10.6 % 2.0-10.0 H [facility] EOS % 2.3 % 0-5.0 [facility] BASO % 0.6 % 0.0-2.0 [facility] GRAN # 2.1 K/mm3 2.0-8.00 [facility] [facility] IG# 0.0 K/mm3 0.0-0.2 [facility] LYMPH # 2.0 K/mm3 1.0-5.0 [facility] MONO # 0.5 K/mm3 0.10-1.20 [facility] EOS # 0.1 K/mm3 0.0-0.5 [facility] BASO # 0.0 K/mm3 0.0-0.2 [facility] ID Date Data Source [id number] REFLEX 02/29/2020 03:23:00 PM [facility] TSYSORDER [id number] Name Value Range Interpretation Code Description Data Jacque rce(s) Supporting Document(s) URINE RBC 0-2 /hpf 0-3 [facility] URINE WBC 0-2 /hpf 0-5 H [facility] URINE EPITHELIAL CELLS 1+ /hpf 0 [facility] ID Date Data Source [id number] REFLEX 02/29/2020 03:19:00 PM [facility] TSYSORDER [id number] Name Value Range Interpretation Code Description Data Jacque rce(s) Supporting Document(s) URINE COLOR. YELLOW [facility] URINE APPEARANCE CLEAR [facility] l URINE GLUCOSE (UA) NEGATIVE mg/dL NEGATIVE [facility] URINE BILIRUBIN NEGATIVE NEGATIVE [facility] URINE KETONE NEGATIVE mg/dL NEGATIVE [facility] SPECIFIC GRAVITY,URINE 1.015 1.001-1.035 [facility] URINE BLOOD TRACE NEGATIVE H [facility] PH,URINE 7.0 5.0-9.0 [facility] URINE PROTEIN NEGATIVE mg/dL NEGATIVE [facility] UROBILINOGEN NORMAL(0.2-1) mg/dL 0-1 R [facility] URINE NITRATE NEGATIVE NEGATIVE [facility] URINE LEUKOCYTE ESTERASE NEGATIVE NEGATIVE [facility] ID Date Data Source [id number] 02/29/2020 02:56:00 PM [facility] TSYSORDER [id number] Name Value Range Interpretation Code Description Data Jacque rce(s) Supporting Document(s) HCG URINE NEGATIVE NEGATIVE [facility] ID Date Data Source [id number] 02/28/2020 07:17:00 AM [facility] Patient: SHEEBA FRIEDMAN Observation Rep ort - Physicians/Mid Levels [facility].VisitID: [id number] [place] [address] [phone], FRegistration Date/Time: 02/27/2020 17:22 Weight:81.6 kg (S). Height/Length:67 inches (S). BMI:28.2 FAMILY HISTORYMother: Cancer. Paternal grandmother: Diabetes Mellitus. Father: Hypertension, CVA - Cerebrovascular Accident. INSTRUCTIONSYour Current Medications: Your current home medications have been reviewed. CONTINUE TAKING THE FOLLOWING MEDICATIONS:Colchicine Oral : Tablet 0.6 mg, 1 tablet daily, Last: today, every AM. DULoxetine HCl Oral : Capsule Delayed Release Particles 60 mg, 1 capsule daily, Last: today. Gabapentin Oral : Tablet 600 mg, 1 tablet 2x a day, Last: today. Meloxicam Oral : Tablet Disintegrating 7.5 mg, 1 tablet daily, Last: today. Pantoprazole Sodium Oral : Tablet Delayed Release 40 mg, 1 tablet daily, Last: today. Plaquenil Oral : Tablet 200 mg, 1 tablet daily, Last: today, every AM. Potassium Citrate ER Oral : Tablet Extended Release 10 MEQ (1080 MG), 1 tablet 2x a day, Last: today, every AM. SUMAtriptan Succinate Oral : Tablet 100 mg, 1 tablet daily, Last: unknown, prn. Zonisamide Oral : Capsule 50 mg, 1 capsule daily, Last: today. ZyrTEC Allergy Oral : Capsule 10 mg, 1 capsule daily, Last: today. (Electronically signed by Zaid Frederick P.A. 02/28/2020 07:05) Name Value Range Interpretation Code Description Data [facility] rce(s) Supporting Document(s) ID Date Data Source [id number] 02/27/2020 06:30:00 PM [facility] TSYSORDER [id number] Name Value Range Interpretation Code Description Data [facility] rce(s) Supporting Document(s) HCG URINE NEGATIVE NEGATIVE [facility] ID Date Data Source [id number] 02/27/2020 06:35:00 PM [facility] ital TSYSORDER [id number] Name Value Range Interpretation Code Description Data [facility] rce(s) Supporting Document(s) URINE COLOR. [facility] URINE APPEARANCE CLEAR [facility] l URINE GLUCOSE (UA) NEGATIVE mg/dL NEGATIVE [facility] URINE BILIRUBIN NEGATIVE NEGATIVE [facility] URINE KETONE NEGATIVE mg/dL NEGATIVE [facility] SPECIFIC GRAVITY,URINE <= 1.005 1.001-1.035 [facility] URINE BLOOD NEGATIVE NEGATIVE [facility] PH,URINE 5.5 5.0-9.0 [facility] URINE PROTEIN NEGATIVE mg/dL NEGATIVE [facility] URINE UROBILINOGEN NORMAL(0.2-1) mg/dL 0-1 [facility] URINE NITRATE NEGATIVE NEGATIVE [facility] URINE LEUKOCYTE ESTERASE NEGATIVE NEGATIVE [facility] ID Date Data Source [id number] 02/27/2020 06:15:00 PM EST [facility] TSYSORDER [id number] Name Value Range Interpretation Code Description Data Jacque rce(s) Supporting Document(s) LACTIC ACID 0.8 mmol/L 0.4-2.0 [facility] ID Date Data Source [id number] 02/27/2020 06:10:00 PM [facility] TSYSORDER [id number] Name Value Range Interpretation Code Description Data Jacque rce(s) Supporting Document(s) LIPASE 210 U/L 73-393 [facility] ID Date Data Source [id number] 02/27/2020 06:10:00 PM [facility] TSYSORDER [id number] Name Value Range Interpretation Code Description Data Jacque rce(s) Supporting Document(s) GLUCOSE 93 mg/dL 74-106 [facility] BLOOD UREA NITROGEN 10 mg/dL 7-[address] [facility] ital CREATININE 1.2 mg/dL 0.6-1.0 H [facility] SODIUM 138 mmol/L 136-145 [facility] POTASSIUM 3.7 mmol/L 3.5-5.1 [facility] CHLORIDE 102 mmol/L 98-107 [facility] CO2 24 mmol/L 21-32 [facility] CALCIUM 9.1 mg/dL 8.5-10.1 [facility] ANION GAP 12.0 mmol/L 5-12 [facility] GLOMERULAR FILTRATION RATE 49 mL/min [facility] GFR IS CALCULATED IN mL/min/1.73m2 JEANCARLOS L FUNCTION: >90MILDLY DECREASED: 60-89MILDY TO MODERATELY DECREASED: 45-59 MODERATELY TO SEVERELY DECREASED: 30-44SEVERELY DECREASED: 15-29RENAL FAILURE: <15 AST 22 U/L 15-37 [facility] ALT 24 U/L 12-78 [facility] ALKALINE PHOSPHATASE 77 U/L 46-116 [facility]ital TOTAL BILIRUBIN 0.3 mg/dL 0.2-1.0 [facility] TOTAL PROTEIN 7.7 g/dl 6.4-8.2 [facility] ALBUMIN 3.9 gm/dL 3.4-5.0 [facility] ID Date Data Source [id number] 02/27/2020 05:58:00 PM [facility] TSYSORDER [id number] Name Value Range Interpretation Code Description Data Jacque rce(s) Supporting Document(s) WHITE BLOOD COUNT 4.8 K/mm3 4.0-10.[address] RED BLOOD COUNT 4.92 M/mm3 4.00-5.50 [facility] l HEMOGLOBIN 13.4 gm/dL 12.0-16.0 [facility] HEMATOCRIT 38.9 % 36.0-48.8 [facility] MEAN CELL VOLUME 79.1 fl 80-96 L [facility] MEAN CORPUSCULAR HEMOGLOBIN 27.2 pg 27.0-31.0 [facility] MEAN CORPUSCULAR HGB CONC 34.4 g/dl 32.0-36.0 [facility] RED CELL DISTRIBUTION WIDTH 12.1 % 10.0-14.5 [facility] PLATELET COUNT 326 K/mm3 172-450 [facility] MEAN PLATELET VOLUME 9.5 fl 9.0-13.0 [facility] pital GRAN % 46.7 % 50-80.0 L [facility] IG% 0.2 % 0.0-0.2 [facility] LYMPH % 36.3 % 25.0-50.0 [facility] MONO % 13.4 % 2.0-10.0 H [facility] EOS % 2.3 % 0-5.0 [facility] BASO % 1.1 % 0.0-2.0 [facility] GRAN # 2.2 K/mm3 2.0-8.00 [facility] IG# 0.0 K/mm3 0.0-0.2 [facility] LYMPH # 1.7 K/mm3 1.0-5.0 [facility] MONO # 0.6 K/mm3 0.10-1.20 [facility] EOS # 0.1 K/mm3 0.0-0.5 [facility] BASO # 0.1 K/mm3 0.0-0.2 [facility] ID Date Data Source [id number] 02/27/2020 05:20:00 PM EST [facility] Name Value Range Interpretation Code Description Data Jacque rce(s) Supporting Document(s) COVID-19 [facility] reported by [facility] Laboratory. ID Date Data Source [id number] 02/27/2020 05:53:[address] [facility] TSYS[facility] [id number] Name Value Range Interpretation Code Description Data Jacque rce(s) Supporting Document(s) COVID-19 NEGATIVE NEGATIVE [facility] Negative results should be treated as pr esumptive and, ifinconsistent with clinical signs and symptoms [...] are for the indentification of SARS-CoV-2 RNA. TurBZPZ-EbE-2 RNA is generally detectable in respiratorysamples during the actue phase of infection. ID Date Data Source [id number] 02/12/2020 05:28:44 PM EST [facility] Name Value Range Interpretation Code Description Data Jacque rce(s) Supporting Document(s) &PDF [facility] DTLCSl6bXdVUQkOd48/GTUxoKWTmy3CjGHbkZAe1FEqoKIXfX8EilEnpGRQOZDWERsOjYFKJKwLIJG2v yKE [file] ICAgICAgICAgICAgICAgICAgICAgICAgICAgICAgICAgICAgICAgICAgICAgICAgICAgICAgICAgICAg ICAgICAgICAgICANCiAgICAgICAgICAgICAgICAgIC AgICAgICAgICAgICAgICAgICAgICAgICAgICAgICAgICAgICAgICAgICAgICAgICAgICAgICAgICAgIC AgICAgICAgICAgICAgICAgICAgICANCiAgICAgICAgICAgICAgICAgICAgICAgICAgICAgICAgICAgIC AgICAgICAgICAgICAgICAgICAgICAgICAgICAgICAg ICAgICAgICAgICAgICAgICAgICAgICAgICAgICAgICANCiAgICAgICAgICAgICAgICAgICAgICAgICAg ICAgICAgICAgICAgICAgICAgICAgICAgICAgICAgICAgICAgICAgICAgICAgICAgICAgICAgICAgICAg ICAgICAgICAgICAgICANCiAgICAgICAgICAgICAgIC AgICAgICAgICAgICAgICAgICAgICAgICAgICAgICAgICAgICAgICAgICAgICAgICAgICAgICAgICAgIC AgICAgICAgICAgICAgICAgICAgICAgICANCiAgICAgICAgICAgICAgICAgICAgICAgICAgICAgICAgIC AgICAgICAgICAgICAgICAgICAgICAgICAgICAgICAg ICAgICAgICAgICAgICAgICAgICAgICAgICAgICAgICAgICANCiAgICAgICAgICAgICAgICAgICAgICAg ICAgICAgICAgICAgICAgICAgICAgICAgICAgICAgICAgICAgICAgICAgICAgICAgICAgICAgICAgICAg ICAgICAgICAgICAgICAgICANCiAgICAgICAgICAgIC AgICAgICAgICAgICAgICAgICAgICAgICAgICAgICAgICAgICAgICAgICAgICAgICAgICAgICAgICAgIC AgICAgICAgICAgICAgICAgICAgICAgICAgICANCiAgICAgICAgICAgICAgICAgICAgICAgICAgICAgIC AgICAgICAgICAgICAgICAgICAgICAgICAgICAgICAg ICAgICAgICAgICAgICAgICAgICAgICAgICAgICAgICAgICAgICANCiAgICAgICAgICAgICAgICAgICAg ICAgICAgICAgICAgICAgICAgICAgICAgICAgICAgICAgICAgICAgICAgICAgICAgICAgICAgICAgICAg ICAgICAgICAgICAgICAgICAgICANCjw/dDIxZ5jtpC WvfmE9D0fyYi8GSv6OWT6zc5AvTRJwMOhrkuFyWbxRHrOxPUKgXifHDuo4GCoqGG7EvJMgV4NiP7PeTA dxDJ6OZDXnEXIlrCDuLVMwLZCsRfB8OPFkPBiwWF0UqNCeSNcgABEkTURiZaEvAJVnWA5LIORbE180oh PqUb2JIz0ROfVdSI9hly2HAoMyGAWdJnoMSyz6KWhe IX2VbSVlT6TtlOHiz8uSQhHrV7TWXWN9SLQiWe0MPFTzZbNrPVDlTOgqJL2vOFCwAYUDnMdfgjY9UZ8Q DV1xnmSmTE3NMuWoHe4sEp8DTjTlN0KaW8NsUBJfFRDXNUfkLI6FBNInYUX1OWMiDOPdKZEXHsFdB53w GS0QC7Kdi34dXuX5IMFtUvLzZIpcYM71hTsfoqScfI TktIskSZ2MOu7+MBywljKoDrlRWpihBDSPNdSbRkQTTzHjFYBgGZAeWSElOaP9YzKmLq4DSLGwRGDgJF XhVaWhYNHaAZSfVOkdAJMyNQW0PsXeLBFoWCRkZT4BRvDbNTVaRGh5GkRxXRKxUBPgwi0HNSLgCSQlJO A3SqKgCXLsQGFaHTdjHRMlLGUrZONbGUVsELQgPJ9R IfWpSGNsFKRzVvRwTESwRDGnse5OGNByAGElKPV4RbPnLRYiFESnRAodIAIkERC7RVMzPSAyUPZvFN8I OaFxLKKzQHC9VBreZXYiFDPbbu4UPZQtTOSeSEDdGULtGLBsZLXwLTloDTPdRSQ2Shc3FXApKUBiOQ6D MpTpVMUvMDA6IRGvMCHgTXWknd8OPQYsRRUtDhm6Dx CzYEGoDYDiCAilFSWsBFY3OCX8SHZiVYZuGQ2VGtEtXQCdBUyvISPbGPIxWJOsoj4MGPYkODNnIVIkKZ BtHCQfUIKvMPctSMOmYYV4IKt8DQMuJHOjBG7RWpWaBKIuKAJbNCOvVREwVRQack7PWTQsNCXvBvQ0BD QeTJOrLTGcYPqvCGNaHVM2AsLoHHFhOUQcCT6XVoAo CFYxEKbqWzTrCNUjBAEkdf5GqWHwyJakot3WYBtFPb8IyMcuQFVgHChhEl0ufTCrIFSbKCSLLr2VgpSt UQVdHQIVWNrxSHFiCLS7KMEsMqHnFlSoVLf1PiViRckgJAucXhQxHBgjIUL7EgY9MKS1BQKrMHOxSEVf XGwuQWRvGHT0GUNaZMBjNUDuUwx+XJ7vNOs+Mr1Hv6QxmaZ6skFrWIakSGK4JM0RCKWSZ5CLOt== ID Date Data Source [id number] 02/12/2020 05:23:33 PM EST [facility] Name Value Range Interpretation Code Description Data Jacque rce(s) Supporting Document(s) &PDF [facility] AWQDAu8sZhCNGfTb78/NALbnOMXse2YgRRblNZq5RAlaIHUnO0VusFhuWHSXJTZPAxVgDMFFFnHAMR5l yKE [file] AgICAgICAgICAgICAgICAgICAgICAgICAgICAgICAgICAgICAgICAgICAgICAgICAgICAgICAgICAgIC AgICAgICAgDQogICAgICAgICAgICAgICAgICAgICAg ICAgICAgICAgICAgICAgICAgICAgICAgICAgICAgICAgICAgICAgICAgICAgICAgICAgICAgICAgICAg ICAgICAgICAgICAgICAgICAgDQogICAgICAgICAgICAgICAgICAgICAgICAgICAgICAgICAgICAgICAg ICAgICAgICAgICAgICAgICAgICAgICAgICAgICAgIC AgICAgICAgICAgICAgICAgICAgICAgICAgICAgDQogICAgICAgICAgICAgICAgICAgICAgICAgICAgIC AgICAgICAgICAgICAgICAgICAgICAgICAgICAgICAgICAgICAgICAgICAgICAgICAgICAgICAgICAgIC AgICAgICAgICAgDQogICAgICAgICAgICAgICAgICAg ICAgICAgICAgICAgICAgICAgICAgICAgICAgICAgICAgICAgICAgICAgICAgICAgICAgICAgICAgICAg ICAgICAgICAgICAgICAgICAgICAgDQogICAgICAgICAgICAgICAgICAgICAgICAgICAgICAgICAgICAg ICAgICAgICAgICAgICAgICAgICAgICAgICAgICAgIC AgICAgICAgICAgICAgICAgICAgICAgICAgICAgICAgDQogICAgICAgICAgICAgICAgICAgICAgICAgIC AgICAgICAgICAgICAgICAgICAgICAgICAgICAgICAgICAgICAgICAgICAgICAgICAgICAgICAgICAgIC AgICAgICAgICAgICAgDQogICAgICAgICAgICAgICAg ICAgICAgICAgICAgICAgICAgICAgICAgICAgICAgICAgICAgICAgICAgICAgICAgICAgICAgICAgICAg ICAgICAgICAgICAgICAgICAgICAgICAgDQogICAgICAgICAgICAgICAgICAgICAgICAgICAgICAgICAg ICAgICAgICAgICAgICAgICAgICAgICAgICAgICAgIC AgICAgICAgICAgICAgICAgICAgICAgICAgICAgICAgICAgDQogICAgICAgICAgICAgICAgICAgICAgIC AgICAgICAgICAgICAgICAgICAgICAgICAgICAgICAgICAgICAgICAgICAgICAgICAgICAgICAgICAgIC UiUUFdAACvDKNsQTCuFODlAUo7C6hxYZLsFGPaCC0e DMu7Wy1+CKbHQaGlTBM5odPndI2PFV9bg8SyFKsyJXWop2QcTHn6TO5DUSHkZHvoPR2SMLcedh8ZEUPa NMJkcKCWf8bwGbZfBFJ1YQIsXwcjNO8REOGjZ1nkupWlUHBgUXVOQUwxPIGLRB5PLgJoA5BvgA01JZUL Cj4+HQsfbyHoGuvDKpQuUSWqg2XwJMm9IL4CIGFgAW lqPF9ETOHefK1vAAmdXI5QIcUzWMDaLZQTGtAvQ83lbKMjEAq9O5XzZnCoVYRjIwgdIHIxFCakIgHrAW MgWyBdDQogID4+ID4+UYraSS2MPAwtpwLpHCRpLg3ICUKwEXN1VQGudNIaSmQfEUECQWqiHO8VdXQxBF E0uD8wYYqmNQGpIDHoM3nPAxAzqWzzOS78iCantbQk bCBdDQo+My5CWG9fv2QeXUh6puNqLZfaTQZvACcvRVMqPBOoWHUbHQI9XYJ7DRZGKxKsGSDrZAWpMVjg QMWcGIUiri3JDXDmGEJrBGF5JRVwWJZeNJNdKHnaOXXjSAZmJSQ7PSHoMKJdJW6FLoIbTUXnUWGoLFPr OQJwWDAmiv8SBYDgQBTsHpQ2DeDdVHAjFTJlNKkmIC XqNFMsRYE4HJMyIRSgHQ3ZEvItMIWdESZsAITuVRNeTYQcoa1PXVVrBVIfIMRnEsPiORVeICMlMWalBL HkRLI0AWq1GLGdVVZiNO5GNhDdDBDoEWG8PaHuYYEmBCWcio8LGWTaVMRrDas3VrBbOLTqBCXcFKduIG FeBAT9IFQwWHCdLOKmQI6OKzPpRNFhAPesGARwJIJx DCRubh1FPTHwUKRjQOGpAoApBAGvLIGcJZgpKABtHBE3FABoTFGcIWWqHH1EWxCsGHHrBEqlQfUcRFTy ACIvsx9YFCIjFSPbNFO5ZdNjAYSaFNTxZJujYHTeGAQ6OlF3DMLaAGRsLJ4VNlLcEBNlGZluUNXiCQWe ZAVwzg8LDJClNWNyZCQ3QvBqMADzRJYtSIptLFNjIL IfAFNiCAIyANMeLC0IUyItZMeaVNHBSqz2KDnqL6f2JMDzIk7FY3Fqp3WxPbJhEXRABTmpIC9nwwAsUS XwQn9NR6wLFkjfSXLqPGEfPHKtRkE5EBI1EFMlNFYdRno1Izj7PgV9OD9jAJImDJAcBTE9GoGdMWE9Pa R4EqN5YNJnLZV3Hef9HfV8TvChOG4LWe0GVmI7PTZ3bPSuQo8YBdOzSRbCYzNwBT5PXIt= ID Date Data Source [id number] 11/15/2019 07:13:00 PM EDT [facility] Patient: SHEEBA FRIEDMAN Observation Rep ort - Physicians/Mid Levels [facility].VisitID: [id number] [place] [address] [phone], FRegistration Date/Time: 11/14/2019 09:18 Weight:77.1 kg (S). Height/Length:68 inches (S). BMI:25.9 PAST HISTORYProblems:Fibromyalgia.Psoriatic arthritis.Irritable bowel syndrome (disorder).Rheumatoid Arthritis.Migraine Headache. Additional Surgeries:DMJ/abd surgery.Hernia Repair.Hysterectomy.Left knee surgery.TMJ surgery.Tonsillectomy. Medications:SUMAtriptan Succinate Oral (Tablet 100 mg) 1 tablet, daily as needed, last dose unknown.Pantoprazole Sodium Oral (Tablet Delayed Release 40 mg) 1 tablet, daily, last dose today.DULoxetine HCl Oral (Capsule Delayed Release Particles 60 mg) 1 capsule, daily, last dose today.Gabapentin Oral (Tablet 600 mg) 1 tablet, 2x a day, last dose today.Zonisamide Oral (Capsule 50 mg) 1 capsule, daily, last dose today.ZyrTEC Allergy Oral (Capsule 10 mg) 1 capsule, daily, last dose today.Plaquenil Oral (Tablet 200 mg) 1 tablet, daily every AM, last dose today.Potassium Citrate ER Oral (Tablet Extended Release 10 MEQ (1080 MG)) 1 tablet, 2x a day every AM, last dose today.Colchicine Oral (Tablet 0.6 mg) 1 tablet, daily every AM, last dose today.Meloxicam Oral (Tablet Disintegrating 7.5 mg) 1 tablet, daily, last dose today. Allergies:No Known Drug Allergy. FAMILY HISTORYNegative. No significant family medical history. (Electronically signed by Kinga Sanabria 11/15/2019 19:07) Name Value Range Interpretation Code Description Data Jacque rce(s) Supporting Document(s) ID Date Data Source [id number] 11/14/2019 10:10:00 AM EDT [facility] DATE OF EXAMINATION: 11/14/2019 9:51 EDT TECHNIQUE: 4 views of the left ribs were obtained. HISTORY: Fall There is a normal alignment and position of the bones of the thorax. Nofractures are identified. No evidence for pneumothorax is noted. IMPRESSION: Unremarkable rib series. Electronically signed in [id number] by: Trent Harrison M.D. 11/14/2019 10:04 EDT Name Value Range Interpretation Code Description Data Jacque rce(s) Supporting Document(s) ID Date Data Source [id number] 10/29/2019 01:55:00 PM EDT [facility] Name Value Range Interpretation Code Description Data Jacque rce(s) Supporting Document(s) DNA (Double Stranded) Ab res <30.0 Normal (applies to non-numeric results) [facility] Negative: <30.0 IU/mL Borderline Positive: 30.0 - 75.0 IU/mL Positive: >75.0 IU/mL Results were obtained with the [employer] QUANTA Lite dsDNA SC RILEY assay on the [employer] DSX. Test performed or [place] [address] ID Date Data Source [id number] 10/29/2019 01:55:00 PM EDT [facility] Name Value Range Interpretation Code Description Data Jacque rce(s) Supporting Document(s) UZIEL Interpretation Result Negative Very a bnormal (applies to non-numeric units [facility] For titers greater than or equal to 1:16 0 (except the centromere and nucleolar patterns) it is recommended that specific follow-up autoantibody testing (such as for dsDNA and Extractable Nuclear Antigens) be performed on all diffuse and/or speckled patterns NOTE: For add-on testing dsDNA is stable for 7 days refrigerated while Extractable Nuclear Antigens are only stable for 48 hours refrigerated. UZIEL Titer Pattern 1 Reflex Normal (applies to n on-numeric results) [facility] Results were obtained with the [employer] NOV A Lite HEp-2 UZIEL Kit by indirect immunofluorescence. Test performed or referred by The [address] [address] ID Date Data Source [id number] 10/29/2019 01:55:00 PM EDT [facility] Name Value Range Interpretation Code Description Data Jacque rce(s) Supporting Document(s) SS-A/RO Ab,IgG Normal (applies to non-numeric r esults) [facility] REFERENCE VALUE------ <1.0 (Negative) SS-B/LA Ab,IgG Normal (applies to non-numeric r esults) [facility] REFERENCE VALUE------ <1.0 (Negative) Test Performed by: [place] [address] [facility] Nurse Practitioner: Wiliam Ba M.D. Ph.D.; CLIA# [id number] ID Date Data Source [id number] 10/29/2019 01:55:[address] [facility] Value Range Interpretation Code Description Data Jacque rce(s) Supporting Document(s) Plascencia Ab,IgG result Normal (applies to non-nume shira results) [facility] REFERENCE VALUE------ <1.0 (Negative) Test Performed by: [place] [address] [facility] Nurse Practitioner: Wiliam Ba M.D. Ph.D.; CLIA# [id number] ID Date Data Source [id number] 10/24/2019 01:17:00 PM EDT [facility] Name Value Range Interpretation Code Description Data Jacque rce(s) Supporting Document(s) Sodium 141 mmol/L 137-145 Normal (applies to non-numeric resul ts) [facility] Potassium 3.5-5.1 Normal (applies to non-numeric resul ts) [facility] Chloride 108 mmol/L 98-112 Normal (applies to non-numeric resul ts) [facility] Carbon Dioxide CO2 22.0-33.0 Normal (applies to non-numer ic results) [facility] Anion Gap 4.0-11.0 Below low normal [facility] BUN 13 mg/dL 7-17 Normal (applies to non-numeric resul ts) [facility] Creatinine 0.70-1.20 Normal (applies to non-numeric resul ts) [facility] GFR 60 mL/min >60 Normal (applies to non-numeric resul ts) [facility] Result based on MDRD formula. Glucose Level 100 mg/dL 74-99 Above high normal [facility] The reference range is only applicable w hen fasting. Calcium-Uncorrected 8.4-10.2 Normal (applies to non-nume shira results) [facility] Corrected Calcium 8.4-10.2 Normal (applies to non-numeri c results) [facility] Bilirubin,Total 0.2-1.3 Normal (applies to non-numeric results) [facility] SGOT(AST) 24 U/L 14-36 Normal (applies to non-numeric resul ts) [facility] SGPT(ALT) 25 U/L 9-52 Normal (applies to non-numeric resul ts) [facility] Alkaline Phosphatase 62 U/L 38-126 Normal (applies to non-num geetha results) [facility] can increase Alkaline Phosp le vels up to 2 times the normal adult value. Normal values for children and adolescents are 2 to 3 times the normal adult value. Total Protein 6.3-8.2 Normal (applies to non-numeric re sults) [facility] Albumin 3.5-5.0 Normal (applies to non-numeric resul ts) [facility] ID Date Data Source [id number] 08/28/2019 11:47:00 AM EDT [facility] Name Value Range Interpretation Code Description Data Jacque rce(s) Supporting Document(s) Glucose [Presence] in Urine Laboratory test result [facility] ([facility]) Ua Nitrite Laboratory test result [facility] ([facility]) Protein [Presence] in Urine by Test strip Laboratory test result [facility] ([facility]) Blood [Presence] in Urine by Visual Laboratory test result [facility] ([facility]) Ua Leuko Laboratory test result [facility] ([facility]) Color of Urine Laboratory test result [facility] ([facility]) Ua Specific [place] 1.010 1.003-1.030 [facility] ([facility]) Clarity of Urine Laboratory test result [facility] ([facility]) Ketones [Presence] in Urine by Test strip Laboratory test result [facility] ([facility]) Urobilinogen [Mass/volume] in Urine by Test strip 0.2 E.U./dL 0.0-1.0 [facility] ([facility]) Bilirubin.total [Presence] in Urine by Test strip Laboratory test res ult [facility] ([facility]) pH of Urine by Test strip 6.5 5.0-7.5 [facility] ([facility]) ID Date Data Source [id number] 08/09/2019 01:51:42 PM [facility]T [facility] INFORMATIONPatient MRN Name Date of Age Gend*PT [id number] Sheeba Friedman 1975 44 years F SDCPT Location Admission Date/Time Visit ID Attending ProviderASNE AMBULATO* 08/09/19 1058 --- Cipriano Guerrero MD([id number]) EPI ID CSN Admitting Provider [id number] Cipriano Guerrero MD([id number]) OPERATIVE REPORTNAME: Sheeba Peguero#: [id number] : 1975 SEX: femaleDATE: 08/09/19URGEON: Cipriano Guerrero MDAssistant: NonePre-op Diagnosis:Left renal stone [N20.0]* No Diagnosis Codes entered *Procedure(s):LITHOTRIPSY, LEFT EXTRACORPOREAL SHOCKWAVE LITHOTRIPSY (ESWL)ANESTHESIA: Anesthesia type not filed in the log.Grafts/Implants:NoneSpecimens: noneINDICATIONS: Sheeba Friedman is a 44 years old female very well known to me.Sheeba Friedman has a history of Nephrolithiasis. Sheeba is here today for a LEFTESWL.DESCRIPTION OF PROCEDURE: Informed consent was obtained. The patient wasbrought to the operating room where the stone was confirmed on flouroscopy. Thepatient was placed in the supine position. Sedation was administered as wereantibiotics. A time out procedure was performed including side siteverification and verification of x- rays.The Stone was localized at the F2 focal point and a total of 3000 shocks wereadministered at 24 KV. After 200 shocks a pause of three minutes was performed.The patient tolerated the procedure well and was transferred to the recoveryroom. Post ESWL instructions were relayed to the patient as per routine at [facility]. The patient will follow up with their primary urologist. BRITTNEE Ruizate: 08/09/2019 Time: 11:07 AM Name Value Range Interpretation Code Description Data Jacque rce(s) Supporting Document(s) ID Date Data Source [id number] 08/09/2019 11:35:41 AM EDT [facility] INFORMATIONPatient MRN Name Date of Age Gend*PT [id number] Sheeba Friedman 1975 44 years F SDCPT Location Admission Date/Time Visit ID Attending ProviderASNE AMBULATO* 08/09/19 1058 --- Cipriano Guerrero MD([id number]) EPI ID CSN Admitting Provider [id number] Cipriano Guerrero MD([id number])Name: Sheeba MiguelaDOB: 1975MRN: [id number]&P reviewed. The patient was examined and there are no changes to the H&P.Cipriano Guerrero MD11:35 AM Name Value Range Interpretation Code Description Data Jacque rce(s) Supporting Document(s) ID Date Data Source [id number] 08/09/2019 11:06:44 AM EDT [facility] NT INFORMATIONPatient MRN Name Date of Age Gend*PT [id number] Sheeba Friedman 1975 44 years F SDCPT Location Admission Date/Time Visit ID Attending ProviderASNE AMBULATO* 08/09/19 1058 --- Cipriano Guerrero MD([id number]) EPI ID CSN Admitting Provider [id number] Cipriano Guerrero MD([id number])Name: Sheeba MiguelaDOB: 1975MRN: [id number]&P reviewed. The patient was examined and there are no changes to the H&P.Cipriano Guerrero MD11:06 AM Name Value Range Interpretation Code Description Data Jcaque rce(s) Supporting Document(s) ID Date Data Source [id number] 08/06/2019 10:13:00 AM EDT [facility] ([facility] Name Value Range Interpretation Code Description Data Jacque rce(s) Supporting Document(s) Specimen source [Identifier] of Unspecified specimen Laboratory dary t result [facility] ([facility]) Comment Laboratory test result [facility] ([facility]) THE [place] FDA HAS MADE THIS TEST AVAILABL E UNDER AN EMERGENCY USE AUTHORIZATION (EUA) FOR THE DETECTION AND/OR DIAGNOSIS OF THE VIRUS THAT CAUSES COVID-19. EMAILED TO [facility] AT [address] [place] [id number] FH [id number]. Covid19 Result Laboratory test result [facility] ([facility]) THIS ASSAY AMPLIFIES AND DETECTS THE TARGET RNA USING REAL-TIME PCR. NEGATIVE 2019_NCOV RT-PCR RESULTS DO NOT PRECLUDE 2019_NCOV INFECTION AND SHOULD NOT BE USED THE SOLE BASIS FOR PATIENT MANAGEMENT DECISIONS. ID Date Data Source [id number] 08/06/2019 10:13:00 AM EDT [facility] Name Value Range Interpretation Code Description Data [facility] rce(s) Supporting Document(s) SARS coronavirus 2 RNA [Presence] in Res piratory specimen by NAYA with probe detection [facility] This lab was reported by [facility]. ID Date Data Source [id number] 08/06/2019 03:21:04 PM EDT [facility] Name Value Range Interpretation Code Description Data Jacque rce(s) Supporting Document(s) SPECIMEN DESCRIPTION [facility] COVID19 RESULT (NDET) [facility] THIS ASSAY AMPLIFIES AND DETECTSTHE TARG ET RNA USING REAL-TIME PCR.NEGATIVE 2019_NCOV RT-PCR RESULTS DONOT PRECLUDE 2019_NCOV INFECTION ANDSHOULD NOT BE USED THE SOLE BASISFOR PATIENT MANAGEMENT DECISIONS. COMMENT [facility] UNDER AN EMERGENCY USE AUTHORIZATION(EUA ) FOR THE DETECTION AND/OR DIAGNOSISOF THE VIRUS THAT CAUSES COVID-19.EMAILED TO [facility] AT [address] [place] 407432 [place] [address]. ID Date Data Source [id number] 08/02/2019 10:13:00 AM EDT [facility] ([facility]) Name Value Range Interpretation Code Description Data Jacque rce(s) Supporting Document(s) White Blood Count 4.6 10 4.0-10.0 [facility] ([facility]) Hemoglobin 13.5 g/dL 12.0-15.5 [facility] ([facility]) Hematocrit 41.2 % 36.0-47.0 [facility] ([facility]) Red Blood Count 4.72 10 4.00-5.40 [facility]) Mean Corpuscular HGB Conc 32.8 g/dL 32.0-36.5 [facility] ([facility]) Mean Corpuscular Hemoglobin 28.6 pg 27.0-33.0 [facility] ([facility]) Mean Corpuscular Volume 87.3 fl 80.0-96.0 M [facility] ([facility]) Neutrophils % 47.7 % 36.0-66.0 [facility] ([facility]) Platelet Count, Automated 282 10 150-450 [facility] ([facility]) Red Cell Distribution Width 12.2 % 11.5-14.5 [facility] ([facility]) Eos % 3.3 % 0.0-3.0 [facility]) Lymph % 34.6 % 24.0-44.0 [facility]) [place] % 12.9 % 0.0-5.0 [facility]) Immature Granulocyte % 0.2 % 0-3.0 [facility] ([facility]) Nucleated Red Blood Cell % 0.0 % 0-0 [facility] ([facility]) Baso % 1.3 % 0.0-1.0 [facility]) [place] # 0.6 10 0.0-0.8 [facility]) Neutrophils # 2.2 10 1.5-8.5 [facility] ([facility]) Lymph # 1.6 10 1.5-5.0 [facility]) Baso # 0.1 10 0.0-0.2 [facility]) Eos # 0.2 10 0.0-0.5 [facility]) ID Date Data Source [id number] 08/02/2019 10:13:00 AM EDT [facility] ([facility]) Name Value Range Interpretation Code Description Data Jacque rce(s) Supporting Document(s) Blood Urea Nitrogen 12 mg/dL 7-18 [facility] T ([facility]) Glucose, Fasting 89 mg/dL 70-100 [facility] ( [facility]) Sodium Level 139 meq/L 136-145 [facility] ([facility]) Creatinine For GFR 0.88 mg/dL 0.55-1.30 [facility] ([facility]) Glomerular Filtration Rate Laboratory test result [facility] ([facility]) <content>Units are mL/min/1.73 m2</content>
<content></content>
<content>Chronic Kidney Disease Staging per NKF:</content>
<content></content>
<content>Stage I & II GFR >=60 Normal to Mildly Decreased</content>
<content>Stage III GFR 30- 59 Moderately Decreased</content>
<content>Stage IV GFR 15-29 Severely Decreased</content>
<content>Stage V GFR <15 Very Little GFR Left</content>
<content>ESRD GFR <15 on MOSAIC FLOOR LAYER</content>
<content></content> Chloride Level 107 meq/L 98-107 [facility] ([facility]) Potassium Serum 4.1 meq/L 3.5-5.1 [facility] ([facility]) Carbon Dioxide Level 24 meq/L 21-32 [facility] NT ([facility]) Anion Gap 8 meq/L 8-16 [facility]) Calcium Level 8.7 mg/dL 8.5-10.1 [facility] ([facility]) ID Date Data Source [id number] 08/02/2019 10:13:00 AM EDT [facility] ([facility]) Name Value Range Interpretation Code Description Data Jacque rce(s) Supporting Document(s) Bacteria identified in Urine by Culture Laboratory test result [facility] ([facility]) FULL REPORT IN LAB NOTES (eCW and [facility] ). SPECIMEN APPEARS CONTAMINATED ID Date Data Source [id number] 08/02/2019 10:13:00 AM EDT [facility] ([facility]) Name Value Range Interpretation Code Description Data Jacque rce(s) Supporting Document(s) Color, Urine Laboratory test result [facility] ([facility]) Appearance, Urine Laboratory test result [facility] ([facility]) PH,Urine 7.0 units 5.0-9.0 [facility]) Specific [place] Urine Auto 1.010 1.002-1.035 [facility] ([facility]) Protein, Urine Auto Laboratory test result [facility] ([facility]) Ketone, Urine Auto Laboratory test result [facility] ([facility]) Glucose, Urine (Ua) Auto Laboratory test result [facility] ([facility]) Urobilinogen, Urine Auto 0.2 mg/dL 0.0-2.0 [facility] ([facility]) Leukocyte Esterase, Urine Auto Laboratory test result [facility] ([facility]) Nitrite, Urine Auto Laboratory test result [facility] ([facility]) Bilirubin, Urine Auto Laboratory test result [facility] ([facility]) Blood, Urine Blood Laboratory test result [facility] ([facility]) WBC, Urine Auto 0 /HPF 0-3 [facility] ([facility]) Bacteria, Urine Auto Laboratory test result [facility] ([facility]) RBC, Urine Auto 1 /HPF 0-3 [facility]) Squamous Epithelial Cell Ur AU 0 /HPF 0-6 [facility] ([facility]) Mucus, Urine Laboratory test result [facility] ([facility]) Hyaline Cast, Urine Auto 0 /LPF 0-1 [facility] ([facility]) ID Date Data Source [id number] 07/11/2019 10:06:00 AM EDT [facility] ([facility]) Name Value Range Interpretation Code Description Data Jacque rce(s) Supporting Document(s) Protein [Presence] in Urine by Test strip Laboratory test result [facility] ([facility]) Ua Nitrite Laboratory test result [facility] ([facility]) Glucose [Presence] in Urine Laboratory test result [facility] ([facility]) Blood [Presence] in Urine by Visual Laboratory test result [facility] ([facility]) Ua Leuko Laboratory test result [facility] ([facility]) Color of Urine Laboratory test result [facility] ([facility]) Clarity of Urine Laboratory test result [facility] ([facility]) Ua Specific [place] 1.010 1.003-1.030 [facility] ([facility]) Ketones [Presence] in Urine by Test strip Laboratory test result [facility] ([facility]) Urobilinogen [Mass/volume] in Urine by Test strip 0.2 E.U./dL 0.0-1.0 [facility] ([facility]) pH of Urine by Test strip 7.0 5.0-7.5 [facility] ([facility]) Bilirubin.total [Presence] in Urine by Test strip Laboratory test res ult [facility] ([facility]) ID Date Data Source [id number] 03/29/2019 05:00:11 PM EST [facility] NT INFORMATIONPatient MRN Name Date of Age Gend*PT [id number] Sheeba Friedman 1975 43 years F ---PT Location Admission Date/Time Visit ID Attending Provider --- --- --- --- EPI ID CSN Admitting Provider [id number] ---Addended by: NUNO BURTON on: 03/29/2019 05:00 PM Modules accepted: Orders Name Value Range Interpretation Code Description Data Jacque rce(s) Supporting Document(s) ID Date Data Source [id number] 03/27/2019 01:47:00 PM [facility] Name: SHEEBA FRIEDMAN : 1975 A ge/Sex: 43F Ordering Provider: Jef Zhao MD Med Rec #: [id number] Reg Status: [facility] Room #: Date of Service: 03/27/19 Report Number: [id number] cc:Jef Zhao MD; Tay Johnson MD Send Report To: [id number] XRP/XR Chest 2 View [Pa & Lat] Reason for exam: IDIOPATHIC PERICARDITIS, UNSPECIFIED CHRONICITY No priors are available for comparison. FINDINGS: The cardiac and mediastinal silhouettes appear normal and the lungs are clear. The bones and soft tissues are normal. The upper abdomen is unremarkable. IMPRESSION: No acute disease identifiable. REPORT DICTATED BY DICK DIOP, REVIEWED AND SIGNED BY DR. DE SANTIAGO. Fluoroscopy time in seconds: Number of Exposures: Time Portable Image Performed: Contrast Agent in ml: Method of Administration: REPORT SIGNATURE ON FILE Reported By: Dick De Santiago MD <Electronically signed by Mikey De Santiago MD> 03/28/19 1013 Dictation Date/Time: 03/27/19 1055 Transcribed Date/Time: 03/27/19 1347 Transcri ptionist: ZAIN Name Value Range Interpretation Code Description Data Jacque rce(s) Supporting Document(s) ID Date Data Source [id number] 03/30/2019 04:51:00 PM EST [facility] Name Value Range Interpretation Code Description Data [facility] rce(s) Supporting Document(s) Cytoplas Neutrophil(c-ANCA)res Negative N ormal (applies to non-numeric results) [facility] Cytoplas Neutrophil(p-ANCA)res Negative N ormal (applies to non-numeric results) [facility] Positive for pANCA pattern by immunofluo rescence. Suggest further testing for anti-myeloperoxidase (anti-MPO) antibodies, if clinically indicated. ADDITIONAL INFORMATION This test was developed and its performance characteristics determined by [facility] in a manner consistent with CLIA requirements. This test has not been cleared or approved by the U.S. Food and Drug Administration. Test Performed by: [facility] [place] [address] [facility] Nurse Practitioner: Wiliam Ba M.D. Ph.D.; CLIA# [id number] ID Date Data Source [id number] 03/27/2019 12:01:00 PM [facility] Name Value Range Interpretation Code Description Data [facility] rce(s) Supporting Document(s) Sodium 141 mmol/L 137-145 Normal (applies to non-numeric resul ts) [facility] Potassium 3.5-5.1 Normal (applies to non-numeric resul ts) [facility] Chloride 109 mmol/L 98-112 Normal (applies to non-numeric resul ts) [facility] Carbon Dioxide CO2 22.0-33.0 Normal (applies to non-numer ic results) [facility] Anion Gap 4.0-11.0 Normal (applies to non-numeric resul ts) [facility] BUN 14 mg/dL 7-17 Normal (applies to non-numeric resul ts) [facility] Creatinine 0.70-1.20 Normal (applies to non-numeric resul ts) [facility] GFR 62 mL/min >60 Normal (applies to non-numeric resul ts) [facility] Result based on MDRD formula. Glucose Level 98 mg/dL 74-99 Normal (applies to non-numeric re sults) [facility] The reference range is only applicable w hen fasting. Calcium-Uncorrected 8.4-10.2 Normal (applies to non-nume shira results) [facility] Corrected Calcium 8.4-10.2 Normal (applies to non-numeri c results) [facility] Bilirubin,Total 0.2-1.3 Normal (applies to non-numeric results) [facility] SGOT(AST) 27 U/L 14-36 Normal (applies to non-numeric resul ts) [facility] SGPT(ALT) 36 U/L 9-52 Normal (applies to non-numeric resul ts) [facility] Alkaline Phosphatase 59 U/L 38-126 Normal (applies to non-num geetha results) [facility] can increase Alkaline Phosp le vels up to 2 times the normal adult value. Normal values for children and adolescents are 2 to 3 times the normal adult value. Total Protein 6.3-8.2 Normal (applies to non-numeric re sults) [facility] Albumin 3.5-5.0 Normal (applies to non-numeric resul ts) [facility] ID Date Data Source [id number] 03/27/2019 12:01:00 PM [facility] Name Value Range Interpretation Code Description Data Jacque rce(s) Supporting Document(s) C-Reactive Protein,Wide Range <3.00 Normal (applies t o non-numeric results) [facility] ID Date Data Source [id number] 03/27/2019 11:27:00 AM [facility] Name Value Range Interpretation Code Description Data Jacque rce(s) Supporting Document(s) White Blood Count 4.8-10.8 Normal (applies to non-numeri c results) [facility] Red Blood Count 3.68-5.22 Normal (applies to non-numeric results) [facility] Hemoglobin 11.2-15.7 Normal (applies to non-numeric resul ts) [facility] Hematocrit 34.1-44.9 Normal (applies to non-numeric resul ts) [facility] Mean Corpuscular Volume 81-99 Normal (applies to non- numeric results) [facility] Mean Corpuscular Hemoglobin 27.0-33.0 Normal (appli es to non-numeric results) [facility] Mean Corpuscular HGB Conc 32.0-36.0 Normal (applies to no n-numeric results) [facility] Red Cell Distribution Width 11.5-14.5 Normal (appli es to non-numeric results) [facility] Platelet Count 289 X10 3/uL 130-450 Normal (applies to non-numeric results) [facility] Mean Platelet Volume 9.5-12.7 Normal (applies to non-num geetha results) [facility] Imm Grans% (AUTO) 0.0-2.0 Normal (applies to non-numeri c results) [facility] Neutrophils % (AUTO) 43.0-75.0 Above high normal C [facility] Lymphocytes % (AUTO) 20.5-45.5 Below low normal [facility] Monocytes % (AUTO) 5.5-11.7 Normal (applies to non-numer ic results) [facility] Eosinophils % (AUTO) 0.7-4.6 Normal (applies to non-num geetha results) [facility] Basophils % (AUTO) 0.2-1.2 Normal (applies to non-numer ic results) [facility] Imm Grans# (AUTO) 0.00-0.50 Normal (applies to non-numeri c results) [facility] Neutrophils # (AUTO) 1.90-7.00 Normal (applies to non-num geetha results) [facility] Lymphocytes # (AUTO) 1.30-3.10 Below low normal [address] [facility] Monocytes # (AUTO) 0.40-0.70 Normal (applies to non-numer ic results) [facility] Eosinophils# (AUTO) 0.00-0.30 Normal (applies to non-nume shira results) [facility] Basophils # (AUTO) 0.00-0.10 Normal (applies to non-numer ic results) [facility] ID Date Data Source [id number] 03/21/2019 09:16:00 AM EST [facility] Name Value Range Interpretation Code Description Data Jacque rce(s) Supporting Document(s) STREP A NEGATIVE NEGATIVE [facility] This is a rapid molecular in vitro diagn ostic test utilizingisothermal nucleic acid amplification technology for thequalitative detection of Group A Streptococcusbacterial nucleic acid.Additional follow up testing using the culture method isrequired if the result is negative and clinical symptomspersist, or in the event of an acute rheumatic feveroutbreak. Procedure Social History Code Duration Value Status Description Data Source(s ) Smoking 04/02/2020 12:00:00 AM EST Never Smoked Cigarettes com pleted Never Smoked Cigarettes [facility] ([facility]) Smoking 03/18/2020 12:00:00 AM EST Never Smoker completed Never S moker eCW1 ([facility]) Smoking 03/18/2020 12:00:00 AM EST Never Smoker completed Never S moker eCW1 ([facility]) Smoking 03/18/2020 12:00:00 AM EST Never Smoker completed Never S moker eCW1 ([facility]) Smoking 03/18/2020 12:00:00 AM EST Never Smoker completed Never S moker eCW1 ([facility]) Smoking 03/18/2020 12:00:00 AM EST Never Smoker completed Never S moker eCW1 ([facility]) Smoking 03/18/2020 12:00:00 AM EST Never Smoker completed Never S moker eCW1 ([facility]) Smoking 03/10/2020 12:00:00 AM EST Never Smoker completed Never S moker eCW1 ([facility]) Smoking 02/11/2020 12:00:00 AM EST Never Smoker completed Never S moker eCW1 ([facility]) Smoking 02/11/2020 12:00:00 AM EST Never Smoker completed Never S moker eCW1 ([facility]) Smoking 09/10/2019 12:00:00 AM EDT Never Smoker completed Never S moker eCW1 ([facility]) Smoking 09/10/2019 12:00:00 AM EDT Never Smoker completed Never S moker eCW1 ([facility]) Alcohol intake 08/09/2019 12:00:00 AM EDT Yes completed [facility] Smoking 08/09/2019 12:00:00 AM EDT Never smoker completed Never [facility] Alcohol intake 05/29/2019 12:00:00 AM EDT Yes completed [facility] Smoking 05/29/2019 12:00:00 AM EDT Never smoker completed Never s [facility] Vital Signs ID Date Data Source UNK Name Value Range Interpretation Code Description Data Source(s) Body surface area Derived from formula 1.93 m2 1.93 m2 [facility] ([facility]) Body weight 81.648 kg 81.648 kg [facility] ([facility]) [place] body weight 135 [lb_av] 135 [lb_av] [facility] ([facility]) Body mass index (BMI) [Ratio] 28.2 kg/m2 28.2 k g/m2 [facility] ([facility]) Body weight 180.00 [lb_av] 180.00 [lb_av] [facility] ([facility]) Body height 67 [in_i] 67 [in_i] [facility] ([facility]) 5'7" Body surface area Derived from formula 1.93 m2 1.93 m2 [facility] ([facility]) Body weight 81.648 kg 81.648 kg [facility] ([facility]) [place] body weight 135 [lb_av] 135 [lb_av] [facility] ([facility]) Body mass index (BMI) [Ratio] 28.2 kg/m2 28.2 k g/m2 [facility] ([facility]) Body weight 180.00 [lb_av] 180.00 [lb_av] [facility] ([facility]) Body height 67 [in_i] 67 [in_i] [facility] ([facility]) 5'7" Heart rate 70 /min 70 /min [facility] Diastolic blood pressure 75 mm[Hg] 75 mm[Hg] [facility] ([facility]) Systolic blood pressure 113 mm[Hg] 113 mm[Hg] M [facility] ([facility]) Body mass index (BMI) [Ratio] 29.0 kg/m2 29.0 k g/m2 [facility] ([facility]) Body weight 83.916 kg 83.916 kg [facility] ([facility] Body weight 185.00 [lb_av] 185.00 [lb_av] MEDEN T ([facility]) Body height 67 [in_i] 67 [in_i] [facility] ([facility]) 5'7" Diastolic blood pressure 76 mm[Hg] 76 mm[Hg] eCW1 ([facility]) Systolic blood pressure 128 mm[Hg] 128 mm[Hg] e CW1 ([facility]) Body temperature 97.6 [degF] 97.6 [degF] eCW1 ( [facility]) Respiratory rate 18 /min 18 /min eCW1 ([facility]) Heart rate 80 /min 80 /min eCW1 [facility] Body mass index (BMI) [Ratio] 30.54 kg/m2 30.54 kg/m2 eCW1 ([facility]) Body height [in_i] eCW1 ([facility]) Body weight 195 [lb_av] 195 [lb_av] eCW1 ([facility]) Diastolic blood pressure 71 mm[Hg] 71 mm[Hg] eCW1 ([facility]) Systolic blood pressure 120 mm[Hg] 120 mm[Hg] e CW1 ([facility]) Body temperature 95.6 [degF] 95.6 [degF] eCW1 ( [facility]) Respiratory rate 16 /min 16 /min eCW1 ([facility]) Heart rate 80 /min 80 /min eCW1 ([facility]) Body mass index (BMI) [Ratio] 29.62 kg/m2 29.62 kg/m2 eCW1 ([facility]) Body height [in_i] eCW1 ([facility]) Body weight 189.12 [lb_av] 189.12 [lb_av] eCW1 ([facility]) Diastolic blood pressure 75 mm[Hg] 75 mm[Hg] eCW1 ([facility]) Systolic blood pressure 109 mm[Hg] 109 mm[Hg] e CW1 ([facility]) Body temperature 97.6 [degF] 97.6 [degF] eCW1 ( [facility]) Respiratory rate 16 /min 16 /min eCW1 ([facility]) Heart rate 80 /min 80 /min eCW1 ([facility]) Body mass index (BMI) [Ratio] 29.19 kg/m2 29.19 kg/m2 eCW1 ([facility]) Body height [in_i] eCW1 ([facility]) Body weight 186.4 [lb_av] 186.4 [lb_av] eCW1 ([facility]) Heart rate 71 /min 71 /min [facility] ([facility] Diastolic blood pressure 74 mm[Hg] 74 mm[Hg] [facility] ([facility]) Systolic blood pressure 107 mm[Hg] 107 mm[Hg] M EDENT ([facility]) Body mass index (BMI) [Ratio] 26.6 kg/m2 26.6 k g/m2 [facility] ([facility]) Body weight 77.112 kg 77.112 kg [facility] ([facility] Body weight 170.00 [lb_av] 170.00 [lb_av] MEDEN T ([facility]) Body height 67 [in_i] 67 [in_i] [facility] ([facility]) 5'7" Oxygen saturation in Arterial blood by Pulse oximetry 98 % 98 % [facility] Respiratory rate 18 /min 18 /min [facility] Body temperature 36.33 Christa 36.33 Christa [facility] Heart rate 71 /min 71 /min [facility] Diastolic blood pressure 74 mm[Hg] 74 mm[Hg] [facility] Systolic blood pressure 108 mm[Hg] 108 mm[Hg] [facility] Body weight 77.111 kg 77.111 kg [facility] Body height 170.2 cm 170.2 cm [facility] Body mass index (BMI) [Ratio] 26.63 kg/m2 26.63 kg/m2 [facility] Body weight Measured 182 [lb_av] 182 [lb_av] eC W1 ([facility]) Diastolic blood pressure 69 mm[Hg] 69 mm[Hg] eCW1 ([facility]) Systolic blood pressure 100 mm[Hg] 100 mm[Hg] e CW1 ([facility]) Body temperature 98.1 [degF] 98.1 [degF] eCW1 ( [facility]) Respiratory rate 18 /min 18 /min eCW1 ([facility]) Heart rate 97 /min 97 /min eCW1 ([facility]) Body mass index (BMI) [Ratio] 28.50 kg/m2 28.50 kg/m2 eCW1 ([facility]) Body height [in_us] eCW1 ([facility]) Respiratory rate 16 /min 16 /min eCW1 ([facility]) Heart rate 84 /min 84 /min eCW1 ([facility]) Body mass index (BMI) [Ratio] 28.03 kg/m2 28.03 kg/m2 W1 ([facility]) Body height [in_us] eCW1 ([facility]) Body weight Measured 179 [lb_av] 179 [lb_av] eC W1 ([facility]) Diastolic blood pressure 75 mm[Hg] 75 mm[Hg] eCW1 ([facility]) Systolic blood pressure 111 mm[Hg] 111 mm[Hg] e CW1 ([facility]) Body temperature 98.0 [degF] 98.0 [degF] eCW1 ( [facility]) Diastolic blood pressure 84 mm[Hg] 84 mm[Hg] eCW1 ([facility]) Systolic blood pressure 122 mm[Hg] 122 mm[Hg] e CW1 ([facility]) Body temperature 97.4 [degF] 97.4 [degF] eCW1 ( [facility]) Respiratory rate 16 /min 16 /min eCW1 ([facility]) Heart rate 81 /min 81 /min eCW1 ([facility]) Body mass index (BMI) [Ratio] 28.35 kg/m2 28.35 kg/m2 eCW1 ([facility]) Body height [in_us] eCW1 ([facility]) Body weight Measured 181 [lb_av] 181 [lb_av] eC W1 ([facility]) Diastolic blood pressure 83 mm[Hg] 83 mm[Hg] eCW1 ([facility]) Systolic blood pressure 119 mm[Hg] 119 mm[Hg] e CW1 ([facility]) Body temperature 97.6 [degF] 97.6 [degF] eCW1 ( [facility]) Respiratory rate 16 /min 16 /min eCW1 ([facility]) Heart rate 76 /min 76 /min eCW1 ([facility]) Body mass index (BMI) [Ratio] 28.56 kg/m2 28.56 kg/m2 eCW1 ([facility]) Body height [in_us] eCW1 ([facility]) Body weight Measured 182.4 [lb_av] 182.4 [lb_av ] eCW1 ([facility]) Diastolic blood pressure 74 mm[Hg] 74 mm[Hg] eCW1 ([facility]) Systolic blood pressure 110 mm[Hg] 110 mm[Hg] e CW1 ([facility]) Body temperature 97.4 [degF] 97.4 [degF] eCW1 ( [facility]) Respiratory rate 16 /min 16 /min eCW1 ([facility]) Heart rate 86 /min 86 /min eCW1 ([facility] Body mass index (BMI) [Ratio] 28.09 kg/m2 28.09 kg/m2 eCW1 ([facility]) Body height [in_us] eCW1 ([facility]) Body weight Measured 179.4 [lb_av] 179.4 [lb_av ] eCW1 ([facility]) Patient Treatment Plan of Care Planned Activity Planned Date Details Description Data Source (s) tizanidine 2 MG Oral Tablet 03/18/2020 12:00:00 AM EST eCW1 ([facility]) Acetaminophen 300 MG / Codeine Phosphate 30 MG Oral Ta blet 03/18/2020 12:00:00 AM EST eCW1 ([facility]) tizanidine 2 MG Oral Tablet 03/18/2020 12:00:00 AM EST eCW1 ([facility]) Acetaminophen 300 MG / Codeine Phosphate 30 MG Oral Ta blet 03/18/2020 12:00:00 AM EST eCW1 ([facility]) tizanidine 2 MG Oral Tablet 03/18/2020 12:00:00 AM EST eCW1 ([facility]) Acetaminophen 300 MG / Codeine Phosphate 30 MG Oral Ta blet 03/18/2020 12:00:00 AM EST eCW1 ([facility]) tizanidine 2 MG Oral Tablet 03/18/2020 12:00:00 AM EST eCW1 ([facility]) Acetaminophen 300 MG / Codeine Phosphate 30 MG Oral Ta blet 03/18/2020 12:00:00 AM EST eCW1 ([facility]) tizanidine 2 MG Oral Tablet 03/18/2020 12:00:00 AM EST eCW1 ([facility]) Acetaminophen 300 MG / Codeine Phosphate 30 MG Oral Ta blet 03/18/2020 12:00:00 AM EST eCW1 ([facility]) tizanidine 2 MG Oral Tablet 03/18/2020 12:00:00 AM EST eCW1 ([facility]) Acetaminophen 300 MG / Codeine Phosphate 30 MG Oral Ta blet 03/18/2020 12:00:00 AM EST eCW1 ([facility]) Vancomycin 125 MG Oral Capsule 03/10/2020 12:00:00 AM EST eCW1 ([facility]) cefdinir 300 MG Oral Capsule 02/17/2020 12:00:00 AM EST eCW1 ([facility]) cefdinir 300 MG Oral Capsule 02/17/2020 12:00:00 AM EST eCW1 ([facility]) Amoxicillin 875 MG / Clavulanate 125 MG Oral Tablet 07/10/19 12:00:00 AM EDT eCW1 ([facility]) Amoxicillin 875 MG / Clavulanate 125 MG Oral Tablet 07/10/19 12:00:00 AM EDT eCW1 ([facility]) Fluticasone Propionate 50 MCG/ACT 06/11/2019 12:00:00 AM EDT eCW1 ([facility]) Amoxicillin 875 MG / Clavulanate 125 MG Oral Tablet 06/11/19 12:00:00 AM EDT eCW1 ([facility]) Colchicine 0.6 MG Oral Tablet 05/29/2019 12:00:00 AM EDT [facility] evaluate and treat 05/24/2019 12:00:00 AM EST eCW1 ([facility]) meloxicam 7.5 MG Oral Tablet 05/15/2019 12:00:00 AM EST [facility] duloxetine 30 MG Delayed Release Oral Capsule 05/03/2019 12:00:00 A M EST [facility] Famotidine 40 MG Oral Tablet 05/02/2019 12:00:00 AM EST [facility] Sumatriptan 100 MG Oral Tablet 04/04/2019 12:00:00 AM EST [facility] Dexamethasone 0.1 MG/ML Oral Solution 04/04/2019 12:00:00 AM EST eCW1 ([facility]) Sumatriptan 100 MG Oral Tablet 04/04/2019 12:00:00 AM EST eCW1 ([facility]) doxycycline hyclate 100 MG Oral Tablet 04/04/2019 12:00:00 AM EST eCW1 ([facility]) Famotidine 40 MG Oral Tablet 04/04/2019 12:00:00 AM EST eCW1 ([facility]) Fluconazole 150 MG Oral Tablet [Diflucan] 04/04/2019 12:00:00 AM ES T eCW1 ([facility]) duloxetine 30 MG Delayed Release Oral Capsule 04/04/2019 12:00:00 A M EST eCW1 ([facility]) Cyclobenzaprine hydrochloride 10 MG Oral Tablet 03/09/2019 12:00:00 AM EST [facility]
[2020-05-06] MEDS ORDERED: dexameTHASONE 4 MG/ML 1ML VIAL (J1100 PER 1MG) As Ordered ONE ×2 (07:51→07:55)
[2020-05-06] MEDS ORDERED: fentaNYL 100 MCG/2 ML INJECTION (J3010) As Ordered ONE ×2 (07:51→10:26)
[2020-05-06] MEDS ORDERED: ROCURONIUM BROMIDE 50 MG/5 ML VIAL As Ordered ONE (07:51)
[2020-05-06] MEDS ORDERED: MIDAZOLAM INJ 2MG/2ML VIAL (J2250 PER 1MG) As Ordered ONE (07:51)
[2020-05-06] MEDS ORDERED: LIDOCAINE 2% 100MG/5ML SDV (FOR ANES.) As Ordered ONE (07:51)
[2020-05-06] MEDS ORDERED: ONDANSETRON 4MG/2ML VIAL As Ordered ONE (07:51)
[2020-05-06] MEDS ORDERED: propofoL 200 MG/20 ML VIAL As Ordered ONE (07:51)
[2020-05-06 08:08] LABS: HEMATOCRIT 37.6 % (36.0-47.0); HEMOGLOBIN 12.1 g/dl (12.0-15.5); MEAN CORPUSCULAR HEMOGLOBIN 26.7 pg (27.0-33.0); MEAN CORPUSCULAR HGB CONC 32.2 g/dl (32.0-36.5); PLATELET COUNT, AUTOMATED 289 10^3/uL (150-450); RED BLOOD COUNT 4.53 10^6/uL (4.00-5.40); WHITE BLOOD COUNT 4.5 10^3/uL (4.0-10.0)
[2020-05-06] MEDS ORDERED: LIDOCAINE W/EPINEPHRINE 1% 20ML VIAL As Ordered ONE (09:23)
[2020-05-06] MEDS ORDERED: BACITRACIN OINTMENT 30GM TUBE As Ordered ONE (09:23)
[2020-05-06] MEDS ORDERED: SCOPOLAMINE 1MG TRANSDERMAL PATCH As Ordered ONE (09:28)
[2020-05-06] MEDS ORDERED: SCOPOLAMINE 1MG TRANSDERMAL PATCH TOP ONE (09:30)
[2020-05-06] MEDS ORDERED: ACETAMINOPHEN 1000MG 100ML IV BTL (OFIRMEV) (J0131 PER 10MG) As Ordered ONE (10:25)
[2020-05-06] MEDS ORDERED: ONDANSETRON 4MG/2ML VIAL IV PRN (12:30)
[2020-05-06] MEDS ORDERED: METOCLOPRAMIDE INJ 10MG/2ML VIAL (J2765 PER 1) IV PRN (12:30)
[2020-05-06] MEDS ORDERED: ACETAMINOPH W/CODEINE #3 TAB UD PO PRN (12:30)
[2020-05-06] MEDS ORDERED: diphenhydrAMINE 50MG/ML VIAL (J1200) IV PRN (12:30)
[2020-05-06] MEDS ORDERED: LR 1,000 ML IV SCH ×2 (12:30)
[2020-05-06] MEDS: fentaNYL 100 MCG/2 ML INJECTION (J3010) IV PRN ×4 (12:37→13:00)
[2020-05-06] MEDS: PERCOCET 5MG/325MG TAB PO PRN ×2 (13:22→13:48)
[2020-05-06] MEDS ORDERED: HYDROMORPHONE HCL 0.5 MG/ 0.5 ML SYRINGE (J1170 PER 1) As Ordered ONE ×2 (13:26→13:38)
[2020-05-06] MEDS: HYDROMORPHONE HCL 0.5 MG/ 0.5 ML SYRINGE (J1170 PER 1) IV PRN ×2 (13:45→13:53)
[2020-05-06 15:20] VITALS: BP 138/79
--- NOTE | 2020-05-06 17:55 | RO ---
OPERATIVE NOTE DATE OF OPERATION: 05/06/2020 PREOPERATIVE DIAGNOSIS: Right parotid tumor. POSTOPERATIVE DIAGNOSIS: Right parotid tumor. PROCEDURE: Right thyroid lobectomy. SURGEON: Fawad Monterroso MD FINDINGS: There was a tumor in the isthmus of the thyroid. It was slightly towards the right side. 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 I divided the platysma. I divided the strap muscles in the midline. I elevated superiorly and inferiorly. I dissected the tissues off the thyroid gland. I mobilized the superior part of the right lobe and then divided that from the soft tissues using the Harmonic scalpel. I divided the vessels on the lateral aspect of the gland. Once this was done, then I dissected out the inferior part of the gland. I identified the parathyroid glands and they were mobilized out of the way. I identified the recurrent laryngeal nerve. I followed that into the cricothyroid membrane. I delivered the thyroid gland from the wound. The nerve was intact at the end of the procedure. I irrigated the area and there was no bleeding. I then put some Surgicel over the site. The many bleeding seen during the procedure was cauterized with bipolar cautery. I closed the neck wound with 4-0 Vicryl and ____ The patient was transferred to the recovery room in excellent condition.
--- NOTE | 2020-05-07 15:45 | ECGEPIP ---
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
== END 2020-05-06 15:44 | disposition home or self-care (01) ==
LOC: M SDC 07:35
PROVIDERS: ATTEND Otolaryngology
DX: C73 Malignant neoplasm of thyroid gland (principal); E04.1 Nontoxic single thyroid nodule; G43.909 Migraine, unspecified, not intractable, without status migrainosus; K58.9 Irritable bowel syndrome, unspecified; M06.9 Rheumatoid arthritis, unspecified; M54.9 Dorsalgia, unspecified; M79.7 Fibromyalgia; Z79.899 Other long term (current) drug therapy; Z90.710 Acquired absence of both cervix and uterus
CPT/HCPCS: 36415; 60220; 85027; 88307; 88331; 93005; J0131; J1100; J2250; J2405; J3010

== ENCOUNTER → 2020-06-05 | Outpatient (CLI) | payer MEDICARE, BC ==
[~2020-06-05] MED LIST changes: -LIDOCAINE 1% MDV 20ML VIAL SQ PRN; -LR 1,000 ML IV ONE
[2020-06-05 13:42] LABS: FREE T4 0.76 NG/DL (0.76-1.46); THYROID STIMULATING HORMONE 8.44 uIU/ML (0.358-3.740)
== END ==
LOC: M LAB 11:52
PROVIDERS: ATTEND Otolaryngology
DX: C73 Malignant neoplasm of thyroid gland (principal)

== ENCOUNTER → 2020-08-21 | Outpatient (REF) | payer MEDICARE, BC ==
[2020-08-21 16:42] LABS: BASO # 0.1 10^3/uL (0.0-0.2); BASO % 1.3 % (0.0-1.0); EOS # 0.1 10^3/uL (0.0-0.5); EOS % 2.8 % (0.0-3.0); HEMATOCRIT 33.5 % (36.0-47.0); HEMOGLOBIN 10.4 g/dl (12.0-15.5); LYMPH # 1.1 10^3/uL (1.5-5.0); LYMPH % 28.1 % (24.0-44.0); MEAN CORPUSCULAR HEMOGLOBIN 25.9 pg (27.0-33.0); MEAN CORPUSCULAR VOLUME 83.5 fl (80.0-96.0); MONO # 0.4 10^3/uL (0.0-0.8); MONO % 10.8 % (2.0-8.0); NEUTROPHILS # 2.2 10^3/uL (1.5-8.5); PLATELET COUNT, AUTOMATED 290 10^3/uL (150-450); RED BLOOD COUNT 4.01 10^6/uL (4.00-5.40); WHITE BLOOD COUNT 3.9 10^3/uL (4.0-10.0)
[2020-08-21 17:06] LABS: ERYTHROCYTE SEDIMENTATION RATE 9 mm/hr (0-20)
[2020-08-21 17:15] LABS: ALT/SGPT 20 U/L (12-78); BILIRUBIN,TOTAL 0.4 MG/DL (0.2-1.0); BLOOD UREA NITROGEN 10 MG/DL (7-18); CALCIUM LEVEL 9.7 MG/DL (8.5-10.1); CARBON DIOXIDE LEVEL 24 MEQ/L (21-32); CHLORIDE LEVEL 111 MEQ/L (98-107); CHOLESTEROL LEVEL 188 MG/DL (<200); CHOLESTEROL RISK RATIO 2.805 (<5); CREATININE FOR GFR 0.88 MG/DL (0.55-1.30); GLOMERULAR FILTRATION RATE > 60.0 (>58); GLUCOSE, FASTING 90 MG/DL (70-100); HDL CHOLESTEROL 67 MG/DL (>40); LDL CHOLESTEROL 108 MG/DL (<100); NON-HDL-C 121 MG/DL; POTASSIUM SERUM 4.5 MEQ/L (3.5-5.1); SODIUM LEVEL 141 MEQ/L (136-145); THYROID STIMULATING HORMONE 0.708 uIU/ML (0.358-3.740); TOTAL PROTEIN 6.7 GM/DL (6.4-8.2); TRIGLYCERIDES LEVEL 64 MG/DL (<150)
[2020-08-21 17:18] LABS: TOTAL T3 104.9 NG/DL (60.0-181.0)
== END ==
LOC: M SFHCCLAY 10:55
PROVIDERS: ATTEND Family Medicine
DX: E78.00 Pure hypercholesterolemia, unspecified (principal); L40.50 Arthropathic psoriasis, unspecified; E03.9 Hypothyroidism, unspecified

== ENCOUNTER → 2020-08-27 | Outpatient (REF) | payer MEDICARE, BC ==
[2020-08-27 13:39] LABS: IRON (FE) 22 UG/DL (50-170)
[2020-08-27 13:47] LABS: VITAMIN B12 LEVEL 620 PG/ML (247-911)
[2020-08-27 13:48] LABS: FOLATE > 24.0 NG/ML (>5.4)
== END ==
LOC: M SFHCCLAY 09:08
PROVIDERS: ATTEND Family Medicine
DX: D64.9 Anemia, unspecified (principal)

== ENCOUNTER → 2020-11-02 | Outpatient (CLI) | payer MEDICARE, BC ==
[~2020-11-02] MED LIST changes: -QUET50TA3 PO; +QUET50TA4 PO
[2020-11-02 11:38] LABS: FREE T4 1.09 NG/DL (0.76-1.46); THYROID STIMULATING HORMONE 0.683 uIU/ML (0.358-3.740)
== END ==
LOC: M LAB 10:05
PROVIDERS: ATTEND Otolaryngology
DX: C73 Malignant neoplasm of thyroid gland (principal)

== ENCOUNTER → 2020-11-13 | Outpatient (REF) | payer MEDICARE, BC ==
[2020-11-13 11:30] LABS: BASO # 0.1 10^3/uL (0.0-0.2); BASO % 1.2 % (0.0-1.0); EOS # 0.2 10^3/uL (0.0-0.5); EOS % 4.5 % (0.0-3.0); HEMATOCRIT 39.9 % (36.0-47.0); LYMPH % 24.3 % (24.0-44.0); MEAN CORPUSCULAR HEMOGLOBIN 27.7 pg (27.0-33.0); MEAN CORPUSCULAR HGB CONC 32.6 g/dl (32.0-36.5); MEAN CORPUSCULAR VOLUME 84.9 fl (80.0-96.0); MONO # 0.5 10^3/uL (0.0-0.8); NEUTROPHILS # 2.5 10^3/uL (1.5-8.5); NEUTROPHILS % 58.8 % (36.0-66.0); PLATELET COUNT, AUTOMATED 266 10^3/uL (150-450); WHITE BLOOD COUNT 4.2 10^3/uL (4.0-10.0)
== END ==
LOC: M SFHCCLAY 08:48
PROVIDERS: ATTEND Family Medicine
DX: D64.9 Anemia, unspecified (principal)

== ENCOUNTER → 2021-03-04 | Outpatient (REF) | payer MEDICARE, BC ==
[2021-03-04 11:39] LABS: BASO # 0.1 10^3/uL (0.0-0.2); BASO % 1.2 % (0.0-1.0); EOS # 0.2 10^3/uL (0.0-0.5); EOS % 3.1 % (0.0-3.0); HEMATOCRIT 36.9 % (36.0-47.0); HEMOGLOBIN 12.2 g/dl (12.0-15.5); LYMPH # 1.1 10^3/uL (1.5-5.0); LYMPH % 22.5 % (24.0-44.0); MEAN CORPUSCULAR HEMOGLOBIN 29.5 pg (27.0-33.0); MEAN CORPUSCULAR HGB CONC 33.1 g/dl (32.0-36.5); MEAN CORPUSCULAR VOLUME 89.1 fl (80.0-96.0); MONO # 0.5 10^3/uL (0.0-0.8); MONO % 10.6 % (2.0-8.0); NEUTROPHILS # 3.1 10^3/uL (1.5-8.5); NEUTROPHILS % 62.4 % (36.0-66.0); PLATELET COUNT, AUTOMATED 267 10^3/uL (150-450); RED BLOOD COUNT 4.14 10^6/uL (4.00-5.40); WHITE BLOOD COUNT 4.9 10^3/uL (4.0-10.0)
[2021-03-04 12:11] LABS: ALBUMIN 3.7 GM/DL (3.2-5.2); ALT/SGPT 32 U/L (12-78); BILIRUBIN,TOTAL 1.4 MG/DL (0.2-1.0); BLOOD UREA NITROGEN 15 MG/DL (7-18); CALCIUM LEVEL 9.2 MG/DL (8.5-10.1); CARBON DIOXIDE LEVEL 26 MEQ/L (21-32); CHLORIDE LEVEL 110 MEQ/L (98-107); GLOMERULAR FILTRATION RATE > 60.0 (>58); GLUCOSE, FASTING 100 MG/DL (70-100); POTASSIUM SERUM 4.4 MEQ/L (3.5-5.1); SODIUM LEVEL 141 MEQ/L (136-145); TOTAL PROTEIN 6.5 GM/DL (6.4-8.2)
== END ==
LOC: M LABDRAWC 11:19
PROVIDERS: ATTEND Internal Medicine
DX: M06.041 Rheumatoid arthritis without rheumatoid factor, right hand (principal)

== ENCOUNTER → 2021-03-22 | Outpatient (REF) | payer MEDICARE, BC ==
[2021-03-22 12:27] LABS: BASO # 0.1 10^3/uL (0.0-0.2); BASO % 1.6 % (0.0-1.0); EOS # 0.1 10^3/uL (0.0-0.5); EOS % 3.6 % (0.0-3.0); HEMATOCRIT 38.1 % (36.0-47.0); HEMOGLOBIN 12.5 g/dl (12.0-15.5); LYMPH % 24.6 % (24.0-44.0); MEAN CORPUSCULAR HEMOGLOBIN 29.2 pg (27.0-33.0); MEAN CORPUSCULAR HGB CONC 32.8 g/dl (32.0-36.5); MONO # 0.4 10^3/uL (0.0-0.8); MONO % 11.1 % (2.0-8.0); NEUTROPHILS # 2.3 10^3/uL (1.5-8.5); NEUTROPHILS % 58.8 % (36.0-66.0); PLATELET COUNT, AUTOMATED 251 10^3/uL (150-450); RED BLOOD COUNT 4.28 10^6/uL (4.00-5.40); WHITE BLOOD COUNT 3.9 10^3/uL (4.0-10.0)
[2021-03-22 12:58] LABS: ALBUMIN 3.8 GM/DL (3.2-5.2); ALT/SGPT 28 U/L (12-78); BILIRUBIN,TOTAL 0.3 MG/DL (0.2-1.0); BLOOD UREA NITROGEN 12 MG/DL (7-18); CALCIUM LEVEL 9.2 MG/DL (8.5-10.1); CARBON DIOXIDE LEVEL 24 MEQ/L (21-32); CHLORIDE LEVEL 111 MEQ/L (98-107); CHOLESTEROL LEVEL 184 MG/DL (<200); CHOLESTEROL RISK RATIO 3.172 (<5); CREATININE FOR GFR 0.99 MG/DL (0.55-1.30); GLOMERULAR FILTRATION RATE > 60.0 (>58); GLUCOSE, FASTING 88 MG/DL (70-100); HDL CHOLESTEROL 58 MG/DL (>40); LDL CHOLESTEROL 106 MG/DL (<100); NON-HDL-C 126 MG/DL; RHEUMATOID FACTOR QUANT 10.7 IU/ML (<15.0); SODIUM LEVEL 141 MEQ/L (136-145); THYROID STIMULATING HORMONE 0.779 uIU/ML (0.358-3.740); TOTAL PROTEIN 6.5 GM/DL (6.4-8.2); TRIGLYCERIDES LEVEL 101 MG/DL (<150)
== END ==
LOC: M LABDRAWC 11:59
PROVIDERS: ATTEND Internal Medicine
DX: I30.0 Acute nonspecific idiopathic pericarditis (principal); M06.041 Rheumatoid arthritis without rheumatoid factor, right hand; Z79.899 Other long term (current) drug therapy; Z51.81 Encounter for therapeutic drug level monitoring

== ENCOUNTER → 2021-04-23 | Outpatient (REF) | payer MEDICARE, BC ==
[2021-04-23 11:43] LABS: BASO # 0.1 10^3/uL (0.0-0.2); BASO % 1.9 % (0.0-1.0); EOS # 0.2 10^3/uL (0.0-0.5); EOS % 4.3 % (0.0-3.0); HEMATOCRIT 38.1 % (36.0-47.0); HEMOGLOBIN 12.7 g/dl (12.0-15.5); LYMPH % 24.8 % (24.0-44.0); MEAN CORPUSCULAR HEMOGLOBIN 29.3 pg (27.0-33.0); MEAN CORPUSCULAR HGB CONC 33.3 g/dl (32.0-36.5); MEAN CORPUSCULAR VOLUME 87.8 fl (80.0-96.0); MONO # 0.5 10^3/uL (0.0-0.8); MONO % 11.5 % (2.0-8.0); NEUTROPHILS # 2.4 10^3/uL (1.5-8.5); NEUTROPHILS % 57.3 % (36.0-66.0); PLATELET COUNT, AUTOMATED 260 10^3/uL (150-450); RED BLOOD COUNT 4.34 10^6/uL (4.00-5.40); WHITE BLOOD COUNT 4.2 10^3/uL (4.0-10.0)
[2021-04-23 12:33] LABS: ALBUMIN 3.9 GM/DL (3.2-5.2); ALT/SGPT 32 U/L (12-78); BILIRUBIN,TOTAL 0.2 MG/DL (0.2-1.0); BLOOD UREA NITROGEN 17 MG/DL (7-18); CALCIUM LEVEL 9.1 MG/DL (8.5-10.1); CARBON DIOXIDE LEVEL 24 MEQ/L (21-32); CHLORIDE LEVEL 112 MEQ/L (98-107); CREATININE FOR GFR 1.03 MG/DL (0.55-1.30); FOLATE 23.7 NG/ML (>5.4); FREE T4 0.95 NG/DL (0.76-1.46); GLOMERULAR FILTRATION RATE > 60.0 (>58); GLUCOSE, FASTING 89 MG/DL (70-100); POTASSIUM SERUM 4.5 MEQ/L (3.5-5.1); SODIUM LEVEL 141 MEQ/L (136-145); TOTAL PROTEIN 6.8 GM/DL (6.4-8.2); TOTAL T3 82.1 NG/DL (60.0-181.0); VITAMIN B12 LEVEL 610 PG/ML (247-911)
== END ==
LOC: M SFHCCLAY 09:07
PROVIDERS: ATTEND Family Medicine
DX: R41.3 Other amnesia (principal); R26.89 Other abnormalities of gait and mobility; D64.9 Anemia, unspecified; C73 Malignant neoplasm of thyroid gland

== ENCOUNTER → 2021-05-21 | Outpatient (REF) | payer MEDICARE, BC ==
[2021-05-21 16:15] LABS: BASO # 0.1 10^3/uL (0.0-0.2); BASO % 1.2 % (0.0-1.0); EOS # 0.1 10^3/uL (0.0-0.5); EOS % 2.7 % (0.0-3.0); HEMOGLOBIN 12.4 g/dl (12.0-15.5); LYMPH # 1.9 10^3/uL (1.5-5.0); LYMPH % 37.5 % (24.0-44.0); MEAN CORPUSCULAR HEMOGLOBIN 28.8 pg (27.0-33.0); MEAN CORPUSCULAR HGB CONC 32.6 g/dl (32.0-36.5); MEAN CORPUSCULAR VOLUME 88.4 fl (80.0-96.0); MONO # 0.6 10^3/uL (0.0-0.8); NEUTROPHILS # 2.4 10^3/uL (1.5-8.5); NEUTROPHILS % 46.4 % (36.0-66.0); PLATELET COUNT, AUTOMATED 271 10^3/uL (150-450); WHITE BLOOD COUNT 5.1 10^3/uL (4.0-10.0)
[2021-05-21 16:43] LABS: ALT/SGPT 31 U/L (12-78); BILIRUBIN,TOTAL 0.3 MG/DL (0.2-1.0); BLOOD UREA NITROGEN 16 MG/DL (7-18); CALCIUM LEVEL 9.6 MG/DL (8.5-10.1); CARBON DIOXIDE LEVEL 24 MEQ/L (21-32); CHLORIDE LEVEL 111 MEQ/L (98-107); CREATININE FOR GFR 0.99 MG/DL (0.55-1.30); GLOMERULAR FILTRATION RATE > 60.0 (>58); GLUCOSE, FASTING 82 MG/DL (70-100); POTASSIUM SERUM 4.1 MEQ/L (3.5-5.1); SODIUM LEVEL 142 MEQ/L (136-145); TOTAL PROTEIN 6.7 GM/DL (6.4-8.2)
== END ==
LOC: M LABDRAWC 15:32
PROVIDERS: ATTEND Internal Medicine
DX: Z51.81 Encounter for therapeutic drug level monitoring (principal); Z79.899 Other long term (current) drug therapy

== ENCOUNTER → 2021-06-14 | Outpatient (CLI) | payer MEDICARE, BC | LOC: M PAIN 14:00 | PROVIDERS: ATTEND Nurse Practitioner Family | DX: M47.816 Spondylosis without myelopathy or radiculopathy, lumbar region (principal); M79.10 Myalgia, unspecified site; M54.2 Cervicalgia; G43.909 Migraine, unspecified, not intractable, without status migrainosus; Z79.899 Other long term (current) drug therapy ==

== ENCOUNTER → 2021-07-13 | Outpatient (CLI) | payer MEDICARE, BC | LOC: M PLAIMG 10:59 | PROVIDERS: ATTEND Nurse Practitioner Family | DX: M47.816 Spondylosis without myelopathy or radiculopathy, lumbar region (principal); M51.36 Other intervertebral disc degeneration, lumbar region; M51.37 Other intervertebral disc degeneration, lumbosacral region ==

== ENCOUNTER → 2021-07-15 | Outpatient (CLI) | payer MEDICARE, BC | LOC: M PAIN 14:30 | PROVIDERS: ATTEND Nurse Practitioner Family | DX: M47.816 Spondylosis without myelopathy or radiculopathy, lumbar region (principal); G89.29 Other chronic pain; M79.7 Fibromyalgia; G43.909 Migraine, unspecified, not intractable, without status migrainosus; Z79.899 Other long term (current) drug therapy ==

== ENCOUNTER → 2021-07-20 | Outpatient (REF) | payer MEDICARE, BC ==
[2021-07-20 12:51] LABS: BILIRUBIN,DIRECT 0.1 MG/DL (0.0-0.2); BILIRUBIN,TOTAL 0.6 MG/DL (0.2-1.0); TOTAL PROTEIN 6.8 GM/DL (6.4-8.2)
== END ==
LOC: M LABDRAWC 11:07
PROVIDERS: ATTEND Internal Medicine
DX: M19.90 Unspecified osteoarthritis, unspecified site (principal)

== ENCOUNTER → 2021-10-12 | Outpatient (REF) | payer MEDICARE, BC ==
[~2021-10-12] MED LIST changes: -ZONI100C17 PO; +ZONI100C67 PO
[2021-10-12 12:05] LABS: BASO # 0.1 10^3/uL (0.0-0.2); BASO % 1.3 % (0.0-1.0); EOS # 0.1 10^3/uL (0.0-0.5); HEMATOCRIT 34.5 % (36.0-47.0); LYMPH % 25.8 % (24.0-44.0); MEAN CORPUSCULAR HEMOGLOBIN 27.6 pg (27.0-33.0); MEAN CORPUSCULAR HGB CONC 31.9 g/dl (32.0-36.5); MEAN CORPUSCULAR VOLUME 86.7 fl (80.0-96.0); MONO # 0.5 10^3/uL (0.0-0.8); MONO % 12.5 % (2.0-8.0); NEUTROPHILS # 2.3 10^3/uL (1.5-8.5); NEUTROPHILS % 57.9 % (36.0-66.0); PLATELET COUNT, AUTOMATED 306 10^3/uL (150-450); RED BLOOD COUNT 3.98 10^6/uL (4.00-5.40)
[2021-10-12 13:12] LABS: ALBUMIN 3.9 GM/DL (3.2-5.2); ALT/SGPT 32 U/L (12-78); BILIRUBIN,TOTAL 0.5 MG/DL (0.2-1.0); BLOOD UREA NITROGEN 17 MG/DL (7-18); CALCIUM LEVEL 9.3 MG/DL (8.5-10.1); CARBON DIOXIDE LEVEL 27 MEQ/L (21-32); CHLORIDE LEVEL 107 MEQ/L (98-107); CHOLESTEROL LEVEL 164 MG/DL (<200); CHOLESTEROL RISK RATIO 2.688 (<5); FREE T4 1.11 NG/DL (0.76-1.46); GLOMERULAR FILTRATION RATE > 60.0 (>58); GLUCOSE, FASTING 82 MG/DL (70-100); HDL CHOLESTEROL 61 MG/DL (>40); IRON (FE) 23 UG/DL (50-170); LDL CHOLESTEROL 92 MG/DL (<100); NON-HDL-C 103 MG/DL; POTASSIUM SERUM 4.4 MEQ/L (3.5-5.1); SODIUM LEVEL 141 MEQ/L (136-145); TOTAL PROTEIN 6.4 GM/DL (6.4-8.2); TRIGLYCERIDES LEVEL 53 MG/DL (<150)
[2021-10-12 13:38] LABS: HEMOGLOBIN A1c 5.1 %
[2021-10-12 13:49] LABS: TOTAL T3 78.1 NG/DL (60.0-181.0)
== END ==
LOC: M SFHCCLAY 08:56
PROVIDERS: ATTEND Family Medicine
DX: D64.9 Anemia, unspecified (principal); C73 Malignant neoplasm of thyroid gland; E78.00 Pure hypercholesterolemia, unspecified; R73.09 Other abnormal glucose

== ENCOUNTER → 2021-12-30 | Outpatient (REF) | payer MEDICARE, BC ==
[2021-12-30 18:23] LABS: BASO # 0.1 10^3/uL (0.0-0.2); BASO % 1.3 % (0.0-1.0); EOS # 0.1 10^3/uL (0.0-0.5); EOS % 1.3 % (0.0-3.0); HEMATOCRIT 43.5 % (36.0-47.0); HEMOGLOBIN 14.2 g/dl (12.0-15.5); LYMPH # 1.6 10^3/uL (1.5-5.0); LYMPH % 30.7 % (24.0-44.0); MEAN CORPUSCULAR HEMOGLOBIN 28.7 pg (27.0-33.0); MEAN CORPUSCULAR HGB CONC 32.6 g/dl (32.0-36.5); MEAN CORPUSCULAR VOLUME 87.9 fl (80.0-96.0); MONO # 0.6 10^3/uL (0.0-0.8); MONO % 10.5 % (2.0-8.0); PLATELET COUNT, AUTOMATED 300 10^3/uL (150-450); RED BLOOD COUNT 4.95 10^6/uL (4.00-5.40); WHITE BLOOD COUNT 5.4 10^3/uL (4.0-10.0)
[2021-12-30 19:07] LABS: MAGNESIUM LEVEL 2.3 MG/DL (1.8-2.4)
== END ==
LOC: M SFHCCLAY 13:23
PROVIDERS: ATTEND Family Medicine
DX: D64.9 Anemia, unspecified (principal); Z13.21 Encounter for screening for nutritional disorder

== ENCOUNTER 2022-01-06 14:09 | Emergency (ER) | payer MEDICARE, BC ==
[~2022-01-06] VITALS: Ht 170.2 cm; Wt 75.4 kg
[2022-01-06] MEDS ORDERED: AIMO70IN2 PO (14:36)
[2022-01-06] MEDS ORDERED: FOLI1TAB11 PO (14:36)
[2022-01-06] MEDS ORDERED: UBRO50TA PO (14:36)
[2022-01-06] MEDS ORDERED: PRED10TA2 PO (14:36)
[2022-01-06] MEDS ORDERED: diphenhydrAMINE 50MG/ML VIAL (J1200) IV STA (14:44)
[2022-01-06] MEDS ORDERED: NS 1,000 ML IV ONE (14:45)
[2022-01-06] MEDS ORDERED: METOCLOPRAMIDE INJ 10MG/2ML VIAL (J2765 PER 1) IV ONE (14:45)
[2022-01-06] MEDS ORDERED: KETOROLAC 30 MG/ML 1ML VIAL IV ONE (14:45)
[2022-01-06 16:37] LABS: CK-MB VALUE MASS < 1.0 NG/ML (<3.6); CPK CREATINE PHOSPHOKINASE 80 U/L (26-192); MB/CK RELATIVE INDEX 1.25 (< OR =4)
[2022-01-06 17:37] LABS: BASO # 0.1 10^3/uL (0.0-0.2); BASO % 0.9 % (0.0-1.0); EOS % 0.4 % (0.0-3.0); HEMOGLOBIN 13.7 g/dl (12.0-15.5); LYMPH # 1.3 10^3/uL (1.5-5.0); LYMPH % 18.7 % (24.0-44.0); MEAN CORPUSCULAR HEMOGLOBIN 29.1 pg (27.0-33.0); MEAN CORPUSCULAR HGB CONC 33.4 g/dl (32.0-36.5); MEAN CORPUSCULAR VOLUME 87.2 fl (80.0-96.0); MONO # 0.6 10^3/uL (0.0-0.8); MONO % 8.8 % (2.0-8.0); NEUTROPHILS # 4.8 10^3/uL (1.5-8.5); NEUTROPHILS % 70.9 % (36.0-66.0); PLATELET COUNT, AUTOMATED 263 10^3/uL (150-450); WHITE BLOOD COUNT 6.8 10^3/uL (4.0-10.0)
[2022-01-06 18:09] LABS: CK-MB VALUE MASS < 1.0 NG/ML (<3.6); CPK CREATINE PHOSPHOKINASE 80 U/L (26-192); MB/CK RELATIVE INDEX 1.25 (< OR =4)
[2022-01-06 18:17] LABS: BLOOD UREA NITROGEN 13 MG/DL (7-18); CARBON DIOXIDE LEVEL 26 MEQ/L (21-32); CHLORIDE LEVEL 108 MEQ/L (98-107); CREATININE FOR GFR 1.04 MG/DL (0.55-1.30); FREE T4 1.08 NG/DL (0.76-1.46); GLOMERULAR FILTRATION RATE > 60.0 (>58); GLUCOSE, FASTING 95 MG/DL (70-100); MAGNESIUM LEVEL 2.3 MG/DL (1.8-2.4); POTASSIUM SERUM 3.8 MEQ/L (3.5-5.1); SODIUM LEVEL 139 MEQ/L (136-145)
[2022-01-06] MEDS ORDERED: NS IV ONE (19:00)
[2022-01-06] MEDS ORDERED: KETAMINE HCL IV ONE (19:00)
[2022-01-06 21:32] VITALS: BP 110/66
== END 2022-01-06 21:38 | disposition home or self-care (01) ==
LOC: M ED 14:09
DX: R55 Syncope and collapse (principal); R51.9 Headache, unspecified; C73 Malignant neoplasm of thyroid gland; F12.10 Cannabis abuse, uncomplicated; Z79.1 Long term (current) use of non-steroidal anti-inflammatories (NSAID); Z79.52 Long term (current) use of systemic steroids; Z79.899 Other long term (current) drug therapy
CPT/HCPCS: 80048; 82550; 82553; 83735; 84439; 84443; 84484; 85025; 93005; 93041; 94760; 96365; 96375; 99285; G0463; J1200; J1885; J2765

== ENCOUNTER → 2022-01-12 | Outpatient (REF) | payer MEDICARE, BC ==
[~2022-01-12] MED LIST changes: +AIMO70IN2 PO; +PRED10TA2 PO; +UBRO50TA PO
[2022-01-12 20:06] LABS: ALBUMIN 3.7 GM/DL (3.2-5.2); ALT/SGPT 62 U/L (12-78); BILIRUBIN,DIRECT < 0.1 MG/DL (0.0-0.2); BILIRUBIN,TOTAL 0.2 MG/DL (0.2-1.0); TOTAL PROTEIN 6.6 GM/DL (6.4-8.2)
== END ==
LOC: M LABDRAWC 17:10
PROVIDERS: ATTEND Nurse Practitioner Family
DX: Z79.899 Other long term (current) drug therapy (principal)

== ENCOUNTER → 2022-01-25 | Outpatient (REF) | payer MEDICARE, BC ==
[2022-01-25 13:21] LABS: CALCIUM LEVEL 9.2 MG/DL (8.5-10.1); CREATININE FOR GFR 1.13 MG/DL (0.55-1.30); GLOMERULAR FILTRATION RATE 55.2 (>58); POTASSIUM SERUM 4.1 MEQ/L (3.5-5.1)
== END ==
LOC: M SFHCCLAY 08:28
PROVIDERS: ATTEND Family Medicine
DX: R41.3 Other amnesia (principal); R26.89 Other abnormalities of gait and mobility; R79.89 Other specified abnormal findings of blood chemistry

== ENCOUNTER → 2022-03-10 | Outpatient (CLI) | payer MEDICARE, BC ==
[2022-03-10 10:55] LABS: ALBUMIN 3.9 G/DL (3.2-5.2); ALKALINE PHOSPHATASE 51 U/L (46-116); ALT/SGPT 29 U/L (7.0-40); AST/SGOT 22 U/L (<34); BILIRUBIN,DIRECT 0.2 MG/DL (<0.4); BILIRUBIN,TOTAL 0.5 MG/DL (0.3-1.2); IRON (FE) 90 UG/DL (50-170); PERCENT SATURATION 31.6 % (13.2-45.0); TOTAL IRON BINDING CAPACITY 285 UG/DL (250-425); TOTAL PROTEIN 6.4 G/DL (5.7-8.2)
[2022-03-10 11:09] LABS: HEPATITIS B SURFACE ANTIGEN NEGATIVE (NEGATIVE)
== END ==
LOC: M LAB 09:05
PROVIDERS: ATTEND Internal Medicine Gastroenterology
DX: E72.20 Disorder of urea cycle metabolism, unspecified (principal)

== ENCOUNTER → 2022-06-10 | Outpatient (CLI) | payer MEDICARE, BC | LOC: M LABSMTC 09:24 | PROVIDERS: ATTEND Anesthesiology | DX: Z01.818 Encounter for other preprocedural examination (principal); Z11.52 Encounter for screening for COVID-19 ==

== ENCOUNTER → 2022-06-14 | Outpatient (CLI) | payer MEDICARE, BC ==
[~2022-06-14] MED LIST changes: +BUPIVACAINE HCL 0.25% 30ML VIAL As Ordered ONE; +ISOVUE-M 300 61% 15ML VIAL As Ordered ONE; +LIDOCAINE 1% SDV 30ML VIAL As Ordered ONE
== END ==
LOC: M PAIN 09:00
PROVIDERS: ATTEND Anesthesiology
DX: M47.816 Spondylosis without myelopathy or radiculopathy, lumbar region (principal); G89.29 Other chronic pain; K21.9 Gastro-esophageal reflux disease without esophagitis; M79.7 Fibromyalgia; G43.909 Migraine, unspecified, not intractable, without status migrainosus; Z79.899 Other long term (current) drug therapy
CPT/HCPCS: 64493; 64494; Q9967

== ENCOUNTER → 2022-06-22 | Outpatient (REF) | payer MEDICARE, BC ==
[~2022-06-22] MED LIST changes: -BUPIVACAINE HCL 0.25% 30ML VIAL As Ordered ONE; -ISOVUE-M 300 61% 15ML VIAL As Ordered ONE; -LIDOCAINE 1% SDV 30ML VIAL As Ordered ONE
[2022-06-22 19:07] LABS: BASO # 0.1 10^3/uL (0.0-0.2); BASO % 0.7 % (0.0-1.0); EOS # 0.1 10^3/uL (0.0-0.5); EOS % 0.9 % (0.0-3.0); HEMATOCRIT 39.2 % (36.0-47.0); HEMOGLOBIN 12.6 g/dl (12.0-15.5); LYMPH # 1.5 10^3/uL (1.5-5.0); LYMPH % 22.2 % (24.0-44.0); MEAN CORPUSCULAR HEMOGLOBIN 29.6 pg (27.0-33.0); MEAN CORPUSCULAR HGB CONC 32.1 g/dl (32.0-36.5); MEAN CORPUSCULAR VOLUME 92.2 fl (80.0-96.0); MONO # 0.4 10^3/uL (0.0-0.8); MONO % 6.3 % (2.0-8.0); NEUTROPHILS # 4.7 10^3/uL (1.5-8.5); NEUTROPHILS % 69.6 % (36.0-66.0); PLATELET COUNT, AUTOMATED 285 10^3/uL (150-450); RED BLOOD COUNT 4.25 10^6/uL (4.00-5.40); WHITE BLOOD COUNT 6.7 10^3/uL (4.0-10.0)
[2022-06-22 19:27] LABS: ALBUMIN 3.9 G/DL (3.2-5.2); ALKALINE PHOSPHATASE 48 U/L (46-116); ALT/SGPT 44 U/L (7.0-40); AST/SGOT 24 U/L (<34); BILIRUBIN,TOTAL 0.4 MG/DL (0.3-1.2); BLOOD UREA NITROGEN 9 MG/DL (9-23); CALCIUM LEVEL 8.9 MG/DL (8.5-10.1); CARBON DIOXIDE LEVEL 25 MMOL/L (20-31); CHLORIDE LEVEL 107 MMOL/L (98-107); CREATININE FOR GFR 1.03 MG/DL (0.55-1.30); GLOMERULAR FILTRATION RATE > 60.0 (>58); GLUCOSE, FASTING 90 MG/DL (60-100); POTASSIUM SERUM 4.3 MMOL/L (3.5-5.1); SODIUM LEVEL 140 MMOL/L (136-145); TOTAL PROTEIN 6.1 G/DL (5.7-8.2)
[2022-06-22 19:28] LABS: C REACTIVE PROTEIN QUANTITATIV < 0.40 MG/DL (<1.0)
== END ==
LOC: M LABDRAWC 16:55
PROVIDERS: ATTEND Internal Medicine
DX: Z79.899 Other long term (current) drug therapy (principal)

== ENCOUNTER → 2022-06-23 | Outpatient (CLI) | payer MEDICARE, BC | LOC: M PAIN 13:45 | PROVIDERS: ATTEND Anesthesiology | DX: M47.816 Spondylosis without myelopathy or radiculopathy, lumbar region (principal); G89.29 Other chronic pain; K21.9 Gastro-esophageal reflux disease without esophagitis; M79.7 Fibromyalgia; G43.909 Migraine, unspecified, not intractable, without status migrainosus; Z79.899 Other long term (current) drug therapy ==

== ENCOUNTER → 2022-07-19 | Outpatient (REF) | payer MEDICARE, BC ==
[2022-07-19 12:53] LABS: ALBUMIN 3.7 G/DL (3.2-5.2); BILIRUBIN,TOTAL 0.4 MG/DL (0.3-1.2); CALCIUM LEVEL 9.1 MG/DL (8.5-10.1); CREATININE FOR GFR 1.08 MG/DL (0.55-1.30); GLOMERULAR FILTRATION RATE 57.9 (>58); POTASSIUM SERUM 3.8 MMOL/L (3.5-5.1); TOTAL PROTEIN 6.3 G/DL (5.7-8.2)
== END ==
LOC: M LABDRAWC 11:26
PROVIDERS: ATTEND Internal Medicine
DX: Z79.899 Other long term (current) drug therapy (principal)

== ENCOUNTER → 2022-08-29 | Outpatient (CLI) | payer MEDICARE, BC ==
[~2022-08-29] MED LIST changes: -HYDR200T3 PO; +HYDR200T46 PO
[2022-08-29 09:59] LABS: APPEARANCE, URINE MANUAL CLEAR (CLEAR); COLOR, URINE MANUAL YELLOW (YELLOW)
[2022-08-29 10:02] LABS: BILIRUBIN, URINE MANUAL NEGATIVE (NEGATIVE); BLOOD URINE MANUAL NEGATIVE (NEGATIVE); GLUCOSE, URINE (UA) MANUAL NEGATIVE (NEGATIVE); KETONE, URINE MANUAL NEGATIVE (NEGATIVE); LEUKOCYTE ESTERASE, URINE MAN NEGATIVE (NEGATIVE); NITRITE, URINE MANUAL NEGATIVE (NEGATIVE); PROTEIN, URINE MANUAL NEGATIVE (NEGATIVE); UROBILINOGEN, URINE MANUAL NORMAL (NORMAL)
[2022-08-29 10:04] LABS: BASO # 0.1 10^3/uL (0.0-0.2); BASO % 0.8 % (0.0-1.0); EOS # 0.1 10^3/uL (0.0-0.5); EOS % 1.7 % (0.0-3.0); HEMATOCRIT 41.1 % (36.0-47.0); HEMOGLOBIN 13.5 g/dl (12.0-15.5); LYMPH # 2.1 10^3/uL (1.5-5.0); LYMPH % 33.1 % (24.0-44.0); MEAN CORPUSCULAR HEMOGLOBIN 29.4 pg (27.0-33.0); MEAN CORPUSCULAR HGB CONC 32.8 g/dl (32.0-36.5); MEAN CORPUSCULAR VOLUME 89.5 fl (80.0-96.0); MONO # 0.5 10^3/uL (0.0-0.8); MONO % 8.5 % (2.0-8.0); NEUTROPHILS # 3.5 10^3/uL (1.5-8.5); NEUTROPHILS % 55.4 % (36.0-66.0); PLATELET COUNT, AUTOMATED 290 10^3/uL (150-450); RED BLOOD COUNT 4.59 10^6/uL (4.00-5.40); WHITE BLOOD COUNT 6.3 10^3/uL (4.0-10.0)
[2022-08-29 10:09] LABS: ERYTHROCYTE SEDIMENTATION RATE 3 mm/hr (0-20)
[2022-08-29 10:21] LABS: INR 0.99; PARTIAL THROMBOPLASTIN TIME 27.4 SECONDS (24.8-34.2); PROTHROMBIN TIME 13.3 SECONDS (12.5-14.5)
[2022-08-29 10:22] LABS: D-DIMER QUANT < 270 ng/ml (<500)
[2022-08-29 10:24] LABS: LDH LACTATE DEHYDROGENASE 187 U/L (120-246)
[2022-08-29 10:28] LABS: ALBUMIN 3.8 G/DL (3.2-5.2); ALKALINE PHOSPHATASE 43 U/L (46-116); ALT/SGPT 30 U/L (7.0-40); AST/SGOT 15 U/L (<34); BILIRUBIN,TOTAL 0.5 MG/DL (0.3-1.2); BLOOD UREA NITROGEN 14 MG/DL (9-23); CALCIUM LEVEL 8.6 MG/DL (8.5-10.1); CARBON DIOXIDE LEVEL 24 MMOL/L (20-31); CHLORIDE LEVEL 109 MMOL/L (98-107); CHOLESTEROL LEVEL 229 MG/DL (<200); CHOLESTEROL RISK RATIO 3.03 (<5); CORTISOL AM 3.5 UG/DL (4.3-22.4); CREATININE FOR GFR 1.05 MG/DL (0.55-1.30); GLOMERULAR FILTRATION RATE 59.8 (>58); GLUCOSE, FASTING 91 MG/DL (60-100); HDL CHOLESTEROL 75.5 MG/DL (>40); IRON (FE) 90 UG/DL (50-170); LDL CHOLESTEROL 136.3 MG/DL (<100); NON-HDL-C 153.5 MG/DL; PERCENT SATURATION 27.4 % (13.2-45.0); POTASSIUM SERUM 4.1 MMOL/L (3.5-5.1); SODIUM LEVEL 140 MMOL/L (136-145); TOTAL IRON BINDING CAPACITY 329 UG/DL (250-425); TRIGLYCERIDES LEVEL 86 MG/DL (<150)
[2022-08-29 10:29] LABS: THYROID STIMULATING HORMONE 0.675 uIU/ML (0.55-4.78)
[2022-08-29 10:30] LABS: FERRITIN 16.7 NG/ML (7.3-270.7); LUTEINIZING HORMONE 74.1 mIU/ML; PROLACTIN 9.86 NG/ML
[2022-08-29 10:31] LABS: C REACTIVE PROTEIN QUANTITATIV < 0.40 MG/DL (<1.0); ESTRADIOL < 19.0 PG/ML; FREE T3 2.3 PG/ML (2.3-4.2)
[2022-08-29 10:32] LABS: ANTI-STREPTOLYSIN O QUANT 61.1 IU/ML (<195); PROGESTERONE < 0.21 NG/ML; RHEUMATOID FACTOR QUANT 6.8 IU/ML (<14); TOTAL 25(OH) VITAMIN D 27.5 NG/ML (20.0-100.0)
[2022-08-29 10:33] LABS: VITAMIN B12 LEVEL 458 PG/ML (211-911)
[2022-08-29 10:40] LABS: CPK CREATINE PHOSPHOKINASE 90 U/L (34-145); FOLATE > 24.0 NG/ML (>5.4); THYROID PEROXIDASE ANTIBODY < 28.0 U/ML (<60.0)
[2022-08-29 10:53] LABS: HEMOGLOBIN A1c 5.4 % (4.0-6.0)
== END ==
LOC: M LAB 08:02
PROVIDERS: ATTEND Emergency Medicine
DX: G43.711 Chronic migraine without aura, intractable, with status migrainosus (principal)

== ENCOUNTER → 2022-11-02 | Outpatient (CLI) | payer MEDICARE, BC ==
[2022-11-02 09:17] LABS: BASO # 0.1 10^3/uL (0.0-0.2); EOS # 0.3 10^3/uL (0.0-0.5); EOS % 7.1 % (0.0-3.0); HEMATOCRIT 39.7 % (36.0-47.0); HEMOGLOBIN 13.2 g/dl (12.0-15.5); LYMPH # 1.1 10^3/uL (1.5-5.0); LYMPH % 24.3 % (24.0-44.0); MEAN CORPUSCULAR HEMOGLOBIN 29.7 pg (27.0-33.0); MEAN CORPUSCULAR HGB CONC 33.2 g/dl (32.0-36.5); MEAN CORPUSCULAR VOLUME 89.4 fl (80.0-96.0); MONO # 0.5 10^3/uL (0.0-0.8); MONO % 10.5 % (2.0-8.0); NEUTROPHILS # 2.5 10^3/uL (1.5-8.5); NEUTROPHILS % 55.9 % (36.0-66.0); PLATELET COUNT, AUTOMATED 287 10^3/uL (150-450); RED BLOOD COUNT 4.44 10^6/uL (4.00-5.40); WHITE BLOOD COUNT 4.5 10^3/uL (4.0-10.0)
[2022-11-02 09:38] LABS: CORTISOL AM 10.7 UG/DL (4.3-22.4)
[2022-11-02 09:40] LABS: ALBUMIN 4.1 G/DL (3.2-5.2); ALKALINE PHOSPHATASE 59 U/L (46-116); ALT/SGPT 35 U/L (7.0-40); AST/SGOT 26 U/L (<34); BILIRUBIN,TOTAL 0.3 MG/DL (0.3-1.2); BLOOD UREA NITROGEN 13 MG/DL (9-23); CALCIUM LEVEL 9.5 MG/DL (8.5-10.1); CARBON DIOXIDE LEVEL 23 MMOL/L (20-31); CHLORIDE LEVEL 109 MMOL/L (98-107); CREATININE FOR GFR 1.06 MG/DL (0.55-1.30); FREE T4 1.13 NG/DL (0.89-1.76); GLOMERULAR FILTRATION RATE 59.2 (>58); GLUCOSE, FASTING 96 MG/DL (60-100); POTASSIUM SERUM 4.3 MMOL/L (3.5-5.1); SODIUM LEVEL 141 MMOL/L (136-145); THYROID STIMULATING HORMONE 4.168 uIU/ML (0.55-4.78); TOTAL PROTEIN 6.7 G/DL (5.7-8.2)
[2022-11-02 09:41] LABS: ESTRADIOL 20.7 PG/ML; FOLLICLE STIMULATING HORMONE 151.7 mIU/ML; LUTEINIZING HORMONE 76.1 mIU/ML; PROLACTIN 8.33 NG/ML
[2022-11-02 09:42] LABS: FREE T3 2.9 PG/ML (2.3-4.2)
[2022-11-02 09:43] LABS: PROGESTERONE < 0.21 NG/ML
[2022-11-02 09:45] LABS: THYROGLOBULIN ANTIBODY < 15.0 U/ML (<60.0)
== END ==
LOC: M LAB 08:33
PROVIDERS: ATTEND Emergency Medicine
DX: R53.83 Other fatigue (principal)

== ENCOUNTER → 2022-12-02 | Outpatient (REF) | payer MEDICARE, BC ==
[2022-12-02 12:19] LABS: APPEARANCE, URINE CLEAR (CLEAR); BACTERIA, URINE AUTO NEGATIVE (NEGATIVE); BILIRUBIN, URINE AUTO NEGATIVE (NEGATIVE); BLOOD, URINE BLOOD NEGATIVE (NEGATIVE); COLOR, URINE YELLOW (YELLOW); GLUCOSE, URINE (UA) AUTO NEGATIVE (NEGATIVE); KETONE, URINE AUTO NEGATIVE (NEGATIVE); LEUKOCYTE ESTERASE, URINE AUTO NEGATIVE (NEGATIVE); NITRITE, URINE AUTO NEGATIVE (NEGATIVE); PROTEIN, URINE AUTO NEGATIVE (NEGATIVE); RBC, URINE AUTO 0 /HPF (0-3); SPECIFIC GRAVITY URINE AUTO 1.009 (1.002-1.035); SQUAMOUS EPITHELIAL CELL UR AU 0 /HPF (0-6); UROBILINOGEN, URINE AUTO 0.2 mg/dL (0.0-2.0); WBC, URINE AUTO 0 /HPF (0-3)
[2022-12-02 12:24] LABS: BASO # 0.1 10^3/uL (0.0-0.2); BASO % 1.1 % (0.0-1.0); EOS % 18.2 % (0.0-3.0); HEMATOCRIT 39.8 % (36.0-47.0); HEMOGLOBIN 13.1 g/dl (12.0-15.5); LYMPH # 1.6 10^3/uL (1.5-5.0); LYMPH % 28.4 % (24.0-44.0); MEAN CORPUSCULAR HEMOGLOBIN 29.5 pg (27.0-33.0); MEAN CORPUSCULAR HGB CONC 32.9 g/dl (32.0-36.5); MEAN CORPUSCULAR VOLUME 89.6 fl (80.0-96.0); MONO # 0.6 10^3/uL (0.0-0.8); MONO % 11.3 % (2.0-8.0); NEUTROPHILS # 2.2 10^3/uL (1.5-8.5); NEUTROPHILS % 40.8 % (36.0-66.0); PLATELET COUNT, AUTOMATED 322 10^3/uL (150-450); RED BLOOD COUNT 4.44 10^6/uL (4.00-5.40); WHITE BLOOD COUNT 5.5 10^3/uL (4.0-10.0)
[2022-12-02 12:35] LABS: INR 1.06; PROTHROMBIN TIME 13.5 SECONDS (12.5-14.5)
[2022-12-02 12:36] LABS: PARTIAL THROMBOPLASTIN TIME 28.1 SECONDS (24.8-34.2)
[2022-12-02 12:41] LABS: BLOOD UREA NITROGEN 18 MG/DL (9-23); CALCIUM LEVEL 9.1 MG/DL (8.5-10.1); CARBON DIOXIDE LEVEL 26 MMOL/L (20-31); CHLORIDE LEVEL 108 MMOL/L (98-107); GLOMERULAR FILTRATION RATE > 60.0 (>58); GLUCOSE, FASTING 99 MG/DL (60-100); POTASSIUM SERUM 4.5 MMOL/L (3.5-5.1); SODIUM LEVEL 141 MMOL/L (136-145)
== END ==
LOC: M SFHCCLAY 08:44
PROVIDERS: ATTEND Family Medicine
DX: Z01.818 Encounter for other preprocedural examination (principal)

== ENCOUNTER → 2022-12-09 | Outpatient (REF) | payer MEDICARE, BC ==
[2022-12-09 13:13] LABS: ALBUMIN 3.9 G/DL (3.2-5.2); ALKALINE PHOSPHATASE 68 U/L (46-116); ALT/SGPT 32 U/L (7.0-40); AST/SGOT 23 U/L (<34); BILIRUBIN,TOTAL 0.4 MG/DL (0.3-1.2); BLOOD UREA NITROGEN 16 MG/DL (9-23); CALCIUM LEVEL 9.6 MG/DL (8.5-10.1); CARBON DIOXIDE LEVEL 25 MMOL/L (20-31); CHLORIDE LEVEL 107 MMOL/L (98-107); CREATININE FOR GFR 0.91 MG/DL (0.55-1.30); GLOMERULAR FILTRATION RATE > 60.0 (>58); GLUCOSE, FASTING 98 MG/DL (60-100); POTASSIUM SERUM 4.1 MMOL/L (3.5-5.1); SODIUM LEVEL 139 MMOL/L (136-145); TOTAL PROTEIN 6.5 G/DL (5.7-8.2)
== END ==
LOC: M LABDRAWC 12:08
PROVIDERS: ATTEND Internal Medicine
DX: Z79.899 Other long term (current) drug therapy (principal)

== ENCOUNTER → 2022-12-09 | Outpatient (REF) | payer MEDICARE, BC ==
[2022-12-09 13:17] LABS: BASO # 0.1 10^3/uL (0.0-0.2); BASO % 1.5 % (0.0-1.0); EOS # 0.7 10^3/uL (0.0-0.5); EOS % 13.6 % (0.0-3.0); LYMPH # 1.6 10^3/uL (1.5-5.0); LYMPH % 30.5 % (24.0-44.0); MEAN CORPUSCULAR HEMOGLOBIN 29.3 pg (27.0-33.0); MEAN CORPUSCULAR HGB CONC 32.5 g/dl (32.0-36.5); MEAN CORPUSCULAR VOLUME 90.3 fl (80.0-96.0); MONO # 0.6 10^3/uL (0.0-0.8); MONO % 11.7 % (2.0-8.0); NEUTROPHILS # 2.2 10^3/uL (1.5-8.5); NEUTROPHILS % 42.3 % (36.0-66.0); PLATELET COUNT, AUTOMATED 284 10^3/uL (150-450); RED BLOOD COUNT 4.43 10^6/uL (4.00-5.40); WHITE BLOOD COUNT 5.3 10^3/uL (4.0-10.0)
== END ==
LOC: M LABDRAWC 12:10
PROVIDERS: ATTEND Emergency Medicine
DX: R68.89 Other general symptoms and signs (principal); Z91.09 Other allergy status, other than to drugs and biological substances; R76.8 Other specified abnormal immunological findings in serum

== ENCOUNTER → 2023-01-17 | Outpatient (REF) | payer MEDICARE, BC ==
[2023-01-17 12:04] LABS: BASO # 0.1 10^3/uL (0.0-0.2); BASO % 0.9 % (0.0-1.0); EOS # 0.9 10^3/uL (0.0-0.5); EOS % 16.1 % (0.0-3.0); HEMATOCRIT 39.1 % (36.0-47.0); HEMOGLOBIN 12.8 g/dl (12.0-15.5); LYMPH # 1.7 10^3/uL (1.5-5.0); LYMPH % 31.8 % (24.0-44.0); MEAN CORPUSCULAR HGB CONC 32.7 g/dl (32.0-36.5); MEAN CORPUSCULAR VOLUME 88.7 fl (80.0-96.0); MONO # 0.4 10^3/uL (0.0-0.8); MONO % 8.1 % (2.0-8.0); NEUTROPHILS # 2.3 10^3/uL (1.5-8.5); NEUTROPHILS % 42.9 % (36.0-66.0); PLATELET COUNT, AUTOMATED 279 10^3/uL (150-450); RED BLOOD COUNT 4.41 10^6/uL (4.00-5.40); WHITE BLOOD COUNT 5.3 10^3/uL (4.0-10.0)
[2023-01-17 12:25] LABS: IRON (FE) 68 UG/DL (50-170)
[2023-01-17 12:26] LABS: PERCENT SATURATION 19.8 % (13.2-45.0); TOTAL IRON BINDING CAPACITY 343 UG/DL (250-425)
[2023-01-17 12:29] LABS: ALBUMIN 3.8 G/DL (3.2-5.2); ALKALINE PHOSPHATASE 96 U/L (46-116); ALT/SGPT 29 U/L (7.0-40); AST/SGOT 18 U/L (<34); BILIRUBIN,TOTAL 0.3 MG/DL (0.3-1.2); BLOOD UREA NITROGEN 13 MG/DL (9-23); CALCIUM LEVEL 9.5 MG/DL (8.5-10.1); CARBON DIOXIDE LEVEL 24 MMOL/L (20-31); CHLORIDE LEVEL 108 MMOL/L (98-107); CHOLESTEROL LEVEL 254 MG/DL (<200); CORTISOL AM 24.8 UG/DL (4.3-22.4); CREATININE FOR GFR 1.03 MG/DL (0.55-1.30); ESTRADIOL < 19.0 PG/ML; FOLATE > 24.00 NG/ML (>5.4); FREE T4 1.22 NG/DL (0.89-1.76); GLOMERULAR FILTRATION RATE > 60.0 (>58); GLUCOSE, FASTING 85 MG/DL (60-100); POTASSIUM SERUM 3.6 MMOL/L (3.5-5.1); SODIUM LEVEL 140 MMOL/L (136-145); THYROID STIMULATING HORMONE 2.019 uIU/ML (0.55-4.78); TOTAL PROTEIN 6.5 G/DL (5.7-8.2); TOTAL T3 74.3 NG/DL (60.0-181.0); TRIGLYCERIDES LEVEL 70 MG/DL (<150); VITAMIN B12 LEVEL 1467 PG/ML (211-911)
[2023-01-17 12:51] LABS: HDL CHOLESTEROL 70.5 MG/DL (>40); LDL CHOLESTEROL 169.5 MG/DL (<100); NON-HDL-C 183.5 MG/DL
[2023-01-17 12:59] LABS: HEMOGLOBIN A1c 4.8 % (4.0-6.0)
[2023-01-19 14:08] LABS: ESTRONE SERUM 55 pg/mL (.); TESTOSTERONE FREE (DIRECT) 1.7 pg/mL (0.0-4.2); VITAMIN D 1,25 DIHYDROXY 38.6 pg/mL (24.8-81.5)
== END ==
LOC: M SFHCCLAY 08:24
PROVIDERS: ATTEND Family Medicine
DX: E03.9 Hypothyroidism, unspecified (principal); E27.49 Other adrenocortical insufficiency; E28.39 Other primary ovarian failure; E34.9 Endocrine disorder, unspecified; D72.10 Eosinophilia, unspecified; R73.09 Other abnormal glucose; E78.00 Pure hypercholesterolemia, unspecified; D64.9 Anemia, unspecified; Z13.21 Encounter for screening for nutritional disorder; Z79.899 Other long term (current) drug therapy; L40.50 Arthropathic psoriasis, unspecified

== ENCOUNTER → 2023-01-19 | Outpatient (REF) | payer MEDICARE, BC | LOC: M SFHCCLAY 15:33 | PROVIDERS: ATTEND Family Medicine | DX: R79.89 Other specified abnormal findings of blood chemistry (principal) ==

== ENCOUNTER → 2023-01-20 | Outpatient (REF) | payer MEDICARE, BC | LOC: M SFHCCLAY 16:52 | PROVIDERS: ATTEND Family Medicine | DX: D72.10 Eosinophilia, unspecified (principal); R19.7 Diarrhea, unspecified; R10.33 Periumbilical pain ==

== ENCOUNTER → 2023-04-10 | Outpatient (REF) | payer MEDICARE, BC ==
[2023-04-10 12:14] LABS: BASO # 0.1 10^3/uL (0.0-0.2); BASO % 0.9 % (0.0-1.0); EOS # 0.2 10^3/uL (0.0-0.5); EOS % 2.8 % (0.0-3.0); HEMATOCRIT 41.2 % (36.0-47.0); HEMOGLOBIN 13.6 g/dl (12.0-15.5); LYMPH # 1.4 10^3/uL (1.5-5.0); LYMPH % 26.9 % (24.0-44.0); MEAN CORPUSCULAR HEMOGLOBIN 29.6 pg (27.0-33.0); MEAN CORPUSCULAR VOLUME 89.6 fl (80.0-96.0); MONO # 0.6 10^3/uL (0.0-0.8); MONO % 10.7 % (2.0-8.0); NEUTROPHILS # 3.1 10^3/uL (1.5-8.5); NEUTROPHILS % 58.5 % (36.0-66.0); PLATELET COUNT, AUTOMATED 253 10^3/uL (150-450); WHITE BLOOD COUNT 5.3 10^3/uL (4.0-10.0)
[2023-04-10 12:49] LABS: CORTISOL AM 12.4 UG/DL (4.3-22.4)
[2023-04-10 12:52] LABS: THYROID STIMULATING HORMONE 1.894 uIU/ML (0.55-4.78)
[2023-04-10 12:54] LABS: VITAMIN B12 LEVEL 1548 PG/ML (211-911)
[2023-04-10 12:55] LABS: ALKALINE PHOSPHATASE 66 U/L (46-116); ALT/SGPT 25 U/L (7.0-40); AST/SGOT 19 U/L (<34); BILIRUBIN,TOTAL 0.4 MG/DL (0.3-1.2); BLOOD UREA NITROGEN 18 MG/DL (9-23); CALCIUM LEVEL 9.6 MG/DL (8.5-10.1); CARBON DIOXIDE LEVEL 25 MMOL/L (20-31); CHLORIDE LEVEL 107 MMOL/L (98-107); CREATININE FOR GFR 1.02 MG/DL (0.55-1.30); GLOMERULAR FILTRATION RATE > 60.0 (>58); GLUCOSE, FASTING 98 MG/DL (60-100); POTASSIUM SERUM 4.4 MMOL/L (3.5-5.1); SODIUM LEVEL 138 MMOL/L (136-145); TOTAL PROTEIN 6.6 G/DL (5.7-8.2)
== END ==
LOC: M SFHCCLAY 09:00
PROVIDERS: ATTEND Family Medicine
DX: D64.9 Anemia, unspecified (principal); D72.10 Eosinophilia, unspecified; R79.89 Other specified abnormal findings of blood chemistry; R73.09 Other abnormal glucose; E03.9 Hypothyroidism, unspecified

== ENCOUNTER → 2023-06-22 | Outpatient (REF) | payer BC, MEDICARE, SELFPAY ==
[2023-06-22 12:49] LABS: BASO # 0.1 10^3/uL (0.0-0.2); BASO % 1.4 % (0.0-1.0); EOS # 0.2 10^3/uL (0.0-0.5); EOS % 4.5 % (0.0-3.0); HEMATOCRIT 37.8 % (36.0-47.0); HEMOGLOBIN 12.5 g/dl (12.0-15.5); LYMPH # 1.3 10^3/uL (1.5-5.0); LYMPH % 28.7 % (24.0-44.0); MEAN CORPUSCULAR HEMOGLOBIN 29.1 pg (27.0-33.0); MEAN CORPUSCULAR HGB CONC 33.1 g/dl (32.0-36.5); MEAN CORPUSCULAR VOLUME 88.1 fl (80.0-96.0); MONO # 0.4 10^3/uL (0.0-0.8); MONO % 9.3 % (2.0-8.0); NEUTROPHILS # 2.5 10^3/uL (1.5-8.5); NEUTROPHILS % 55.9 % (36.0-66.0); PLATELET COUNT, AUTOMATED 271 10^3/uL (150-450); RED BLOOD COUNT 4.29 10^6/uL (4.00-5.40); WHITE BLOOD COUNT 4.4 10^3/uL (4.0-10.0)
[2023-06-22 13:14] LABS: CORTISOL AM 8.1 UG/DL (4.3-22.4)
[2023-06-22 13:15] LABS: ALBUMIN 3.7 G/DL (3.2-5.2); BILIRUBIN,TOTAL 0.4 MG/DL (0.3-1.2); CALCIUM LEVEL 9.3 MG/DL (8.5-10.1); CREATININE FOR GFR 1.11 MG/DL (0.55-1.30); FOLLICLE STIMULATING HORMONE 156.7 mIU/ML; GLOMERULAR FILTRATION RATE 56.1 (>58); POTASSIUM SERUM 4.5 MMOL/L (3.5-5.1); TOTAL PROTEIN 6.2 G/DL (5.7-8.2)
[2023-06-22 13:16] LABS: LUTEINIZING HORMONE 78.4 mIU/ML
[2023-06-22 13:17] LABS: PROLACTIN 7.06 NG/ML
[2023-06-22 13:18] LABS: PROGESTERONE 0.51 NG/ML
[2023-06-27 18:11] LABS: ADRENOCORTICOTROPHIC HORMONE 12.9 pg/mL (7.2-63.3); ESTRIOL SERUM <0.1 ng/mL (.); ESTROGENS TOTAL 85 pg/mL (.); ESTRONE SERUMOLD 29 pg/mL (.); SEX HORMONE BINDING GLOBULIN 63.1 nmol/L (24.6-122.0); TESTOSTERONE FREE (DIRECT) 1.1 pg/mL (0.0-4.2)
== END ==
LOC: M LABDRAWC 12:07
PROVIDERS: ATTEND Emergency Medicine
DX: N95.1 Menopausal and female climacteric states (principal); R53.83 Other fatigue

== ENCOUNTER → 2023-07-31 | Outpatient (REF) | payer BC ==
[2023-07-31 13:09] LABS: BASO # 0.1 10^3/uL (0.0-0.2); BASO % 1.3 % (0.0-1.0); EOS # 0.3 10^3/uL (0.0-0.5); EOS % 8.4 % (0.0-3.0); HEMATOCRIT 35.5 % (36.0-47.0); HEMOGLOBIN 11.9 g/dl (12.0-15.5); LYMPH # 1.1 10^3/uL (1.5-5.0); MEAN CORPUSCULAR HEMOGLOBIN 29.5 pg (27.0-33.0); MEAN CORPUSCULAR HGB CONC 33.5 g/dl (32.0-36.5); MEAN CORPUSCULAR VOLUME 87.9 fl (80.0-96.0); MONO # 0.4 10^3/uL (0.0-0.8); MONO % 9.7 % (2.0-8.0); NEUTROPHILS % 52.3 % (36.0-66.0); PLATELET COUNT, AUTOMATED 273 10^3/uL (150-450); RED BLOOD COUNT 4.04 10^6/uL (4.00-5.40); WHITE BLOOD COUNT 3.8 10^3/uL (4.0-10.0)
[2023-07-31 13:11] LABS: ALBUMIN 3.6 G/DL (3.2-5.2); ALKALINE PHOSPHATASE 61 U/L (46-116); ALT/SGPT 43 U/L (7.0-40); AST/SGOT 39 U/L (<34); BILIRUBIN,TOTAL 0.4 MG/DL (0.3-1.2); BLOOD UREA NITROGEN 19 MG/DL (9-23); CALCIUM LEVEL 9.2 MG/DL (8.5-10.1); CARBON DIOXIDE LEVEL 24 MMOL/L (20-31); CHLORIDE LEVEL 109 MMOL/L (98-107); CHOLESTEROL LEVEL 236 MG/DL (<200); CHOLESTEROL RISK RATIO 4.15 (<5); CREATININE FOR GFR 0.94 MG/DL (0.55-1.30); GLOMERULAR FILTRATION RATE > 60.0 (>58); GLUCOSE, FASTING 98 MG/DL (60-100); HDL CHOLESTEROL 56.8 MG/DL (>40); LDL CHOLESTEROL 166.6 MG/DL (<100); NON-HDL-C 179.2 MG/DL; POTASSIUM SERUM 3.8 MMOL/L (3.5-5.1); SODIUM LEVEL 140 MMOL/L (136-145); TRIGLYCERIDES LEVEL 63 MG/DL (<150)
[2023-07-31 13:12] LABS: FREE T4 1.33 NG/DL (0.89-1.76)
[2023-07-31 13:13] LABS: ESTRADIOL < 19.0 PG/ML; THYROID STIMULATING HORMONE 2.195 uIU/ML (0.55-4.78)
[2023-07-31 13:14] LABS: CORTISOL AM 11.4 UG/DL (4.3-22.4)
[2023-07-31 13:19] LABS: HEMOGLOBIN A1c 5.4 % (4.0-6.0)
== END ==
LOC: M SFHCCLAY 08:37
PROVIDERS: ATTEND Family Medicine
DX: R73.09 Other abnormal glucose (principal); K21.9 Gastro-esophageal reflux disease without esophagitis; E78.00 Pure hypercholesterolemia, unspecified; C73 Malignant neoplasm of thyroid gland; D72.10 Eosinophilia, unspecified; R79.89 Other specified abnormal findings of blood chemistry; E28.39 Other primary ovarian failure

== ENCOUNTER → 2023-08-17 | Outpatient (CLI) | payer BC | LOC: M CLY 09:14 | PROVIDERS: ATTEND Physician Assistant | DX: M54.2 Cervicalgia (principal) ==

== ENCOUNTER → 2023-09-12 | Outpatient (REF) | payer BC ==
[~2023-09-12] MED LIST changes: -AZEL0.055 NARES; +AZEL1SPR4 NARES
== END ==
LOC: M LABDRAWC 16:49
PROVIDERS: ATTEND Nurse Practitioner Family
DX: R14.0 Abdominal distension (gaseous) (principal)

== ENCOUNTER → 2023-09-12 | Outpatient (REF) | payer BC ==
[2023-09-12 19:12] LABS: BASO # 0.1 10^3/uL (0.0-0.2); BASO % 1.2 % (0.0-1.0); EOS # 0.1 10^3/uL (0.0-0.5); EOS % 2.1 % (0.0-3.0); HEMATOCRIT 37.4 % (36.0-47.0); HEMOGLOBIN 12.5 g/dl (12.0-15.5); LYMPH # 1.2 10^3/uL (1.5-5.0); LYMPH % 28.2 % (24.0-44.0); MEAN CORPUSCULAR HEMOGLOBIN 28.8 pg (27.0-33.0); MEAN CORPUSCULAR HGB CONC 33.4 g/dl (32.0-36.5); MEAN CORPUSCULAR VOLUME 86.2 fl (80.0-96.0); MONO # 0.3 10^3/uL (0.0-0.8); MONO % 7.8 % (2.0-8.0); NEUTROPHILS # 2.6 10^3/uL (1.5-8.5); NEUTROPHILS % 60.7 % (36.0-66.0); PLATELET COUNT, AUTOMATED 319 10^3/uL (150-450); RED BLOOD COUNT 4.34 10^6/uL (4.00-5.40); WHITE BLOOD COUNT 4.3 10^3/uL (4.0-10.0)
== END ==
LOC: M SFHCCLAY 09:08
PROVIDERS: ATTEND Family Medicine
DX: D72.10 Eosinophilia, unspecified (principal)

== ENCOUNTER → 2023-09-12 | Outpatient (REF) | payer BC ==
[2023-09-12 19:23] LABS: BASO % 0.9 % (0.0-1.0); EOS # 0.1 10^3/uL (0.0-0.5); EOS % 2.5 % (0.0-3.0); HEMATOCRIT 36.4 % (36.0-47.0); HEMOGLOBIN 12.4 g/dl (12.0-15.5); LYMPH # 1.2 10^3/uL (1.5-5.0); LYMPH % 27.9 % (24.0-44.0); MEAN CORPUSCULAR HEMOGLOBIN 29.1 pg (27.0-33.0); MEAN CORPUSCULAR HGB CONC 34.1 g/dl (32.0-36.5); MEAN CORPUSCULAR VOLUME 85.4 fl (80.0-96.0); MONO # 0.3 10^3/uL (0.0-0.8); MONO % 7.9 % (2.0-8.0); NEUTROPHILS # 2.6 10^3/uL (1.5-8.5); NEUTROPHILS % 60.6 % (36.0-66.0); PLATELET COUNT, AUTOMATED 318 10^3/uL (150-450); RED BLOOD COUNT 4.26 10^6/uL (4.00-5.40); WHITE BLOOD COUNT 4.3 10^3/uL (4.0-10.0)
[2023-09-12 19:43] LABS: CORTISOL AM 12.5 UG/DL (4.3-22.4)
[2023-09-12 19:45] LABS: ALBUMIN 3.9 G/DL (3.2-5.2); ALKALINE PHOSPHATASE 74 U/L (46-116); ALT/SGPT 48 U/L (7.0-40); AST/SGOT 29 U/L (<34); BILIRUBIN,TOTAL 0.4 MG/DL (0.3-1.2); BLOOD UREA NITROGEN 18 MG/DL (9-23); CALCIUM LEVEL 9.5 MG/DL (8.5-10.1); CARBON DIOXIDE LEVEL 24 MMOL/L (20-31); CHLORIDE LEVEL 110 MMOL/L (98-107); GLOMERULAR FILTRATION RATE > 60.0 (>58); GLUCOSE, FASTING 92 MG/DL (60-100); POTASSIUM SERUM 4.3 MMOL/L (3.5-5.1); SODIUM LEVEL 139 MMOL/L (136-145); TOTAL PROTEIN 6.6 G/DL (5.7-8.2)
[2023-09-12 19:50] LABS: ESTRADIOL < 19.0 PG/ML; FOLLICLE STIMULATING HORMONE 151.7 mIU/ML; LUTEINIZING HORMONE 65.6 mIU/ML; PROGESTERONE 0.35 NG/ML; PROLACTIN 5.94 NG/ML
== END ==
LOC: M LABDRAWC 16:45
PROVIDERS: ATTEND Emergency Medicine
DX: R53.83 Other fatigue (principal); N95.1 Menopausal and female climacteric states

== ENCOUNTER → 2023-12-01 | Outpatient (REF) | payer BC ==
[~2023-12-01] MED LIST changes: +GABA-1490 PO; -GABA600T4 PO
[2023-12-01 18:41] LABS: BASO # 0.1 10^3/uL (0.0-0.2); BASO % 1.2 % (0.0-1.0); EOS # 0.1 10^3/uL (0.0-0.5); EOS % 1.7 % (0.0-3.0); HEMATOCRIT 39.3 % (36.0-47.0); HEMOGLOBIN 12.7 g/dl (12.0-15.5); LYMPH # 1.3 10^3/uL (1.5-5.0); LYMPH % 21.6 % (24.0-44.0); MEAN CORPUSCULAR HEMOGLOBIN 28.5 pg (27.0-33.0); MEAN CORPUSCULAR HGB CONC 32.3 g/dl (32.0-36.5); MEAN CORPUSCULAR VOLUME 88.1 fl (80.0-96.0); MONO # 0.5 10^3/uL (0.0-0.8); MONO % 9.2 % (2.0-8.0); NEUTROPHILS # 3.9 10^3/uL (1.5-8.5); NEUTROPHILS % 66.1 % (36.0-66.0); PLATELET COUNT, AUTOMATED 290 10^3/uL (150-450); RED BLOOD COUNT 4.46 10^6/uL (4.00-5.40); WHITE BLOOD COUNT 5.9 10^3/uL (4.0-10.0)
[2023-12-01 18:45] LABS: HEMOGLOBIN A1c 5.4 % (4.0-6.0)
[2023-12-01 19:09] LABS: THYROID STIMULATING HORMONE 2.723 uIU/ML (0.55-4.78); THYROXINE (T4) 10.4 UG/DL (4.5-10.9)
[2023-12-01 19:10] LABS: FOLATE > 24.0 NG/ML (>5.4)
[2023-12-01 19:14] LABS: ALBUMIN 3.8 G/DL (3.2-5.2); ALKALINE PHOSPHATASE 89 U/L (46-116); ALT/SGPT 40 U/L (7.0-40); AST/SGOT 25 U/L (<34); BILIRUBIN,TOTAL 0.5 MG/DL (0.3-1.2); BLOOD UREA NITROGEN 19 MG/DL (9-23); CALCIUM LEVEL 9.9 MG/DL (8.5-10.1); CARBON DIOXIDE LEVEL 26 MMOL/L (20-31); CHLORIDE LEVEL 109 MMOL/L (98-107); CREATININE FOR GFR 1.19 MG/DL (0.55-1.30); GLOMERULAR FILTRATION RATE 51.5 (>58); GLUCOSE, FASTING 89 MG/DL (60-100); POTASSIUM SERUM 4.7 MMOL/L (3.5-5.1); SODIUM LEVEL 140 MMOL/L (136-145)
[2023-12-01 19:15] LABS: VITAMIN B12 LEVEL 1183 PG/ML (211-911)
[2023-12-01 19:18] LABS: THYROID PEROXIDASE ANTIBODY < 28.0 U/ML (<60.0); TOTAL T3 97.9 NG/DL (60.0-181.0)
[2023-12-04 19:02] LABS: HOMOCYST(E)INE SERUM 13.7 umol/L (<10.4)
== END ==
LOC: M LABDRAWC 16:52
PROVIDERS: ATTEND Physician Assistant Medical
DX: R20.2 Paresthesia of skin (principal)

== ENCOUNTER → 2023-12-22 | Outpatient (REF) | payer BC ==
[2023-12-22 11:47] LABS: BASO # 0.1 10^3/uL (0.0-0.2); BASO % 1.1 % (0.0-1.0); EOS # 0.1 10^3/uL (0.0-0.5); HEMATOCRIT 38.6 % (36.0-47.0); HEMOGLOBIN 12.9 g/dl (12.0-15.5); LYMPH # 1.2 10^3/uL (1.5-5.0); LYMPH % 25.9 % (24.0-44.0); MEAN CORPUSCULAR HEMOGLOBIN 29.7 pg (27.0-33.0); MEAN CORPUSCULAR HGB CONC 33.4 g/dl (32.0-36.5); MEAN CORPUSCULAR VOLUME 88.9 fl (80.0-96.0); MONO # 0.4 10^3/uL (0.0-0.8); MONO % 9.1 % (2.0-8.0); NEUTROPHILS # 2.8 10^3/uL (1.5-8.5); NEUTROPHILS % 61.7 % (36.0-66.0); PLATELET COUNT, AUTOMATED 269 10^3/uL (150-450); RED BLOOD COUNT 4.34 10^6/uL (4.00-5.40); WHITE BLOOD COUNT 4.5 10^3/uL (4.0-10.0)
[2023-12-22 12:02] LABS: ALBUMIN 3.8 G/DL (3.2-5.2); BILIRUBIN,TOTAL 0.4 MG/DL (0.3-1.2); CALCIUM LEVEL 9.9 MG/DL (8.5-10.1); CREATININE FOR GFR 1.21 MG/DL (0.55-1.30); GLOMERULAR FILTRATION RATE 50.6 (>58)
[2023-12-22 12:05] LABS: FREE T3 2.8 PG/ML (2.3-4.2)
[2023-12-22 12:06] LABS: CORTISOL AM 9.8 UG/DL (4.3-22.4); ESTRADIOL 25.4 PG/ML; FREE T4 1.59 NG/DL (0.89-1.76); THYROID STIMULATING HORMONE 2.351 uIU/ML (0.55-4.78)
[2023-12-24 06:12] LABS: DEHYDROEPIANDROSTERONE SULFATE 154 mcg/dL (15-205)
== END ==
LOC: M SFHCCLAY 08:42
PROVIDERS: ATTEND Family Medicine
DX: D72.10 Eosinophilia, unspecified (principal); R79.89 Other specified abnormal findings of blood chemistry; E28.39 Other primary ovarian failure; C73 Malignant neoplasm of thyroid gland; E04.1 Nontoxic single thyroid nodule; D64.9 Anemia, unspecified; R73.09 Other abnormal glucose; Z13.21 Encounter for screening for nutritional disorder

== ENCOUNTER → 2024-01-17 | Outpatient (REF) | payer BC ==
[2024-01-17 17:06] LABS: C REACTIVE PROTEIN QUANTITATIV < 0.40 MG/DL (<1.0)
[2024-01-17 17:07] LABS: ALBUMIN 3.6 G/DL (3.2-5.2); ALKALINE PHOSPHATASE 72 U/L (35-104); ALT/SGPT 33 U/L (7.0-40); AST/SGOT 17 U/L (<34); BILIRUBIN,TOTAL 0.4 MG/DL (0.3-1.2); BLOOD UREA NITROGEN 19 MG/DL (9-23); CALCIUM LEVEL 9.5 MG/DL (8.5-10.1); CARBON DIOXIDE LEVEL 26 MMOL/L (20-31); CHLORIDE LEVEL 112 MMOL/L (98-107); CHOLESTEROL LEVEL 288 MG/DL (<200); CHOLESTEROL RISK RATIO 4.96 (<5); CREATININE FOR GFR 1.13 MG/DL (0.55-1.30); GLOMERULAR FILTRATION RATE 54.7 (>58); GLUCOSE, FASTING 107 MG/DL (60-100); LDL CHOLESTEROL 215.2 MG/DL (<100); MAGNESIUM LEVEL 2.1 MG/DL (1.8-2.4); POTASSIUM SERUM 4.3 MMOL/L (3.5-5.1); SODIUM LEVEL 142 MMOL/L (136-145); TOTAL PROTEIN 6.7 G/DL (5.7-8.2); TRIGLYCERIDES LEVEL 74 MG/DL (<150)
[2024-01-17 17:11] LABS: VITAMIN B12 LEVEL 991 PG/ML (211-911)
[2024-01-17 17:12] LABS: FOLATE > 24.00 NG/ML (>5.4)
[2024-01-17 17:36] LABS: MALB URINE SIEMENS < 3.0 MG/L
[2024-01-17 17:49] LABS: CREATININE, URINE 59.4 MG/DL
[2024-01-17 18:30] LABS: HEMOGLOBIN A1c 5.5 % (4.0-6.0)
== END ==
LOC: M SFHCCLAY 08:54
PROVIDERS: ATTEND Family Medicine
DX: R79.89 Other specified abnormal findings of blood chemistry (principal); E78.00 Pure hypercholesterolemia, unspecified; L40.50 Arthropathic psoriasis, unspecified; D64.9 Anemia, unspecified; R73.09 Other abnormal glucose; R74.8 Abnormal levels of other serum enzymes

== ENCOUNTER → 2024-03-14 | Outpatient (REF) | payer BC ==
[~2024-03-14] MED LIST changes: +POTA10807 PO; -POTA10808 PO
[2024-03-14 16:38] LABS: ALBUMIN 3.8 G/DL (3.2-5.2); ALKALINE PHOSPHATASE 81 U/L (35-104); ALT/SGPT 53 U/L (7.0-40); AST/SGOT 27 U/L (<34); BILIRUBIN,TOTAL 0.2 MG/DL (0.3-1.2); BLOOD UREA NITROGEN 16 MG/DL (9-23); CALCIUM LEVEL 9.3 MG/DL (8.5-10.1); CARBON DIOXIDE LEVEL 30 MMOL/L (20-31); CHLORIDE LEVEL 103 MMOL/L (98-107); CREATININE FOR GFR 0.82 MG/DL (0.55-1.30); GLOMERULAR FILTRATION RATE > 60.0 (>58); GLUCOSE, FASTING 95 MG/DL (60-100); POTASSIUM SERUM 4.2 MMOL/L (3.5-5.1); SODIUM LEVEL 140 MMOL/L (136-145); TOTAL PROTEIN 6.9 G/DL (5.7-8.2)
== END ==
LOC: M SFHCCLAY 14:37
PROVIDERS: ATTEND Physician Assistant
DX: N18.31 Chronic kidney disease, stage 3a (principal)

== ENCOUNTER → 2024-03-14 | Outpatient (CLI) | payer BC ==
[~2024-03-14] MED LIST changes: +PROHANCE 279.3MG/ML 15ML VIAL As Ordered ONE
== END ==
LOC: M RAD 08:42
PROVIDERS: ATTEND Physician Assistant Medical
DX: R90.89 Other abnormal findings on diagnostic imaging of central nervous system (principal)
CPT/HCPCS: 70553; A9576

== ENCOUNTER → 2024-05-02 | Outpatient (REF) | payer BC ==
[~2024-05-02] MED LIST changes: -PROHANCE 279.3MG/ML 15ML VIAL As Ordered ONE
[2024-05-02 12:42] LABS: HEMATOCRIT 40.1 % (36.0-47.0); HEMOGLOBIN 13.1 g/dl (12.0-15.5); MEAN CORPUSCULAR HEMOGLOBIN 28.5 pg (27.0-33.0); MEAN CORPUSCULAR HGB CONC 32.7 g/dl (32.0-36.5); MEAN CORPUSCULAR VOLUME 87.2 fl (80.0-96.0); PLATELET COUNT, AUTOMATED 326 10^3/uL (150-450); WHITE BLOOD COUNT 9.1 10^3/uL (4.0-10.0)
[2024-05-02 13:15] LABS: ALBUMIN 3.7 G/DL (3.2-5.2); ALKALINE PHOSPHATASE 66 U/L (35-104); ALT/SGPT 64 U/L (7.0-40); AST/SGOT 35 U/L (<34); BILIRUBIN,TOTAL 0.4 MG/DL (0.3-1.2); BLOOD UREA NITROGEN 17 MG/DL (9-23); CALCIUM LEVEL 9.1 MG/DL (8.5-10.1); CARBON DIOXIDE LEVEL 28 MMOL/L (20-31); CHLORIDE LEVEL 102 MMOL/L (98-107); CHOLESTEROL LEVEL 279 MG/DL (<200); CHOLESTEROL RISK RATIO 4.42 (<5); GLOMERULAR FILTRATION RATE 56.4 (>58); GLUCOSE, FASTING 88 MG/DL (60-100); LDL CHOLESTEROL 194.4 MG/DL (<100); POTASSIUM SERUM 4.1 MMOL/L (3.5-5.1); SODIUM LEVEL 139 MMOL/L (136-145); THYROID STIMULATING HORMONE 2.058 uIU/ML (0.55-4.78); TOTAL PROTEIN 6.9 G/DL (5.7-8.2); TRIGLYCERIDES LEVEL 108 MG/DL (<150)
[2024-05-02 13:16] LABS: ESTRADIOL < 19.0 PG/ML
[2024-05-02 13:18] LABS: FREE T4 1.47 NG/DL (0.89-1.76)
== END ==
LOC: M SFHCCLAY 09:07
PROVIDERS: ATTEND Family Medicine
DX: M06.9 Rheumatoid arthritis, unspecified (principal); R79.89 Other specified abnormal findings of blood chemistry; N18.31 Chronic kidney disease, stage 3a; E28.39 Other primary ovarian failure; E34.9 Endocrine disorder, unspecified; C73 Malignant neoplasm of thyroid gland; E78.00 Pure hypercholesterolemia, unspecified

== ENCOUNTER → 2024-05-31 | Outpatient (REF) | payer BC ==
[2024-05-31 13:30] LABS: BASO % 0.8 % (0.0-1.0); EOS # 0.3 10^3/uL (0.0-0.5); EOS % 6.9 % (0.0-3.0); HEMATOCRIT 38.6 % (36.0-47.0); HEMOGLOBIN 12.9 g/dl (12.0-15.5); LYMPH # 1.5 10^3/uL (1.5-5.0); LYMPH % 29.5 % (24.0-44.0); MEAN CORPUSCULAR HEMOGLOBIN 28.4 pg (27.0-33.0); MEAN CORPUSCULAR HGB CONC 33.4 g/dl (32.0-36.5); MONO # 0.6 10^3/uL (0.0-0.8); MONO % 12.6 % (2.0-8.0); NEUTROPHILS # 2.4 10^3/uL (1.5-8.5); NEUTROPHILS % 49.6 % (36.0-66.0); PLATELET COUNT, AUTOMATED 309 10^3/uL (150-450); RED BLOOD COUNT 4.54 10^6/uL (4.00-5.40); WHITE BLOOD COUNT 4.9 10^3/uL (4.0-10.0)
[2024-05-31 13:52] LABS: ALBUMIN 3.7 G/DL (3.2-5.2); ALKALINE PHOSPHATASE 78 U/L (35-104); ALT/SGPT 61 U/L (7.0-40); AST/SGOT 35 U/L (<34); BILIRUBIN,TOTAL 0.3 MG/DL (0.3-1.2); BLOOD UREA NITROGEN 16 MG/DL (9-23); CALCIUM LEVEL 9.1 MG/DL (8.5-10.1); CARBON DIOXIDE LEVEL 27 MMOL/L (20-31); CHLORIDE LEVEL 104 MMOL/L (98-107); CREATININE FOR GFR 0.88 MG/DL (0.55-1.30); GLOMERULAR FILTRATION RATE > 60.0 (>58); GLUCOSE, FASTING 86 MG/DL (60-100); POTASSIUM SERUM 4.5 MMOL/L (3.5-5.1); SODIUM LEVEL 142 MMOL/L (136-145)
== END ==
LOC: M SFHCCLAY 09:07
PROVIDERS: ATTEND Physician Assistant
DX: R50.9 Fever, unspecified (principal)

== ENCOUNTER → 2024-12-25 | Outpatient (REF) | payer BC ==
[~2024-12-25] MED LIST changes: -COLC0.6T47 PO; +COLC0.6T53 PO; -FLOM0.4C39 PO; +TAMS-18 PO; +TOPI-256 PO; -TOPI25TA10 PO
[2024-12-25 15:17] LABS: ALT/SGPT 24.0 U/L (7.0-40); AST/SGOT 22.0 U/L (<34); CALCIUM LEVEL 9.1 MG/DL (8.5-10.1); CARBON DIOXIDE LEVEL 29.0 MMOL/L (20-31); CHLORIDE LEVEL 103.0 MMOL/L (98-107); CREATININE FOR GFR 0.98 MG/DL (0.55-1.30); GLOMERULAR FILTRATION RATE 70.8 (>58); POTASSIUM SERUM 3.8 MMOL/L (3.5-5.1); SODIUM LEVEL 141.0 MMOL/L (136-145)
== END ==
LOC: M LAB REF 13:33
PROVIDERS: ATTEND Physician Assistant Medical
DX: R90.89 Other abnormal findings on diagnostic imaging of central nervous system (principal)

== ENCOUNTER → 2025-01-31 | Outpatient (CLI) | payer BC ==
[~2025-01-31] MED LIST changes: +ISOVUE-370 76% 100 ML VIAL As Ordered ONE
== END ==
LOC: M RAD 13:17
PROVIDERS: ATTEND Internal Medicine Gastroenterology
DX: R11.2 Nausea with vomiting, unspecified (principal); R10.84 Generalized abdominal pain

== ENCOUNTER → 2025-02-11 | Outpatient (REF) | payer BC ==
[~2025-02-11] MED LIST changes: -ISOVUE-370 76% 100 ML VIAL As Ordered ONE
[2025-02-11 12:52] LABS: ALT/SGPT 32 U/L (7.0-40); AST/SGOT 26 U/L (<34)
== END ==
LOC: M LABDRAWC 12:08
PROVIDERS: ATTEND Internal Medicine Gastroenterology
DX: K76.0 Fatty (change of) liver, not elsewhere classified (principal)

== ENCOUNTER → 2025-02-11 | Outpatient (REF) | payer BC ==
[2025-02-11 12:48] LABS: BASO # 0.1 10^3/uL (0.0-0.2); BASO % 1.1 % (0.0-1.0); EOS # 0.2 10^3/uL (0.0-0.5); EOS % 2.1 % (0.0-3.0); LYMPH # 1.8 10^3/uL (1.5-5.0); LYMPH % 25.6 % (24.0-44.0); MONO # 0.4 10^3/uL (0.0-0.8); MONO % 6.3 % (2.0-8.0); NEUTROPHILS # 4.5 10^3/uL (1.5-8.5); NEUTROPHILS % 64.6 % (36.0-66.0); PLATELET COUNT, AUTOMATED 310 10^3/uL (150-450)
[2025-02-11 12:51] LABS: C REACTIVE PROTEIN QUANTITATIV < 0.50 MG/DL (<1.0)
[2025-02-11 12:52] LABS: ALT/SGPT 32 U/L (7.0-40); AST/SGOT 26 U/L (<34); CALCIUM LEVEL 9.0 MG/DL (8.5-10.1); CARBON DIOXIDE LEVEL 27 MMOL/L (20-31); CHLORIDE LEVEL 104 MMOL/L (98-107); CHOLESTEROL LEVEL 266 MG/DL (<200); CHOLESTEROL RISK RATIO 3.88 (<5); CREATININE FOR GFR 0.94 MG/DL (0.55-1.30); GLOMERULAR FILTRATION RATE 74.4 (>58); LDL CHOLESTEROL 181.4 MG/DL (<100); NON-HDL-C 197.6 MG/DL; POTASSIUM SERUM 4.1 MMOL/L (3.5-5.1); SODIUM LEVEL 140 MMOL/L (136-145); TRIGLYCERIDES LEVEL 81 MG/DL (<150)
[2025-02-12 09:38] LABS: LDL DIRECT 197 mg/dL (<100)
== END ==
LOC: M LABDRAWC 12:09
PROVIDERS: ATTEND Internal Medicine
DX: L40.50 Arthropathic psoriasis, unspecified (principal)